=== PATIENT | female | born 1940 | race Caucasian/White ===

== ENCOUNTER 2016-09-23 12:09 | Inpatient (IN) | payer MEDICARE, BC ==
[~2016-09-23] VITALS: Ht 160 cm; Wt 57.6 kg
[~2016-09-23 12:09] MED LIST: ASPIRIN; ATIVAN; CELEBREX; CYANOCOBALAMIN; EXFORGE; GLUCOVANCE; LASIX; LIPITOR
[2016-09-23 13:00] VITALS: Ht 160 cm; Wt 57.6 kg
[2016-09-23] MEDS ORDERED: SOD CHLORIDE 0.9% 500 ML IV ONE (14:30)
[2016-09-23] MEDS ORDERED: morphine 2 MG INJ IV ONE (14:30)
[2016-09-23 14:35] LABS: ADD SCAN DIFF NO
[2016-09-23 14:37] LABS: BASOPHIL # 0.1 10^3/ul (0.0-0.1); BASOPHILS % 0.3 % (0.0-2.0); HEMATOCRIT 39.3 % (37.0-47.0); HEMOGLOBIN 12.7 g/dl (12.0-16.0); LYMPHOCYTES # 2.5 10^3/ul (0.8-2.9); LYMPHOCYTES % 10.4 % (15.0-51.0); MEAN CORPUSCULAR HEMOGLOBIN 30.8 pg (29.0-33.0); MEAN CORPUSCULAR HGB CONC 32.3 g/dl (32.0-37.0); MEAN CORPUSCULAR VOLUME 95.2 fl (82.0-101.0); MEAN PLATELET VOLUME 10.7 fl (7.4-10.4); MONOCYTE # 1.4 10^3/ul (0.3-0.9); NEUTROPHIL # 19.7 10^3/ul (1.6-7.5); NEUTROPHILS % 82.6 % (39.0-77.0); PLATELET COUNT 363 10^3/UL (140-415); RED BLOOD COUNT 4.13 10^6/ul (4.20-5.40); RED CELL DISTRIBUTION WIDTH 16.9 % (11.5-14.5); WHITE BLOOD COUNT 23.9 10^3/ul (4.8-10.8)
[2016-09-23 14:51] LABS: POTASSIUM 4.3 mmol/L (3.5-5.1)
[2016-09-23 14:53] LABS: CREATININE 1.85 mg/dl (0.44-1.00)
[2016-09-23 14:54] LABS: CALCIUM 9.2 mg/dl (8.4-10.2)
[2016-09-23] MEDS ORDERED: SODIUM CHLORIDE 0.9% 1L BAG IV* STA (15:08)
[2016-09-23] MEDS ORDERED: ACET-141 PO (15:28)
[2016-09-23] MEDS ORDERED: DONE5TAB46 PO (15:29)
[2016-09-23] MEDS ORDERED: LORA-441 PO (15:29)
[2016-09-23] MEDS ORDERED: CYAN100085 PO (15:30)
[2016-09-23] MEDS ORDERED: DOCU-159 PO (15:31)
[2016-09-23] MEDS ORDERED: FER325 PO (15:31)
[2016-09-23] MEDS ORDERED: DEXT38GE15 PO (15:33)
[2016-09-23] MEDS ORDERED: LOSA50TA6 PO (15:35)
[2016-09-23] MEDS ORDERED: MAGN400T28 PO (15:35)
[2016-09-23 15:36] LABS: INR 1.03; PROTIME 13.5 Sec (12.2-14.2); PT RATIO 1.1
[2016-09-23] MEDS ORDERED: MULT-105 PO (15:36)
[2016-09-23 15:37] LABS: PARTIAL THROMBOPLASTIN TIME 27.5 Sec (25.0-35.0)
[2016-09-23] MEDS ORDERED: MEMA5TAB PO (15:37)
[2016-09-23] MEDS ORDERED: AMLO5TAB4 PO (15:38)
[2016-09-23] MEDS ORDERED: NOVO3I SC (15:43)
[2016-09-23] MEDS ORDERED: CITR473S PO (15:47)
[2016-09-23] MEDS ORDERED: OLAN2.5T4 PO (15:49)
--- NOTE | 2016-09-23 16:04 | RADRPT ---
PROCEDURE: Chest Radiograph. CLINICAL INDICATION: Sepsis TECHNIQUE: Single frontal chest radiograph. COMPARISON: Chest radiograph 06/05/2007 FINDINGS: Heart size is within normal limits. Atherosclerotic calcifications are present. There is scarring in the left mid lung zone, stable compared to prior study . No confluent or lobar infiltrate is see n. No pleural effusion is identified. The bones are intact. IMPRESSION: 1. Stable radiographic appearance of chest compared to 06/05/2007 without evidence of acute cardiop ulmonary disease. 2. Atherosclerotic vascular disease. RPTAT: KK .Ry Coyne MD, MD Date Time Electronically viewed and signed by .Ry Coyne MD, on 09/23/2016 16:03 .B/
--- NOTE | 2016-09-23 16:08 | RADRPT ---
PROCEDURE: CT scan of the neck without contrast. CLINICAL INDICATION: Neck swelling TECHNIQUE: CT scan of the neck was performed. The patient was examined without the use of intrave nous iodinated contrast. No reported complications occurred. One or more of the following dose re duction techniques were used: Automated exposure control, Adjustment of the mA and/or kV according t o patient size, and/or use of iterative reconstruction technique. DOSE: CTDI = 10 mGy and the DLP = 269 mGy-cm. COMPARISON: None available FINDINGS: Evaluation of the soft tissues and vasculature is limited without contrast. Enlarged left submandibular gland with prominent adjacent inflammatory stranding and left submandibu lar space lymph nodes. There is thickening of the left platysma. No gross drainable fluid collecti on is seen on this limited noncontrast study. No bony erosive changes are seen to the mandible. Will ma extends to the deep soft tissues of the neck with left hypopharyngeal wall thickening. No signif icant airway narrowing is identified. 4 mm calcification at the superior medial aspect of the subman dibular gland could represent a small left submandibular gland stone. No obstructing stone is seen w ithin the expected course of the left submandibular duct. The bilateral parotid and right submandibular glands are unremarkable The thyroid gland is unremarka ble. Right maxillary sinus mucosal thickening. No layering sinus fluid is seen. The mastoids are clear. Degenerative changes of the spine. The visualized lung apices are clear. IMPRESSION: Left submandibular gland sialoadenitis with adjacent inflammatory stranding and mild narrowing of th e hypopharynx.. No gross drainable fluid collection on this limited, noncontrast exam. 4 mm calcification at the superior aspect of the gland may represent a small left submandibular ston e. No obstructing stone along the course of the left submandibular duct. RPTAT: AA .Panda Freeman MD, Date Time Electronically viewed and signed by .Panda Freeman MD, on 09/23/2016 16:07 .T/
[2016-09-23] MEDS ORDERED: CEFTRIAXONE 1 GM/50 ML (PMX) 50 ML IVPB ONE (17:00)
[2016-09-23] MEDS ORDERED: AMPICILLIN/SULB 3 GM/NS (PMX) 100 ML IVPB ONE (17:30)
[2016-09-23] MEDS ORDERED: ACETAMINOPHEN 325 MG TAB PO PRN (17:30)
[2016-09-23] MEDS ORDERED: ONDANSETRON 4 MG INJ IV PRN (17:30)
[2016-09-23 18:35] LABS: ADD UMIC YES; URINE BILIRUBIN (Dip) 2+ (NEGATIVE); URINE BLOOD (Dip) 3+ (NEGATIVE); URINE COLOR YELLOW (YELLOW); URINE GLUCOSE (Dip) NEGATIVE (NEGATIVE); URINE KETONES (Dip) 15 (NEGATIVE); URINE LEUKOCYTE ESTERASE (Dip) 2+ (NEGATIVE); URINE NITRITE (Dip) NEGATIVE (NEGATIVE); URINE TOTAL PROTEIN (Dip) 2+ (NEGATIVE); URINE UROBILINOGEN (Dip) 0.2 E.U./dL (0.1-1.0)
[2016-09-23 18:44] LABS: ICTOTEST NEGATIVE (NEGATIVE)
[2016-09-23 18:49] LABS: BACTERIA,URINE MANY; TRANSITIONAL EPI CELLS,URINE MODERATE
--- NOTE | 2016-09-23 19:35 | ERA ---
ER Documentation Chief Complaint Date/Time DATE: 09/23/16 TIME: 19:26 Chief Complaint SENT FROM SNF FOR EVAL OF LEFT MANDIBULAR ABCESS. HPI This 76-year-old female was sent from her care home facility because of submandibular swelling is causing her pain. She is accompanied by her in this case. This was noted approximately 2 or 3 days ago. Patient is also felt more tired than usual. Patient herself is a poor historian a complete history cannot be taken. Most of the information is obtained from her of the patient does answer some questions. Supposedly she has no chest pain or shortness of breath and has felt no fevers. ROS Unobtainable secondary to clinical condition Medications Home Meds Reported Medications Olanzapine* (Zyprexa*) 2.5 Mg Tablet, 2.5 MG PO QHS, #30 TAB 09/23/16 Citric Acid/Sodium Citrate (Sod Citrate-Citric Acid Soln) 473 Ml Solution, 5 ML PO BID 09/23/16 Insulin Aspart* (Novolog Insulin Pen*) 100 Unit/Ml Soln, 0 SC .SLIDING SCALE AC , EA IF BS IS LESS THAN 60, CALL MD IF 60-149=0, 150-199=1 UNITS, 200-249=2 UNITS, 250-299=3 UNITS, 300-349=4 UNITS, IF BS IS GREATER THAN 349, GIVE 5 UNITS. 09/23/16 Amlodipine Besylate* (Norvasc*) 5 Mg Tablet, 5 MG PO DAILY, TAB HOLD FOR SBP<110 DX HTN 09/23/16 Memantine* (Namenda*) 5 Mg Tablet, 5 MG PO BID, #60 TAB 09/23/16 Multivitamin with Minerals (Multivitamins with Minerals) 1 Each Tablet, 1 EACH PO DAILY, TAB 09/23/16 Magnesium Oxide* (Magnesium Oxide*) 400 Mg Tablet, 400 MG PO Q12H, TAB 09/23/16 Losartan Potassium* (Losartan Potassium*) 50 Mg Tablet, 100 MG PO DAILY, TAB HOLD FOR SBP<110DX HTN 09/23/16 Dextrose (Glucose Gel) 38 Gm Gel..gram., 38 GM PO DAILY Y for PRN FOR BS OF<70 WHILE AWAKE 09/23/16 Ferrous Sulfate* (Ferrous Sulfate*) 325 Mg Tabec, 325 MG PO DAILY, TAB 09/23/16 Docusate Sodium* (Docusate Sodium*) 100 Mg Capsule, 100 MG PO BID, #60 CAP 09/23/16 Cyanocobalamin (Vitamin B-12) (B-12) 1,000 Mcg Tablet, 1000 MCG PO QAM, TAB 09/23/16 Lorazepam* (Ativan*) 0.5 Mg Tablet, 0.5 MG PO QAM Y for ANXIETY, #30 TAB 09/23/16 Donepezil* (Aricept*) 5 Mg Tablet, 5 MG PO QPM, TAB 09/23/16 Acetaminophen* (Acetaminophen*) 500 MG Extra Strength Tablet, 500 MG PO Q8H Y for MILD PAIN LEVEL 1-3, TAB 09/23/16 Discontinued Reported Medications [Ativan] No Conflict Check 09/04/11 [Lipitor] No Conflict Check 09/04/11 [Lasix] No Conflict Check 09/04/11 [Glucovance] No Conflict Check 09/04/11 [Exforge] No Conflict Check 09/04/11 [Cyanocobalamin] No Conflict Check 09/04/11 [Celebrex] No Conflict Check 09/04/11 [Aspirin] No Conflict Check 09/04/11 Allergies Allergies: Coded Allergies: No Known Allergies (Verified Allergy, Mild, 09/23/16) PMhx/Soc History of Surgery: Yes (GALLBLADDER, HERNIA, APPENDECTOMY, ) Anesthesia Reaction: No Hx Neurological Disorder: No Hx Respiratory Disorders: No Hx Cardiac Disorders: Yes (HTN) Hx Psychiatric Problems: No Hx Miscellaneous Medical Probl: Yes (dm, dysphagia) Hx Alcohol Use: No Hx Substance Use: No Hx Tobacco Use: No Smoking Status: Unknown if ever smoked Physical Exam Vitals Vital Signs Date Time Temp Pulse Resp B/P Pulse Ox O2 Delivery O2 Flow Rate FiO2 09/23/16 13:00 98.3 76 19 146/81 100 Physical Exam Const: [] Head: Atraumatic Eyes: Normal Conjunctiva ENT: Normal External Ears, Nose and Mouth. Neck: Full range of motion..~ No meningismus. Resp: Clear to auscultation bilaterally Cardio: Regular rate and rhythm, no murmurs Abd: Soft, non tender, non distended. Normal bowel sounds Skin: No petechiae or rashes Back: No midline or flank tenderness Ext: No cyanosis, or edema Neur: Awake and alert Psych: Normal Mood and Affect Result Diagram: 09/23/16 1425 09/23/16 1407 Results 24 hrs Laboratory Tests Test 09/23/16 14:07 09/23/16 14:25 09/23/16 16:10 09/23/16 18:10 Sodium Level 147mmol/L Potassium Level 4.3mmol/L Chloride Level 108mmol/L Carbon Dioxide Level 20mmol/L Anion Gap 23 Blood Urea Nitrogen 33mg/dl Creatinine 1.85mg/dl Glucose Level 288mg/dl Calcium Level 9.2mg/dl White Blood Count 23.910^3/ul Red Blood Count 4.1310^6/ul Hemoglobin 12.7g/dl Hematocrit 39.3% Mean Corpuscular Volume 95.2fl Mean Corpuscular Hemoglobin 30.8pg Mean Corpuscular Hemoglobin Concent 32.3g/dl Red Cell Distribution Width 16.9% Platelet Count 05196^3/UL Mean Platelet Volume 10.7fl Neutrophils % 82.6% Lymphocytes % 10.4% Monocytes % 6.0% Eosinophils % 0.0% Basophils % 0.3% Nucleated Red Blood Cells % 0.0/100WBC Neutrophils # 19.710^3/ul Lymphocytes # 2.510^3/ul Monocytes # 1.410^3/ul Eosinophils # 0.010^3/ul Basophils # 0.110^3/ul Nucleated Red Blood Cells # 0.010^3/ul Prothrombin Time 13.5Sec Prothrombin Time Ratio 1.1 INR International Normalized Ratio 1.03 Activated Partial Thromboplast Time 27.5Sec Lactic Acid Level 3.2mmol/L Urine Color YELLOW Urine Clarity CLOUDY Urine pH 5.0 Urine Specific [place] >=1.030 Urine Ketones 15 Urine Nitrite NEGATIVE Urine Bilirubin 2+ Urine Ictotest NEGATIVE Urine Urobilinogen 0.2 E.U./dL Urine Leukocyte Esterase 2+ Urine Microscopic RBC 5-10/HPF Urine Microscopic WBC >200/HPF Urine Transitional Epithelial Cells MODERATE Urine Bacteria MANY Urine Yeast MANY Urine Hemoglobin 3+ Urine Glucose NEGATIVE% Urine Total Protein 2+ Test 09/23/16 18:20 Lactic Acid Level 1.5mmol/L Current Medications Medications (Trade) Dose Ordered Sig/Cassidy Route PRN Reason Start Time Stop Time Status Last Admin Dose Admin Sodium Chloride (NS) 500 ml @ 500 mls/hr Q1H ONCE IV 09/23/16 14:30 09/23/16 15:29 DC 09/23/16 15:22 Morphine Sulfate (morphine) 2 mg ONCE ONCE IV 09/23/16 14:30 09/23/16 14:31 DC Sodium Chloride 2020 ml 2,020 ml BOLUS OVER 2 HOURS STAT IV* 09/23/16 15:08 09/23/16 15:10 DC 09/23/16 15:08 Ceftriaxone Sodium 50 ml @ 100 mls/hr ONCE ONCE IVPB 09/23/16 17:00 09/23/16 17:29 DC 09/23/16 17:00 Ampicillin Sodium/ Sulbactam Sodium (Unasyn 3gm/NS (Pmx)) 100 ml @ 100 mls/hr ONCE ONCE IVPB 09/23/16 17:30 09/23/16 18:29 DC 09/23/16 19:09 Ondansetron HCl (Zofran Inj) 4 mg BRIDGE ORDER PRN IV NAUSEA AND/OR VOMITING 09/23/16 17:30 09/24/16 17:29 Acetaminophen (Tylenol Tab) 650 mg ER BRIDGE PRN PO MILD PAIN/FEVER 09/23/16 17:30 09/24/16 17:29 Procedures/MDM Patient with UTI with acute kidney injury, dehydration. Patient also has sialolithiasis which may or may not be related to the elevated white count. She was given 30 cc/kg of IV fluids. Also early started on Rocephin. She is given a small dose of morphine for her pain. This did resolve the pain and she touched the underside of her chin. Because of likely infection from this area with the fat stranding in the CAT scan she was started on Unasyn as well. Patient did not have any unstable vital signs. She did have hyperglycemia which was treated with normal saline. I spoke with Dr. Wolf who is Luke aware of the patient had already called an ENT doctor, Dr. Mathur, to consult with the patient. Patient is being admitted to the medical surgical floor. EKG interpretation: Normal sinus rhythm rate of 99, indeterminate axis, no ST or T-wave changes concerning for acute ischemia, QT of 485. campus monitor interpretation: Normal sinus rhythm without arrhythmia Chest x-ray interpretation: No acute process, no widened mediastinum, no pneumothorax, no infiltrates, no fractures. CT soft tissue neck interpretation: Sialolithiasis with 4 mm stone in soft tissue swelling with adjacent fat stranding. No drainable fluid collection Departure Diagnosis: Primary Impression: Sialolithiasis Additional Impressions: UTI (urinary tract infection) Acute kidney injury Hyperglycemia Lactic acidosis Dehydration OMER JIMENEZ DO Sep 23, 2016 19:34
[2016-09-23] MEDS ORDERED: SOD CHLORIDE 0.9% 1,000 ML IV ONE (20:00)
--- NOTE | 2016-09-23 20:21 | HP ---
Date/Time of Note Date/Time of Note DATE: 09/23/16 TIME: 20:05 Assessment/Plan VTE Prophylaxis VTE Prophylaxis Intervention: anti-embolic stocking Lines/Catheters Central line still needed: Yes Urinary Cath still in place: Yes Reason Cath still needed: urinary retention Assessment/Plan Assessment/Plan 1.Sepsis 2.Left submandibular sialitis and possible abscess;Stone in a duct. called. 3.ARF 4.Anemia of chronic disease with low iron. 5.AD& MD with anxiety. 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 15.Kyphosis 16Urinary incontinence with episodes of retention. 17.Hx of kidney cysts. Cont'd Hospitalization Reason: sepsis. HPI/ROS Admit Date/Time Admit Date/Time Recived a call from the son of the patient Saorj. His mother had developed left sided neck mass just below the mandible.Cheked the patient in am in [facility] [place],painful, newlyformed mass was palpated with discomfort of the patient. Stat hospitalization. ROS Unable to obtain any information from the patient due to of mental status. Subjective hx not possible: pt non-verbal, pt critical Constitutional: chills, disoriented, fatigue, febrile, nausea, poor po, weight change, No diaphoresis, No improved, No no complaints, No other PMH/Family/Social Past Medical History Medical History: angina, colitis, congestive heart failure, coronary artery disease, diabetes, diverticulitis, gallstones, GERD, high cholesterol, hypertension, renal disease, urinary tract infection Family History Significant Family History: heart disease, diabetes, hypertension, renal disease Social History Alcohol Use: none Smoking Status: Never smoker Drug Use: none Exam/Review of Systems Vital Signs Vitals Vital Signs Date Time Temp Pulse Resp B/P Pulse Ox O2 Delivery O2 Flow Rate FiO2 09/23/16 13:00 98.3 76 19 146/81 100 Exam Constitutional: frail, non-verbal, other (lethargic, weak, arousable in pain and disstress.), No alert, No distress, No oriented, No well developed Psych: confusion, depression, No anxiety, No nl mood/affect, No no complaints, No other, No suicidal Head: No atraumatic, No hematomas, No lacerations, No normocephalic, No other Eyes: EOMI, PERRL, No fundi, disc, No icteric, No nl conjunctiva, No nl lids, No nl sclera, No other ENMT: nl external ears & nose, nl lips & teeth, nl nasal mucosa & septum, other (Left submandibular mass bigger than chicken egg witout fluctuations or redness. No right sided similar lesion.) Neck: bruits, nuchal rigidity, No jvd, No masses, No non-tender, No other, No supple, No thyromegaly Respiratory: normal air movement, No clear to auscultation, No congested cough, No crackles/rales, No diminished breath sounds, No intercostal retraction, No labored breathing, No other, No respirations, No tactile fremitus, No wheezing Cardiovascular: bruits, murmurs/extra sounds, systolic murmur, No S3, No S4, No diastolic murmur, No edema, No gallop, No irregular rhythm, No jugular venous distention (JVD), No nl pulses, No other, No regular rate and rhythm, No rub Gastrointestinal: bowel sounds, nl liver, spleen, soft, No ascites, No distended, No firm, No hepatomegaly, No mass, No non-tender, No other, No rebound or guarding, No splenomegaly, No surgical scars, No tender Genitourinary - Female: No CMT, No CVA tenderness, No nl adnexae, No nl external genitalia, No other, No uterus Musculoskeletal: joint tenderness, other (unable to get up or move without help.), No muscle tone, No muscle weakness, No nl extremities to inspection, No nl gait and stance, No range of motion, No spine non-tender, No swelling Extremities: No calf tenderness, No clubbing, No cyanosis, No edema, No normal pulses, No other, No palpable cord, No pitting pedal edema, No tenderness Neurological: CERTIFIED ORTHOTIST/PEDORTHIST II-XII intact, confused, lethargic, No DTR's symmetric, No focal weakness, No nl mental status, No nl speech, No nl strength, No numbness, No other, No reflexes, No unresponsive Skin: No diaphoresis, No ecchymosis, No laceration, No nl turgor, No other, No puncture, No rash or lesions Lymph: No enlarged, No nl lymph nodes, No nontender, No other Labs Result Diagram: 09/23/16 1425 09/23/16 1407 Medications Medications Current Medications Sodium Chloride (NS) 1,000 ml @ 1,000 mls/hr Q1H ONCE IV ; Start 09/23/16 at 20 :00; Stop 09/23/16 at 20:59 JR DEAN MD Sep 23, 2016 20:16
[2016-09-23] MEDS ORDERED: LIDOCAINE 1% (MDV) 20 ML INJ SC ONE ×2 (20:30→21:00)
[2016-09-23] MEDS ORDERED: SOD CHLORIDE 0.9% 2,020 ML IV ONE (21:00)
[2016-09-23 21:23] LABS: IRON 20 ug/dl (35-150)
[2016-09-23 21:32] LABS: TOTAL IRON BINDING CAPACITY 168 ug/dl (241-421)
[2016-09-23 21:53] LABS: THYROID STIMULATING HORMONE 1.2 MIU/L (0.465-4.680)
[2016-09-23] MEDS: CLINDAMYCIN 300 MG/D5W (PMX) 50 ML IVPB SCH (21:56)
[2016-09-23] MEDS: AMPICILLIN/SULB 3 GM/NS (PMX) 100 ML IVPB SCH (21:57)
[2016-09-23] MEDS: ACETAMINOPHEN 325 MG SUPP PR SCH (22:00)
[2016-09-23 22:30] VITALS: TEMP 98.9
[2016-09-24 00:45] VITALS: BP 152/69; PULSE 84; RESP 20
[2016-09-24] MEDS: DEXTROSE 5%-0.9% NACL 1,000 ML IV SCH ×2 (01:15→15:07)
[2016-09-24] MEDS: INSULIN GLARGINE [LANtus] 3 ML PEN SC SCH ×2 (01:28→22:14)
[2016-09-24] MEDS ORDERED: GLUCAGON 1 MG INJ IM PRN (01:30)
[2016-09-24] MEDS ORDERED: DEXTROSE 50% 50 ML SYRINGE IV PRN ×2 (01:30)
[2016-09-24] MEDS ORDERED: GLUCOSE GEL 15 GRAM TUBE PO PRN ×2 (01:30)
[2016-09-24] MEDS ORDERED: GLUCOSE GEL 15 GRAM TUBE BUCCAL PRN (01:30)
[2016-09-24] MEDS ORDERED: ACCU-CHEK XX SCH (02:00)
[2016-09-24] MEDS: ACCU-CHEK XX SCH (02:00)
[2016-09-24] MEDS: ACETAMINOPHEN 325 MG SUPP PR SCH ×3 (05:57→23:17)
[2016-09-24 06:03] LABS: ADD SCAN DIFF NO; BASOPHIL # 0.1 10^3/ul (0.0-0.1); BASOPHILS % 0.4 % (0.0-2.0); EOSINOPHILS # 0.1 10^3/ul (0.0-0.5); EOSINOPHILS % 0.7 % (0.0-7.0); HEMATOCRIT 34.2 % (37.0-47.0); HEMOGLOBIN 10.8 g/dl (12.0-16.0); LYMPHOCYTES # 2.2 10^3/ul (0.8-2.9); MEAN CORPUSCULAR HEMOGLOBIN 30.3 pg (29.0-33.0); MEAN CORPUSCULAR HGB CONC 31.6 g/dl (32.0-37.0); MEAN CORPUSCULAR VOLUME 95.8 fl (82.0-101.0); MEAN PLATELET VOLUME 11.6 fl (7.4-10.4); MONOCYTE # 1.2 10^3/ul (0.3-0.9); MONOCYTES % 6.2 % (0.0-11.0); NEUTROPHIL # 16.2 10^3/ul (1.6-7.5); PLATELET COUNT 293 10^3/UL (140-415); RED BLOOD COUNT 3.57 10^6/ul (4.20-5.40); RED CELL DISTRIBUTION WIDTH 17.2 % (11.5-14.5)
[2016-09-24] MEDS: CLINDAMYCIN 300 MG/D5W (PMX) 50 ML IVPB SCH ×3 (06:17→23:17)
[2016-09-24 06:25] LABS: CREATININE 1.34 mg/dl (0.44-1.00)
[2016-09-24 08:16] VITALS: BP 134/64; RESP 17
--- NOTE | 2016-09-24 08:16 | PN ---
Date/Time of Note Date/Time of Note DATE: 09/24/16 TIME: 08:11 Assessment/Plan VTE Prophylaxis VTE Prophylaxis Intervention: anti-embolic stocking VTE Contraindication Reason: peripheral vascular disease Lines/Catheters IV Catheter Type (from Nrsg): Peripheral IV Urinary Cath still in place: Yes Reason Cath still needed: urinary retention Assessment/Plan Assessment/Plan 1.Sepsis- improving. 2.Left submandibular sialitis and possible abscess;Stone in a duct. called. 3.ARF 4.Anemia of chronic disease with low iron. 5.AD& MD with anxiety. 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 15.Kyphosis 16Urinary incontinence with episodes of retention. 17.Hx of kidney cysts. Subjective 24 Hr Interval Summary Free Text/Dictation It is painful.While palpating left submandibular mass. Subjective hx not possible: pt critical status Constitutional: disoriented, poor po, requiring O2, No chills, No diaphoresis, No febrile, No improved, No no complaints, No other, No requiring IVF Eyes: visual change, No discharge, No no complaints, No other, No pain, No redness ENT: congestion Respiratory: cough, shortness of breath, No no complaints, No other, No pain, No pleuritic pain, No sputum, No wheezing Cardiovascular: chest pain, lightheadedness, orthopenea, palpitations, No edema, No no complaints, No other, No paroxysmal nocturnal dyspnea Exam/Review of Systems Vital Signs Vitals Vital Signs Date Time Temp Pulse Resp B/P Pulse Ox O2 Delivery O2 Flow Rate FiO2 09/24/16 00:45 98.8 84 20 152/69 97 Room Air Intake and Output 09/23/16 09/23/16 09/24/16 15:00 23:00 07:00 Intake Total 1100 ml 50 ml Output Total 400 ml Balance 1100 ml -350 ml Exam Constitutional: distress, frail, other (Unable to communicate due to of lethargy. Able to answer some questions.), No alert, No non-verbal, No obese, No oriented, No well developed Psych: anxiety, confusion, depression, No nl mood/affect, No no complaints, No other, No suicidal Head: atraumatic, normocephalic, No hematomas, No lacerations, No other Eyes: EOMI, PERRL, No fundi, disc, No icteric, No nl conjunctiva, No nl lids, No nl sclera, No other ENMT: mucosa pink and moist (pale.), nl external ears & nose, nl lips & teeth, nl nasal mucosa & septum, other (mass unter the left side of mandible appears alightly smoller.Still painful.), tympanic membranes, No intubated Neck: bruits, jvd, nuchal rigidity, No masses, No non-tender, No other, No supple, No thyromegaly Respiratory: congested cough, diminished breath sounds, labored breathing, No clear to auscultation, No crackles/rales, No intercostal retraction, No normal air movement, No other, No respirations, No tactile fremitus, No wheezing Cardiovascular: bruits, edema, systolic murmur Gastrointestinal: bowel sounds, soft, No ascites, No distended, No firm, No hepatomegaly, No mass, No nl liver, spleen, No non-tender, No other, No rebound or guarding, No splenomegaly, No surgical scars, No tender Genitourinary - Female: No CMT, No CVA tenderness, No nl adnexae, No nl external genitalia, No other, No uterus Musculoskeletal: joint tenderness, muscle tone, muscle weakness Skin: diaphoresis Results Result Diagram: 09/24/1644109/24/162 Results 24 hrs Laboratory Tests Test 09/23/16 14:07 09/23/16 14:25 09/23/16 16:10 09/23/16 16:45 Sodium Level 147 H Potassium Level 4.3 Chloride Level 108 Carbon Dioxide Level 20 L Anion Gap 23 H Blood Urea Nitrogen 33 H Creatinine 1.85 H Glucose Level 288 H Calcium Level 9.2 White Blood Count 23.9 H Red Blood Count 4.13 L Hemoglobin 12.7 Hematocrit 39.3 Mean Corpuscular Volume 95.2 Mean Corpuscular Hemoglobin 30.8 Mean Corpuscular Hemoglobin Concent 32.3 Red Cell Distribution Width 16.9 H Platelet Count 363 Mean Platelet Volume 10.7 H Neutrophils % 82.6 H Lymphocytes % 10.4 L Monocytes % 6.0 Eosinophils % 0.0 Basophils % 0.3 Nucleated Red Blood Cells % 0.0 Neutrophils # 19.7 H Lymphocytes # 2.5 Monocytes # 1.4 H Eosinophils # 0.0 Basophils # 0.1 Nucleated Red Blood Cells # 0.0 Prothrombin Time 13.5 Prothrombin Time Ratio 1.1 INR International Normalized Ratio 1.03 Activated Partial Thromboplast Time 27.5 Lactic Acid Level 3.2 H Magnesium Level 2.0 Iron Level 20 L Total Iron Binding Capacity 168 L Percent Iron Saturation 12 L Thyroid Stimulating Hormone (TSH) 1.200 Test 09/23/16 18:10 09/23/16 18:20 09/23/16 19:40 09/23/16 20:49 Urine Color YELLOW Urine Clarity CLOUDY Urine pH 5.0 Urine Specific [place] >=1.030 H Urine Ketones 15 Urine Nitrite NEGATIVE Urine Bilirubin 2+ H Urine Ictotest NEGATIVE Urine Urobilinogen 0.2 E.U./dL Urine Leukocyte Esterase 2+ H Urine Microscopic RBC 5-10 Urine Microscopic WBC >200 Urine Transitional Epithelial Cells MODERATE Urine Bacteria MANY Urine Yeast MANY Urine Hemoglobin 3+ H Urine Glucose NEGATIVE Urine Total Protein 2+ H Lactic Acid Level 1.5 1.2 1.0 Test 09/23/16 23:37 09/24/16 02:30 09/24/16 04:42 Bedside Glucose 245 H 259 H White Blood Count 20.0 H Red Blood Count 3.57 L Hemoglobin 10.8 L Hematocrit 34.2 L Mean Corpuscular Volume 95.8 Mean Corpuscular Hemoglobin 30.3 Mean Corpuscular Hemoglobin Concent 31.6 L Red Cell Distribution Width 17.2 H Platelet Count 293 Mean Platelet Volume 11.6 H Neutrophils % 81.0 H Lymphocytes % 11.0 L Monocytes % 6.2 Eosinophils % 0.7 Basophils % 0.4 Nucleated Red Blood Cells % 0.0 Neutrophils # 16.2 H Lymphocytes # 2.2 Monocytes # 1.2 H Eosinophils # 0.1 Basophils # 0.1 Nucleated Red Blood Cells # 0.0 Sodium Level 147 H Potassium Level 4.0 Chloride Level 116 H Carbon Dioxide Level 20 L Anion Gap 15 # Blood Urea Nitrogen 28 H Creatinine 1.34 H Glucose Level 262 H Lactic Acid Level 1.2 Calcium Level 8.0 L Medications Medications Current Medications Ampicillin Sodium/ Sulbactam Sodium 100 ml @ 100 mls/hr Q12 IVPB ; Start at 22:00 Clindamycin HCl/ Dextrose (Cleocin 300 Mg/ D5W (Pmx)) 50 ml @ 100 mls/hr Q8 IVPB Last administered on 09/24/16 06:17; Admin Dose 100 MLS/HR; Start at 22:00 Acetaminophen (Tylenol Supp) 325 mg Q8 DE Last administered on 09/24/16 05:57 ; Admin Dose 325 MG; Start 09/23/16 at 22:00 Insulin Glargine 4 unit 4 unit HS SC Last administered on 09/24/16 01:28; Admin Dose 4 UNIT; Start 09/24/16 at 01:00 Dextrose/Sodium Chloride (D5-NS) 1,000 ml @ 70 mls/hr [id number] IV Last administered on 09/24/16 01:15; Admin Dose 70 MLS/HR; Start 09/24/16 at 01:00 Diagnostic Test (Pha) (Accu-Chek) 1 ea 02 XX ; Start 09/24/16 at 02:00 Miscellaneous Information 1 ea NOTE XX ; Start 09/24/16 at 01:30 Glucose (Glutose) 15 gm Q15M PRN PO DECREASED GLUCOSE; Start 09/24/16 at 01:30 Glucose (Glutose) 22.5 gm Q15M PRN PO DECREASED GLUCOSE; Start 09/24/16 at 01: 30 Dextrose (D50w Syringe) 25 ml Q15M PRN IV DECREASED GLUCOSE; Start 09/24/16 at 01:30 Dextrose (D50w Syringe) 50 ml Q15M PRN IV DECREASED GLUCOSE; Start 09/24/16 at 01:30 Glucagon (Glucagen) 1 mg Q15M PRN IM DECREASED GLUCOSE; Start 09/24/16 at 01:30 Glucose (Glutose) 15 gm Q15M PRN BUCCAL DECREASED GLUCOSE; Start 09/24/16 at 01 :30 JR DEAN MD Sep 24, 2016 08:16
[2016-09-24] MEDS: INSULIN ASPART [NOVOLOG] 3 ML PEN SC SCH ×4 (08:52→20:25)
[2016-09-24] MEDS: ENOXAPARIN 60 MG/0.6 ML SYG SC SCH (09:41)
[2016-09-24 09:48] LABS: ALBUMIN 2.4 g/dl (3.3-4.9)
[2016-09-24 09:49] LABS: POTASSIUM 3.8 mmol/L (3.5-5.1)
[2016-09-24 09:51] LABS: ALBUMIN/GLOBULIN RATIO 0.77; BILIRUBIN,INDIRECT 0.1 mg/dl (0-1.1); BILIRUBIN,TOTAL 0.1 mg/dl (0.2-1.3); CREATININE 1.36 mg/dl (0.44-1.00); TOTAL PROTEIN 5.5 g/dl (6.1-8.1)
[2016-09-24 09:52] LABS: CALCIUM 7.9 mg/dl (8.4-10.2)
[2016-09-24] MEDS: PANTOPRAZOLE 40 MG INJ IV SCH (10:09)
[2016-09-24] MEDS: AMPICILLIN/SULB 3 GM/NS (PMX) 100 ML IVPB SCH ×2 (10:36→22:12)
[2016-09-24] MEDS: SOD FERRIC GLUC COMPLX 125 MG in SOD CHLORIDE 0.9% 100 ML IVPB SCH (11:42)
[2016-09-24 20:05] VITALS: BP 176/84; RESP 19
[2016-09-24] MEDS ORDERED: METOPROLOL 25 MG TAB PO SCH (21:00)
[2016-09-24] MEDS: METOPROLOL 25 MG TAB PO SCH (21:00)
[2016-09-24] MEDS ORDERED: CLONIDINE 0.2 MG/24 HR PATCH TRANSDERM SCH (21:00)
[2016-09-24] MEDS ORDERED: LORAZEPAM 2 MG INJ IV PRN (21:00)
[2016-09-24] MEDS: AMLODIPINE 5 MG TAB PO SCH (21:00)
[2016-09-24] MEDS: CLONIDINE 0.2 MG/24 HR PATCH TRANSDERM SCH (22:09)
[2016-09-25] VITALS (10 sets, daily range): BP systolic 145–163; BP diastolic 68–82; PULSE 69–95; RESP 18–24
[2016-09-25] MEDS: hydrALAzine 20 MG INJ IV PRN ×2 (00:30→18:18)
[2016-09-25] MEDS: ACCU-CHEK XX SCH (01:57)
[2016-09-25] MEDS ORDERED: LORAZEPAM 2 MG INJ IV PRN (03:30)
[2016-09-25] MEDS: DEXTROSE 5%-0.9% NACL 1,000 ML IV SCH (03:33)
[2016-09-25] MEDS: PANTOPRAZOLE 40 MG INJ IV SCH (05:21)
[2016-09-25] MEDS: ACETAMINOPHEN 325 MG SUPP PR SCH ×3 (06:00→21:53)
[2016-09-25 06:01] LABS: ADD SCAN DIFF NO
[2016-09-25 06:08] LABS: ABNORMAL IP MESSAGE 1; BASOPHIL # 0.1 10^3/ul (0.0-0.1); BASOPHILS % 0.4 % (0.0-2.0); EOSINOPHILS # 0.3 10^3/ul (0.0-0.5); EOSINOPHILS % 1.9 % (0.0-7.0); HEMATOCRIT 33.2 % (37.0-47.0); HEMOGLOBIN 10.9 g/dl (12.0-16.0); LYMPHOCYTES % 17.3 % (15.0-51.0); MEAN CORPUSCULAR HEMOGLOBIN 31.1 pg (29.0-33.0); MEAN CORPUSCULAR HGB CONC 32.8 g/dl (32.0-37.0); MEAN CORPUSCULAR VOLUME 94.6 fl (82.0-101.0); MEAN PLATELET VOLUME 12.5 fl (7.4-10.4); MONOCYTES % 5.7 % (0.0-11.0); NEUTROPHIL # 12.6 10^3/ul (1.6-7.5); NEUTROPHILS % 74.1 % (39.0-77.0); RED BLOOD COUNT 3.51 10^6/ul (4.20-5.40); RED CELL DISTRIBUTION WIDTH 16.7 % (11.5-14.5); WHITE BLOOD COUNT 17.1 10^3/ul (4.8-10.8)
[2016-09-25] MEDS: CLINDAMYCIN 300 MG/D5W (PMX) 50 ML IVPB SCH ×3 (06:49→21:49)
[2016-09-25] MEDS: INSULIN ASPART [NOVOLOG] 3 ML PEN SC SCH ×4 (08:00→21:00)
--- NOTE | 2016-09-25 08:47 | CONS ---
DATE OF ADMISSION: 09/23/2016 DATE OF CONSULTATION: 09/25/2016 REFERRING PHYSICIAN: Dr. Poon TYPE OF CONSULTATION: Head and neck surgery. HISTORY OF PRESENT ILLNESS: The patient is a 76-year-old female with dementia brought into the hosp ital with a several-day history of left-sided submandibular gland edema. The patient does have a hi story of diabetes. The patient was placed on Unasyn and clindamycin and consultations obtained. CT scan demonstrated inflammatory changes to the left submandibular gland without obvious abscess form ation and a 4 mm ductal stone. PAST MEDICAL HISTORY: Unobtainable. PAST SURGICAL HISTORY: Unobtainable. MEDICATIONS: Unasyn and clindamycin. ALLERGIES: UNKNOWN. REVIEW OF SYSTEMS: Unobtainable secondary to patient's dementia status. PHYSICAL EXAMINATION: VITAL SIGNS: Temperature 98, pulse 100, respirations 20, blood pressure 130/70. GENERAL: Elderly female in no acute distress with dementia. HEENT: Head: Atraumatic, normocephalic. ENT: Tympanic membranes are clear. Anterior ____ clear. Oral cavity/oropharynx demonstrates significant left lower mouth inflammation. NECK: Demonstrating left neck edema with no obvious area of fluctuance. There is bilateral cervica l lymphadenopathy. NEUROLOGIC: Cranial nerves II through XII grossly intact. SKIN: No facial rashes, edema, or lesions. LYMPHATIC: As noted above. ENDOCRINE: No thyroid enlargement. EXTREMITIES: No clubbing, cyanosis, or edema. ASSESSMENT AND PLAN: Left submandibular gland phlegmon with sialolithiasis and sialadenitis. RECOMMENDATIONS: 1. Continue clindamycin and Unasyn. 2. Suggest infectious disease consultation. 3. Hydration. 4. Better oral hygiene with antibiotic mouthwash or swab as by nursing. 5. Although the patient is diabetic, a short burst of prednisone or Decadron may be of some benefit . The case will be discussed with Dr. Poon or his staff. Please update me after 48 to 72 hours of such management. Dictated By: RICKI ATKINSON/NTS Conf#: [id number] DID#: [id number]
[2016-09-25 09:40] LABS: PLATELET COUNT 334 10^3/UL (140-415)
[2016-09-25] MEDS: METOPROLOL 25 MG TAB PO SCH ×2 (10:09→21:00)
[2016-09-25] MEDS: AMPICILLIN/SULB 3 GM/NS (PMX) 100 ML IVPB SCH (10:10)
[2016-09-25] MEDS: CYANOCOBALAMIN 1000 MCG INJ IM SCH (10:10)
[2016-09-25] MEDS: AMLODIPINE 5 MG TAB PO SCH ×2 (10:10→21:00)
[2016-09-25] MEDS: ENOXAPARIN 60 MG/0.6 ML SYG SC SCH (11:04)
[2016-09-25] MEDS ORDERED: VANCOMYCIN 1 GM (PMX) 250 ML IVPB SCH (11:30)
[2016-09-25] MEDS ORDERED: VANCOMYCIN IV PER PHARMACY XX SCH (11:30)
[2016-09-25] MEDS: SOD FERRIC GLUC COMPLX 125 MG in SOD CHLORIDE 0.9% 100 ML IVPB SCH (11:40)
[2016-09-25] MEDS ORDERED: VANCOMYCIN 1.25 GM in SOD CHLORIDE 0.9% 250 ML IVPB ONE (13:00)
--- NOTE | 2016-09-25 14:22 | CONS ---
Date/Time of Note Date/Time of Note DATE: 09/25/16 TIME: 14:13 Assessment/Plan Assessment/Plan Chief Complaint/Hosp Course H/o CAD/angina: unknown details. Unknown EF. Pt is nonverbal and cannot provide history H/o PAD: unknown details ?Aortic stenosis: no significant murmur by exam. Will check echo HTN: BP has been elevated but will not be too aggressive with stap aureus bacteremia and potential for decompensation Acute renal failure vs CKD: Cr improving Staph aureus bacteremia: ?from sialoadenitis. No abscess seen on CT but noncontrast Sialoadenitis with obstructive stone Dementia DM Problems: Additional Assessment/Plan -add ASA with PAD/CAD -consider low dose lipitor though with her overall condition, unclear benefit -continue metoprolol, amlodipine, clonidine patch -consider medication adjustment if BP still elevated tomorrow -f/u final cultures -echo Consultation Date/Type/Reason Date of Consultation: Sep 25, 2016 Type of Consultation: Cardiology Reason for Consultation HTN, PAD Referring Provider: JR DEAN MD Hx of Present Illness 76 yo F with severe dementia, CAD/angina (unknown details), PAD, DM, HTN, CKD, who presented from her SNF with facial swelling/pain and was found to left sialoadenitis with obstructing stone and infection. She was also noted to have 1 /2 blood cultures positive for staph aureus so far. The pt is nonverbal and unable to provide history. unable to obtain due to pt condition Constitutional: disoriented, poor po, requiring O2, No chills, No diaphoresis, No febrile, No improved, No no complaints, No other, No requiring IVF Eyes: visual change, No discharge, No no complaints, No other, No pain, No redness ENT: congestion Respiratory: cough, shortness of breath, No no complaints, No other, No pain, No pleuritic pain, No sputum, No wheezing Cardiovascular: chest pain, lightheadedness, orthopenea, palpitations, No edema, No no complaints, No other, No paroxysmal nocturnal dyspnea Psychological: anxiety, confusion, depression, No nl mood/affect, No no complaints, No other, No suicidal Past Medical History Medical History: angina, colitis, congestive heart failure, coronary artery disease, diabetes, diverticulitis, gallstones, GERD, high cholesterol, hypertension, renal disease, urinary tract infection Social History Alcohol Use: none Smoking Status: Never smoker Drug Use: none Exam/Review of Systems Vital Signs Vitals Vital Signs Date Time Temp Pulse Resp B/P Pulse Ox O2 Delivery O2 Flow Rate FiO2 09/25/16 08:40 97.7 90 24 163/78 99 09/25/16 06:00 Room Air Intake and Output 09/24/16 09/24/16 09/25/16 15:00 23:00 07:00 Intake Total 210 ml 150 ml 780 ml Output Total 100 ml 700 ml Balance 210 ml 50 ml 80 ml Exam Constitutional: No alert, No oriented Head: atraumatic, normocephalic Neck: No jvd Respiratory: clear to auscultation, No crackles/rales Cardiovascular: regular rate and rhythm, No edema, No systolic murmur Gastrointestinal: soft, No distended Neurological: No nl mental status, No nl speech Skin: rash or lesions Results EKG: Sinus, no ST changes Result Diagram: 09/25/16 0845 09/24/16 0442 Results 24 hrs Laboratory Tests Test 09/24/16 17:22 09/24/16 20:24 09/24/16 22:13 09/25/16 08:22 Bedside Glucose 139 134 124 122 Test 09/25/16 08:45 09/25/16 11:47 White Blood Count 17.1 H Red Blood Count 3.51 L Hemoglobin 10.9 L Hematocrit 33.2 L Mean Corpuscular Volume 94.6 Mean Corpuscular Hemoglobin 31.1 Mean Corpuscular Hemoglobin Concent 32.8 Red Cell Distribution Width 16.7 H Platelet Count 334 Mean Platelet Volume 12.5 H Neutrophils % 74.1 Lymphocytes % 17.3 Monocytes % 5.7 Eosinophils % 1.9 Basophils % 0.4 Nucleated Red Blood Cells % 0.0 Neutrophils # 12.6 H Lymphocytes # 3.0 H Monocytes # 1.0 H Eosinophils # 0.3 Basophils # 0.1 Nucleated Red Blood Cells # 0.0 Bedside Glucose 180 Medications Medications Current Medications Clindamycin HCl/ Dextrose (Cleocin 300 Mg/ D5W (Pmx)) 50 ml @ 100 mls/hr Q8 IVPB Last administered on 09/25/16t 06:49; Admin Dose 100 MLS/HR; Start at 22:00 Acetaminophen (Tylenol Supp) 325 mg Q8 [place] Last administered on 09/24/16 23:17 ; Admin Dose 325 MG; Start 09/23/16 at 22:00 Insulin Glargine 4 unit 4 unit HS SC Last administered on 09/24/16 22:14; Admin Dose 4 UNIT; Start 09/24/16 at 01:00 Dextrose/Sodium Chloride (D5-NS) 1,000 ml @ 70 mls/hr [id number] IV Last administered on 09/25/16 03:33; Admin Dose 70 MLS/HR; Start 09/24/16 at 01:00 Diagnostic Test (Pha) (Accu-Chek) 1 ea 02 XX ; Start 09/24/16 at 02:00 Miscellaneous Information 1 ea NOTE XX ; Start 09/24/16 at 01:30 Glucose (Glutose) 15 gm Q15M PRN PO DECREASED GLUCOSE; Start 09/24/16 at 01:30 Glucose (Glutose) 22.5 gm Q15M PRN PO DECREASED GLUCOSE; Start 09/24/16 at 01: 30 Dextrose (D50w Syringe) 25 ml Q15M PRN IV DECREASED GLUCOSE; Start 09/24/16 at 01:30 Dextrose (D50w Syringe) 50 ml Q15M PRN IV DECREASED GLUCOSE; Start 09/24/16 at 01:30 Glucagon (Glucagen) 1 mg Q15M PRN IM DECREASED GLUCOSE; Start 09/24/16 at 01:30 Glucose 15 gm 15 gm Q15M PRN BUCCAL DECREASED GLUCOSE; Start 09/24/16 at 01:30 Ferric Sodium Gluconate Complex/ Sodium Chloride (Ferrlecit/NS) 110 ml @ 110 mls/hr Q24H IVPB Last administered on 09/25/16 11:40; Admin Dose 110 MLS/HR; Start 09/24/16 at 10:00; Stop 09/28/16 at 10:59 Pantoprazole (Protonix Iv) 40 mg DAILY@06 IV Last administered on 09/25/16 05: 21; Admin Dose 40 MG; Start 09/24/16 at 09:00 Enoxaparin Sodium (Lovenox) 60 mg Q24H SC Last administered on 09/25/16 11:04 ; Admin Dose 60 MG; Start 09/24/16 at 09:00 Lorazepam (Ativan) 0.5 mg Q8H PRN IV ANXIETY Last administered on 09/24/16 21: 37; Admin Dose 0.5 MG; Start 09/24/16 at 21:00 Amlodipine Besylate (Norvasc) 5 mg BID PO Last administered on 09/25/16 10:10 ; Admin Dose 5 MG; Start 09/24/16 at 21:00 Hydralazine HCl (Apresoline) 5 mg Q6H PRN IV ELEVATED BLOOD PRESSURE Last administered on 09/25/16 00:30; Admin Dose 5 MG; Start 09/24/16 at 21:00 Cyanocobalamin (Vitamin B12 Inj) 1,000 mcg DAILY IM Last administered on 10:10; Admin Dose 1,000 MCG; Start 09/25/16 at 09:00; Stop 09/29/16 at 09: 01 Clonidine HCl (Catapres-Tts 2 Patch) 1 patch Q7D TRANSDERM Last administered on 09/24/16 22:09; Admin Dose 1 PATCH; Start 09/24/16 at 21:00 Metoprolol Tartrate (Lopressor) 25 mg BID PO Last administered on 09/25/16 10: 09; Admin Dose 25 MG; Start 09/24/16 at 21:00 Lorazepam 1 mg 1 mg Q8H PRN IV ANXIETY Last administered on 09/25/16 04:00; Admin Dose 1 MG; Start 09/25/16 at 03:30 Vancomycin HCl 1.25 gm/Sodium Chloride 250 ml @ 83.333 mls/ hr ONCE ONCE IVPB ; Start 09/25/16 at 13:00; Stop 09/25/16 at 15:59 Vancomycin HCl (Vancocin) 100 ml @ 100 mls/hr Q24H IVPB ; Start 09/26/16 at 13: 00 MINDA HATHAWAY Sep 25, 2016 14:22
[2016-09-25] MEDS: FLUCONAZOLE 200 MG TAB PO SCH (16:37)
[2016-09-25] MEDS: SOD CHLORIDE 0.9% 1,000 ML IV SCH (16:41)
[2016-09-25] MEDS: INSULIN GLARGINE [LANtus] 3 ML PEN SC SCH (21:53)
--- NOTE | 2016-09-25 22:53 | PN ---
Date/Time of Note Date/Time of Note DATE: 09/25/16 TIME: 22:50 Assessment/Plan VTE Prophylaxis VTE Prophylaxis Intervention: ambulation, anti-embolic stocking, LMWH VTE Contraindication Reason: peripheral vascular disease Lines/Catheters IV Catheter Type (from Nrsg): Peripheral IV Central line still needed: No Urinary Cath still in place: Yes Reason Cath still needed: urinary retention Assessment/Plan Assessment/Plan 1.Sepsis- MRSA positive blood culture; improving. 2.Left submandibular sialitis withpainful gland.Stone in a duct. Ent f/u. 3.ARF- improved. 4.Anemia of chronic disease with low iron-continue supplementation. 5.AD& MD with anxiety. 6.DM type 2-better controlled. 7.Weight loss 8.urinary incontinence 9.Cholelithiasis 10.PAD with near critical aortic stenosis 11.Dehydration 12.DEANA of multiple joints and osteoporosis 13.S/P recurrent falls 14.Progressive deterioration of condition. 15.Kyphosis 16Urinary incontinence with episodes of retention. 17.Hx of kidney cysts. 18.On and off with good orientation and communication. Cont'd Hospitalization Reason: sialitis. Subjective 24 Hr Interval Summary Free Text/Dictation Sleeping. Subjective hx not possible: other (unable to communicate.) Exam/Review of Systems Vital Signs Vitals Vital Signs Date Time Temp Pulse Resp B/P Pulse Ox O2 Delivery O2 Flow Rate FiO2 09/25/16 16:00 98.3 91 20 159/75 99 Room Air Intake and Output 09/24/16 09/24/16 09/25/16 15:00 23:00 07:00 Intake Total 210 ml 150 ml 780 ml Output Total 100 ml 700 ml Balance 210 ml 50 ml 80 ml Exam Constitutional: other (sleepping.), No alert, No distress, No frail, No non-verbal, No obese, No oriented, No well developed Eyes: PERRL, nl conjunctiva, nl lids, No EOMI, No fundi, disc, No icteric, No nl sclera, No other ENMT: other (left submandibular mass appears harder without causing signuficant dyscomfort.She tolerated the palpation by opening eyes.On my question is it painful she said no.) Neck: bruits, jvd, No masses, No non-tender, No nuchal rigidity, No other, No supple, No thyromegaly Respiratory: No clear to auscultation, No congested cough, No crackles/rales, No diminished breath sounds, No intercostal retraction, No labored breathing, No normal air movement, No other, No respirations, No tactile fremitus, No wheezing Cardiovascular: bruits, systolic murmur, No S3, No S4, No diastolic murmur, No edema, No gallop, No irregular rhythm, No jugular venous distention (JVD), No murmurs/extra sounds, No nl pulses, No other, No regular rate and rhythm, No rub Gastrointestinal: bowel sounds, nl liver, spleen, soft, No ascites, No distended, No firm, No hepatomegaly, No mass, No non-tender, No other, No rebound or guarding, No splenomegaly, No surgical scars, No tender Results Result Diagram: 09/25/16 0845 09/24/16 0442 Results 24 hrs Laboratory Tests Test 09/25/16 08:22 09/25/16 08:45 09/25/16 11:47 09/25/16 16:46 Bedside Glucose 122 180 192 White Blood Count 17.1 H Red Blood Count 3.51 L Hemoglobin 10.9 L Hematocrit 33.2 L Mean Corpuscular Volume 94.6 Mean Corpuscular Hemoglobin 31.1 Mean Corpuscular Hemoglobin Concent 32.8 Red Cell Distribution Width 16.7 H Platelet Count 334 Mean Platelet Volume 12.5 H Neutrophils % 74.1 Lymphocytes % 17.3 Monocytes % 5.7 Eosinophils % 1.9 Basophils % 0.4 Nucleated Red Blood Cells % 0.0 Neutrophils # 12.6 H Lymphocytes # 3.0 H Monocytes # 1.0 H Eosinophils # 0.3 Basophils # 0.1 Nucleated Red Blood Cells # 0.0 Test 09/25/16 21:48 Bedside Glucose 162 Medications Medications Current Medications Clindamycin HCl/ Dextrose (Cleocin 300 Mg/ D5W (Pmx)) 50 ml @ 100 mls/hr Q8 IVPB Last administered on 09/25/16 21:49; Admin Dose 100 MLS/HR; Start at 22:00 Acetaminophen (Tylenol Supp) 325 mg Q8 CO Last administered on 09/25/16 21:53 ; Admin Dose 325 MG; Start 09/23/16 at 22:00 Insulin Glargine (Lantus) 4 unit HS SC Last administered on 09/25/16 21:53; Admin Dose 4 UNIT; Start 09/24/16 at 01:00 Diagnostic Test (Pha) (Accu-Chek) 1 ea 02 XX ; Start 09/24/16 at 02:00 Miscellaneous Information 1 ea NOTE XX ; Start 09/24/16 at 01:30 Glucose (Glutose) 15 gm Q15M PRN PO DECREASED GLUCOSE; Start 09/24/16 at 01:30 Glucose (Glutose) 22.5 gm Q15M PRN PO DECREASED GLUCOSE; Start 09/24/16 at 01: 30 Dextrose (D50w Syringe) 25 ml Q15M PRN IV DECREASED GLUCOSE; Start 09/24/16 at 01:30 Dextrose (D50w Syringe) 50 ml Q15M PRN IV DECREASED GLUCOSE; Start 09/24/16 at 01:30 Glucagon (Glucagen) 1 mg Q15M PRN IM DECREASED GLUCOSE; Start 09/24/16 at 01:30 Glucose 15 gm 15 gm Q15M PRN BUCCAL DECREASED GLUCOSE; Start 09/24/16 at 01:30 Ferric Sodium Gluconate Complex/ Sodium Chloride (Ferrlecit/NS) 110 ml @ 110 mls/hr Q24H IVPB Last administered on 09/25/16 11:40; Admin Dose 110 MLS/HR; Start 09/24/16 at 10:00; Stop 09/28/16 at 10:59 Pantoprazole (Protonix Iv) 40 mg DAILY@06 IV Last administered on 09/25/16 05: 21; Admin Dose 40 MG; Start 09/24/16 at 09:00 Enoxaparin Sodium (Lovenox) 60 mg Q24H SC Last administered on 09/25/16 11:04 ; Admin Dose 60 MG; Start 09/24/16 at 09:00 Lorazepam (Ativan) 0.5 mg Q8H PRN IV ANXIETY Last administered on 09/24/16 21: 37; Admin Dose 0.5 MG; Start 09/24/16 at 21:00 Amlodipine Besylate (Norvasc) 5 mg BID PO Last administered on 09/25/16 10:10 ; Admin Dose 5 MG; Start 09/24/16 at 21:00 Hydralazine HCl (Apresoline) 5 mg Q6H PRN IV ELEVATED BLOOD PRESSURE Last administered on 09/25/16 18:18; Admin Dose 5 MG; Start 09/24/16 at 21:00 Cyanocobalamin (Vitamin B12 Inj) 1,000 mcg DAILY IM Last administered on 10:10; Admin Dose 1,000 MCG; Start 09/25/16 at 09:00; Stop 09/29/16 at 09: 01 Clonidine HCl (Catapres-Tts 2 Patch) 1 patch Q7D TRANSDERM Last administered on 09/24/16 22:09; Admin Dose 1 PATCH; Start 09/24/16 at 21:00 Metoprolol Tartrate (Lopressor) 25 mg BID PO Last administered on 09/25/16 10: 09; Admin Dose 25 MG; Start 09/24/16 at 21:00 Lorazepam 1 mg 1 mg Q8H PRN IV ANXIETY Last administered on 09/25/16 04:00; Admin Dose 1 MG; Start 09/25/16 at 03:30 Vancomycin HCl (Vancocin) 100 ml @ 100 mls/hr Q24H IVPB ; Start 09/26/16 at 13: 00 Aspirin 81 mg 81 mg DAILY PO ; Start 09/26/16 at 09:00 Sodium Chloride (NS) 1,000 ml @ 80 mls/hr [id number] IV Last administered on 09/25 16:41; Admin Dose 80 MLS/HR; Start 09/25/16 at 16:00 Fluconazole (Diflucan) 200 mg DAILY PO Last administered on 09/25/16 16:37; Admin Dose 200 MG; Start 09/25/16 at 16:00; Stop 09/26/16 at 09:01 JR DEAN MD Sep 25, 2016 22:53
[2016-09-25] MEDS ORDERED: HYDROCORTISONE 100 MG INJ IV ONE (23:00)
[2016-09-25] MEDS ORDERED: SOD CHLORIDE 0.9% 500 ML IV ONE (23:00)
[2016-09-26] MEDS: ACCU-CHEK XX SCH (02:00)
[2016-09-26] MEDS: CLINDAMYCIN 300 MG/D5W (PMX) 50 ML IVPB SCH ×2 (05:26→15:03)
[2016-09-26] MEDS: SOD CHLORIDE 0.9% 1,000 ML IV SCH (05:27)
[2016-09-26] MEDS: PANTOPRAZOLE 40 MG INJ IV SCH (05:35)
[2016-09-26] MEDS: ACETAMINOPHEN 325 MG SUPP PR SCH ×3 (05:35→21:36)
[2016-09-26 05:39] VITALS: BP 127/60; PULSE 64; RESP 20
[2016-09-26 05:57] LABS: ADD SCAN DIFF NO
[2016-09-26 06:18] LABS: BASOPHILS % 0.3 % (0.0-2.0); EOSINOPHILS % 0.3 % (0.0-7.0); HEMATOCRIT 32.4 % (37.0-47.0); HEMOGLOBIN 10.4 g/dl (12.0-16.0); LYMPHOCYTES # 1.2 10^3/ul (0.8-2.9); MEAN CORPUSCULAR HEMOGLOBIN 31.2 pg (29.0-33.0); MEAN CORPUSCULAR HGB CONC 32.1 g/dl (32.0-37.0); MEAN CORPUSCULAR VOLUME 97.3 fl (82.0-101.0); MEAN PLATELET VOLUME 11.4 fl (7.4-10.4); MONOCYTE # 0.2 10^3/ul (0.3-0.9); NEUTROPHIL # 4.8 10^3/ul (1.6-7.5); NEUTROPHILS % 76.4 % (39.0-77.0); PLATELET COUNT 248 10^3/UL (140-415); RED BLOOD COUNT 3.33 10^6/ul (4.20-5.40); RED CELL DISTRIBUTION WIDTH 16.7 % (11.5-14.5); WHITE BLOOD COUNT 6.3 10^3/ul (4.8-10.8)
[2016-09-26 06:37] LABS: POTASSIUM 3.5 mmol/L (3.5-5.1)
[2016-09-26 06:39] LABS: CREATININE 1.06 mg/dl (0.44-1.00)
[2016-09-26 06:40] LABS: CALCIUM 7.6 mg/dl (8.4-10.2)
[2016-09-26 07:52] VITALS: BP 122/69; RESP 20
[2016-09-26] MEDS: INSULIN ASPART [NOVOLOG] 3 ML PEN SC SCH ×4 (08:00→20:31)
[2016-09-26] MEDS ORDERED: HYDROCORTISONE 100 MG INJ IV ONE (08:00)
[2016-09-26] MEDS ORDERED: HYDROCORTISONE 100 MG INJ IV SCH (08:00)
[2016-09-26] MEDS: AMLODIPINE 5 MG TAB PO SCH ×2 (09:00→20:32)
[2016-09-26] MEDS: FLUCONAZOLE 200 MG TAB PO SCH (09:00)
[2016-09-26] MEDS: ASPIRIN 81 MG TAB PO SCH (09:00)
[2016-09-26] MEDS: METOPROLOL 25 MG TAB PO SCH ×2 (09:00→20:31)
--- NOTE | 2016-09-26 09:01 | PN ---
Date/Time of Note Date/Time of Note DATE: 09/26/16 TIME: 09:00 Assessment/Plan VTE Prophylaxis VTE Prophylaxis Intervention: ambulation, anti-embolic stocking, LMWH VTE Contraindication Reason: peripheral vascular disease Lines/Catheters IV Catheter Type (from Nrsg): Peripheral IV Central line still needed: No Urinary Cath still in place: Yes Reason Cath still needed: urinary retention Assessment/Plan Assessment/Plan 1.Sepsis- improving. 2.Left submandibular sialitis and possible abscess;Stone in a duct. called. 3.ARF 4.Anemia of chronic disease with low iron. 5.AD& MD with anxiety. 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 15.Kyphosis 16Urinary incontinence with episodes of retention. 17.Hx of kidney cysts. 18.Lethargy. Cont'd Hospitalization Reason: MRSA,uti,lida and cialitis. Subjective 24 Hr Interval Summary Free Text/Dictation I feel better.Left submandibular pain decreased in intensity. Exam/Review of Systems Vital Signs Vitals Vital Signs Date Time Temp Pulse Resp B/P Pulse Ox O2 Delivery O2 Flow Rate FiO2 09/26/16 07:52 97.5 52 20 122/69 99 09/26/16 05:39 Room Air Intake and Output 09/25/16 09/25/16 09/26/16 15:00 23:00 07:00 Intake Total 160 ml 390 ml 1180 ml Output Total 900 ml 50 ml Balance 160 ml -510 ml 1130 ml Results Result Diagram: 09/26/16 0515 09/26/16 0515 Results 24 hrs Laboratory Tests Test 09/25/16 11:47 09/25/16 16:46 09/25/16 21:48 09/26/16 05:15 Bedside Glucose 180 192 162 White Blood Count 6.3 # Red Blood Count 3.33 L Hemoglobin 10.4 L Hematocrit 32.4 L Mean Corpuscular Volume 97.3 Mean Corpuscular Hemoglobin 31.2 Mean Corpuscular Hemoglobin Concent 32.1 Red Cell Distribution Width 16.7 H Platelet Count 248 # Mean Platelet Volume 11.4 H Neutrophils % 76.4 Lymphocytes % 19.0 Monocytes % 3.0 Eosinophils % 0.3 Basophils % 0.3 Nucleated Red Blood Cells % 0.0 Neutrophils # 4.8 Lymphocytes # 1.2 Monocytes # 0.2 L Eosinophils # 0.0 Basophils # 0.0 Nucleated Red Blood Cells # 0.0 Sodium Level 145 H Potassium Level 3.5 Chloride Level 119 H Carbon Dioxide Level 19 L Anion Gap 11 Blood Urea Nitrogen 13 Creatinine 1.06 H Glucose Level 141 Calcium Level 7.6 L Test 09/26/16 07:58 Bedside Glucose 160 Medications Medications Current Medications Clindamycin HCl/ Dextrose (Cleocin 300 Mg/ D5W (Pmx)) 50 ml @ 100 mls/hr Q8 IVPB Last administered on 09/26/16 05:26; Admin Dose 100 MLS/HR; Start at 22:00 Acetaminophen (Tylenol Supp) 325 mg Q8 AR Last administered on 09/26/16 05:35 ; Admin Dose 325 MG; Start 09/23/16 at 22:00 Insulin Glargine (Lantus) 4 unit HS SC Last administered on 09/25/16 21:53; Admin Dose 4 UNIT; Start 09/24/16 at 01:00 Diagnostic Test (Pha) (Accu-Chek) 1 ea 02 XX ; Start 09/24/16 at 02:00 Miscellaneous Information 1 ea NOTE XX ; Start 09/24/16 at 01:30 Glucose (Glutose) 15 gm Q15M PRN PO DECREASED GLUCOSE; Start 09/24/16 at 01:30 Glucose (Glutose) 22.5 gm Q15M PRN PO DECREASED GLUCOSE; Start 09/24/16 at 01: 30 Dextrose (D50w Syringe) 25 ml Q15M PRN IV DECREASED GLUCOSE; Start 09/24/16 at 01:30 Dextrose (D50w Syringe) 50 ml Q15M PRN IV DECREASED GLUCOSE; Start 09/24/16 at 01:30 Glucagon (Glucagen) 1 mg Q15M PRN IM DECREASED GLUCOSE; Start 09/24/16 at 01:30 Glucose 15 gm 15 gm Q15M PRN BUCCAL DECREASED GLUCOSE; Start 09/24/16 at 01:30 Ferric Sodium Gluconate Complex/ Sodium Chloride (Ferrlecit/NS) 110 ml @ 110 mls/hr Q24H IVPB Last administered on 09/25/16 11:40; Admin Dose 110 MLS/HR; Start 09/24/16 at 10:00; Stop 09/28/16 at 10:59 Pantoprazole (Protonix Iv) 40 mg DAILY@06 IV Last administered on 09/26/16 05: 35; Admin Dose 40 MG; Start 09/24/16 at 09:00 Enoxaparin Sodium (Lovenox) 60 mg Q24H SC Last administered on 09/25/16 11:04 ; Admin Dose 60 MG; Start 09/24/16 at 09:00 Amlodipine Besylate (Norvasc) 5 mg BID PO Last administered on 09/25/16 10:10 ; Admin Dose 5 MG; Start 09/24/16 at 21:00 Hydralazine HCl (Apresoline) 5 mg Q6H PRN IV ELEVATED BLOOD PRESSURE Last administered on 09/25/16 18:18; Admin Dose 5 MG; Start 09/24/16 at 21:00 Cyanocobalamin (Vitamin B12 Inj) 1,000 mcg DAILY IM Last administered on 10:10; Admin Dose 1,000 MCG; Start 09/25/16 at 09:00; Stop 09/29/16 at 09: 01 Clonidine HCl (Catapres-Tts 2 Patch) 1 patch Q7D TRANSDERM Last administered on 09/24/16 22:09; Admin Dose 1 PATCH; Start 09/24/16 at 21:00 Metoprolol Tartrate 25 mg 25 mg BID PO Last administered on 09/25/16 10:09; Admin Dose 25 MG; Start 09/24/16 at 21:00 Vancomycin HCl (Vancocin) 100 ml @ 100 mls/hr Q24H IVPB ; Start 09/26/16 at 13: 00 Aspirin 81 mg 81 mg DAILY PO ; Start 09/26/16 at 09:00 Sodium Chloride (NS) 1,000 ml @ 100 mls/hr Q10H IV Last administered on 05:27; Admin Dose 100 MLS/HR; Start 09/25/16 at 16:00 Fluconazole (Diflucan) 200 mg DAILY PO Last administered on 09/25/16 16:37; Admin Dose 200 MG; Start 09/25/16 at 16:00; Stop 09/26/16 at 09:01 Hydrocortisone (Solu-Cortef) 50 mg ONCE IV ; Start 09/26/16 at 08:00; Stop 09/26 at 09:00 Hydrocortisone (Solu-Cortef) 30 mg ONCE IV ; Start 09/27/16 at 06:00; Stop 09/27 at 07:00 Lorazepam (Ativan) 0.5 mg Q6 PRN IV ANXIETY; Start 09/26/16 at 00:00 JR DEAN MD Sep 26, 2016 09:01
[2016-09-26] MEDS: ENOXAPARIN 60 MG/0.6 ML SYG SC SCH (09:46)
[2016-09-26] MEDS: CYANOCOBALAMIN 1000 MCG INJ IM SCH (09:50)
[2016-09-26] MEDS: SOD FERRIC GLUC COMPLX 125 MG in SOD CHLORIDE 0.9% 100 ML IVPB SCH (09:50)
[2016-09-26 12:21] LABS: ADD UMIC YES; URINE BILIRUBIN (Dip) NEGATIVE (NEGATIVE); URINE BLOOD (Dip) NEGATIVE (NEGATIVE); URINE COLOR LT. YELLOW (YELLOW); URINE GLUCOSE (Dip) NEGATIVE (NEGATIVE); URINE KETONES (Dip) NEGATIVE (NEGATIVE); URINE LEUKOCYTE ESTERASE (Dip) 1+ (NEGATIVE); URINE NITRITE (Dip) NEGATIVE (NEGATIVE); URINE TOTAL PROTEIN (Dip) NEGATIVE (NEGATIVE); URINE UROBILINOGEN (Dip) 0.2 E.U./dL (0.1-1.0)
[2016-09-26] MEDS: VANCOMYCIN 750 MG in SOD CHLORIDE 0.9% 150 ML IVPB SCH (12:25)
[2016-09-26] MEDS ORDERED: D5W-0.45 NACL + KCL 30 MEQ 1,000 ML IV SCH (12:30)
[2016-09-26 12:34] LABS: BACTERIA,URINE FEW; SQUAMOUS EPITHELIAL CELL,UR FEW; URINE RBCS NONE SEEN /HPF (0)
--- NOTE | 2016-09-26 12:59 | HP ---
DATE OF ADMISSION: 09/23/2016 HISTORY OF PRESENT ILLNESS: Ramone Vargas is a 76-year-old female admitted with left submandibu lar swelling consistent with left sialadenitis. ENT was consulted to evaluate. PAST MEDICAL HISTORY: Hypertension, diabetes, Alzheimer dementia. PAST SURGICAL HISTORY: Noncontributory. ALLERGIES: NO KNOWN DRUG ALLERGIES. MEDICATIONS 1. Vancomycin. 2. Clindamycin. 3. Ativan. 4. Insulin. 5. Namenda. 6. Aricept. SOCIAL HISTORY: Negative for tobacco, alcohol, drug abuse. FAMILY HISTORY: Negative for heart, lung, kidney or liver disease. REVIEW OF SYSTEMS: A 12-point review of systems is otherwise negative. PHYSICAL EXAMINATION HEENT: On examination today, her oral cavity and oropharynx show teeth in good repair. Tongue and floor of mouth are normal. I cannot palpate the floor of her mouth because she is not opening up he r mouth enough for me to get a finger in. I am worried about her biting my finger off. NECK: Shows some mild left submandibular gland enlargement with mild tenderness, but there is no ku rrounding erythema, nor is there evidence of any surrounding abscess collection. PLAN: I would discontinue the antibiotics and I suspect that she can continue the clindamycin alone and be discharged at this point. If there are any questions or concerns, please feel free to call us at anytime. Dictated By: KALPANA SANDOVAL/ERWIN Conf#: [id number] DID#: [id number]
[2016-09-26] MEDS ORDERED: VANCOMYCIN 500MG/NS (PMX) 100 ML IVPB SCH (13:00)
--- NOTE | 2016-09-26 13:43 | CONS ---
DATE OF ADMISSION: 09/23/2016 DATE OF CONSULTATION: Dear Dr. Dean: Thank you for asking me to see Ms. Alvarez in GI consultation. HISTORY OF PRESENT ILLNESS: As you know, the patient is a 76-year-old Yoruba female who is admitt ed to the hospital because of swelling of the neck, and the patient is evaluated by the ENT speciali st who think it is sialadenitis. From the GI standpoint, the consultation is requested because of the fact she is unable to take any feeding by mouth. She has history of renal failure, diabetes, gallstones, aortic stenosis, history of kidney cysts. S he is confused and demented. She is unable to give me any additional history. MEDICATIONS: Currently includes: 1. Solu-Cortef. 2. Vancomycin. 3. Aspirin. 4. Fluconazole 5. Vitamin B12. 6. Ativan. 7. Lorazepam. 8. Clonidine. 9. Metoprolol. 10. Sodium gluconate complex. 11. Hydralazine. 12. Lovenox. Please refer to the computer for more information. She is also on clindamycin. PHYSICAL EXAMINATION: GENERAL: The patient is a 76-year-old Yor[place] female who at this time is alert, she is confused. VITAL SIGNS: Temperature 97.5, blood pressure is 122/69. CARDIOVASCULAR: Normal heart sounds. RESPIRATORY: Normal breath sounds. ABDOMEN: Showed unremarkable findings. LABORATORY WORKUP: INR is 1.03, hemoglobin is 10.4, hematocrit 32.4, WBC count 6300. Potassium 3.5 . CLINICAL IMPRESSION: 1. The patient presenting with history of malnutrition and inability to eat, and albumin is low, we ight loss and malnourishment. 2. History of sialadenitis of the salivary gland. PLAN: Recommend percutaneous endoscopic gastrostomy tube placement as requested. Once again, Dr. Dean, thank you for this consultation. Dictated By: ROSHNI SÁNCHEZ/ERWIN Conf#: [id number] DID#: [id number] CC: JR DEAN MD;*EndCC*
[2016-09-26] MEDS: D5W-0.45 NACL + KCL 30 MEQ 1,000 ML IV SCH (15:03)
[2016-09-26 15:24] LABS: CREATININE 1.12 mg/dl (0.44-1.00)
[2016-09-26 15:26] LABS: CALCIUM 7.6 mg/dl (8.4-10.2)
[2016-09-26] MEDS: INSULIN GLARGINE [LANtus] 3 ML PEN SC SCH (20:33)
[2016-09-26] MEDS: hydrALAzine 20 MG INJ IV PRN (20:34)
[2016-09-26 21:31] VITALS: BP 167/89; RESP 20
[2016-09-26] MEDS: LORAZEPAM 2 MG INJ IV PRN (21:51)
[2016-09-27] MEDS: ACCU-CHEK XX SCH (01:48)
[2016-09-27] MEDS: ACETAMINOPHEN 325 MG SUPP PR SCH ×3 (05:25→21:32)
[2016-09-27] MEDS: PANTOPRAZOLE 40 MG INJ IV SCH (05:26)
[2016-09-27 05:57] LABS: ADD SCAN DIFF NO; BASOPHILS % 0.2 % (0.0-2.0); EOSINOPHILS # 0.1 10^3/ul (0.0-0.5); EOSINOPHILS % 0.8 % (0.0-7.0); HEMATOCRIT 37.8 % (37.0-47.0); HEMOGLOBIN 12.4 g/dl (12.0-16.0); LYMPHOCYTES # 3.4 10^3/ul (0.8-2.9); LYMPHOCYTES % 33.6 % (15.0-51.0); MEAN CORPUSCULAR HEMOGLOBIN 30.4 pg (29.0-33.0); MEAN CORPUSCULAR HGB CONC 32.8 g/dl (32.0-37.0); MEAN CORPUSCULAR VOLUME 92.6 fl (82.0-101.0); MEAN PLATELET VOLUME 11.2 fl (7.4-10.4); MONOCYTE # 0.8 10^3/ul (0.3-0.9); MONOCYTES % 7.9 % (0.0-11.0); NEUTROPHIL # 5.8 10^3/ul (1.6-7.5); NEUTROPHILS % 56.4 % (39.0-77.0); PLATELET COUNT 377 10^3/UL (140-415); RED BLOOD COUNT 4.08 10^6/ul (4.20-5.40); RED CELL DISTRIBUTION WIDTH 16.7 % (11.5-14.5); WHITE BLOOD COUNT 10.2 10^3/ul (4.8-10.8)
[2016-09-27] MEDS ORDERED: HYDROCORTISONE 100 MG INJ IV SCH (06:00)
[2016-09-27] MEDS ORDERED: HYDROCORTISONE 100 MG INJ IV ONE (06:00)
[2016-09-27 06:56] LABS: POTASSIUM 3.1 mmol/L (3.5-5.1)
[2016-09-27 06:58] LABS: CREATININE 1.21 mg/dl (0.44-1.00)
[2016-09-27 07:00] LABS: CALCIUM 8.4 mg/dl (8.4-10.2)
[2016-09-27] MEDS: INSULIN ASPART [NOVOLOG] 3 ML PEN SC SCH ×4 (08:00→20:21)
[2016-09-27 08:29] VITALS: BP 166/87; RESP 21
[2016-09-27] MEDS: CYANOCOBALAMIN 1000 MCG INJ IM SCH (08:32)
[2016-09-27] MEDS: AMLODIPINE 5 MG TAB PO SCH ×2 (09:00→20:21)
[2016-09-27] MEDS: SOD FERRIC GLUC COMPLX 125 MG in SOD CHLORIDE 0.9% 100 ML IVPB SCH (09:00)
[2016-09-27] MEDS: ASPIRIN 81 MG TAB PO SCH (09:00)
[2016-09-27] MEDS: METOPROLOL 25 MG TAB PO SCH ×2 (09:00→20:21)
[2016-09-27] MEDS: ENOXAPARIN 60 MG/0.6 ML SYG SC SCH (09:00)
[2016-09-27] MEDS: LORAZEPAM 2 MG INJ IV PRN (09:53)
[2016-09-27] MEDS: D5W-0.45 NACL + KCL 30 MEQ 1,000 ML IV SCH (11:10)
[2016-09-27] MEDS: VANCOMYCIN 750 MG in SOD CHLORIDE 0.9% 150 ML IVPB SCH (13:34)
--- NOTE | 2016-09-27 14:14 | PN ---
Date/Time of Note Date/Time of Note DATE: 09/27/16 TIME: 14:07 Assessment/Plan VTE Prophylaxis VTE Prophylaxis Intervention: anti-embolic stocking, LMWH VTE Contraindication Reason: peripheral vascular disease Lines/Catheters IV Catheter Type (from Nrsg): Peripheral IV Central line still needed: No Urinary Cath still in place: Yes Reason Cath still needed: urinary retention Assessment/Plan Assessment/Plan 1.Sepsis- improving. 2.Left submandibular sialitis and possible abscess;Stone in a duct. ENT f/u. 3.ARF-improved 4.Anemia of chronic disease with low iron. 5.AD& MD with anxiety. 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 14.Progressive deterioration of condition. 15.Kyphosis 16Urinary incontinence with episodes of retention. 17.Hx of kidney cysts. 18.Pain syndrome. Cont'd Hospitalization Reason: sepsis,left submandibular mass-infected salivary gland. Subjective 24 Hr Interval Summary Free Text/Dictation Don't touch my chin, it is painful. Subjective hx not possible: other (the patient is no communicating.) Exam/Review of Systems Vital Signs Vitals Vital Signs Date Time Temp Pulse Resp B/P Pulse Ox O2 Delivery O2 Flow Rate FiO2 09/27/16 08:29 97.8 92 21 166/87 98 09/26/16 05:39 Room Air Intake and Output 09/26/16 09/26/16 09/27/16 14:59 22:59 06:59 Intake Total 860 ml 1100 ml 600 ml Output Total 500 ml 200 ml Balance 860 ml 600 ml 400 ml Exam Constitutional: other (lethargic.) Psych: anxiety, confusion, depression Head: atraumatic, normocephalic, No hematomas, No lacerations, No other Eyes: PERRL, nl conjunctiva, nl lids, No EOMI, No fundi, disc, No icteric, No nl sclera, No other ENMT: nl lips & teeth (dentures.), other (moire painful than yesterday left submandibular area without redness os the signs of fluctuation. Do d/c from hte left ductal side under the tounge.) Neck: bruits, nuchal rigidity, supple, No jvd, No masses, No non-tender, No other, No thyromegaly Respiratory: clear to auscultation, diminished breath sounds, normal air movement, No congested cough, No crackles/rales, No intercostal retraction, No labored breathing, No other, No respirations, No tactile fremitus, No wheezing Cardiovascular: bruits, systolic murmur, No S3, No S4, No diastolic murmur, No edema, No gallop, No irregular rhythm, No jugular venous distention (JVD), No murmurs/extra sounds, No nl pulses, No other, No regular rate and rhythm, No rub Gastrointestinal: bowel sounds, soft Genitourinary - Female: other (not done.), No CMT, No CVA tenderness, No nl adnexae, No nl external genitalia, No uterus Musculoskeletal: joint tenderness, muscle tone, muscle weakness, No nl extremities to inspection, No nl gait and stance, No other, No range of motion, No spine non-tender, No swelling Neurological: INVENTORY PLANNER II-XII intact, confused, lethargic, No DTR's symmetric, No focal weakness, No nl mental status, No nl speech, No nl strength, No numbness, No other, No reflexes, No unresponsive Skin: No diaphoresis, No ecchymosis, No laceration, No nl turgor, No other, No puncture, No rash or lesions Lymph: No enlarged, No nl lymph nodes, No nontender, No other Results Result Diagram: 09/27/16 0500 09/27/16 0459 Results 24 hrs Laboratory Tests Test 09/26/16 15:02 09/26/16 17:04 09/26/16 20:28 09/27/16 04:59 Sodium Level 142 146 H Potassium Level 3.0 L 3.1 L Chloride Level 115 H 115 H Carbon Dioxide Level 18 L 19 L Anion Gap 12 15 Blood Urea Nitrogen 13 13 Creatinine 1.12 H 1.21 H Glucose Level 192 142 # Calcium Level 7.6 L 8.4 Bedside Glucose 202 159 Test 09/27/16 05:00 09/27/16 07:22 09/27/16 11:36 White Blood Count 10.2 # Red Blood Count 4.08 #L Hemoglobin 12.4 Hematocrit 37.8 Mean Corpuscular Volume 92.6 Mean Corpuscular Hemoglobin 30.4 Mean Corpuscular Hemoglobin Concent 32.8 Red Cell Distribution Width 16.7 H Platelet Count 377 # Mean Platelet Volume 11.2 H Neutrophils % 56.4 Lymphocytes % 33.6 Monocytes % 7.9 Eosinophils % 0.8 Basophils % 0.2 Nucleated Red Blood Cells % 0.0 Neutrophils # 5.8 Lymphocytes # 3.4 H Monocytes # 0.8 Eosinophils # 0.1 Basophils # 0.0 Nucleated Red Blood Cells # 0.0 Bedside Glucose 171 260 H Medications Medications Current Medications Acetaminophen (Tylenol Supp) 325 mg Q8 SD Last administered on 09/27/16 13:34 ; Admin Dose 325 MG; Start 09/23/16 at 22:00 Insulin Glargine (Lantus) 4 unit HS SC Last administered on 09/26/16 20:33; Admin Dose 4 UNIT; Start 09/24/16 at 01:00 Diagnostic Test (Pha) (Accu-Chek) 1 ea 02 XX ; Start 09/24/16 at 02:00 Miscellaneous Information 1 ea NOTE XX ; Start 09/24/16 at 01:30 Glucose (Glutose) 15 gm Q15M PRN PO DECREASED GLUCOSE; Start 09/24/16 at 01:30 Glucose (Glutose) 22.5 gm Q15M PRN PO DECREASED GLUCOSE; Start 09/24/16 at 01: 30 Dextrose (D50w Syringe) 25 ml Q15M PRN IV DECREASED GLUCOSE; Start 09/24/16 at 01:30 Dextrose (D50w Syringe) 50 ml Q15M PRN IV DECREASED GLUCOSE; Start 09/24/16 at 01:30 Glucagon (Glucagen) 1 mg Q15M PRN IM DECREASED GLUCOSE; Start 09/24/16 at 01:30 Glucose 15 gm 15 gm Q15M PRN BUCCAL DECREASED GLUCOSE; Start 09/24/16 at 01:30 Ferric Sodium Gluconate Complex/ Sodium Chloride (Ferrlecit/NS) 110 ml @ 110 mls/hr Q24H IVPB Last administered on 09/27/16 09:00; Admin Dose 110 MLS/HR; Start 09/24/16 at 10:00; Stop 09/28/16 at 10:59 Pantoprazole (Protonix Iv) 40 mg DAILY@06 IV Last administered on 09/27/16 05: 26; Admin Dose 40 MG; Start 09/24/16 at 09:00 Enoxaparin Sodium (Lovenox) 60 mg Q24H SC Last administered on 09/26/16 09:46 ; Admin Dose 60 MG; Start 09/24/16 at 09:00 Amlodipine Besylate (Norvasc) 5 mg BID PO Last administered on 09/25/16 10:10 ; Admin Dose 5 MG; Start 09/24/16 at 21:00 Hydralazine HCl (Apresoline) 5 mg Q6H PRN IV ELEVATED BLOOD PRESSURE Last administered on 09/26/16 20:34; Admin Dose 5 MG; Start 09/24/16 at 21:00 Cyanocobalamin (Vitamin B12 Inj) 1,000 mcg DAILY IM Last administered on 08:32; Admin Dose 1,000 MCG; Start 09/25/16 at 09:00; Stop 09/29/16 at 09: 01 Clonidine HCl (Catapres-Tts 2 Patch) 1 patch Q7D TRANSDERM Last administered on 09/24/16 22:09; Admin Dose 1 PATCH; Start 09/24/16 at 21:00 Metoprolol Tartrate (Lopressor) 25 mg BID PO Last administered on 09/25/16 10: 09; Admin Dose 25 MG; Start 09/24/16 at 21:00 Aspirin (Aspirin) 81 mg DAILY PO ; Start 09/26/16 at 09:00 Lorazepam 0.5 mg 0.5 mg Q6 PRN IV ANXIETY Last administered on 09/27/16 09:53 ; Admin Dose 0.5 MG; Start 09/26/16 at 00:00 Vancomycin HCl 750 mg/Sodium Chloride 150 ml @ 75 mls/hr Q24H IVPB Last administered on 09/27/16 13:34; Admin Dose 75 MLS/HR; Start 09/26/16 at 13:00 Potassium Chloride/Dextrose/ Sod Cl (D5-1/2ns + KCl 30 Meq) 1,000 ml @ 60 mls/ hr [id number] IV Last administered on 09/27/16 11:10; Admin Dose 60 MLS/HR; Start 09/26/16 at 14:30; Stop 3/28/17 at 23:49 Miscellaneous Information (*Rx Drug Level Order Reminder*) 1 ONCE ONCE XX ; Start 09/28/16 at 12:00; Stop 09/28/16 at 12:01 JR DEAN MD Sep 27, 2016 14:14
--- NOTE | 2016-09-27 14:14 | PN ---
DATE: SUBJECTIVE: The patient has difficulty swallowing. PHYSICAL EXAMINATION: The patient is cachectic. LABORATORIES: Prothrombin time is 13. She has got hypoalbuminemia, malnutrition. CLINICAL IMPRESSION: 1. Dysphagia. 2. Malnutrition. 3. Weight loss. PLAN: Recommend to proceed with a percutaneous endoscopic gastrostomy tube placement in a.m. Dictated By: ROSHNI JOYNER MD NC/ERWIN Conf#: [id number] DID#: [id number] CC: JR DEAN MD;*EndCC*
--- NOTE | 2016-09-27 15:03 | PN ---
DATE: 09/27/2016 INFECTIOUS DISEASE PROGRESS NOTE SUBJECTIVE: No acute events overnight. The patient is awake, noncommunicative, confused. She is i n no distress. No fevers. WBC 10.2, no shift, no bands. BUN 13, creatinine 1.21. MICROBIOLOGY: Blood culture on 09/23/2016 growing MRSA. Urine culture grew Angelina albicans. Nare s swab came back positive for MRSA. ANTIMICROBIALS: The patient is on vancomycin day #3, status post clindamycin. PHYSICAL EXAMINATION: GENERAL: This is a chronically ill-appearing, elderly woman who is in no distress. HEENT: Head atraumatic, normocephalic. Sclerae anicteric. Buccal mucosa dry. NECK: Supple, trachea midline. CHEST: Rise symmetrical. Breath sounds diminished to bases. HEART: S1, S2. ABDOMEN: Soft, bowel tones present. EXTREMITIES: Without cyanosis. ASSESSMENT: 1. Methicillin-sensitive Staphylococcus aureus bacteremia, likely secondary to #2. 2. Left submandibular gland phlegmon with sialolithiasis and sialadenitis, ENT on case. 3. Dysphagia with malnutrition. 4. History of coronary artery disease. 5. Dementia. 6. Diabetes. PLAN: We are going to keep the patient on IV vancomycin. Add rifampin to the regimen. Repeat bloo d cultures. Add Bactroban to nares. Consider 2D echo to rule out vegetations. Follow recommendati ons of consultants ____. Dictated By: LOGAN CASTANEDA SPECIALTY PERSON for GUERO SIGALA/ERWIN Conf#: [id number] DID#: [id number]
[2016-09-27] MEDS: RIFAMPIN 600 MG in SOD CHLORIDE 0.9% 100 ML IVPB SCH (15:22)
--- NOTE | 2016-09-27 15:50 | CONS ---
DATE OF ADMISSION: 09/23/2016 DATE OF CONSULTATION: 09/26/2016 TYPE OF CONSULTATION: Infectious Disease. REASON FOR CONSULTATION: Antibiotic management. HISTORY OF PRESENT ILLNESS: Ramone Alvarez is a 76-year-old Filipino Palestinian female who is b eing seen by Dr. Poon. She is admitted with left submandibular swelling consistent with left si aloadenitis. ENT was consulted. The patient also has Alzheimer disease and hypertension. She com es in with what appears to be sepsis. She developed left-sided neck mass below the mandible and ENT was called. The patient's past problems include history of angina, colitis, congestive heart failu re, coronary artery disease, diabetes, diverticulitis, gallstones, GERD, high cholesterol, hypertens ion, renal disease and urinary tract infection. Acutely, the patient presents also with urinary retention requiring a catheter. The patient was see n by Dr. Octavio Velásquez. He noted that he could not palpate the floor of the mandible because she is not opening her mouth wide enough. Patient was placed on vancomycin and she was on clindamycin. He r blood culture grew out methicillin-resistant Staphylococcus aureus, 1 out of 2. Her urine has Can dida albicans in it. Her soft tissue neck CT showed left submandibular gland sialoadenitis with adj acent inflammatory stranding and mild narrowing of the hypopharynx. No gross drainable fluid collec tion on this limited noncontrast exam. There is 4 mm calcification in the superior aspect of the gl and which may represent small left temporomandibular stone, no obstructing stone along the course of the left submandibular duct. Chest x-ray stable radiographic appearance of the chest. PHYSICAL EXAMINATION: GENERAL: The patient is an elderly appearing female who is awake, but noncommunicative, confused, i n no acute distress. VITAL SIGNS: Stable. She is afebrile. SKIN: Without generalized rash. HEENT: Within normal limits. NECK: Supple. Mouth difficult to evaluate. NECK: Supple. LYMPH NODES: None palpable. CHEST: Decreased breath sounds at the bases. HEART: Without murmur or gallop. ABDOMEN: Soft, nontender without organosplenomegaly or masses. EXTREMITIES: Without cyanosis, clubbing, or edema. RECTAL AND GENITAL: Deferred. NEUROLOGIC: The patient has dementia. She moves all extremities. IMPRESSION AND PLAN: The patient has methicillin-resistant Staphylococcus aureus bacteremia second farida to her sialoadenitis. We are going to continue her on vancomycin and add rifampin to her regime n. Repeat blood cultures, add Bactroban to her nares and consider 2D echo to rule out any vegetati ons. I will dictate my findings to Dr. Poon and Dr. Dey and Dr. Velásquez. Dr. Dey note d left submandibular gland phlegmon with sialoadenitis and sialolithiasis. We will continue in foll owing her from an infectious disease perspective. Dictated By: GUERO CHAVIRA MD, JD/NTS Conf#: [id number] DID#: [id number]
--- NOTE | 2016-09-27 17:34 | RADRPT ---
Echocardiogram Report Patient Name: JESSICA KULKARNI Gender: Female Date: 1940 Study Date: 26-Sep-2016 Digester Cook: Felicitas Mcclelland ALANNAH Location: 2245 Ref. Physician: MINDA HATHAWAY Quality: Technically Difficult Study Procedures: Transthoracic echocardiogram with complete 2D, M-Mode, and doppler examination. Indications: Coronary Artery Disease. 2D/M Mode Doppler Measurement Value Normal Ranges Measurement Value Normal Ranges LVIDd 2D 5.1 3.5 - 5.6 cm AV Peak Boris 1.2 m/sec LVIDs 2D 3.0 2.1 - 4.1 cm AV Peak PG 6.1 mmHg LVPWd 2D 0.8 0.6 - 1.1 cm LVOT Peak Boris 0.8 m/sec IVSd 2D 0.8 0.6 - 1.1 cm LVOT Peak PG 2.7 mmHg AoR Diam 2D 2.8 2.0 - 3.7 cm MV E Peak Boris 0.6 m/sec EDV 2D 122.7 cm3 MV A Peak Boris 0.8 m/sec ESV 2D 26.6 cm3 MV E/A 0.8 LA Dimen 2D 3.6 2.3 - 4.0 cm MV Decel Time 278 msec MV Decel Tensas 2 MV E/A 0.8 Findings Left Ventricle: Normal left ventricular systolic function. Normal left ventricular cavity size. Normal left ventricular wall thickness. Ejection fraction is visually estimated at 6570 %. Tissue Doppler/Mitral Doppler indices are consistent with impaired relaxation (Stage I diastolic dysfunction). Right Ventricle: Normal right ventricular size. Normal right ventricular systolic function. Left Atrium: The left atrium is normal in size. Right Atrium: The right atrium is normal in size. Mitral Valve: Mitral valve leaflets appear mildly thickened. Mild mitral valve regurgitation. Aortic Valve: No significant aortic stenosis or insufficiency. Aortic cusps appear mildly calcified. Tricuspid Valve: Normal appearance and function of the tricuspid valve with trace physiologic regurgitation. Pulmonic Valve: Normal pulmonic valve appearance. Pericardium: Normal pericardium with no significant pericardial effusion. Aorta: Normal aortic root. IVC: Normal size and normal respiratory collapse consistent with normal right atrial pressure. Conclusions 1.The left ventricle is normal in size and systolic function. 2.Estimated left ventricular ejection fraction of 65-70%. 3.Mild left ventricular diastolic dysfunction. Electronically Signed By: Oli Frankel 27-Sep-2016 17:34:11 -0700 Patient Name: JESSICA KULKARNI Study Date: 26-Sep-2016 [id number]
--- NOTE | 2016-09-27 19:42 | CONS ---
Date/Time of Note Date/Time of Note DATE: 09/27/16 TIME: 19:37 Assessment/Plan Assessment/Plan Chief Complaint/Hosp Course Assessment: Sepsis and MRSA bacteremia - antibiotics per infectious disease Sialoadenitis with obstructive stone - per ENT Coronary artery disease - details unknown, clinically stable Peripheral vascular disease Hypertension Acute kidney injury vs chronic kidney disease Diabetes mellitus Dementia Recommendations: -echocardiogram showed LVEF 65-70%, mild diastolic dysfunction, no significant valvular disease -continue aspirin 81mg daily -defer statin therapy, no clear benefit in this patient population -continue metoprolol, amlodipine, clonidine patch, PRN hydralazine Problems: Consultation Date/Type/Reason Admit Date/Time Sep 23, 2016 at 17:03 Initial Consult Date 09/25/16 Type of Consultation: Cardiology 24 HR Interval Summary Free Text/Dictation No acute events. Detailed Summary Additional Comments Unable to obtain review of systems due to patient's altered mental status. Exam/Review of Systems Vital Signs Vitals Vital Signs Date Time Temp Pulse Resp B/P Pulse Ox O2 Delivery O2 Flow Rate FiO2 09/27/16 08:29 97.8 92 21 166/87 98 09/26/16 05:39 Room Air Intake and Output 09/26/16 09/26/16 09/27/16 15:00 23:00 07:00 Intake Total 860 ml 1100 ml 600 ml Output Total 500 ml 200 ml Balance 860 ml 600 ml 400 ml Exam Constitutional: alert, No distress Psych: confusion Head: atraumatic, normocephalic Eyes: nl conjunctiva, nl lids ENMT: nl external ears & nose, nl nasal mucosa & septum Neck: non-tender, supple, No jvd Respiratory: clear to auscultation Cardiovascular: regular rate and rhythm, systolic murmur Gastrointestinal: non-tender, soft Extremities: No clubbing, No cyanosis, No edema Neurological: No nl mental status, No nl speech Results Result Diagram: 09/27/16 0500 09/27/16 0459 Results 24 hrs Laboratory Tests Test 09/26/16 20:28 09/27/16 04:59 09/27/16 05:00 09/27/16 07:22 Bedside Glucose 159 171 Sodium Level 146 H Potassium Level 3.1 L Chloride Level 115 H Carbon Dioxide Level 19 L Anion Gap 15 Blood Urea Nitrogen 13 Creatinine 1.21 H Glucose Level 142 # Calcium Level 8.4 White Blood Count 10.2 # Red Blood Count 4.08 #L Hemoglobin 12.4 Hematocrit 37.8 Mean Corpuscular Volume 92.6 Mean Corpuscular Hemoglobin 30.4 Mean Corpuscular Hemoglobin Concent 32.8 Red Cell Distribution Width 16.7 H Platelet Count 377 # Mean Platelet Volume 11.2 H Neutrophils % 56.4 Lymphocytes % 33.6 Monocytes % 7.9 Eosinophils % 0.8 Basophils % 0.2 Nucleated Red Blood Cells % 0.0 Neutrophils # 5.8 Lymphocytes # 3.4 H Monocytes # 0.8 Eosinophils # 0.1 Basophils # 0.0 Nucleated Red Blood Cells # 0.0 Test 09/27/16 11:36 Bedside Glucose 260 H Medications Medications Current Medications Acetaminophen (Tylenol Supp) 325 mg Q8 AZ Last administered on 09/27/16 13:34 ; Admin Dose 325 MG; Start 09/23/16 at 22:00 Insulin Glargine (Lantus) 4 unit HS SC Last administered on 09/26/16 20:33; Admin Dose 4 UNIT; Start 09/24/16 at 01:00 Diagnostic Test (Pha) (Accu-Chek) 1 ea 02 XX ; Start 09/24/16 at 02:00 Miscellaneous Information 1 ea NOTE XX ; Start 09/24/16 at 01:30 Glucose (Glutose) 15 gm Q15M PRN PO DECREASED GLUCOSE; Start 09/24/16 at 01:30 Glucose (Glutose) 22.5 gm Q15M PRN PO DECREASED GLUCOSE; Start 09/24/16 at 01: 30 Dextrose (D50w Syringe) 25 ml Q15M PRN IV DECREASED GLUCOSE; Start 09/24/16 at 01:30 Dextrose (D50w Syringe) 50 ml Q15M PRN IV DECREASED GLUCOSE; Start 09/24/16 at 01:30 Glucagon (Glucagen) 1 mg Q15M PRN IM DECREASED GLUCOSE; Start 09/24/16 at 01:30 Glucose 15 gm 15 gm Q15M PRN BUCCAL DECREASED GLUCOSE; Start 09/24/16 at 01:30 Ferric Sodium Gluconate Complex/ Sodium Chloride (Ferrlecit/NS) 110 ml @ 110 mls/hr Q24H IVPB Last administered on 09/27/16 09:00; Admin Dose 110 MLS/HR; Start 09/24/16 at 10:00; Stop 09/28/16 at 10:59 Pantoprazole (Protonix Iv) 40 mg DAILY@06 IV Last administered on 09/27/16 05: 26; Admin Dose 40 MG; Start 09/24/16 at 09:00 Enoxaparin Sodium (Lovenox) 60 mg Q24H SC Last administered on 09/26/16 09:46 ; Admin Dose 60 MG; Start 09/24/16 at 09:00 Amlodipine Besylate (Norvasc) 5 mg BID PO Last administered on 09/25/16 10:10 ; Admin Dose 5 MG; Start 09/24/16 at 21:00 Hydralazine HCl (Apresoline) 5 mg Q6H PRN IV ELEVATED BLOOD PRESSURE Last administered on 09/26/16 20:34; Admin Dose 5 MG; Start 09/24/16 at 21:00 Cyanocobalamin (Vitamin B12 Inj) 1,000 mcg DAILY IM Last administered on 08:32; Admin Dose 1,000 MCG; Start 09/25/16 at 09:00; Stop 09/29/16 at 09: 01 Clonidine HCl (Catapres-Tts 2 Patch) 1 patch Q7D TRANSDERM Last administered on 09/24/16 22:09; Admin Dose 1 PATCH; Start 09/24/16 at 21:00 Metoprolol Tartrate (Lopressor) 25 mg BID PO Last administered on 09/25/16 10: 09; Admin Dose 25 MG; Start 09/24/16 at 21:00 Aspirin (Aspirin) 81 mg DAILY PO ; Start 09/26/16 at 09:00 Lorazepam 0.5 mg 0.5 mg Q6 PRN IV ANXIETY Last administered on 09/27/16 09:53 ; Admin Dose 0.5 MG; Start 09/26/16 at 00:00 Vancomycin HCl 750 mg/Sodium Chloride 150 ml @ 75 mls/hr Q24H IVPB Last administered on 09/27/16 13:34; Admin Dose 75 MLS/HR; Start 09/26/16 at 13:00 Potassium Chloride/Dextrose/ Sod Cl (D5-1/2ns + KCl 30 Meq) 1,000 ml @ 60 mls/ hr [id number] IV Last administered on 09/27/16 11:10; Admin Dose 60 MLS/HR; Start 09/26/16 at 14:30; Stop 09/27/16 at 23:49 Miscellaneous Information 1 ONCE ONCE XX ; Start 09/28/16 at 12:00; Stop at 12:01 Rifampin/Sodium Chloride (Rifampin/NS) 100 ml @ 200 mls/hr Q24H IVPB Last administered on 09/27/16t 15:22; Admin Dose 200 MLS/HR; Start 09/27/16 at 15:30 Mupirocin (Bactroban) 1 applic BID TOP ; Start 09/27/16 at 21:00 PRISCILLA WEINSTEIN MD Sep 27, 2016 19:42
[2016-09-27] MEDS: INSULIN GLARGINE [LANtus] 3 ML PEN SC SCH (20:18)
[2016-09-27] MEDS: MUPIROCIN 2% 22 GM OINT TOP SCH (20:18)
[2016-09-27 21:00] VITALS: BP 177/80; RESP 19
[2016-09-27 22:24] VITALS: BP 160/72; PULSE 90
[2016-09-28] VITALS (8 sets, daily range): BP systolic 146–171; BP diastolic 26–84; PULSE 72–77; RESP 18–22
[2016-09-28] MEDS: ACCU-CHEK XX SCH (02:00)
[2016-09-28] MEDS: PANTOPRAZOLE 40 MG INJ IV SCH (06:02)
[2016-09-28] MEDS: ACETAMINOPHEN 325 MG SUPP PR SCH ×3 (06:02→22:45)
[2016-09-28] MEDS: D5W-0.45 NACL + KCL 30 MEQ 1,000 ML IV SCH ×2 (06:09→22:40)
[2016-09-28] MEDS: INSULIN ASPART [NOVOLOG] 3 ML PEN SC SCH ×4 (08:00→21:00)
[2016-09-28] MEDS: AMLODIPINE 5 MG TAB PO SCH ×2 (09:00→21:00)
[2016-09-28] MEDS: ASPIRIN 81 MG TAB PO SCH (09:00)
[2016-09-28] MEDS: METOPROLOL 25 MG TAB PO SCH ×2 (09:00→21:00)
[2016-09-28] MEDS: CYANOCOBALAMIN 1000 MCG INJ IM SCH (09:22)
[2016-09-28] MEDS: MUPIROCIN 2% 22 GM OINT TOP SCH ×2 (09:22→22:45)
[2016-09-28] MEDS ORDERED: POTASSIUM CHLORIDE 30 MEQ in SOD CHLORIDE 0.9% 150 ML IVPB ONE (10:00)
[2016-09-28] MEDS ORDERED: CEFAZOLIN 1 GM/50 ML (PMX) 50 ML IVPB ONE (11:26)
[2016-09-28] MEDS ORDERED: PROPOFOL 20 ML ONE (12:13)
[2016-09-28] MEDS ORDERED: LIDOCAINE 2% (SDV) 5 ML INJ ONE (12:13)
[2016-09-28] MEDS ORDERED: LABETALOL HCL 20MG INJ ONE (12:37)
--- NOTE | 2016-09-28 12:58 | GILP ---
DATE OF PROCEDURE: NAME OF PROCEDURE: Percutaneous endoscopic gastrostomy tube placement. PREOPERATIVE DIAGNOSIS: Patient presenting with history of difficulty in swallowing. She has been losing weight and because of this, percutaneous endoscopic gastrostomy tube needs to be placed. POSTOPERATIVE DIAGNOSES: Patient presenting with history of difficulty in swallowing. She has been losing weight and because of this, percutaneous endoscopic gastrostomy tube needs to be placed. DESCRIPTION OF PROCEDURE: After informed written consent was obtained, the patient was asked to lie in the supine position. Intravenous anesthesia was given by anesthesiologist, Dr. Mckeon. When the patient became somnolent, the Olympus video upper endoscope was introduced into the oropharynx, then into the esophagus. Esophagus appeared normal. Stomach appeared normal. Duodenum appeared normal . Endoscope at this time was left in dehiscent gastric cavity area. The anterior abdominal wall wa s prepared with Betadine and alcohol, 2 mL of 2% Xylocaine was infiltrated at the endoscopic illumin ating site. Through this incision, a trocar was inserted into the stomach and through the trocar, a guidewire was inserted into the stomach after removing the stylet. The guidewire was grabbed with a polypectomy snare and then this was brought out through the mouth along with the endoscope. Throu gh this end of the guidewire, a #20 Microvasive G-tube was tied in a loop fashion and then it was br ought out through the abdominal wall incision. Tapered end of the gastrostomy tube was cut, the ada pter was placed and the procedure was terminated. PLAN: Recommend starting G-tube feeding in a.m. Dictated By: ROSHNI JOYNER MD NC/ERWIN Conf#: [id number] DID#: [id number] CC: ROSHNI JOYNER MD; JR DEAN MD;*EndCC*
[2016-09-28] MEDS ORDERED: DIPHENHYDRAMINE 50 MG INJ IV PRN (13:00)
[2016-09-28] MEDS ORDERED: ONDANSETRON 4 MG INJ IV PRN (13:00)
[2016-09-28] MEDS ORDERED: MEPERIDINE 25 MG INJ IV PRN (13:00)
[2016-09-28] MEDS: VANCOMYCIN 750 MG in SOD CHLORIDE 0.9% 150 ML IVPB SCH (13:00)
[2016-09-28] MEDS ORDERED: LABETALOL HCL 20MG INJ IV PRN (13:00)
[2016-09-28] MEDS: SOD FERRIC GLUC COMPLX 125 MG in SOD CHLORIDE 0.9% 100 ML IVPB SCH (13:45)
[2016-09-28] MEDS: ENOXAPARIN 60 MG/0.6 ML SYG SC SCH (13:48)
--- NOTE | 2016-09-28 13:52 | CONS ---
Date/Time of Note Date/Time of Note DATE: 09/28/16 TIME: 13:50 Assessment/Plan Assessment/Plan Chief Complaint/Hosp Course SUBJECTIVE: No acute events overnight. No fevers MICROBIOLOGY: Blood culture on 09/23/2016 growing MRSA. Urine culture grew Angelina albicans. Nares swab came back positive for MRSA. ANTIMICROBIALS: The patient is on vancomycin day #4, Rifampin #2 status post clindamycin. PHYSICAL EXAMINATION: GENERAL: This is a chronically ill-appearing, elderly woman who is in no distress. HEENT: Head atraumatic, normocephalic. Sclerae anicteric. Buccal mucosa dry. NECK: Supple, trachea midline. CHEST: Rise symmetrical. Breath sounds diminished to bases. HEART: S1, S2. ABDOMEN: Soft, bowel tones present. EXTREMITIES: Without cyanosis. ASSESSMENT: 1. Methicillin-sensitive Staphylococcus aureus bacteremia, likely secondary to #2. 2. Left submandibular gland phlegmon with sialolithiasis and sialadenitis, ENT on case. 3. Dysphagia with malnutrition. 4. History of coronary artery disease. 5. Dementia. 6. Diabetes. PLAN: Stable, continue abx, f/u repeat bld cx and 2D ECHO, pending PEG DW staff Problems: Consultation Date/Type/Reason Admit Date/Time Sep 23, 2016 at 17:03 Initial Consult Date 09/25/16 Type of Consultation: ID Exam/Review of Systems Vital Signs Vitals Vital Signs Date Time Temp Pulse Resp B/P Pulse Ox O2 Delivery O2 Flow Rate FiO2 09/28/16 12:59 72 18 147/67 100 Nasal Cannula 09/28/16 12:44 98.7 4.0 Intake and Output 09/27/16 09/27/16 09/28/16 15:00 23:00 07:00 Intake Total 450 ml 400 ml 780 ml Output Total 400 ml 100 ml Balance 450 ml 0 ml 680 ml Results Result Diagram: 09/27/16 0500 09/27/16 0459 Results 24 hrs Laboratory Tests Test 09/27/16 20:16 09/28/16 07:50 09/28/16 11:13 Bedside Glucose 169 146 153 Medications Medications Current Medications Acetaminophen (Tylenol Supp) 325 mg Q8 [place] Last administered on 09/28/16t 06:02 ; Admin Dose 325 MG; Start 09/23/16 at 22:00 Insulin Glargine (Lantus) 4 unit HS SC Last administered on 09/27/16 20:18; Admin Dose 4 UNIT; Start 09/24/16 at 01:00 Diagnostic Test (Pha) (Accu-Chek) 1 ea 02 XX ; Start 09/24/16 at 02:00 Miscellaneous Information 1 ea NOTE XX ; Start 09/24/16 at 01:30 Glucose (Glutose) 15 gm Q15M PRN PO DECREASED GLUCOSE; Start 09/24/16 at 01:30 Glucose (Glutose) 22.5 gm Q15M PRN PO DECREASED GLUCOSE; Start 09/24/16 at 01: 30 Dextrose (D50w Syringe) 25 ml Q15M PRN IV DECREASED GLUCOSE; Start 09/24/16 at 01:30 Dextrose (D50w Syringe) 50 ml Q15M PRN IV DECREASED GLUCOSE; Start 09/24/16 at 01:30 Glucagon (Glucagen) 1 mg Q15M PRN IM DECREASED GLUCOSE; Start 09/24/16 at 01:30 Glucose (Glutose) 15 gm Q15M PRN BUCCAL DECREASED GLUCOSE; Start 09/24/16 at 01 :30 Pantoprazole (Protonix Iv) 40 mg DAILY@06 IV Last administered on 09/28/16 06: 02; Admin Dose 40 MG; Start 09/24/16 at 09:00 Enoxaparin Sodium (Lovenox) 60 mg Q24H SC Last administered on 09/28/16 13:48 ; Admin Dose 60 MG; Start 09/24/16 at 09:00 Amlodipine Besylate (Norvasc) 5 mg BID PO Last administered on 09/25/16 10:10 ; Admin Dose 5 MG; Start 09/24/16 at 21:00 Hydralazine HCl (Apresoline) 5 mg Q6H PRN IV ELEVATED BLOOD PRESSURE Last administered on 09/26/16 20:34; Admin Dose 5 MG; Start 09/24/16 at 21:00 Cyanocobalamin (Vitamin B12 Inj) 1,000 mcg DAILY IM Last administered on 09:22; Admin Dose 1,000 MCG; Start 09/25/16 at 09:00; Stop 09/29/16 at 09: 01 Clonidine HCl (Catapres-Tts 2 Patch) 1 patch Q7D TRANSDERM Last administered on 09/24/16 22:09; Admin Dose 1 PATCH; Start 09/24/16 at 21:00 Metoprolol Tartrate (Lopressor) 25 mg BID PO Last administered on 09/25/16 10: 09; Admin Dose 25 MG; Start 09/24/16 at 21:00 Aspirin (Aspirin) 81 mg DAILY PO ; Start 09/26/16 at 09:00 Lorazepam 0.5 mg 0.5 mg Q6 PRN IV ANXIETY Last administered on 09/27/16 09:53 ; Admin Dose 0.5 MG; Start 09/26/16 at 00:00 Vancomycin HCl 750 mg/Sodium Chloride 150 ml @ 75 mls/hr Q24H IVPB Last administered on 09/27/16 13:34; Admin Dose 75 MLS/HR; Start 09/26/16 at 13:00 Rifampin/Sodium Chloride (Rifampin/NS) 100 ml @ 200 mls/hr Q24H IVPB Last administered on 09/27/16 15:22; Admin Dose 200 MLS/HR; Start 09/27/16 at 15:30 Mupirocin 1 applic 1 applic BID TOP Last administered on 09/28/16 09:22; Admin Dose 1 APPLIC; Start 09/27/16 at 21:00 Potassium Chloride/Dextrose/ Sod Cl (D5-1/2ns + KCl 30 Meq) 1,000 ml @ 60 mls/ hr [id number] IV Last administered on 09/28/16 06:09; Admin Dose 60 MLS/HR; Start 09/28/16 at 04:00 LOGAN CASTANEDA NP Sep 28, 2016 13:52
[2016-09-28] MEDS: RIFAMPIN 600 MG in SOD CHLORIDE 0.9% 100 ML IVPB SCH (15:30)
[2016-09-28] MEDS: LIDOCAINE 1% (MDV) 20 ML INJ SC SCH (15:30)
--- NOTE | 2016-09-28 18:12 | CONS ---
Date/Time of Note Date/Time of Note DATE: 09/28/16 TIME: 18:10 Assessment/Plan Assessment/Plan Chief Complaint/Hosp Course Assessment: Sepsis and MRSA bacteremia - antibiotics per infectious disease Sialoadenitis with obstructive stone - per ENT Coronary artery disease - details unknown, clinically stable Peripheral vascular disease Hypertension Acute kidney injury vs chronic kidney disease Diabetes mellitus Dementia Recommendations: -echocardiogram showed LVEF 65-70%, mild diastolic dysfunction, no significant valvular disease -continue aspirin 81mg daily -defer statin therapy, no clear benefit in this patient population -continue metoprolol, amlodipine, clonidine patch, PRN hydralazine -pending PEG placement Problems: Consultation Date/Type/Reason Admit Date/Time Sep 23, 2016 at 17:03 Initial Consult Date 09/25/16 Type of Consultation: Cardiology 24 HR Interval Summary Free Text/Dictation No acute events. Detailed Summary Additional Comments Unable to obtain review of systems due to patient's mental status. Exam/Review of Systems Vital Signs Vitals Vital Signs Date Time Temp Pulse Resp B/P Pulse Ox O2 Delivery O2 Flow Rate FiO2 09/28/16 13:45 98.0 77 20 148/84 98 Room Air 09/28/16 12:44 4.0 Intake and Output 09/27/16 09/27/16 09/28/16 15:00 23:00 07:00 Intake Total 450 ml 400 ml 780 ml Output Total 400 ml 100 ml Balance 450 ml 0 ml 680 ml Exam Constitutional: alert, No distress Psych: confusion Head: atraumatic, normocephalic Eyes: nl conjunctiva, nl lids ENMT: nl external ears & nose, nl nasal mucosa & septum Neck: non-tender, supple, No jvd Respiratory: clear to auscultation Cardiovascular: regular rate and rhythm, systolic murmur Gastrointestinal: non-tender, soft Extremities: No clubbing, No cyanosis, No edema Neurological: No nl mental status, No nl speech Results Result Diagram: 09/27/16 0500 09/27/16 0459 Results 24 hrs Laboratory Tests Test 09/27/16 20:16 09/28/16 07:50 09/28/16 11:13 09/28/16 17:00 Bedside Glucose 169 146 153 182 Medications Medications Current Medications Acetaminophen (Tylenol Supp) 325 mg Q8 [place] Last administered on 09/28/16t 06:02 ; Admin Dose 325 MG; Start 09/23/16 at 22:00 Insulin Glargine (Lantus) 4 unit HS SC Last administered on 09/27/16 20:18; Admin Dose 4 UNIT; Start 09/24/16 at 01:00 Diagnostic Test (Pha) (Accu-Chek) 1 ea 02 XX ; Start 09/24/16 at 02:00 Miscellaneous Information 1 ea NOTE XX ; Start 09/24/16 at 01:30 Glucose (Glutose) 15 gm Q15M PRN PO DECREASED GLUCOSE; Start 09/24/16 at 01:30 Glucose (Glutose) 22.5 gm Q15M PRN PO DECREASED GLUCOSE; Start 09/24/16 at 01: 30 Dextrose (D50w Syringe) 25 ml Q15M PRN IV DECREASED GLUCOSE; Start 09/24/16 at 01:30 Dextrose (D50w Syringe) 50 ml Q15M PRN IV DECREASED GLUCOSE; Start 09/24/16 at 01:30 Glucagon (Glucagen) 1 mg Q15M PRN IM DECREASED GLUCOSE; Start 09/24/16 at 01:30 Glucose (Glutose) 15 gm Q15M PRN BUCCAL DECREASED GLUCOSE; Start 09/24/16 at 01 :30 Pantoprazole (Protonix Iv) 40 mg DAILY@06 IV Last administered on 09/28/16 06: 02; Admin Dose 40 MG; Start 09/24/16 at 09:00 Enoxaparin Sodium (Lovenox) 60 mg Q24H SC Last administered on 09/28/16 13:48 ; Admin Dose 60 MG; Start 09/24/16 at 09:00 Amlodipine Besylate (Norvasc) 5 mg BID PO Last administered on 09/25/16 10:10 ; Admin Dose 5 MG; Start 09/24/16 at 21:00 Hydralazine HCl (Apresoline) 5 mg Q6H PRN IV ELEVATED BLOOD PRESSURE Last administered on 09/26/16 20:34; Admin Dose 5 MG; Start 09/24/16 at 21:00 Cyanocobalamin (Vitamin B12 Inj) 1,000 mcg DAILY IM Last administered on 09:22; Admin Dose 1,000 MCG; Start 09/25/16 at 09:00; Stop 09/29/16 at 09: 01 Clonidine HCl (Catapres-Tts 2 Patch) 1 patch Q7D TRANSDERM Last administered on 09/24/16 22:09; Admin Dose 1 PATCH; Start 09/24/16 at 21:00 Metoprolol Tartrate (Lopressor) 25 mg BID PO Last administered on 09/25/16 10: 09; Admin Dose 25 MG; Start 09/24/16 at 21:00 Aspirin (Aspirin) 81 mg DAILY PO ; Start 09/26/16 at 09:00 Lorazepam 0.5 mg 0.5 mg Q6 PRN IV ANXIETY Last administered on 09/27/16 09:53 ; Admin Dose 0.5 MG; Start 09/26/16 at 00:00 Vancomycin HCl 750 mg/Sodium Chloride 150 ml @ 75 mls/hr Q24H IVPB Last administered on 09/27/16 13:34; Admin Dose 75 MLS/HR; Start 09/26/16 at 13:00 Rifampin/Sodium Chloride (Rifampin/NS) 100 ml @ 200 mls/hr Q24H IVPB Last administered on 09/27/16 15:22; Admin Dose 200 MLS/HR; Start 09/27/16 at 15:30 Mupirocin 1 applic 1 applic BID TOP Last administered on 09/28/16 09:22; Admin Dose 1 APPLIC; Start 09/27/16 at 21:00 Potassium Chloride/Dextrose/ Sod Cl (D5-1/2ns + KCl 30 Meq) 1,000 ml @ 60 mls/ hr [id number] IV Last administered on 09/28/16 06:09; Admin Dose 60 MLS/HR; Start 09/28/16 at 04:00 Lidocaine (Xylocaine 1% (Mdv) 20 ml) 20 ml ONCE SC ; Start 09/28/16 at 15:30; Stop 09/30/16 at 15:29 PRISCILLA WEINSTEIN MD Sep 28, 2016 18:11
[2016-09-28] MEDS: LORAZEPAM 2 MG INJ IV PRN (20:26)
[2016-09-28] MEDS: hydrALAzine 20 MG INJ IV PRN (20:26)
[2016-09-28] MEDS: INSULIN GLARGINE [LANtus] 3 ML PEN SC SCH (21:00)
[2016-09-29] MEDS: ACCU-CHEK XX SCH ×2 (00:56→22:15)
[2016-09-29] MEDS: PANTOPRAZOLE 40 MG INJ IV SCH (04:56)
[2016-09-29] MEDS: ACETAMINOPHEN 325 MG SUPP PR SCH ×3 (05:15→21:03)
[2016-09-29 07:35] VITALS: BP 117/58; RESP 18
[2016-09-29] MEDS: INSULIN ASPART [NOVOLOG] 3 ML PEN SC SCH ×4 (08:54→21:00)
[2016-09-29] MEDS: MUPIROCIN 2% 22 GM OINT TOP SCH ×2 (09:01→21:04)
[2016-09-29] MEDS: METOPROLOL 25 MG TAB PO SCH ×2 (09:02→21:00)
[2016-09-29] MEDS: AMLODIPINE 5 MG TAB PO SCH ×2 (09:02→21:00)
[2016-09-29] MEDS: ENOXAPARIN 60 MG/0.6 ML SYG SC SCH (09:06)
[2016-09-29] MEDS: CYANOCOBALAMIN 1000 MCG INJ IM SCH (09:18)
[2016-09-29] MEDS: ASPIRIN 81 MG TAB PO SCH (09:18)
[2016-09-29 10:21] LABS: CREATININE 1.17 mg/dl (0.44-1.00)
--- NOTE | 2016-09-29 12:33 | PN ---
Date/Time of Note Date/Time of Note DATE: 09/29/16 TIME: 12:33 Assessment/Plan VTE Prophylaxis VTE Prophylaxis Intervention: anti-embolic stocking VTE Contraindication Reason: peripheral vascular disease Lines/Catheters IV Catheter Type (from Nrsg): Saline Lock Central line still needed: No Urinary Cath still in place: No Reason Cath still needed: urinary retention Assessment/Plan Assessment/Plan 1.Sepsis- improving. 2.Left submandibular sialitis and possible abscess;Stone in a duct. ENT f/u. 3.ARF-improved 4.Anemia of chronic disease with low iron. 5.AD& MD with anxiety. 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 14.Progressive deterioration of condition. 15.Kyphosis 16Urinary incontinence with episodes of retention. 17.Hx of kidney cysts. 18.Pain syndrome. 19.S/P G tube placement and feeding. 20.S/P MRSA positive blood and naris cultures with lida in the urine 21.First degree decubitus of the sacral region. Subjective 24 Hr Interval Summary Free Text/Dictation Lethargic.Unable to communicate except 30 sec opening eyes and answering yes/no type of question. Exam/Review of Systems Vital Signs Vitals Vital Signs Date Time Temp Pulse Resp B/P Pulse Ox O2 Delivery O2 Flow Rate FiO2 09/29/16 07:35 98.7 71 18 117/58 94 09/28/16 13:45 Room Air 09/28/16 12:44 4.0 Intake and Output 09/28/16 09/28/16 09/29/16 15:00 23:00 07:00 Intake Total 405 ml Balance 405 ml Exam Constitutional: non-verbal, No alert, No distress, No frail, No obese, No oriented, No other, No well developed Psych: anxiety, confusion ENMT: other (painful left submandibular mass with hard consistency but causing less dyscomfort then before.), No intubated, No mucosa pink and moist, No nl external ears & nose, No nl lips & teeth, No nl nasal mucosa & septum, No tympanic membranes Neck: bruits, No jvd, No masses, No non-tender, No nuchal rigidity, No other, No supple, No thyromegaly Respiratory: diminished breath sounds, No clear to auscultation, No congested cough, No crackles/rales, No intercostal retraction, No labored breathing, No normal air movement, No other, No respirations, No tactile fremitus, No wheezing Cardiovascular: bruits, systolic murmur, No S3, No S4, No diastolic murmur, No edema, No gallop, No irregular rhythm, No jugular venous distention (JVD), No murmurs/extra sounds, No nl pulses, No other, No regular rate and rhythm, No rub Musculoskeletal: joint tenderness, muscle tone, muscle weakness, range of motion, No nl extremities to inspection, No nl gait and stance, No other, No spine non-tender, No swelling Extremities: No calf tenderness, No clubbing, No cyanosis, No edema, No normal pulses, No other, No palpable cord, No pitting pedal edema, No tenderness Neurological: lethargic, No [employer] II-XII intact, No DTR's symmetric, No confused, No focal weakness, No nl mental status, No nl speech, No nl strength, No numbness, No other, No reflexes, No unresponsive Results Result Diagram: 09/27/16 0500 09/29/16 0940 Results 24 hrs Laboratory Tests Test 09/28/16 17:00 09/28/16 20:12 09/29/16 07:54 09/29/16 09:40 Bedside Glucose 182 84 167 Blood Urea Nitrogen 8 Creatinine 1.17 H Test 09/29/16 12:18 Bedside Glucose 186 Medications Medications Current Medications Acetaminophen (Tylenol Supp) 325 mg Q8 [place] Last administered on 09/29/16 05:15 ; Admin Dose 325 MG; Start 09/23/16 at 22:00 Insulin Glargine (Lantus) 4 unit HS SC Last administered on 09/27/16 20:18; Admin Dose 4 UNIT; Start 09/24/16 at 01:00 Diagnostic Test (Pha) (Accu-Chek) 1 ea 02 XX ; Start 09/24/16 at 02:00 Miscellaneous Information 1 ea NOTE XX ; Start 09/24/16 at 01:30 Glucose (Glutose) 15 gm Q15M PRN PO DECREASED GLUCOSE; Start 09/24/16 at 01:30 Glucose (Glutose) 22.5 gm Q15M PRN PO DECREASED GLUCOSE; Start 09/24/16 at 01: 30 Dextrose (D50w Syringe) 25 ml Q15M PRN IV DECREASED GLUCOSE; Start 09/24/16 at 01:30 Dextrose (D50w Syringe) 50 ml Q15M PRN IV DECREASED GLUCOSE; Start 09/24/16 at 01:30 Glucagon (Glucagen) 1 mg Q15M PRN IM DECREASED GLUCOSE; Start 09/24/16 at 01:30 Glucose (Glutose) 15 gm Q15M PRN BUCCAL DECREASED GLUCOSE; Start 09/24/16 at 01 :30 Pantoprazole (Protonix Iv) 40 mg DAILY@06 IV Last administered on 09/28/16 06: 02; Admin Dose 40 MG; Start 09/24/16 at 09:00 Enoxaparin Sodium (Lovenox) 60 mg Q24H SC Last administered on 09/29/16 09:06 ; Admin Dose 60 MG; Start 09/24/16 at 09:00 Amlodipine Besylate (Norvasc) 5 mg BID PO Last administered on 09/29/16 09:02 ; Admin Dose 5 MG; Start 09/24/16 at 21:00 Hydralazine HCl (Apresoline) 5 mg Q6H PRN IV ELEVATED BLOOD PRESSURE Last administered on 09/28/16 20:26; Admin Dose 5 MG; Start 09/24/16 at 21:00 Clonidine HCl (Catapres-Tts 2 Patch) 1 patch Q7D TRANSDERM Last administered on 09/24/16 22:09; Admin Dose 1 PATCH; Start 09/24/16 at 21:00 Metoprolol Tartrate (Lopressor) 25 mg BID PO Last administered on 09/29/16 09: 02; Admin Dose 25 MG; Start 09/24/16 at 21:00 Aspirin (Aspirin) 81 mg DAILY PO Last administered on 09/29/16 09:18; Admin Dose 81 MG; Start 09/26/16 at 09:00 Lorazepam 0.5 mg 0.5 mg Q6 PRN IV ANXIETY Last administered on 09/28/16 20:26 ; Admin Dose 0.5 MG; Start 09/26/16 at 00:00 Vancomycin HCl 750 mg/Sodium Chloride 150 ml @ 75 mls/hr Q24H IVPB Last administered on 09/27/16 13:34; Admin Dose 75 MLS/HR; Start 09/26/16 at 13:00 Rifampin/Sodium Chloride (Rifampin/NS) 100 ml @ 200 mls/hr Q24H IVPB Last administered on 09/27/16 15:22; Admin Dose 200 MLS/HR; Start 09/27/16 at 15:30 Mupirocin 1 applic 1 applic BID TOP Last administered on 09/29/16 09:01; Admin Dose 1 APPLIC; Start 09/27/16 at 21:00 Potassium Chloride/Dextrose/ Sod Cl (D5-1/2ns + KCl 30 Meq) 1,000 ml @ 60 mls/ hr [id number] IV Last administered on 09/28/16 06:09; Admin Dose 60 MLS/HR; Start 09/28/16 at 04:00 Lidocaine (Xylocaine 1% (Mdv) 20 ml) 20 ml ONCE SC ; Start 09/28/16 at 15:30; Stop 09/30/16 at 15:29 JR DEAN MD Sep 29, 2016 12:33
[2016-09-29] MEDS: VANCOMYCIN 750 MG in SOD CHLORIDE 0.9% 150 ML IVPB SCH (13:00)
[2016-09-29] MEDS: D5W-0.45 NACL + KCL 30 MEQ 1,000 ML IV SCH (13:20)
[2016-09-29] MEDS: LIDOCAINE 1% (MDV) 20 ML INJ SC SCH (15:30)
[2016-09-29] MEDS: RIFAMPIN 600 MG in SOD CHLORIDE 0.9% 100 ML IVPB SCH (15:30)
--- NOTE | 2016-09-29 16:12 | CONS ---
Date/Time of Note Date/Time of Note DATE: 09/29/16 TIME: 16:10 Assessment/Plan Assessment/Plan Chief Complaint/Hosp Course SUBJECTIVE: No acute events overnight. No fevers MICROBIOLOGY: Blood culture on 09/23/2016 growing MRSA. Urine culture grew Angelina albicans. Nares swab came back positive for MRSA. ANTIMICROBIALS: The patient is on vancomycin day #5, Rifampin #3 PHYSICAL EXAMINATION: GENERAL: This is a chronically ill-appearing, elderly woman who is in no distress. HEENT: Head atraumatic, normocephalic. Sclerae anicteric. Buccal mucosa dry. NECK: Supple, trachea midline. CHEST: Rise symmetrical. Breath sounds diminished to bases. HEART: S1, S2. ABDOMEN: Soft, bowel tones present. EXTREMITIES: Without cyanosis. ASSESSMENT: 1. Methicillin-sensitive Staphylococcus aureus bacteremia, likely secondary to #2. 2. Left submandibular gland phlegmon with sialolithiasis and sialadenitis, ENT on case. 3. Dysphagia with malnutrition. 4. History of coronary artery disease. 5. Dementia. 6. Diabetes. PLAN: Stable, repeat bld cx and 2D ECHO negative, continue abx for 2 weeks, needs PICC vs PO Zyvox DW staff DW Dr Poon Problems: Consultation Date/Type/Reason Admit Date/Time Sep 23, 2016 at 17:03 Initial Consult Date 09/25/16 Type of Consultation: id Exam/Review of Systems Vital Signs Vitals Vital Signs Date Time Temp Pulse Resp B/P Pulse Ox O2 Delivery O2 Flow Rate FiO2 09/29/16 07:35 98.7 71 18 117/58 94 09/28/16 13:45 Room Air 09/28/16 12:44 4.0 Intake and Output 09/28/16 09/28/16 09/29/16 15:00 23:00 07:00 Intake Total 405 ml Balance 405 ml Results Result Diagram: 09/27/16 0500 09/29/16 0940 Results 24 hrs Laboratory Tests Test 09/28/16 17:00 09/28/16 20:12 09/29/16 07:54 09/29/16 09:40 Bedside Glucose 182 84 167 Blood Urea Nitrogen 8 Creatinine 1.17 H Test 09/29/16 12:18 Bedside Glucose 186 Medications Medications Current Medications Acetaminophen (Tylenol Supp) 325 mg Q8 [place] Last administered on 09/29/16t 14:16 ; Admin Dose 325 MG; Start 09/23/16 at 22:00 Insulin Glargine (Lantus) 4 unit HS SC Last administered on 09/27/16 20:18; Admin Dose 4 UNIT; Start 09/24/16 at 01:00 Diagnostic Test (Pha) (Accu-Chek) 1 ea 02 XX ; Start 09/24/16 at 02:00 Miscellaneous Information 1 ea NOTE XX ; Start 09/24/16 at 01:30 Glucose (Glutose) 15 gm Q15M PRN PO DECREASED GLUCOSE; Start 09/24/16 at 01:30 Glucose (Glutose) 22.5 gm Q15M PRN PO DECREASED GLUCOSE; Start 09/24/16 at 01: 30 Dextrose (D50w Syringe) 25 ml Q15M PRN IV DECREASED GLUCOSE; Start 09/24/16 at 01:30 Dextrose (D50w Syringe) 50 ml Q15M PRN IV DECREASED GLUCOSE; Start 09/24/16 at 01:30 Glucagon (Glucagen) 1 mg Q15M PRN IM DECREASED GLUCOSE; Start 09/24/16 at 01:30 Glucose (Glutose) 15 gm Q15M PRN BUCCAL DECREASED GLUCOSE; Start 09/24/16 at 01 :30 Pantoprazole (Protonix Iv) 40 mg DAILY@06 IV Last administered on 09/28/16 06: 02; Admin Dose 40 MG; Start 09/24/16 at 09:00 Enoxaparin Sodium (Lovenox) 60 mg Q24H SC Last administered on 09/29/16 09:06 ; Admin Dose 60 MG; Start 09/24/16 at 09:00 Amlodipine Besylate (Norvasc) 5 mg BID PO Last administered on 09/29/16 09:02 ; Admin Dose 5 MG; Start 09/24/16 at 21:00 Hydralazine HCl (Apresoline) 5 mg Q6H PRN IV ELEVATED BLOOD PRESSURE Last administered on 09/28/16 20:26; Admin Dose 5 MG; Start 09/24/16 at 21:00 Clonidine HCl (Catapres-Tts 2 Patch) 1 patch Q7D TRANSDERM Last administered on 09/24/16 22:09; Admin Dose 1 PATCH; Start 09/24/16 at 21:00 Metoprolol Tartrate (Lopressor) 25 mg BID PO Last administered on 09/29/16 09: 02; Admin Dose 25 MG; Start 09/24/16 at 21:00 Aspirin (Aspirin) 81 mg DAILY PO Last administered on 09/29/16 09:18; Admin Dose 81 MG; Start 09/26/16 at 09:00 Lorazepam 0.5 mg 0.5 mg Q6 PRN IV ANXIETY Last administered on 09/28/16 20:26 ; Admin Dose 0.5 MG; Start 09/26/16 at 00:00 Vancomycin HCl 750 mg/Sodium Chloride 150 ml @ 75 mls/hr Q24H IVPB Last administered on 09/27/16 13:34; Admin Dose 75 MLS/HR; Start 09/26/16 at 13:00 Rifampin/Sodium Chloride (Rifampin/NS) 100 ml @ 200 mls/hr Q24H IVPB Last administered on 09/27/16 15:22; Admin Dose 200 MLS/HR; Start 09/27/16 at 15:30 Mupirocin 1 applic 1 applic BID TOP Last administered on 09/29/16 09:01; Admin Dose 1 APPLIC; Start 09/27/16 at 21:00 Potassium Chloride/Dextrose/ Sod Cl (D5-1/2ns + KCl 30 Meq) 1,000 ml @ 60 mls/ hr [id number] IV Last administered on 09/28/16 06:09; Admin Dose 60 MLS/HR; Start 09/28/16 at 04:00 Lidocaine (Xylocaine 1% (Mdv) 20 ml) 20 ml ONCE SC ; Start 09/28/16 at 15:30; Stop 09/30/16 at 15:29 Linezolid (Zyvox) 600 mg BID PO ; Start 09/29/16 at 21:00; Stop 10/07/16 at 09:00 LOGAN CASTANEDA NP Sep 29, 2016 16:12
--- NOTE | 2016-09-29 16:14 | CONS ---
Date/Time of Note Date/Time of Note DATE: 09/29/16 TIME: 16:13 Assessment/Plan Assessment/Plan Chief Complaint/Hosp Course Assessment: Sepsis and MRSA bacteremia - antibiotics per infectious disease Sialoadenitis with obstructive stone - per ENT Coronary artery disease - details unknown, clinically stable Peripheral vascular disease Hypertension Acute kidney injury vs chronic kidney disease Diabetes mellitus Dementia Recommendations: -echocardiogram showed LVEF 65-70%, mild diastolic dysfunction, no significant valvular disease -continue aspirin 81mg daily -defer statin therapy, no clear benefit in this patient population -continue metoprolol, amlodipine, clonidine patch, PRN hydralazine Problems: Consultation Date/Type/Reason Admit Date/Time Sep 23, 2016 at 17:03 Initial Consult Date 09/25/16 Type of Consultation: Cardiology 24 HR Interval Summary Free Text/Dictation PEG placed, started on tube feeds. Detailed Summary Additional Comments Unable to obtain review of systems due to patient's mental status. Exam/Review of Systems Vital Signs Vitals Vital Signs Date Time Temp Pulse Resp B/P Pulse Ox O2 Delivery O2 Flow Rate FiO2 09/29/16 07:35 98.7 71 18 117/58 94 09/28/16 13:45 Room Air 09/28/16 12:44 4.0 Intake and Output 09/28/16 09/28/16 09/29/16 14:59 22:59 06:59 Intake Total 405 ml Balance 405 ml Exam Constitutional: alert, No distress Psych: confusion Head: atraumatic, normocephalic Eyes: nl conjunctiva, nl lids ENMT: nl external ears & nose, nl nasal mucosa & septum Neck: non-tender, supple, No jvd Respiratory: clear to auscultation Cardiovascular: regular rate and rhythm, systolic murmur Gastrointestinal: non-tender, soft Extremities: No clubbing, No cyanosis, No edema Neurological: No nl mental status, No nl speech Results Result Diagram: 09/27/16 0500 09/29/16 0940 Results 24 hrs Laboratory Tests Test 09/28/16 17:00 09/28/16 20:12 09/29/16 07:54 09/29/16 09:40 Bedside Glucose 182 84 167 Blood Urea Nitrogen 8 Creatinine 1.17 H Test 09/29/16 12:18 Bedside Glucose 186 Medications Medications Current Medications Acetaminophen (Tylenol Supp) 325 mg Q8 [place] Last administered on 09/29/16 14:16 ; Admin Dose 325 MG; Start 09/23/16 at 22:00 Insulin Glargine (Lantus) 4 unit HS SC Last administered on 09/27/16 20:18; Admin Dose 4 UNIT; Start 09/24/16 at 01:00 Diagnostic Test (Pha) (Accu-Chek) 1 ea 02 XX ; Start 09/24/16 at 02:00 Miscellaneous Information 1 ea NOTE XX ; Start 09/24/16 at 01:30 Glucose (Glutose) 15 gm Q15M PRN PO DECREASED GLUCOSE; Start 09/24/16 at 01:30 Glucose (Glutose) 22.5 gm Q15M PRN PO DECREASED GLUCOSE; Start 09/24/16 at 01: 30 Dextrose (D50w Syringe) 25 ml Q15M PRN IV DECREASED GLUCOSE; Start 09/24/16 at 01:30 Dextrose (D50w Syringe) 50 ml Q15M PRN IV DECREASED GLUCOSE; Start 09/24/16 at 01:30 Glucagon (Glucagen) 1 mg Q15M PRN IM DECREASED GLUCOSE; Start 09/24/16 at 01:30 Glucose (Glutose) 15 gm Q15M PRN BUCCAL DECREASED GLUCOSE; Start 09/24/16 at 01 :30 Pantoprazole (Protonix Iv) 40 mg DAILY@06 IV Last administered on 09/28/16 06: 02; Admin Dose 40 MG; Start 09/24/16 at 09:00 Enoxaparin Sodium (Lovenox) 60 mg Q24H SC Last administered on 09/29/16 09:06 ; Admin Dose 60 MG; Start 09/24/16 at 09:00 Amlodipine Besylate (Norvasc) 5 mg BID PO Last administered on 09/29/16 09:02 ; Admin Dose 5 MG; Start 09/24/16 at 21:00 Hydralazine HCl (Apresoline) 5 mg Q6H PRN IV ELEVATED BLOOD PRESSURE Last administered on 09/28/16 20:26; Admin Dose 5 MG; Start 09/24/16 at 21:00 Clonidine HCl (Catapres-Tts 2 Patch) 1 patch Q7D TRANSDERM Last administered on 09/24/16 22:09; Admin Dose 1 PATCH; Start 09/24/16 at 21:00 Metoprolol Tartrate (Lopressor) 25 mg BID PO Last administered on 09/29/16 09: 02; Admin Dose 25 MG; Start 09/24/16 at 21:00 Aspirin (Aspirin) 81 mg DAILY PO Last administered on 09/29/16 09:18; Admin Dose 81 MG; Start 09/26/16 at 09:00 Lorazepam 0.5 mg 0.5 mg Q6 PRN IV ANXIETY Last administered on 09/28/16 20:26 ; Admin Dose 0.5 MG; Start 09/26/16 at 00:00 Vancomycin HCl 750 mg/Sodium Chloride 150 ml @ 75 mls/hr Q24H IVPB Last administered on 09/27/16 13:34; Admin Dose 75 MLS/HR; Start 09/26/16 at 13:00 Rifampin/Sodium Chloride (Rifampin/NS) 100 ml @ 200 mls/hr Q24H IVPB Last administered on 09/27/16 15:22; Admin Dose 200 MLS/HR; Start 09/27/16 at 15:30 Mupirocin 1 applic 1 applic BID TOP Last administered on 09/29/16 09:01; Admin Dose 1 APPLIC; Start 09/27/16 at 21:00 Potassium Chloride/Dextrose/ Sod Cl (D5-1/2ns + KCl 30 Meq) 1,000 ml @ 60 mls/ hr [id number] IV Last administered on 09/28/16 06:09; Admin Dose 60 MLS/HR; Start 09/28/16 at 04:00 Lidocaine (Xylocaine 1% (Mdv) 20 ml) 20 ml ONCE SC ; Start 09/28/16 at 15:30; Stop 09/30/16 at 15:29 Linezolid (Zyvox) 600 mg BID PO ; Start 09/29/16 at 21:00; Stop 10/07/16 at 09:00 PRISCILLA WEINSTEIN MD Sep 29, 2016 16:14
[2016-09-29 20:28] VITALS: BP 119/56; RESP 19
[2016-09-29] MEDS: ZYVOX 600 MG TAB PO SCH (21:00)
[2016-09-29] MEDS: INSULIN GLARGINE [LANtus] 3 ML PEN SC SCH (21:03)
[2016-09-30] MEDS: D5W-0.45 NACL + KCL 30 MEQ 1,000 ML IV SCH ×2 (00:26→22:40)
[2016-09-30] MEDS: LORAZEPAM 2 MG INJ IV PRN ×3 (05:21→20:08)
[2016-09-30] MEDS: ACETAMINOPHEN 325 MG SUPP PR SCH ×3 (05:21→20:08)
[2016-09-30] MEDS: PANTOPRAZOLE 40 MG INJ IV SCH (05:21)
[2016-09-30 07:56] VITALS: BP 181/92; RESP 18
[2016-09-30] MEDS ORDERED: BISACODYL 10 MG SUPP PR PRN (09:00)
[2016-09-30] MEDS: MUPIROCIN 2% 22 GM OINT TOP SCH ×2 (09:00→20:15)
[2016-09-30] MEDS: AMLODIPINE 5 MG TAB PO SCH ×2 (09:38→20:08)
[2016-09-30] MEDS: METOPROLOL 25 MG TAB PO SCH ×2 (09:38→20:12)
[2016-09-30] MEDS: ASPIRIN 81 MG TAB PO SCH (09:38)
[2016-09-30] MEDS: ENOXAPARIN 60 MG/0.6 ML SYG SC SCH (09:39)
[2016-09-30] MEDS: INSULIN ASPART [NOVOLOG] 3 ML PEN SC SCH ×4 (09:40→20:13)
--- NOTE | 2016-09-30 11:20 | CONS ---
DATE OF ADMISSION: 09/23/2016 DATE OF CONSULTATION: CHIEF COMPLAINT: The patient at this time has no complaints. OBJECTIVE FINDINGS: GENERAL: The patient is alert, not combative, she is comfortable. VITAL SIGNS: Pulse is 76, blood pressure is 110/82. ABDOMEN: Soft. G-tube is in place, and the abdomen is not distended. LABORATORY WORKUP: Hemoglobin 12.4, WBC count 10,200. CLINICAL IMPRESSION: Status post PEG placement and she is tolerating the G-tube well. PLAN: Continue current regimen of G-tube feeding. Dictated By: ROSHNI SÁNCHEZ/ERWIN Conf#: [id number] DID#: [id number]
[2016-09-30] MEDS: ZYVOX 600 MG TAB PO SCH ×2 (11:39→20:08)
[2016-09-30 11:53] LABS: ADD SCAN DIFF NO
[2016-09-30 12:11] LABS: BASOPHILS % 0.2 % (0.0-2.0); EOSINOPHILS # 0.1 10^3/ul (0.0-0.5); HEMATOCRIT 32.1 % (37.0-47.0); HEMOGLOBIN 11.3 g/dl (12.0-16.0); LYMPHOCYTES # 2.6 10^3/ul (0.8-2.9); LYMPHOCYTES % 23.9 % (15.0-51.0); MEAN CORPUSCULAR HEMOGLOBIN 31.8 pg (29.0-33.0); MEAN CORPUSCULAR HGB CONC 35.2 g/dl (32.0-37.0); MEAN CORPUSCULAR VOLUME 90.4 fl (82.0-101.0); MONOCYTE # 0.9 10^3/ul (0.3-0.9); MONOCYTES % 8.7 % (0.0-11.0); NEUTROPHILS % 64.6 % (39.0-77.0); PLATELET COUNT 311 10^3/UL (140-415); RED BLOOD COUNT 3.55 10^6/ul (4.20-5.40); RED CELL DISTRIBUTION WIDTH 16.4 % (11.5-14.5); WHITE BLOOD COUNT 10.8 10^3/ul (4.8-10.8)
[2016-09-30 12:22] LABS: POTASSIUM 3.2 mmol/L (3.5-5.1)
[2016-09-30 12:24] LABS: IRON 49 ug/dl (35-150)
[2016-09-30 12:25] LABS: CALCIUM 7.7 mg/dl (8.4-10.2); CREATININE 1.08 mg/dl (0.44-1.00)
[2016-09-30 12:26] LABS: MAGNESIUM 1.2 mg/dl (1.7-2.5)
[2016-09-30 12:33] LABS: TOTAL IRON BINDING CAPACITY 131 ug/dl (241-421)
--- NOTE | 2016-09-30 16:13 | CONS ---
Date/Time of Note Date/Time of Note DATE: 09/30/16 TIME: 16:12 Assessment/Plan Assessment/Plan Chief Complaint/Hosp Course Assessment: Sepsis and MRSA bacteremia - antibiotics per infectious disease Sialoadenitis with obstructive stone - per ENT Coronary artery disease - details unknown, clinically stable Peripheral vascular disease Hypertension Acute kidney injury vs chronic kidney disease Diabetes mellitus Dementia Recommendations: -echocardiogram showed LVEF 65-70%, mild diastolic dysfunction, no significant valvular disease -continue aspirin 81mg daily -defer statin therapy, no clear benefit in this patient population -continue metoprolol, amlodipine, clonidine patch, PRN hydralazine Problems: Consultation Date/Type/Reason Admit Date/Time Sep 23, 2016 at 17:03 Initial Consult Date 09/25/16 Type of Consultation: Cardiology 24 HR Interval Summary Free Text/Dictation No acute events. Detailed Summary Additional Comments Unable to obtain review of systems due to patient's mental status. Exam/Review of Systems Vital Signs Vitals Vital Signs Date Time Temp Pulse Resp B/P Pulse Ox O2 Delivery O2 Flow Rate FiO2 09/30/16 07:56 97.5 88 18 181/92 97 09/28/16 13:45 Room Air 09/28/16 12:44 4.0 Intake and Output 09/29/16 09/29/16 09/30/16 15:00 23:00 07:00 Intake Total 680 ml 650 ml Balance 680 ml 650 ml Exam Constitutional: alert, No distress Psych: confusion Head: atraumatic, normocephalic Eyes: nl conjunctiva, nl lids ENMT: nl external ears & nose, nl nasal mucosa & septum Neck: non-tender, supple, No jvd Respiratory: clear to auscultation Cardiovascular: regular rate and rhythm, systolic murmur Gastrointestinal: non-tender, soft Extremities: No clubbing, No cyanosis, No edema Neurological: No nl mental status, No nl speech Results Result Diagram: 09/30/16 1130 09/30/16 1130 Results 24 hrs Laboratory Tests Test 09/29/16 17:24 09/29/16 20:59 09/30/16 07:27 09/30/16 11:30 Bedside Glucose 178 149 362 H White Blood Count 10.8 Red Blood Count 3.55 L Hemoglobin 11.3 L Hematocrit 32.1 L Mean Corpuscular Volume 90.4 Mean Corpuscular Hemoglobin 31.8 Mean Corpuscular Hemoglobin Concent 35.2 Red Cell Distribution Width 16.4 H Platelet Count 311 Mean Platelet Volume 11.0 H Neutrophils % 64.6 Lymphocytes % 23.9 Monocytes % 8.7 Eosinophils % 1.0 Basophils % 0.2 Nucleated Red Blood Cells % 0.0 Neutrophils # 7.0 Lymphocytes # 2.6 Monocytes # 0.9 Eosinophils # 0.1 Basophils # 0.0 Nucleated Red Blood Cells # 0.0 Sodium Level 138 Potassium Level 3.2 L Chloride Level 106 Carbon Dioxide Level 22 Anion Gap 13 Blood Urea Nitrogen 11 Creatinine 1.08 H Glucose Level 409 *H Calcium Level 7.7 L Magnesium Level 1.2 L Iron Level 49 Total Iron Binding Capacity 131 L Percent Iron Saturation 37 Test 09/30/16 12:14 Bedside Glucose 358 H Medications Medications Current Medications Acetaminophen (Tylenol Supp) 325 mg Q8 [place] Last administered on 09/30/16 05:21 ; Admin Dose 325 MG; Start 09/23/16 at 22:00 Insulin Glargine (Lantus) 4 unit HS SC Last administered on 09/29/16 21:03; Admin Dose 4 UNIT; Start 09/24/16 at 01:00 Diagnostic Test (Pha) (Accu-Chek) 1 ea 02 XX ; Start 09/24/16 at 02:00 Miscellaneous Information 1 ea NOTE XX ; Start 09/24/16 at 01:30 Glucose (Glutose) 15 gm Q15M PRN PO DECREASED GLUCOSE; Start 09/24/16 at 01:30 Glucose (Glutose) 22.5 gm Q15M PRN PO DECREASED GLUCOSE; Start 09/24/16 at 01: 30 Dextrose (D50w Syringe) 25 ml Q15M PRN IV DECREASED GLUCOSE; Start 09/24/16 at 01:30 Dextrose (D50w Syringe) 50 ml Q15M PRN IV DECREASED GLUCOSE; Start 09/24/16 at 01:30 Glucagon (Glucagen) 1 mg Q15M PRN IM DECREASED GLUCOSE; Start 09/24/16 at 01:30 Glucose (Glutose) 15 gm Q15M PRN BUCCAL DECREASED GLUCOSE; Start 09/24/16 at 01 :30 Enoxaparin Sodium (Lovenox) 60 mg Q24H SC Last administered on 09/30/16 09:39 ; Admin Dose 60 MG; Start 09/24/16 at 09:00 Amlodipine Besylate (Norvasc) 5 mg BID PO Last administered on 09/30/16 09:38 ; Admin Dose 5 MG; Start 09/24/16 at 21:00 Hydralazine HCl (Apresoline) 5 mg Q6H PRN IV ELEVATED BLOOD PRESSURE Last administered on 09/28/16 20:26; Admin Dose 5 MG; Start 09/24/16 at 21:00 Clonidine HCl (Catapres-Tts 2 Patch) 1 patch Q7D TRANSDERM Last administered on 09/24/16 22:09; Admin Dose 1 PATCH; Start 09/24/16 at 21:00 Metoprolol Tartrate (Lopressor) 25 mg BID PO Last administered on 09/30/16 09: 38; Admin Dose 25 MG; Start 09/24/16 at 21:00 Aspirin (Aspirin) 81 mg DAILY PO Last administered on 09/30/16 09:38; Admin Dose 81 MG; Start 09/26/16 at 09:00 Lorazepam 0.5 mg 0.5 mg Q6 PRN IV ANXIETY Last administered on 09/30/16 11:44 ; Admin Dose 0.5 MG; Start 09/26/16 at 00:00 Rifampin/Sodium Chloride (Rifampin/NS) 100 ml @ 200 mls/hr Q24H IVPB Last administered on 09/27/16 15:22; Admin Dose 200 MLS/HR; Start 09/27/16 at 15:30 Mupirocin 1 applic 1 applic BID TOP Last administered on 09/29/16 21:04; Admin Dose 1 APPLIC; Start 09/27/16 at 21:00 Potassium Chloride/Dextrose/ Sod Cl (D5-1/2ns + KCl 30 Meq) 1,000 ml @ 60 mls/ hr [id number] IV Last administered on 09/30/16 00:26; Admin Dose 60 MLS/HR; Start 09/28/16 at 04:00 Linezolid (Zyvox) 600 mg BID PO Last administered on 09/30/16 11:39; Admin Dose 600 MG; Start 09/29/16 at 21:00; Stop 10/07/16 at 09:00 Bisacodyl (Dulcolax Supp) 10 mg DAILY PRN [place] CONSTIPATION; Start 09/30/16 at 09 :00 Lansoprazole (Prevacid) 30 mg DAILY@06 GTB ; Start 10/01/16 at 06:00 PRISCILLA WEINSTEIN MD Sep 30, 2016 16:12
--- NOTE | 2016-09-30 16:15 | CONS ---
Date/Time of Note Date/Time of Note DATE: 09/30/16 TIME: 16:14 Assessment/Plan Assessment/Plan Chief Complaint/Hosp Course SUBJECTIVE: No acute events overnight. No fevers MICROBIOLOGY: Blood culture on 09/23/2016 growing MRSA. Urine culture grew Angelina albicans. Nares swab came back positive for MRSA. ANTIMICROBIALS: The patient is on Zyvox and Rifampin s/p Vanco/Clindamycin PHYSICAL EXAMINATION: GENERAL: This is a chronically ill-appearing, elderly woman who is in no distress. HEENT: Head atraumatic, normocephalic. Sclerae anicteric. Buccal mucosa dry. NECK: Supple, trachea midline. CHEST: Rise symmetrical. Breath sounds diminished to bases. HEART: S1, S2. ABDOMEN: Soft, bowel tones present. EXTREMITIES: Without cyanosis. ASSESSMENT: 1. Methicillin-sensitive Staphylococcus aureus bacteremia, likely secondary to #2. 2. Left submandibular gland phlegmon with sialolithiasis and sialadenitis, ENT on case. 3. Dysphagia with malnutrition. 4. History of coronary artery disease. 5. Dementia. 6. Diabetes. PLAN: Stable, repeat bld cx and 2D ECHO negative, continue abx for 2 weeks DW staff Problems: Consultation Date/Type/Reason Admit Date/Time Sep 23, 2016 at 17:03 Initial Consult Date 09/25/16 Type of Consultation: id Exam/Review of Systems Vital Signs Vitals Vital Signs Date Time Temp Pulse Resp B/P Pulse Ox O2 Delivery O2 Flow Rate FiO2 09/30/16 07:56 97.5 88 18 181/92 97 09/28/16 13:45 Room Air 09/28/16 12:44 4.0 Intake and Output 09/29/16 09/29/16 09/30/16 15:00 23:00 07:00 Intake Total 680 ml 650 ml Balance 680 ml 650 ml Results Result Diagram: 09/30/16 1130 09/30/16 1130 Results 24 hrs Laboratory Tests Test 09/29/16 17:24 09/29/16 20:59 09/30/16 07:27 09/30/16 11:30 Bedside Glucose 178 149 362 H White Blood Count 10.8 Red Blood Count 3.55 L Hemoglobin 11.3 L Hematocrit 32.1 L Mean Corpuscular Volume 90.4 Mean Corpuscular Hemoglobin 31.8 Mean Corpuscular Hemoglobin Concent 35.2 Red Cell Distribution Width 16.4 H Platelet Count 311 Mean Platelet Volume 11.0 H Neutrophils % 64.6 Lymphocytes % 23.9 Monocytes % 8.7 Eosinophils % 1.0 Basophils % 0.2 Nucleated Red Blood Cells % 0.0 Neutrophils # 7.0 Lymphocytes # 2.6 Monocytes # 0.9 Eosinophils # 0.1 Basophils # 0.0 Nucleated Red Blood Cells # 0.0 Sodium Level 138 Potassium Level 3.2 L Chloride Level 106 Carbon Dioxide Level 22 Anion Gap 13 Blood Urea Nitrogen 11 Creatinine 1.08 H Glucose Level 409 *H Calcium Level 7.7 L Magnesium Level 1.2 L Iron Level 49 Total Iron Binding Capacity 131 L Percent Iron Saturation 37 Test 09/30/16 12:14 Bedside Glucose 358 H Medications Medications Current Medications Acetaminophen (Tylenol Supp) 325 mg Q8 [place] Last administered on 09/30/16 05:21 ; Admin Dose 325 MG; Start 09/23/16 at 22:00 Insulin Glargine (Lantus) 4 unit HS SC Last administered on 09/29/16 21:03; Admin Dose 4 UNIT; Start 09/24/16 at 01:00 Diagnostic Test (Pha) (Accu-Chek) 1 ea 02 XX ; Start 09/24/16 at 02:00 Miscellaneous Information 1 ea NOTE XX ; Start 09/24/16 at 01:30 Glucose (Glutose) 15 gm Q15M PRN PO DECREASED GLUCOSE; Start 09/24/16 at 01:30 Glucose (Glutose) 22.5 gm Q15M PRN PO DECREASED GLUCOSE; Start 09/24/16 at 01: 30 Dextrose (D50w Syringe) 25 ml Q15M PRN IV DECREASED GLUCOSE; Start 09/24/16 at 01:30 Dextrose (D50w Syringe) 50 ml Q15M PRN IV DECREASED GLUCOSE; Start 09/24/16 at 01:30 Glucagon (Glucagen) 1 mg Q15M PRN IM DECREASED GLUCOSE; Start 09/24/16 at 01:30 Glucose (Glutose) 15 gm Q15M PRN BUCCAL DECREASED GLUCOSE; Start 09/24/16 at 01 :30 Enoxaparin Sodium (Lovenox) 60 mg Q24H SC Last administered on 09/30/16 09:39 ; Admin Dose 60 MG; Start 09/24/16 at 09:00 Amlodipine Besylate (Norvasc) 5 mg BID PO Last administered on 09/30/16 09:38 ; Admin Dose 5 MG; Start 09/24/16 at 21:00 Hydralazine HCl (Apresoline) 5 mg Q6H PRN IV ELEVATED BLOOD PRESSURE Last administered on 09/28/16 20:26; Admin Dose 5 MG; Start 09/24/16 at 21:00 Clonidine HCl (Catapres-Tts 2 Patch) 1 patch Q7D TRANSDERM Last administered on 09/24/16 22:09; Admin Dose 1 PATCH; Start 09/24/16 at 21:00 Metoprolol Tartrate (Lopressor) 25 mg BID PO Last administered on 09/30/16 09: 38; Admin Dose 25 MG; Start 09/24/16 at 21:00 Aspirin (Aspirin) 81 mg DAILY PO Last administered on 09/30/16 09:38; Admin Dose 81 MG; Start 09/26/16 at 09:00 Lorazepam 0.5 mg 0.5 mg Q6 PRN IV ANXIETY Last administered on 09/30/16 11:44 ; Admin Dose 0.5 MG; Start 09/26/16 at 00:00 Rifampin/Sodium Chloride (Rifampin/NS) 100 ml @ 200 mls/hr Q24H IVPB Last administered on 09/27/16 15:22; Admin Dose 200 MLS/HR; Start 09/27/16 at 15:30 Mupirocin 1 applic 1 applic BID TOP Last administered on 09/29/16 21:04; Admin Dose 1 APPLIC; Start 09/27/16 at 21:00 Potassium Chloride/Dextrose/ Sod Cl (D5-1/2ns + KCl 30 Meq) 1,000 ml @ 60 mls/ hr [id number] IV Last administered on 09/30/16 00:26; Admin Dose 60 MLS/HR; Start 09/28/16 at 04:00 Linezolid (Zyvox) 600 mg BID PO Last administered on 09/30/16 11:39; Admin Dose 600 MG; Start 09/29/16 at 21:00; Stop 10/07/16 at 09:00 Bisacodyl (Dulcolax Supp) 10 mg DAILY PRN [place] CONSTIPATION; Start 09/30/16 at 09 :00 Lansoprazole (Prevacid) 30 mg DAILY@06 GTB ; Start 10/01/16 at 06:00 LOGAN CASTANEDA NP Sep 30, 2016 16:15
[2016-09-30] MEDS: RIFAMPIN 600 MG in SOD CHLORIDE 0.9% 100 ML IVPB SCH (17:10)
[2016-09-30] MEDS: INSULIN GLARGINE [LANtus] 3 ML PEN SC SCH (20:10)
[2016-09-30 21:44] VITALS: BP 165/72; RESP 20
[2016-09-30] MEDS ORDERED: POTASSIUM CHLORIDE (1.33 MEQ/ML PO SYG) GTB SCH (22:00)
--- NOTE | 2016-09-30 22:00 | PN ---
Date/Time of Note Date/Time of Note DATE: 09/30/16 TIME: 21:53 Assessment/Plan VTE Prophylaxis VTE Prophylaxis Intervention: anti-embolic stocking VTE Contraindication Reason: peripheral vascular disease Lines/Catheters IV Catheter Type (from Nrsg): Peripheral IV Central line still needed: No Urinary Cath still in place: No Assessment/Plan Assessment/Plan 1.Sepsis- improving. 2.Left submandibular sialitis and possible abscess;Stone in a duct. called. 3.ARF-improved 4.Anemia of chronic disease with low iron. 5.AD& MD with anxiety. 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 15.Kyphosis 16Urinary incontinence with episodes of retention. 17.Hx of kidney cysts. 18.S/P G-tube placement and feeding. Tolerates well. Cont'd Hospitalization Reason: antibiotics and g-tube management. Subjective 24 Hr Interval Summary Free Text/Dictation Lethargic. Constitutional: diaphoresis, disoriented, requiring IVF, requiring O2, No chills, No febrile, No improved, No no complaints, No other, No poor po Exam/Review of Systems Vital Signs Vitals Vital Signs Date Time Temp Pulse Resp B/P Pulse Ox O2 Delivery O2 Flow Rate FiO2 09/30/16 21:44 98.7 96 20 165/72 98 09/28/16 13:45 Room Air 09/28/16 12:44 4.0 Intake and Output 09/29/16 09/29/16 09/30/16 15:00 23:00 07:00 Intake Total 680 ml 650 ml Balance 680 ml 650 ml Exam Constitutional: frail, non-verbal, No alert, No distress, No obese, No oriented, No other, No well developed Psych: confusion, No anxiety, No depression, No nl mood/affect, No no complaints, No other, No suicidal Head: No atraumatic, No hematomas, No lacerations, No normocephalic, No other Eyes: PERRL, nl lids, No EOMI, No fundi, disc, No icteric, No nl conjunctiva, No nl sclera, No other ENMT: No intubated, No mucosa pink and moist, No nl external ears & nose, No nl lips & teeth, No nl nasal mucosa & septum, No other, No tympanic membranes Neck: bruits, No jvd, No masses, No non-tender, No nuchal rigidity, No other, No supple, No thyromegaly Respiratory: congested cough, diminished breath sounds, No clear to auscultation, No crackles/rales, No intercostal retraction, No labored breathing, No normal air movement, No other, No respirations, No tactile fremitus, No wheezing Cardiovascular: bruits, murmurs/extra sounds, systolic murmur Gastrointestinal: bowel sounds, non-tender, soft (G tube side clean.), No ascites, No distended, No firm, No hepatomegaly, No mass, No nl liver, spleen, No other, No rebound or guarding, No splenomegaly, No surgical scars, No tender Musculoskeletal: joint tenderness, muscle tone, muscle weakness, No nl extremities to inspection, No nl gait and stance, No other, No range of motion, No spine non-tender, No swelling Extremities: No calf tenderness, No clubbing, No cyanosis, No edema, No normal pulses, No other, No palpable cord, No pitting pedal edema, No tenderness Neurological: confused, other (opening eyes after touch and cosing with smile and holding hand.) Results Result Diagram: 09/30/16 1130 09/30/16 1130 Results 24 hrs Laboratory Tests Test 09/30/16 07:27 09/30/16 11:30 09/30/16 12:14 09/30/16 17:29 Bedside Glucose 362 H 358 H 73 White Blood Count 10.8 Red Blood Count 3.55 L Hemoglobin 11.3 L Hematocrit 32.1 L Mean Corpuscular Volume 90.4 Mean Corpuscular Hemoglobin 31.8 Mean Corpuscular Hemoglobin Concent 35.2 Red Cell Distribution Width 16.4 H Platelet Count 311 Mean Platelet Volume 11.0 H Neutrophils % 64.6 Lymphocytes % 23.9 Monocytes % 8.7 Eosinophils % 1.0 Basophils % 0.2 Nucleated Red Blood Cells % 0.0 Neutrophils # 7.0 Lymphocytes # 2.6 Monocytes # 0.9 Eosinophils # 0.1 Basophils # 0.0 Nucleated Red Blood Cells # 0.0 Sodium Level 138 Potassium Level 3.2 L Chloride Level 106 Carbon Dioxide Level 22 Anion Gap 13 Blood Urea Nitrogen 11 Creatinine 1.08 H Glucose Level 409 *H Calcium Level 7.7 L Magnesium Level 1.2 L Iron Level 49 Total Iron Binding Capacity 131 L Percent Iron Saturation 37 Test 09/30/16 20:05 Bedside Glucose 120 Medications Medications Current Medications Acetaminophen (Tylenol Supp) 325 mg Q8 [place] Last administered on 09/30/16 20:08 ; Admin Dose 325 MG; Start 09/23/16 at 22:00 Insulin Glargine (Lantus) 4 unit HS SC Last administered on 09/30/16 20:10; Admin Dose 4 UNIT; Start 09/24/16 at 01:00 Diagnostic Test (Pha) (Accu-Chek) 1 ea 02 XX ; Start 09/24/16 at 02:00 Miscellaneous Information 1 ea NOTE XX ; Start 09/24/16 at 01:30 Glucose (Glutose) 15 gm Q15M PRN PO DECREASED GLUCOSE; Start 09/24/16 at 01:30 Glucose (Glutose) 22.5 gm Q15M PRN PO DECREASED GLUCOSE; Start 09/24/16 at 01: 30 Dextrose (D50w Syringe) 25 ml Q15M PRN IV DECREASED GLUCOSE; Start 09/24/16 at 01:30 Dextrose (D50w Syringe) 50 ml Q15M PRN IV DECREASED GLUCOSE; Start 09/24/16 at 01:30 Glucagon (Glucagen) 1 mg Q15M PRN IM DECREASED GLUCOSE; Start 09/24/16 at 01:30 Glucose (Glutose) 15 gm Q15M PRN BUCCAL DECREASED GLUCOSE; Start 09/24/16 at 01 :30 Enoxaparin Sodium (Lovenox) 60 mg Q24H SC Last administered on 09/30/16 09:39 ; Admin Dose 60 MG; Start 09/24/16 at 09:00 Amlodipine Besylate (Norvasc) 5 mg BID PO Last administered on 09/30/16 20:08 ; Admin Dose 5 MG; Start 09/24/16 at 21:00 Hydralazine HCl (Apresoline) 5 mg Q6H PRN IV ELEVATED BLOOD PRESSURE Last administered on 09/28/16 20:26; Admin Dose 5 MG; Start 09/24/16 at 21:00 Clonidine HCl (Catapres-Tts 2 Patch) 1 patch Q7D TRANSDERM Last administered on 09/24/16 22:09; Admin Dose 1 PATCH; Start 09/24/16 at 21:00 Metoprolol Tartrate (Lopressor) 25 mg BID PO Last administered on 09/30/16 20: 12; Admin Dose 25 MG; Start 09/24/16 at 21:00 Aspirin (Aspirin) 81 mg DAILY PO Last administered on 09/30/16 09:38; Admin Dose 81 MG; Start 09/26/16 at 09:00 Lorazepam 0.5 mg 0.5 mg Q6 PRN IV ANXIETY Last administered on 09/30/16 20:08 ; Admin Dose 0.5 MG; Start 09/26/16 at 00:00 Rifampin/Sodium Chloride (Rifampin/NS) 100 ml @ 200 mls/hr Q24H IVPB Last administered on 09/30/16 17:10; Admin Dose 200 MLS/HR; Start 09/27/16 at 15:30 Mupirocin 1 applic 1 applic BID TOP Last administered on 09/30/16 20:15; Admin Dose 1 APPLIC; Start 09/27/16 at 21:00 Potassium Chloride/Dextrose/ Sod Cl (D5-1/2ns + KCl 30 Meq) 1,000 ml @ 60 mls/ hr [id number] IV Last administered on 09/30/16 00:26; Admin Dose 60 MLS/HR; Start 09/28/16 at 04:00 Linezolid (Zyvox) 600 mg BID PO Last administered on 09/30/16 20:08; Admin Dose 600 MG; Start 09/29/16 at 21:00; Stop 10/07/16 at 09:00 Bisacodyl (Dulcolax Supp) 10 mg DAILY PRN [place] CONSTIPATION; Start 09/30/16 at 09 :00 Lansoprazole (Prevacid) 30 mg DAILY@06 GTB ; Start 10/01/16 at 06:00 JR DEAN MD Sep 30, 2016 22:00
[2016-09-30] MEDS ORDERED: POTASSIUM CHLORIDE 20 MEQ POWDER FOR ORAL SOLN PO SCH (22:30)
[2016-09-30] MEDS: POTASSIUM CHLORIDE 20 MEQ POWDER FOR ORAL SOLN GTB SCH (22:49)
[2016-09-30] MEDS: SOD FERRIC GLUC COMPLX 125 MG in SOD CHLORIDE 0.9% 100 ML IVPB SCH (23:49)
[2016-10-01] MEDS: ACCU-CHEK XX SCH (02:00)
[2016-10-01] MEDS: D5W-0.45 NACL + KCL 30 MEQ 1,000 ML IV SCH (04:00)
[2016-10-01] MEDS: ACETAMINOPHEN 325 MG SUPP PR SCH ×3 (04:00→21:26)
[2016-10-01] MEDS: LANSOPRAZOLE 30 MG CAP GTB SCH (05:25)
[2016-10-01 08:05] VITALS: BP 130/60; RESP 18
[2016-10-01] MEDS: INSULIN ASPART [NOVOLOG] 3 ML PEN SC SCH ×4 (08:51→20:51)
[2016-10-01] MEDS: ASPIRIN 81 MG TAB PO SCH (08:52)
[2016-10-01] MEDS: POTASSIUM CHLORIDE 20 MEQ POWDER FOR ORAL SOLN GTB SCH ×2 (08:52→20:41)
[2016-10-01] MEDS: AMLODIPINE 5 MG TAB PO SCH ×2 (08:52→20:42)
[2016-10-01] MEDS: METOPROLOL 25 MG TAB PO SCH ×2 (08:52→20:42)
[2016-10-01] MEDS: ZYVOX 600 MG TAB PO SCH ×2 (08:52→20:42)
[2016-10-01] MEDS: MUPIROCIN 2% 22 GM OINT TOP SCH ×2 (08:53→20:46)
[2016-10-01] MEDS: ENOXAPARIN 60 MG/0.6 ML SYG SC SCH (08:53)
[2016-10-01] MEDS ORDERED: MAGNESIUM SULFATE 2 GM/50 ML 50 ML IVPB SCH (09:00)
[2016-10-01] MEDS ORDERED: MAGNESIUM CHLORIDE (SR) 64 MG TAB PO SCH (09:00)
--- NOTE | 2016-10-01 09:25 | PN ---
Date/Time of Note Date/Time of Note DATE: 10/01/16 TIME: 09:22 Assessment/Plan VTE Prophylaxis VTE Prophylaxis Intervention: ambulation, anti-embolic stocking VTE Contraindication Reason: peripheral vascular disease Lines/Catheters IV Catheter Type (from Nrsg): Peripheral IV Central line still needed: No Urinary Cath still in place: No Reason Cath still needed: urinary retention Assessment/Plan Assessment/Plan 1.Sepsis- improving. 2.Left submandibular sialitis and possible abscess;Stone in a duct. ENT f/u. 3.ARF-improved 4.Anemia of chronic disease with low iron. 5.AD& MD with anxiety. 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 14.Progressive deterioration of condition. 15.Kyphosis 16Urinary incontinence with episodes of retention. 17.Hx of kidney cysts. 18.Pain syndrome. 19.S/P G tube placement and feeding. 20.S/P MRSA positive blood and naris cultures with lida in the urine 21.First degree decubitus of the sacral region. Cont'd Hospitalization Reason: sepsis; s/p G tube placement. Subjective 24 Hr Interval Summary Free Text/Dictation Lethargic with uncontrolled BS. Decided not to start an IV line as per families request. Exam/Review of Systems Vital Signs Vitals Vital Signs Date Time Temp Pulse Resp B/P Pulse Ox O2 Delivery O2 Flow Rate FiO2 10/01/16 08:05 98.0 81 18 130/60 99 09/28/16 13:45 Room Air 09/28/16 12:44 4.0 Intake and Output 09/30/16 09/30/16 10/01/16 15:00 23:00 07:00 Intake Total 1440 ml 1650 ml Balance 1440 ml 1650 ml Exam Constitutional: frail, No alert, No distress, No non-verbal, No obese, No oriented, No other, No well developed Psych: confusion, other, No anxiety, No depression, No nl mood/affect, No no complaints, No suicidal Eyes: No EOMI, No PERRL, No fundi, disc, No icteric, No nl conjunctiva, No nl lids, No nl sclera, No other ENMT: other (painful(dyscomfort while palpating).), No intubated, No mucosa pink and moist, No nl external ears & nose, No nl lips & teeth, No nl nasal mucosa & septum, No tympanic membranes Neck: jvd, No bruits, No masses, No non-tender, No nuchal rigidity, No other, No supple , No thyromegaly Respiratory: diminished breath sounds, No clear to auscultation, No congested cough, No crackles/rales, No intercostal retraction, No labored breathing, No normal air movement, No other, No respirations, No tactile fremitus, No wheezing Cardiovascular: bruits, systolic murmur, No S3, No S4, No diastolic murmur, No edema, No gallop, No irregular rhythm, No jugular venous distention (JVD), No murmurs/extra sounds, No nl pulses, No other, No regular rate and rhythm, No rub Gastrointestinal: bowel sounds, No ascites, No distended, No firm, No hepatomegaly, No mass, No nl liver, spleen, No non-tender, No other, No rebound or guarding, No soft, No splenomegaly, No surgical scars, No tender Genitourinary - Female: No CMT, No CVA tenderness, No nl adnexae, No nl external genitalia, No other, No uterus Musculoskeletal: joint tenderness, muscle tone, No muscle weakness, No nl extremities to inspection, No nl gait and stance, No other, No range of motion, No spine non-tender, No swelling Extremities: clubbing, No calf tenderness, No cyanosis, No edema, No normal pulses, No other, No palpable cord, No pitting pedal edema, No tenderness Neurological: confused, lethargic, No MUSIC COORDINATOR II-XII intact, No DTR's symmetric, No focal weakness, No nl mental status, No nl speech, No nl strength, No numbness, No other, No reflexes, No unresponsive Skin: No diaphoresis, No ecchymosis, No laceration, No nl turgor, No other, No puncture, No rash or lesions Lymph: No enlarged, No nl lymph nodes, No nontender, No other Results Result Diagram: 09/30/16 1130 09/30/16 1130 Results 24 hrs Laboratory Tests Test 09/30/16 11:30 09/30/16 12:14 09/30/16 17:29 09/30/16 20:05 White Blood Count 10.8 Red Blood Count 3.55 L Hemoglobin 11.3 L Hematocrit 32.1 L Mean Corpuscular Volume 90.4 Mean Corpuscular Hemoglobin 31.8 Mean Corpuscular Hemoglobin Concent 35.2 Red Cell Distribution Width 16.4 H Platelet Count 311 Mean Platelet Volume 11.0 H Neutrophils % 64.6 Lymphocytes % 23.9 Monocytes % 8.7 Eosinophils % 1.0 Basophils % 0.2 Nucleated Red Blood Cells % 0.0 Neutrophils # 7.0 Lymphocytes # 2.6 Monocytes # 0.9 Eosinophils # 0.1 Basophils # 0.0 Nucleated Red Blood Cells # 0.0 Sodium Level 138 Potassium Level 3.2 L Chloride Level 106 Carbon Dioxide Level 22 Anion Gap 13 Blood Urea Nitrogen 11 Creatinine 1.08 H Glucose Level 409 *H Calcium Level 7.7 L Magnesium Level 1.2 L Iron Level 49 Total Iron Binding Capacity 131 L Percent Iron Saturation 37 Bedside Glucose 358 H 73 120 Test 10/01/16 08:03 Bedside Glucose 386 H Medications Medications Current Medications Acetaminophen (Tylenol Supp) 325 mg Q8 [place] Last administered on 10/01/16 04:00; Admin Dose 325 MG; Start 09/23/16 at 22:00 Insulin Glargine (Lantus) 4 unit HS SC Last administered on 09/30/16 20:10; Admin Dose 4 UNIT; Start 09/24/16 at 01:00 Diagnostic Test (Pha) (Accu-Chek) 1 ea 02 XX ; Start 09/24/16 at 02:00 Miscellaneous Information 1 ea NOTE XX ; Start 09/24/16 at 01:30 Glucose (Glutose) 15 gm Q15M PRN PO DECREASED GLUCOSE; Start 09/24/16 at 01:30 Glucose (Glutose) 22.5 gm Q15M PRN PO DECREASED GLUCOSE; Start 09/24/16 at 01: 30 Dextrose (D50w Syringe) 25 ml Q15M PRN IV DECREASED GLUCOSE; Start 09/24/16 at 01:30 Dextrose (D50w Syringe) 50 ml Q15M PRN IV DECREASED GLUCOSE; Start 09/24/16 at 01:30 Glucagon (Glucagen) 1 mg Q15M PRN IM DECREASED GLUCOSE; Start 09/24/16 at 01:30 Glucose (Glutose) 15 gm Q15M PRN BUCCAL DECREASED GLUCOSE; Start 09/24/16 at 01 :30 Enoxaparin Sodium (Lovenox) 60 mg Q24H SC Last administered on 10/01/16 08:53; Admin Dose 60 MG; Start 09/24/16 at 09:00 Amlodipine Besylate (Norvasc) 5 mg BID PO Last administered on 10/01/16 08:52; Admin Dose 5 MG; Start 09/24/16 at 21:00 Hydralazine HCl (Apresoline) 5 mg Q6H PRN IV ELEVATED BLOOD PRESSURE Last administered on 09/28/16 20:26; Admin Dose 5 MG; Start 09/24/16 at 21:00 Clonidine HCl (Catapres-Tts 2 Patch) 1 patch Q7D TRANSDERM Last administered on 09/24/16 22:09; Admin Dose 1 PATCH; Start 09/24/16 at 21:00 Metoprolol Tartrate (Lopressor) 25 mg BID PO Last administered on 10/01/16 08: 52; Admin Dose 25 MG; Start 09/24/16 at 21:00 Aspirin (Aspirin) 81 mg DAILY PO Last administered on 10/01/16 08:52; Admin Dose 81 MG; Start 09/26/16 at 09:00 Lorazepam 0.5 mg 0.5 mg Q6 PRN IV ANXIETY Last administered on 09/30/16 20:08 ; Admin Dose 0.5 MG; Start 09/26/16 at 00:00 Rifampin/Sodium Chloride (Rifampin/NS) 100 ml @ 200 mls/hr Q24H IVPB Last administered on 09/30/16 17:10; Admin Dose 200 MLS/HR; Start 09/27/16 at 15:30 Mupirocin 1 applic 1 applic BID TOP Last administered on 10/01/16 08:53; Admin Dose 1 APPLIC; Start 09/27/16 at 21:00 Potassium Chloride/Dextrose/ Sod Cl (D5-1/2ns + KCl 30 Meq) 1,000 ml @ 60 mls/ hr [id number] IV Last administered on 10/01/16 04:00; Admin Dose 60 MLS/HR; Start 09/28/16 at 04:00 Linezolid (Zyvox) 600 mg BID PO Last administered on 10/01/16 08:52; Admin Dose 600 MG; Start 09/29/16 at 21:00; Stop 10/07/16 at 09:00 Bisacodyl (Dulcolax Supp) 10 mg DAILY PRN [place] CONSTIPATION; Start 09/30/16 at 09 :00 Lansoprazole 30 mg 30 mg DAILY@06 GTB Last administered on 10/01/16 05:25; Admin Dose 30 MG; Start 10/01/16 at 06:00 Magnesium Sulfate 50 ml @ 25 mls/hr DAILY IVPB ; Start 10/01/16 at 09:00; Stop at 10:59 Ferric Sodium Gluconate Complex/ Sodium Chloride (Ferrlecit/NS) 110 ml @ 100 mls/hr Q24H IVPB Last administered on 09/30/16 23:49; Admin Dose 100 MLS/HR; Start 09/30/16 at 22:30; Stop 10/02/16 at 23:35 Potassium Chloride (Potassium Chloride Pwd/Soln) 20 meq BID GTB Last administered on 10/01/16 08:52; Admin Dose 20 MEQ; Start 09/30/16 at 22:30; Stop 10/02/16 at 09:01 Magnesium Chloride (Mag 64) 128 mg BID PO ; Start 10/01/16 at 09:00 JR DEAN MD Oct 01, 2016 09:24
[2016-10-01] MEDS: MAGNESIUM OXIDE 400 MG TAB GTB SCH ×2 (12:10→20:41)
[2016-10-01] MEDS: RIFAMPIN 600 MG in SOD CHLORIDE 0.9% 100 ML IVPB SCH (15:15)
--- NOTE | 2016-10-01 18:41 | CONS ---
Date/Time of Note Date/Time of Note DATE: 10/01/16 TIME: 18:39 Assessment/Plan Assessment/Plan Chief Complaint/Hosp Course Assessment: Sepsis and MRSA bacteremia - antibiotics per infectious disease Sialoadenitis with obstructive stone - per ENT Coronary artery disease - details unknown, clinically stable Peripheral vascular disease Hypertension Acute kidney injury vs chronic kidney disease Diabetes mellitus Dementia Recommendations: -echocardiogram showed LVEF 65-70%, mild diastolic dysfunction, no significant valvular disease -continue aspirin 81mg daily -defer statin therapy, no clear benefit in this patient population -continue metoprolol, amlodipine, clonidine patch, PRN hydralazine Problems: Consultation Date/Type/Reason Admit Date/Time Sep 23, 2016 at 17:03 Initial Consult Date 09/25/16 Type of Consultation: Cardiology 24 HR Interval Summary Free Text/Dictation Awaiting authorization for outpatient Zyvox. Detailed Summary Additional Comments Unable to obtain review of systems due to patient's mental status. Exam/Review of Systems Vital Signs Vitals Vital Signs Date Time Temp Pulse Resp B/P Pulse Ox O2 Delivery O2 Flow Rate FiO2 10/01/16 08:05 98.0 81 18 130/60 99 09/28/16 13:45 Room Air 09/28/16 12:44 4.0 Intake and Output 09/30/16 09/30/16 10/01/16 15:00 23:00 07:00 Intake Total 1440 ml 1650 ml Balance 1440 ml 1650 ml Exam Constitutional: alert, No distress Psych: confusion Head: atraumatic, normocephalic Eyes: nl conjunctiva, nl lids ENMT: nl external ears & nose, nl nasal mucosa & septum Neck: non-tender, supple, No jvd Respiratory: clear to auscultation Cardiovascular: regular rate and rhythm, systolic murmur Gastrointestinal: non-tender, soft Extremities: No clubbing, No cyanosis, No edema Neurological: No nl mental status, No nl speech Results Result Diagram: 09/30/16 1130 09/30/16 1130 Results 24 hrs Laboratory Tests Test 09/30/16 20:05 10/01/16 08:03 10/01/16 12:08 10/01/16 16:53 Bedside Glucose 120 386 H 192 169 Medications Medications Current Medications Acetaminophen (Tylenol Supp) 325 mg Q8 [place] Last administered on 10/01/16t 13:16; Admin Dose 325 MG; Start 09/23/16 at 22:00 Insulin Glargine (Lantus) 4 unit HS SC Last administered on 09/30/16 20:10; Admin Dose 4 UNIT; Start 09/24/16 at 01:00 Diagnostic Test (Pha) (Accu-Chek) 1 ea 02 XX ; Start 09/24/16 at 02:00 Miscellaneous Information 1 ea NOTE XX ; Start 09/24/16 at 01:30 Glucose (Glutose) 15 gm Q15M PRN PO DECREASED GLUCOSE; Start 09/24/16 at 01:30 Glucose (Glutose) 22.5 gm Q15M PRN PO DECREASED GLUCOSE; Start 09/24/16 at 01: 30 Dextrose (D50w Syringe) 25 ml Q15M PRN IV DECREASED GLUCOSE; Start 09/24/16 at 01:30 Dextrose (D50w Syringe) 50 ml Q15M PRN IV DECREASED GLUCOSE; Start 09/24/16 at 01:30 Glucagon (Glucagen) 1 mg Q15M PRN IM DECREASED GLUCOSE; Start 09/24/16 at 01:30 Glucose (Glutose) 15 gm Q15M PRN BUCCAL DECREASED GLUCOSE; Start 09/24/16 at 01 :30 Enoxaparin Sodium (Lovenox) 60 mg Q24H SC Last administered on 10/01/16 08:53; Admin Dose 60 MG; Start 09/24/16 at 09:00 Amlodipine Besylate (Norvasc) 5 mg BID PO Last administered on 10/01/16 08:52; Admin Dose 5 MG; Start 09/24/16 at 21:00 Hydralazine HCl (Apresoline) 5 mg Q6H PRN IV ELEVATED BLOOD PRESSURE Last administered on 09/28/16 20:26; Admin Dose 5 MG; Start 09/24/16 at 21:00 Clonidine HCl (Catapres-Tts 2 Patch) 1 patch Q7D TRANSDERM Last administered on 09/24/16 22:09; Admin Dose 1 PATCH; Start 09/24/16 at 21:00 Metoprolol Tartrate (Lopressor) 25 mg BID PO Last administered on 10/01/16 08: 52; Admin Dose 25 MG; Start 09/24/16 at 21:00 Aspirin (Aspirin) 81 mg DAILY PO Last administered on 10/01/16 08:52; Admin Dose 81 MG; Start 09/26/16 at 09:00 Lorazepam 0.5 mg 0.5 mg Q6 PRN IV ANXIETY Last administered on 09/30/16 20:08 ; Admin Dose 0.5 MG; Start 09/26/16 at 00:00 Rifampin/Sodium Chloride (Rifampin/NS) 100 ml @ 200 mls/hr Q24H IVPB Last administered on 09/30/16 17:10; Admin Dose 200 MLS/HR; Start 09/27/16 at 15:30 Mupirocin 1 applic 1 applic BID TOP Last administered on 10/01/16 08:53; Admin Dose 1 APPLIC; Start 09/27/16 at 21:00 Potassium Chloride/Dextrose/ Sod Cl (D5-1/2ns + KCl 30 Meq) 1,000 ml @ 60 mls/ hr [id number] IV Last administered on 10/01/16 04:00; Admin Dose 60 MLS/HR; Start 09/28/16 at 04:00 Linezolid (Zyvox) 600 mg BID PO Last administered on 10/01/16 08:52; Admin Dose 600 MG; Start 09/29/16 at 21:00; Stop 10/07/16 at 09:00 Bisacodyl (Dulcolax Supp) 10 mg DAILY PRN [place] CONSTIPATION; Start 09/30/16 at 09 :00 Lansoprazole 30 mg 30 mg DAILY@06 GTB Last administered on 10/01/16 05:25; Admin Dose 30 MG; Start 10/01/16 at 06:00 Ferric Sodium Gluconate Complex/ Sodium Chloride (Ferrlecit/NS) 110 ml @ 100 mls/hr Q24H IVPB Last administered on 09/30/16 23:49; Admin Dose 100 MLS/HR; Start 09/30/16 at 22:30; Stop 10/02/16 at 23:35 Potassium Chloride (Potassium Chloride Pwd/Soln) 20 meq BID GTB Last administered on 10/01/16 08:52; Admin Dose 20 MEQ; Start 09/30/16 at 22:30; Stop 10/02/16 at 09:01 Magnesium Oxide (Mag-Ox 400) 400 mg BID GTB Last administered on 4/1/17at 12:10 ; Admin Dose 400 MG; Start 10/01/16 at 11:00; Stop 10/03/16 at 12:00 PRISCILLA WEINSTEIN MD Oct 01, 2016 18:40
--- NOTE | 2016-10-01 20:03 | CONS ---
Date/Time of Note Date/Time of Note DATE: 10/01/16 TIME: 20:02 Assessment/Plan Assessment/Plan Chief Complaint/Hosp Course SUBJECTIVE: Sleeping, nad. No fevers MICROBIOLOGY: Blood culture on 09/23/2016 growing MRSA. Urine culture grew Angelina albicans. Nares swab came back positive for MRSA. ANTIMICROBIALS: The patient is on Zyvox and Rifampin s/p Vanco/Clindamycin PHYSICAL EXAMINATION: GENERAL: This is a chronically ill-appearing, elderly woman who is in no distress. HEENT: Head atraumatic, normocephalic. Sclerae anicteric. Buccal mucosa dry. NECK: Supple, trachea midline. CHEST: Rise symmetrical. Breath sounds diminished to bases. HEART: S1, S2. ABDOMEN: Soft, bowel tones present. EXTREMITIES: Without cyanosis. ASSESSMENT: 1. Methicillin-sensitive Staphylococcus aureus bacteremia, likely secondary to #2. 2. Left submandibular gland phlegmon with sialolithiasis and sialadenitis, ENT on case. 3. Dysphagia with malnutrition. 4. History of coronary artery disease. 5. Dementia. 6. Diabetes. PLAN: Stable, repeat bld cx and 2D ECHO negative, continue abx till Oct 11 DW staff Problems: Consultation Date/Type/Reason Admit Date/Time Sep 23, 2016 at 17:03 Initial Consult Date 09/25/16 Type of Consultation: ID Exam/Review of Systems Vital Signs Vitals Vital Signs Date Time Temp Pulse Resp B/P Pulse Ox O2 Delivery O2 Flow Rate FiO2 10/01/16 08:05 98.0 81 18 130/60 99 09/28/16 13:45 Room Air 09/28/16 12:44 4.0 Intake and Output 09/30/16 09/30/16 10/01/16 15:00 23:00 07:00 Intake Total 1440 ml 1650 ml Balance 1440 ml 1650 ml Results Result Diagram: 09/30/16 1130 09/30/16 1130 Results 24 hrs Laboratory Tests Test 09/30/16 20:05 10/01/16 08:03 10/01/16 12:08 10/01/16 16:53 Bedside Glucose 120 386 H 192 169 Medications Medications Current Medications Acetaminophen (Tylenol Supp) 325 mg Q8 [place] Last administered on 10/01/16t 13:16; Admin Dose 325 MG; Start 09/23/16 at 22:00 Insulin Glargine (Lantus) 4 unit HS SC Last administered on 09/30/16 20:10; Admin Dose 4 UNIT; Start 09/24/16 at 01:00 Diagnostic Test (Pha) (Accu-Chek) 1 ea 02 XX ; Start 09/24/16 at 02:00 Miscellaneous Information 1 ea NOTE XX ; Start 09/24/16 at 01:30 Glucose (Glutose) 15 gm Q15M PRN PO DECREASED GLUCOSE; Start 09/24/16 at 01:30 Glucose (Glutose) 22.5 gm Q15M PRN PO DECREASED GLUCOSE; Start 09/24/16 at 01: 30 Dextrose (D50w Syringe) 25 ml Q15M PRN IV DECREASED GLUCOSE; Start 09/24/16 at 01:30 Dextrose (D50w Syringe) 50 ml Q15M PRN IV DECREASED GLUCOSE; Start 09/24/16 at 01:30 Glucagon (Glucagen) 1 mg Q15M PRN IM DECREASED GLUCOSE; Start 09/24/16 at 01:30 Glucose (Glutose) 15 gm Q15M PRN BUCCAL DECREASED GLUCOSE; Start 09/24/16 at 01 :30 Enoxaparin Sodium (Lovenox) 60 mg Q24H SC Last administered on 10/01/16 08:53; Admin Dose 60 MG; Start 09/24/16 at 09:00 Amlodipine Besylate (Norvasc) 5 mg BID PO Last administered on 10/01/16 08:52; Admin Dose 5 MG; Start 09/24/16 at 21:00 Hydralazine HCl (Apresoline) 5 mg Q6H PRN IV ELEVATED BLOOD PRESSURE Last administered on 09/28/16 20:26; Admin Dose 5 MG; Start 09/24/16 at 21:00 Clonidine HCl (Catapres-Tts 2 Patch) 1 patch Q7D TRANSDERM Last administered on 09/24/16 22:09; Admin Dose 1 PATCH; Start 09/24/16 at 21:00 Metoprolol Tartrate (Lopressor) 25 mg BID PO Last administered on 10/01/16 08: 52; Admin Dose 25 MG; Start 09/24/16 at 21:00 Aspirin (Aspirin) 81 mg DAILY PO Last administered on 10/01/16 08:52; Admin Dose 81 MG; Start 09/26/16 at 09:00 Lorazepam 0.5 mg 0.5 mg Q6 PRN IV ANXIETY Last administered on 09/30/16 20:08 ; Admin Dose 0.5 MG; Start 09/26/16 at 00:00 Rifampin/Sodium Chloride (Rifampin/NS) 100 ml @ 200 mls/hr Q24H IVPB Last administered on 09/30/16 17:10; Admin Dose 200 MLS/HR; Start 09/27/16 at 15:30 Mupirocin 1 applic 1 applic BID TOP Last administered on 10/01/16 08:53; Admin Dose 1 APPLIC; Start 09/27/16 at 21:00 Potassium Chloride/Dextrose/ Sod Cl (D5-1/2ns + KCl 30 Meq) 1,000 ml @ 60 mls/ hr [id number] IV Last administered on 10/01/16 04:00; Admin Dose 60 MLS/HR; Start 09/28/16 at 04:00 Linezolid (Zyvox) 600 mg BID PO Last administered on 10/01/16 08:52; Admin Dose 600 MG; Start 09/29/16 at 21:00; Stop 10/07/16 at 09:00 Bisacodyl (Dulcolax Supp) 10 mg DAILY PRN [place] CONSTIPATION; Start 09/30/16 at 09 :00 Lansoprazole 30 mg 30 mg DAILY@06 GTB Last administered on 10/01/16 05:25; Admin Dose 30 MG; Start 10/01/16 at 06:00 Ferric Sodium Gluconate Complex/ Sodium Chloride (Ferrlecit/NS) 110 ml @ 100 mls/hr Q24H IVPB Last administered on 09/30/16 23:49; Admin Dose 100 MLS/HR; Start 09/30/16 at 22:30; Stop 10/02/16 at 23:35 Potassium Chloride (Potassium Chloride Pwd/Soln) 20 meq BID GTB Last administered on 10/01/16 08:52; Admin Dose 20 MEQ; Start 09/30/16 at 22:30; Stop 10/02/16 at 09:01 Magnesium Oxide (Mag-Ox 400) 400 mg BID GTB Last administered on 10/01/16 12:10 ; Admin Dose 400 MG; Start 10/01/16 at 11:00; Stop 10/03/16 at 12:00 LOGAN CASTANEDA NP Oct 01, 2016 20:03
[2016-10-01 20:08] VITALS: BP 141/65; RESP 20
[2016-10-01] MEDS: CLONIDINE 0.2 MG/24 HR PATCH TRANSDERM SCH (20:44)
[2016-10-01] MEDS: INSULIN GLARGINE [LANtus] 3 ML PEN SC SCH (20:50)
[2016-10-01] MEDS: SOD FERRIC GLUC COMPLX 125 MG in SOD CHLORIDE 0.9% 100 ML IVPB SCH (21:26)
[2016-10-02] MEDS: ACCU-CHEK XX SCH ×2 (02:11→22:01)
[2016-10-02] MEDS: LANSOPRAZOLE 30 MG CAP GTB SCH (05:32)
[2016-10-02] MEDS: ACETAMINOPHEN 325 MG SUPP PR SCH ×3 (05:32→21:02)
[2016-10-02 06:09] LABS: POTASSIUM 5.1 mmol/L (3.5-5.1)
[2016-10-02 06:11] LABS: CREATININE 1.1 mg/dl (0.44-1.00)
[2016-10-02 06:12] LABS: CALCIUM 7.6 mg/dl (8.4-10.2); MAGNESIUM 1.3 mg/dl (1.7-2.5)
[2016-10-02 07:49] VITALS: BP 142/71; RESP 20
[2016-10-02] MEDS: D5W-0.45 NACL + KCL 30 MEQ 1,000 ML IV SCH (08:00)
[2016-10-02] MEDS: POTASSIUM CHLORIDE 20 MEQ POWDER FOR ORAL SOLN GTB SCH (09:01)
[2016-10-02] MEDS: ASPIRIN 81 MG TAB PO SCH (09:01)
[2016-10-02] MEDS: ZYVOX 600 MG TAB PO SCH ×2 (09:01→20:56)
[2016-10-02] MEDS: MAGNESIUM OXIDE 400 MG TAB GTB SCH ×2 (09:01→20:55)
[2016-10-02] MEDS: METOPROLOL 25 MG TAB PO SCH ×2 (09:02→20:55)
[2016-10-02] MEDS: AMLODIPINE 5 MG TAB PO SCH ×2 (09:02→20:56)
[2016-10-02] MEDS: MUPIROCIN 2% 22 GM OINT TOP SCH ×2 (09:02→20:57)
[2016-10-02] MEDS: INSULIN ASPART [NOVOLOG] 3 ML PEN SC SCH ×4 (09:05→20:54)
[2016-10-02] MEDS: ENOXAPARIN 60 MG/0.6 ML SYG SC SCH (09:08)
--- NOTE | 2016-10-02 13:03 | PN ---
Date/Time of Note Date/Time of Note DATE: 10/02/16 TIME: 13:03 Assessment/Plan VTE Prophylaxis VTE Prophylaxis Intervention: ambulation, anti-embolic stocking VTE Contraindication Reason: peripheral vascular disease Lines/Catheters IV Catheter Type (from Nrsg): Peripheral IV Central line still needed: No Urinary Cath still in place: No Reason Cath still needed: urinary retention Assessment/Plan Assessment/Plan 1.Sepsis- improving. 2.Left submandibular sialitis and possible abscess;Stone in a duct. ENT f/u. 3.ARF-improved 4.Anemia of chronic disease with low iron. 5.AD& MD with anxiety. 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 14.Progressive deterioration of condition. 15.Kyphosis 16Urinary incontinence with episodes of retention. 17.Hx of kidney cysts. 18.Pain syndrome. 19.S/P G tube placement and feeding. 20.S/P MRSA positive blood and naris cultures with lida in the urine 21.First degree decubitus of the sacral region. Cont'd Hospitalization Reason: sepsis. Subjective 24 Hr Interval Summary Free Text/Dictation Lethargic. Neurologic: confusion, headache, other (opens eyes by following command. recognised me. Went bact to sleep.), No dizziness, No focal-weakness, No no complaints, No seizure, No syncope Exam/Review of Systems Vital Signs Vitals Vital Signs Date Time Temp Pulse Resp B/P Pulse Ox O2 Delivery O2 Flow Rate FiO2 10/02/16 07:49 97.1 66 20 142/71 98 09/28/16 13:45 Room Air 09/28/16 12:44 4.0 Intake and Output 10/01/16 10/01/16 10/02/16 15:00 23:00 07:00 Intake Total 1170 ml 1170 ml Balance 1170 ml 1170 ml Exam Constitutional: frail, other (unable to communicate.) Psych: anxiety, other (lethargic.) Head: atraumatic, normocephalic, No hematomas, No lacerations, No other Eyes: EOMI, PERRL, nl lids, No fundi, disc, No icteric, No nl conjunctiva, No nl sclera, No other ENMT: other (Decreased the size of left submandibular mass but still with discomfort while touching.), No intubated, No mucosa pink and moist, No nl external ears & nose, No nl lips & teeth, No nl nasal mucosa & septum, No tympanic membranes Neck: bruits, No jvd, No masses, No non-tender, No nuchal rigidity, No other, No supple, No thyromegaly Respiratory: No clear to auscultation, No congested cough, No crackles/rales, No diminished breath sounds, No intercostal retraction, No labored breathing, No normal air movement, No other, No respirations, No tactile fremitus, No wheezing Cardiovascular: bruits, systolic murmur, No S3, No S4, No diastolic murmur, No edema, No gallop, No irregular rhythm, No jugular venous distention (JVD), No murmurs/extra sounds, No nl pulses, No other, No regular rate and rhythm, No rub Gastrointestinal: bowel sounds, nl liver, spleen, other (g-tube side normal. No bleeding.), soft, No ascites, No distended, No firm, No hepatomegaly, No mass, No non-tender, No rebound or guarding, No splenomegaly, No surgical scars, No tender Genitourinary - Female: other (redness of the upper sacral area without d/ c.), No CMT, No CVA tenderness, No nl adnexae, No nl external genitalia, No uterus Musculoskeletal: joint tenderness, muscle tone, muscle weakness, range of motion, No nl extremities to inspection, No nl gait and stance, No other, No spine non-tender, No swelling Extremities: No calf tenderness, No clubbing, No cyanosis, No edema, No normal pulses, No other, No palpable cord, No pitting pedal edema, No tenderness Neurological: confused, lethargic, No DENTAL COORDINATOR II-XII intact, No DTR's symmetric, No focal weakness, No nl mental status, No nl speech, No nl strength, No numbness, No other, No reflexes, No unresponsive Results Result Diagram: 09/30/16 1130 10/02/16 4715 Results 24 hrs Laboratory Tests Test 10/01/16 16:53 10/01/16 20:43 4/2/17 02:08 10/02/16 04:55 Bedside Glucose 169 293 H 240 H Sodium Level 133 L Potassium Level 5.1 Chloride Level 104 Carbon Dioxide Level 22 Anion Gap 12 Blood Urea Nitrogen 17 Creatinine 1.10 H Glucose Level 291 #H Calcium Level 7.6 L Magnesium Level 1.3 L Test 10/02/16 07:50 10/02/16 11:55 Bedside Glucose 305 H 141 Medications Medications Current Medications Acetaminophen (Tylenol Supp) 325 mg Q8 [place] Last administered on 10/02/16 05:32; Admin Dose 325 MG; Start 09/23/16 at 22:00 Insulin Glargine (Lantus) 4 unit HS SC Last administered on 10/01/16 20:50; Admin Dose 4 UNIT; Start 09/24/16 at 01:00 Diagnostic Test (Pha) (Accu-Chek) 1 ea 02 XX Last administered on 10/02/16 02: 11; Admin Dose 1 EA; Start 09/24/16 at 02:00 Miscellaneous Information 1 ea NOTE XX ; Start 09/24/16 at 01:30 Glucose (Glutose) 15 gm Q15M PRN PO DECREASED GLUCOSE; Start 09/24/16 at 01:30 Glucose (Glutose) 22.5 gm Q15M PRN PO DECREASED GLUCOSE; Start 09/24/16 at 01: 30 Dextrose (D50w Syringe) 25 ml Q15M PRN IV DECREASED GLUCOSE; Start 09/24/16 at 01:30 Dextrose (D50w Syringe) 50 ml Q15M PRN IV DECREASED GLUCOSE; Start 09/24/16 at 01:30 Glucagon (Glucagen) 1 mg Q15M PRN IM DECREASED GLUCOSE; Start 09/24/16 at 01:30 Glucose (Glutose) 15 gm Q15M PRN BUCCAL DECREASED GLUCOSE; Start 09/24/16 at 01 :30 Enoxaparin Sodium (Lovenox) 60 mg Q24H SC Last administered on 10/02/16 09:08; Admin Dose 60 MG; Start 09/24/16 at 09:00 Amlodipine Besylate (Norvasc) 5 mg BID PO Last administered on 10/02/16 09:02; Admin Dose 5 MG; Start 09/24/16 at 21:00 Hydralazine HCl (Apresoline) 5 mg Q6H PRN IV ELEVATED BLOOD PRESSURE Last administered on 09/28/16 20:26; Admin Dose 5 MG; Start 09/24/16 at 21:00 Clonidine HCl (Catapres-Tts 2 Patch) 1 patch Q7D TRANSDERM Last administered on 10/01/16 20:44; Admin Dose 1 PATCH; Start 09/24/16 at 21:00 Metoprolol Tartrate (Lopressor) 25 mg BID PO Last administered on 10/02/16 09: 02; Admin Dose 25 MG; Start 09/24/16 at 21:00 Aspirin (Aspirin) 81 mg DAILY PO Last administered on 10/02/16 09:01; Admin Dose 81 MG; Start 09/26/16 at 09:00 Lorazepam 0.5 mg 0.5 mg Q6 PRN IV ANXIETY Last administered on 09/30/16 20:08 ; Admin Dose 0.5 MG; Start 09/26/16 at 00:00 Rifampin/Sodium Chloride (Rifampin/NS) 100 ml @ 200 mls/hr Q24H IVPB Last administered on 09/30/16 17:10; Admin Dose 200 MLS/HR; Start 09/27/16 at 15:30 Mupirocin 1 applic 1 applic BID TOP Last administered on 10/02/16 09:02; Admin Dose 1 APPLIC; Start 09/27/16 at 21:00 Potassium Chloride/Dextrose/ Sod Cl (D5-1/2ns + KCl 30 Meq) 1,000 ml @ 60 mls/ hr [id number] IV Last administered on 10/01/16 04:00; Admin Dose 60 MLS/HR; Start 09/28/16 at 04:00 Linezolid (Zyvox) 600 mg BID PO Last administered on 10/02/16 09:01; Admin Dose 600 MG; Start 09/29/16 at 21:00; Stop 10/07/16 at 09:00 Bisacodyl (Dulcolax Supp) 10 mg DAILY PRN [place] CONSTIPATION; Start 09/30/16 at 09 :00 Lansoprazole 30 mg 30 mg DAILY@06 GTB Last administered on 10/02/16 05:32; Admin Dose 30 MG; Start 10/01/16 at 06:00 Ferric Sodium Gluconate Complex/ Sodium Chloride (Ferrlecit/NS) 110 ml @ 100 mls/hr Q24H IVPB Last administered on 09/30/16 23:49; Admin Dose 100 MLS/HR; Start 09/30/16 at 22:30; Stop 10/02/16 at 23:35 Magnesium Oxide (Mag-Ox 400) 400 mg BID GTB Last administered on 10/02/16 09:01 ; Admin Dose 400 MG; Start 10/01/16 at 11:00; Stop 10/03/16 at 12:00 JR DEAN MD Oct 02, 2016 13:03
[2016-10-02] MEDS: RIFAMPIN 600 MG in SOD CHLORIDE 0.9% 100 ML IVPB SCH (15:30)
--- NOTE | 2016-10-02 17:51 | CONS ---
Date/Time of Note Date/Time of Note DATE: 10/02/16 TIME: 17:50 Assessment/Plan Assessment/Plan Chief Complaint/Hosp Course SUBJECTIVE: No acute changes MICROBIOLOGY: Blood culture on 09/23/2016 growing MRSA. Urine culture grew Angelina albicans. Nares swab came back positive for MRSA. ANTIMICROBIALS: The patient is on Zyvox and Rifampin s/p Vanco/Clindamycin PHYSICAL EXAMINATION: GENERAL: This is a chronically ill-appearing, elderly woman who is in no distress. HEENT: Head atraumatic, normocephalic. Sclerae anicteric. Buccal mucosa dry. NECK: Supple, trachea midline. CHEST: Rise symmetrical. Breath sounds diminished to bases. HEART: S1, S2. ABDOMEN: Soft, bowel tones present. EXTREMITIES: Without cyanosis. ASSESSMENT: 1. Methicillin-sensitive Staphylococcus aureus bacteremia, likely secondary to #2. 2. Left submandibular gland phlegmon with sialolithiasis and sialadenitis, ENT on case. 3. Dysphagia with malnutrition. 4. History of coronary artery disease. 5. Dementia. 6. Diabetes. PLAN: Stable, repeat bld cx and 2D ECHO negative, continue abx till Oct 11 [facility] staff Problems: Consultation Date/Type/Reason Admit Date/Time Sep 23, 2016 at 17:03 Initial Consult Date 09/25/16 Type of Consultation: ID Exam/Review of Systems Vital Signs Vitals Vital Signs Date Time Temp Pulse Resp B/P Pulse Ox O2 Delivery O2 Flow Rate FiO2 10/02/16 07:49 97.1 66 20 142/71 98 09/28/16 13:45 Room Air 09/28/16 12:44 4.0 Intake and Output 10/01/16 10/01/16 10/02/16 15:00 23:00 07:00 Intake Total 1170 ml 1170 ml Balance 1170 ml 1170 ml Results Result Diagram: 09/30/16 1130 10/02/16 0455 Results 24 hrs Laboratory Tests Test 10/01/16 20:43 10/02/16 02:08 10/02/16 04:55 10/02/16 07:50 Bedside Glucose 293 H 240 H 305 H Sodium Level 133 L Potassium Level 5.1 Chloride Level 104 Carbon Dioxide Level 22 Anion Gap 12 Blood Urea Nitrogen 17 Creatinine 1.10 H Glucose Level 291 #H Calcium Level 7.6 L Magnesium Level 1.3 L Test 10/02/16 11:55 10/02/16 17:14 Bedside Glucose 141 308 H Medications Medications Current Medications Acetaminophen (Tylenol Supp) 325 mg Q8 [place] Last administered on 10/02/16 16:18; Admin Dose 325 MG; Start 09/23/16 at 22:00 Diagnostic Test (Pha) (Accu-Chek) 1 ea 02 XX Last administered on 10/02/16 02: 11; Admin Dose 1 EA; Start 09/24/16 at 02:00 Miscellaneous Information 1 ea NOTE XX ; Start 09/24/16 at 01:30 Glucose (Glutose) 15 gm Q15M PRN PO DECREASED GLUCOSE; Start 09/24/16 at 01:30 Glucose (Glutose) 22.5 gm Q15M PRN PO DECREASED GLUCOSE; Start 09/24/16 at 01: 30 Dextrose (D50w Syringe) 25 ml Q15M PRN IV DECREASED GLUCOSE; Start 09/24/16 at 01:30 Dextrose (D50w Syringe) 50 ml Q15M PRN IV DECREASED GLUCOSE; Start 09/24/16 at 01:30 Glucagon (Glucagen) 1 mg Q15M PRN IM DECREASED GLUCOSE; Start 09/24/16 at 01:30 Glucose (Glutose) 15 gm Q15M PRN BUCCAL DECREASED GLUCOSE; Start 09/24/16 at 01 :30 Enoxaparin Sodium (Lovenox) 60 mg Q24H SC Last administered on 10/02/16 09:08; Admin Dose 60 MG; Start 09/24/16 at 09:00 Amlodipine Besylate (Norvasc) 5 mg BID PO Last administered on 10/02/16 09:02; Admin Dose 5 MG; Start 09/24/16 at 21:00 Hydralazine HCl (Apresoline) 5 mg Q6H PRN IV ELEVATED BLOOD PRESSURE Last administered on 09/28/16 20:26; Admin Dose 5 MG; Start 09/24/16 at 21:00 Clonidine HCl (Catapres-Tts 2 Patch) 1 patch Q7D TRANSDERM Last administered on 10/01/16 20:44; Admin Dose 1 PATCH; Start 09/24/16 at 21:00 Metoprolol Tartrate (Lopressor) 25 mg BID PO Last administered on 10/02/16 09: 02; Admin Dose 25 MG; Start 09/24/16 at 21:00 Aspirin (Aspirin) 81 mg DAILY PO Last administered on 10/02/16 09:01; Admin Dose 81 MG; Start 09/26/16 at 09:00 Lorazepam 0.5 mg 0.5 mg Q6 PRN IV ANXIETY Last administered on 09/30/16 20:08 ; Admin Dose 0.5 MG; Start 09/26/16 at 00:00 Rifampin/Sodium Chloride (Rifampin/NS) 100 ml @ 200 mls/hr Q24H IVPB Last administered on 09/30/16 17:10; Admin Dose 200 MLS/HR; Start 09/27/16 at 15:30 Mupirocin (Bactroban) 1 applic BID TOP Last administered on 10/02/16 09:02; Admin Dose 1 APPLIC; Start 09/27/16 at 21:00 Linezolid (Zyvox) 600 mg BID PO Last administered on 10/02/16 09:01; Admin Dose 600 MG; Start 09/29/16 at 21:00; Stop 10/07/16 at 09:00 Bisacodyl (Dulcolax Supp) 10 mg DAILY PRN [place] CONSTIPATION; Start 09/30/16 at 09 :00 Lansoprazole 30 mg 30 mg DAILY@06 GTB Last administered on 10/02/16 05:32; Admin Dose 30 MG; Start 10/01/16 at 06:00 Ferric Sodium Gluconate Complex/ Sodium Chloride (Ferrlecit/NS) 110 ml @ 100 mls/hr Q24H IVPB Last administered on 09/30/16 23:49; Admin Dose 100 MLS/HR; Start 09/30/16 at 22:30; Stop 10/02/16 at 23:35 Magnesium Oxide (Mag-Ox 400) 400 mg BID GTB Last administered on 10/02/16 09:01 ; Admin Dose 400 MG; Start 10/01/16 at 11:00; Stop 10/03/16 at 12:00 Insulin Glargine (Lantus) 8 unit HS SC ; Start 10/02/16 at 21:00 LOGAN CASTANEDA NP Oct 02, 2016 17:50
--- NOTE | 2016-10-02 18:45 | CONS ---
Date/Time of Note Date/Time of Note DATE: 10/02/16 TIME: 18:44 Assessment/Plan Assessment/Plan Chief Complaint/Hosp Course Assessment: Sepsis and MRSA bacteremia - antibiotics per infectious disease Sialoadenitis with obstructive stone - per ENT Coronary artery disease - details unknown, clinically stable Peripheral vascular disease Hypertension Acute kidney injury vs chronic kidney disease Diabetes mellitus Dementia Recommendations: -echocardiogram showed LVEF 65-70%, mild diastolic dysfunction, no significant valvular disease -continue aspirin 81mg daily -defer statin therapy, no clear benefit in this patient population -continue metoprolol, amlodipine, clonidine patch, PRN hydralazine Problems: Consultation Date/Type/Reason Admit Date/Time Sep 23, 2016 at 17:03 Initial Consult Date 09/25/16 Type of Consultation: Cardiology 24 HR Interval Summary Free Text/Dictation No acute events. Detailed Summary Additional Comments Unable to obtain review of systems due to patient's altered mental status. Exam/Review of Systems Vital Signs Vitals Vital Signs Date Time Temp Pulse Resp B/P Pulse Ox O2 Delivery O2 Flow Rate FiO2 10/02/16 07:49 97.1 66 20 142/71 98 09/28/16 13:45 Room Air 09/28/16 12:44 4.0 Intake and Output 10/01/16 10/01/16 10/02/16 15:00 23:00 07:00 Intake Total 1170 ml 1170 ml Balance 1170 ml 1170 ml Exam Constitutional: alert, No distress Psych: confusion Head: atraumatic, normocephalic Eyes: nl conjunctiva, nl lids ENMT: nl external ears & nose, nl nasal mucosa & septum Neck: non-tender, supple, No jvd Respiratory: clear to auscultation Cardiovascular: regular rate and rhythm, systolic murmur Gastrointestinal: non-tender, soft Extremities: No clubbing, No cyanosis, No edema Neurological: No nl mental status, No nl speech Results Result Diagram: 09/30/16 1130 10/02/16 0455 Results 24 hrs Laboratory Tests Test 10/01/16 20:43 10/02/16 02:08 10/02/16 04:55 10/02/16 07:50 Bedside Glucose 293 H 240 H 305 H Sodium Level 133 L Potassium Level 5.1 Chloride Level 104 Carbon Dioxide Level 22 Anion Gap 12 Blood Urea Nitrogen 17 Creatinine 1.10 H Glucose Level 291 #H Calcium Level 7.6 L Magnesium Level 1.3 L Test 10/02/16 11:55 10/02/16 17:14 Bedside Glucose 141 308 H Medications Medications Current Medications Acetaminophen (Tylenol Supp) 325 mg Q8 [place] Last administered on 10/02/16 16:18; Admin Dose 325 MG; Start 09/23/16 at 22:00 Diagnostic Test (Pha) (Accu-Chek) 1 ea 02 XX Last administered on 10/02/16 02: 11; Admin Dose 1 EA; Start 09/24/16 at 02:00 Miscellaneous Information 1 ea NOTE XX ; Start 09/24/16 at 01:30 Glucose (Glutose) 15 gm Q15M PRN PO DECREASED GLUCOSE; Start 09/24/16 at 01:30 Glucose (Glutose) 22.5 gm Q15M PRN PO DECREASED GLUCOSE; Start 09/24/16 at 01: 30 Dextrose (D50w Syringe) 25 ml Q15M PRN IV DECREASED GLUCOSE; Start 09/24/16 at 01:30 Dextrose (D50w Syringe) 50 ml Q15M PRN IV DECREASED GLUCOSE; Start 09/24/16 at 01:30 Glucagon (Glucagen) 1 mg Q15M PRN IM DECREASED GLUCOSE; Start 09/24/16 at 01:30 Glucose (Glutose) 15 gm Q15M PRN BUCCAL DECREASED GLUCOSE; Start 09/24/16 at 01 :30 Enoxaparin Sodium (Lovenox) 60 mg Q24H SC Last administered on 10/02/16 09:08; Admin Dose 60 MG; Start 09/24/16 at 09:00 Amlodipine Besylate (Norvasc) 5 mg BID PO Last administered on 10/02/16 09:02; Admin Dose 5 MG; Start 09/24/16 at 21:00 Hydralazine HCl (Apresoline) 5 mg Q6H PRN IV ELEVATED BLOOD PRESSURE Last administered on 09/28/16 20:26; Admin Dose 5 MG; Start 09/24/16 at 21:00 Clonidine HCl (Catapres-Tts 2 Patch) 1 patch Q7D TRANSDERM Last administered on 10/01/16 20:44; Admin Dose 1 PATCH; Start 09/24/16 at 21:00 Metoprolol Tartrate (Lopressor) 25 mg BID PO Last administered on 10/02/16 09: 02; Admin Dose 25 MG; Start 09/24/16 at 21:00 Aspirin (Aspirin) 81 mg DAILY PO Last administered on 10/02/16 09:01; Admin Dose 81 MG; Start 09/26/16 at 09:00 Lorazepam 0.5 mg 0.5 mg Q6 PRN IV ANXIETY Last administered on 09/30/16 20:08 ; Admin Dose 0.5 MG; Start 09/26/16 at 00:00 Rifampin/Sodium Chloride (Rifampin/NS) 100 ml @ 200 mls/hr Q24H IVPB Last administered on 09/30/16 17:10; Admin Dose 200 MLS/HR; Start 09/27/16 at 15:30 Mupirocin (Bactroban) 1 applic BID TOP Last administered on 10/02/16 09:02; Admin Dose 1 APPLIC; Start 09/27/16 at 21:00 Linezolid (Zyvox) 600 mg BID PO Last administered on 10/02/16 09:01; Admin Dose 600 MG; Start 09/29/16 at 21:00; Stop 10/07/16 at 09:00 Bisacodyl (Dulcolax Supp) 10 mg DAILY PRN [place] CONSTIPATION; Start 09/30/16 at 09 :00 Lansoprazole 30 mg 30 mg DAILY@06 GTB Last administered on 10/02/16 05:32; Admin Dose 30 MG; Start 10/01/16 at 06:00 Ferric Sodium Gluconate Complex/ Sodium Chloride (Ferrlecit/NS) 110 ml @ 100 mls/hr Q24H IVPB Last administered on 09/30/16 23:49; Admin Dose 100 MLS/HR; Start 09/30/16 at 22:30; Stop 10/02/16 at 23:35 Magnesium Oxide (Mag-Ox 400) 400 mg BID GTB Last administered on 10/02/16 09:01 ; Admin Dose 400 MG; Start 10/01/16 at 11:00; Stop 10/03/16 at 12:00 Insulin Glargine (Lantus) 8 unit HS SC ; Start 10/02/16 at 21:00 PRISCILLA WEINSTEIN MD Oct 02, 2016 18:45
[2016-10-02 20:00] VITALS: BP 91/58; RESP 20
[2016-10-02] MEDS: FERROUS SULFATE 60 MG/ML 5ML CUP GTB SCH (20:55)
[2016-10-02 21:00] VITALS: BP 110/57; RESP 20
[2016-10-02] MEDS ORDERED: INSULIN GLARGINE [LANtus] 3 ML PEN SC SCH (21:00)
[2016-10-02 21:08] VITALS: BP 91/58; RESP 20
[2016-10-02 22:00] VITALS: BP 112/52; RESP 20
[2016-10-02 23:00] VITALS: BP 117/59; RESP 20
[2016-10-03] VITALS: BP 131/59; RESP 20
[2016-10-03 05:35] LABS: ADD SCAN DIFF NO
[2016-10-03] MEDS: ACETAMINOPHEN 325 MG SUPP PR SCH ×3 (05:39→21:00)
[2016-10-03] MEDS: LANSOPRAZOLE 30 MG CAP GTB SCH (05:39)
[2016-10-03 05:40] LABS: BASOPHILS % 0.3 % (0.0-2.0); EOSINOPHILS # 0.2 10^3/ul (0.0-0.5); EOSINOPHILS % 1.2 % (0.0-7.0); HEMATOCRIT 30.2 % (37.0-47.0); HEMOGLOBIN 10.2 g/dl (12.0-16.0); LYMPHOCYTES # 2.6 10^3/ul (0.8-2.9); LYMPHOCYTES % 17.4 % (15.0-51.0); MEAN CORPUSCULAR HEMOGLOBIN 31.7 pg (29.0-33.0); MEAN CORPUSCULAR HGB CONC 33.8 g/dl (32.0-37.0); MEAN CORPUSCULAR VOLUME 93.8 fl (82.0-101.0); MEAN PLATELET VOLUME 11.2 fl (7.4-10.4); MONOCYTE # 1.1 10^3/ul (0.3-0.9); MONOCYTES % 7.5 % (0.0-11.0); NEUTROPHIL # 10.8 10^3/ul (1.6-7.5); NEUTROPHILS % 72.8 % (39.0-77.0); PLATELET COUNT 307 10^3/UL (140-415); RED BLOOD COUNT 3.22 10^6/ul (4.20-5.40); RED CELL DISTRIBUTION WIDTH 17.2 % (11.5-14.5); WHITE BLOOD COUNT 14.8 10^3/ul (4.8-10.8)
[2016-10-03 05:58] LABS: ALBUMIN 2.1 g/dl (3.3-4.9); CHLORIDE 101 mmol/L (97-110); POTASSIUM 5.1 mmol/L (3.5-5.1); SODIUM 131 mmol/L (135-144)
[2016-10-03 06:00] LABS: CREATININE 1.25 mg/dl (0.44-1.00)
[2016-10-03 06:01] LABS: ALANINE AMINOTRANSFERASE 26 IU/L (13-69); ALBUMIN/GLOBULIN RATIO 0.72; ALKALINE PHOSPHATASE 108 IU/L (42-121); ANION GAP 11 (8-16); ASPARTATE AMINO TRANSFERASE 33 IU/L (15-46); BLOOD UREA NITROGEN 21 mg/dl (7-20); CARBON DIOXIDE 24 mmol/L (21-31); GLUCOSE 276 mg/dl (70-220)
[2016-10-03 06:02] LABS: CALCIUM 7.5 mg/dl (8.4-10.2)
--- NOTE | 2016-10-03 08:15 | RADRPT ---
PROCEDURE: XR Chest. CLINICAL INDICATION: Cough and fever. TECHNIQUE: Single frontal view. COMPARISON: 09/23/2016. FINDINGS: There is scarring in the left mid lung zone, unchanged. The lungs are otherwise clear. The heart size is normal. There is calcification in the aorta consistent with atherosclerosis. There is no pleural effusion. There is no pneumothorax. IMPRESSION: 1. Scarring in the left mid lung zone, unchanged. 2. Atherosclerosis. 3. No change from 09/23/2016. RPTAT: QQ .Will Lei MD, MD Date Time Electronically viewed and signed by .Will Lei MD, MD on 10/03/2016 08:15 .R/
[2016-10-03 08:16] VITALS: BP 126/64; RESP 19
[2016-10-03] MEDS: FERROUS SULFATE 60 MG/ML 5ML CUP GTB SCH ×2 (08:48→20:59)
[2016-10-03] MEDS: ZYVOX 600 MG TAB PO SCH ×2 (08:49→21:00)
[2016-10-03] MEDS: MAGNESIUM OXIDE 400 MG TAB GTB SCH (08:49)
[2016-10-03] MEDS: ASPIRIN 81 MG TAB PO SCH (08:49)
[2016-10-03] MEDS: METOPROLOL 25 MG TAB PO SCH ×2 (08:50→21:00)
[2016-10-03] MEDS: ENOXAPARIN 60 MG/0.6 ML SYG SC SCH (08:51)
[2016-10-03] MEDS: AMLODIPINE 5 MG TAB PO SCH ×2 (08:51→20:59)
[2016-10-03] MEDS: MUPIROCIN 2% 22 GM OINT TOP SCH ×2 (08:52→21:05)
[2016-10-03] MEDS: INSULIN ASPART [NOVOLOG] 3 ML PEN SC SCH ×4 (08:52→21:00)
[2016-10-03 08:53] VITALS: PULSE 80
--- NOTE | 2016-10-03 14:29 | CONS ---
Date/Time of Note Date/Time of Note DATE: 10/03/16 TIME: 14:26 Assessment/Plan Assessment/Plan Chief Complaint/Hosp Course SUBJECTIVE: low grade temps, + loose stools, nad MICROBIOLOGY: Blood culture on 09/23/2016 growing MRSA. Urine culture grew Angelina albicans. Nares swab came back positive for MRSA. ANTIMICROBIALS: The patient is on Zyvox and Rifampin s/p Vanco/Clindamycin PHYSICAL EXAMINATION: GENERAL: This is a chronically ill-appearing, elderly woman who is in no distress. HEENT: Head atraumatic, normocephalic. Sclerae anicteric. Buccal mucosa dry. NECK: Supple, trachea midline. CHEST: Rise symmetrical. Breath sounds diminished to bases. HEART: S1, S2. ABDOMEN: Soft, bowel tones present. EXTREMITIES: Without cyanosis. ASSESSMENT: 1. Methicillin-sensitive Staphylococcus aureus bacteremia, likely secondary to #2. 2. Left submandibular gland phlegmon with sialolithiasis and sialadenitis, ENT on case. 3. Dysphagia with malnutrition. 4. History of coronary artery disease. 5. Dementia. 6. Diabetes. PLAN: Clinically unchanged, with low grade temps and diarrhea, cxr negative, will send urine cx, start Invanz and Flagyl, continue Zyvo till Oct 11. Dc Rifampin [facility] staff Problems: Consultation Date/Type/Reason Admit Date/Time Sep 23, 2016 at 17:03 Initial Consult Date 09/25/16 Type of Consultation: id Exam/Review of Systems Vital Signs Vitals Vital Signs Date Time Temp Pulse Resp B/P Pulse Ox O2 Delivery O2 Flow Rate FiO2 10/03/16 08:53 80 10/03/16 08:16 97.5 19 126/64 98 Intake and Output 10/02/16 10/02/16 10/03/16 15:00 23:00 07:00 Intake Total 1050 ml 950 ml Balance 1050 ml 950 ml Results Result Diagram: 10/03/16 0436 10/03/16 0436 Results 24 hrs Laboratory Tests Test 10/02/16 17:14 10/02/16 20:51 10/03/16 04:36 10/03/16 07:56 Bedside Glucose 308 H 74 274 H White Blood Count 14.8 #H Red Blood Count 3.22 L Hemoglobin 10.2 L Hematocrit 30.2 L Mean Corpuscular Volume 93.8 Mean Corpuscular Hemoglobin 31.7 Mean Corpuscular Hemoglobin Concent 33.8 Red Cell Distribution Width 17.2 H Platelet Count 307 Mean Platelet Volume 11.2 H Neutrophils % 72.8 Lymphocytes % 17.4 Monocytes % 7.5 Eosinophils % 1.2 Basophils % 0.3 Nucleated Red Blood Cells % 0.0 Neutrophils # 10.8 H Lymphocytes # 2.6 Monocytes # 1.1 H Eosinophils # 0.2 Basophils # 0.0 Nucleated Red Blood Cells # 0.0 Sodium Level 131 L Potassium Level 5.1 Chloride Level 101 Carbon Dioxide Level 24 Anion Gap 11 Blood Urea Nitrogen 21 H Creatinine 1.25 H Glucose Level 276 H Calcium Level 7.5 L Magnesium Level 1.6 L Total Bilirubin 0.0 L Direct Bilirubin 0.00 Indirect Bilirubin 0.0 Aspartate Amino Transf (AST/SGOT) 33 Alanine Aminotransferase (ALT/SGPT) 26 Alkaline Phosphatase 108 Total Protein 5.0 L Albumin 2.1 L Globulin 2.90 Albumin/Globulin Ratio 0.72 Vitamin B12 Level > 1000 H Folate 6.0 Random Cortisol 15.3 Test 10/03/16 12:17 10/03/16 12:35 Bedside Glucose 166 122 Medications Medications Current Medications Acetaminophen (Tylenol Supp) 325 mg Q8 [place] Last administered on 10/03/16 05:39; Admin Dose 325 MG; Start 09/23/16 at 22:00 Diagnostic Test (Pha) (Accu-Chek) 1 ea 02 XX Last administered on 10/02/16 02: 11; Admin Dose 1 EA; Start 09/24/16 at 02:00 Miscellaneous Information 1 ea NOTE XX ; Start 09/24/16 at 01:30 Glucose (Glutose) 15 gm Q15M PRN PO DECREASED GLUCOSE; Start 09/24/16 at 01:30 Glucose (Glutose) 22.5 gm Q15M PRN PO DECREASED GLUCOSE; Start 09/24/16 at 01: 30 Dextrose (D50w Syringe) 25 ml Q15M PRN IV DECREASED GLUCOSE; Start 09/24/16 at 01:30 Dextrose (D50w Syringe) 50 ml Q15M PRN IV DECREASED GLUCOSE; Start 09/24/16 at 01:30 Glucagon (Glucagen) 1 mg Q15M PRN IM DECREASED GLUCOSE; Start 09/24/16 at 01:30 Glucose (Glutose) 15 gm Q15M PRN BUCCAL DECREASED GLUCOSE; Start 09/24/16 at 01 :30 Enoxaparin Sodium (Lovenox) 60 mg Q24H SC Last administered on 10/03/16 08:51; Admin Dose 60 MG; Start 09/24/16 at 09:00 Amlodipine Besylate (Norvasc) 5 mg BID PO Last administered on 10/03/16 08:51; Admin Dose 5 MG; Start 09/24/16 at 21:00 Hydralazine HCl (Apresoline) 5 mg Q6H PRN IV ELEVATED BLOOD PRESSURE Last administered on 09/28/16 20:26; Admin Dose 5 MG; Start 09/24/16 at 21:00 Clonidine HCl (Catapres-Tts 2 Patch) 1 patch Q7D TRANSDERM Last administered on 10/01/16 20:44; Admin Dose 1 PATCH; Start 09/24/16 at 21:00 Metoprolol Tartrate (Lopressor) 25 mg BID PO Last administered on 10/03/16 08: 50; Admin Dose 25 MG; Start 09/24/16 at 21:00 Aspirin (Aspirin) 81 mg DAILY PO Last administered on 10/03/16 08:49; Admin Dose 81 MG; Start 09/26/16 at 09:00 Lorazepam 0.5 mg 0.5 mg Q6 PRN IV ANXIETY Last administered on 09/30/16 20:08 ; Admin Dose 0.5 MG; Start 09/26/16 at 00:00 Rifampin/Sodium Chloride (Rifampin/NS) 100 ml @ 200 mls/hr Q24H IVPB Last administered on 09/30/16 17:10; Admin Dose 200 MLS/HR; Start 09/27/16 at 15:30 Mupirocin (Bactroban) 1 applic BID TOP Last administered on 10/03/16 08:52; Admin Dose 1 APPLIC; Start 09/27/16 at 21:00 Linezolid (Zyvox) 600 mg BID PO Last administered on 10/03/16 08:49; Admin Dose 600 MG; Start 09/29/16 at 21:00; Stop 10/07/16 at 09:00 Bisacodyl (Dulcolax Supp) 10 mg DAILY PRN [place] CONSTIPATION; Start 09/30/16 at 09 :00 Lansoprazole (Prevacid) 30 mg DAILY@06 GTB Last administered on 10/03/16 05:39 ; Admin Dose 30 MG; Start 10/01/16 at 06:00 Ferrous Sulfate (Feosol Liquid Cup) 300 mg BID GTB Last administered on 08:48; Admin Dose 300 MG; Start 10/02/16 at 21:00 Insulin Glargine (Lantus) 6 unit HS SC ; Start 10/03/16 at 21:00 LOGAN CASTANEDA NP Oct 03, 2016 14:28
[2016-10-03] MEDS ORDERED: ERTAPENEM SODIUM 1 GM in SOD CHLORIDE 0.9% 100 ML IVPB SCH (14:30)
[2016-10-03] MEDS: RIFAMPIN 600 MG in SOD CHLORIDE 0.9% 100 ML IVPB SCH (15:30)
[2016-10-03] MEDS: metroNIDAZOLE 500 MG TAB PO SCH ×2 (16:04→21:04)
--- NOTE | 2016-10-03 17:06 | CONS ---
Date/Time of Note Date/Time of Note DATE: 10/03/16 TIME: 17:05 Assessment/Plan Assessment/Plan Chief Complaint/Hosp Course Assessment: Sepsis and MRSA bacteremia - antibiotics per infectious disease Sialoadenitis with obstructive stone - per ENT Coronary artery disease - details unknown, clinically stable Peripheral vascular disease Hypertension Acute kidney injury vs chronic kidney disease Diabetes mellitus Dementia Recommendations: -echocardiogram showed LVEF 65-70%, mild diastolic dysfunction, no significant valvular disease -continue aspirin 81mg daily -defer statin therapy, no clear benefit in this patient population -continue metoprolol, amlodipine, clonidine patch, PRN hydralazine Problems: Consultation Date/Type/Reason Admit Date/Time Sep 23, 2016 at 17:03 Initial Consult Date 09/25/16 Type of Consultation: Cardiology 24 HR Interval Summary Free Text/Dictation Fever to 101.2 last night. Reports of loose stools. Antibiotics have been adjusted by infectious disease. Detailed Summary Additional Comments Unable to obtain review of systems due to patient's altered mental status. Exam/Review of Systems Vital Signs Vitals Vital Signs Date Time Temp Pulse Resp B/P Pulse Ox O2 Delivery O2 Flow Rate FiO2 10/03/16 08:53 80 10/03/16 08:16 97.5 19 126/64 98 Intake and Output 10/02/16 10/02/16 10/03/16 15:00 23:00 07:00 Intake Total 1050 ml 950 ml Balance 1050 ml 950 ml Exam Constitutional: alert, No distress Psych: confusion Head: atraumatic, normocephalic Eyes: nl conjunctiva, nl lids ENMT: nl external ears & nose, nl nasal mucosa & septum Neck: non-tender, supple, No jvd Respiratory: clear to auscultation Cardiovascular: regular rate and rhythm, systolic murmur Gastrointestinal: non-tender, soft Extremities: No clubbing, No cyanosis, No edema Neurological: No nl mental status, No nl speech Results Result Diagram: 10/03/16 0436 10/03/16 0436 Results 24 hrs Laboratory Tests Test 10/02/16 17:14 10/02/16 20:51 10/03/16 04:36 10/03/16 07:56 Bedside Glucose 308 H 74 274 H White Blood Count 14.8 #H Red Blood Count 3.22 L Hemoglobin 10.2 L Hematocrit 30.2 L Mean Corpuscular Volume 93.8 Mean Corpuscular Hemoglobin 31.7 Mean Corpuscular Hemoglobin Concent 33.8 Red Cell Distribution Width 17.2 H Platelet Count 307 Mean Platelet Volume 11.2 H Neutrophils % 72.8 Lymphocytes % 17.4 Monocytes % 7.5 Eosinophils % 1.2 Basophils % 0.3 Nucleated Red Blood Cells % 0.0 Neutrophils # 10.8 H Lymphocytes # 2.6 Monocytes # 1.1 H Eosinophils # 0.2 Basophils # 0.0 Nucleated Red Blood Cells # 0.0 Sodium Level 131 L Potassium Level 5.1 Chloride Level 101 Carbon Dioxide Level 24 Anion Gap 11 Blood Urea Nitrogen 21 H Creatinine 1.25 H Glucose Level 276 H Calcium Level 7.5 L Magnesium Level 1.6 L Total Bilirubin 0.0 L Direct Bilirubin 0.00 Indirect Bilirubin 0.0 Aspartate Amino Transf (AST/SGOT) 33 Alanine Aminotransferase (ALT/SGPT) 26 Alkaline Phosphatase 108 Total Protein 5.0 L Albumin 2.1 L Globulin 2.90 Albumin/Globulin Ratio 0.72 Vitamin B12 Level > 1000 H Folate 6.0 Random Cortisol 15.3 Test 10/03/16 12:17 10/03/16 12:35 Bedside Glucose 166 122 Medications Medications Current Medications Acetaminophen (Tylenol Supp) 325 mg Q8 ND Last administered on 10/03/16 16:04; Admin Dose 325 MG; Start 09/23/16 at 22:00 Diagnostic Test (Pha) (Accu-Chek) 1 ea 02 XX Last administered on 10/02/16 02: 11; Admin Dose 1 EA; Start 09/24/16 at 02:00 Miscellaneous Information 1 ea NOTE XX ; Start 09/24/16 at 01:30 Glucose (Glutose) 15 gm Q15M PRN PO DECREASED GLUCOSE; Start 09/24/16 at 01:30 Glucose (Glutose) 22.5 gm Q15M PRN PO DECREASED GLUCOSE; Start 09/24/16 at 01: 30 Dextrose (D50w Syringe) 25 ml Q15M PRN IV DECREASED GLUCOSE; Start 09/24/16 at 01:30 Dextrose (D50w Syringe) 50 ml Q15M PRN IV DECREASED GLUCOSE; Start 09/24/16 at 01:30 Glucagon (Glucagen) 1 mg Q15M PRN IM DECREASED GLUCOSE; Start 09/24/16 at 01:30 Glucose (Glutose) 15 gm Q15M PRN BUCCAL DECREASED GLUCOSE; Start 09/24/16 at 01 :30 Enoxaparin Sodium (Lovenox) 60 mg Q24H SC Last administered on 10/03/16 08:51; Admin Dose 60 MG; Start 09/24/16 at 09:00 Amlodipine Besylate (Norvasc) 5 mg BID PO Last administered on 10/03/16 08:51; Admin Dose 5 MG; Start 09/24/16 at 21:00 Hydralazine HCl (Apresoline) 5 mg Q6H PRN IV ELEVATED BLOOD PRESSURE Last administered on 09/28/16 20:26; Admin Dose 5 MG; Start 09/24/16 at 21:00 Clonidine HCl (Catapres-Tts 2 Patch) 1 patch Q7D TRANSDERM Last administered on 10/01/16 20:44; Admin Dose 1 PATCH; Start 09/24/16 at 21:00 Metoprolol Tartrate (Lopressor) 25 mg BID PO Last administered on 10/03/16 08: 50; Admin Dose 25 MG; Start 09/24/16 at 21:00 Aspirin (Aspirin) 81 mg DAILY PO Last administered on 10/03/16 08:49; Admin Dose 81 MG; Start 09/26/16 at 09:00 Lorazepam 0.5 mg 0.5 mg Q6 PRN IV ANXIETY Last administered on 09/30/16 20:08 ; Admin Dose 0.5 MG; Start 09/26/16 at 00:00 Rifampin/Sodium Chloride (Rifampin/NS) 100 ml @ 200 mls/hr Q24H IVPB Last administered on 09/30/16 17:10; Admin Dose 200 MLS/HR; Start 09/27/16 at 15:30 Mupirocin (Bactroban) 1 applic BID TOP Last administered on 10/03/16 08:52; Admin Dose 1 APPLIC; Start 09/27/16 at 21:00 Linezolid (Zyvox) 600 mg BID PO Last administered on 10/03/16 08:49; Admin Dose 600 MG; Start 09/29/16 at 21:00; Stop 10/07/16 at 09:00 Bisacodyl (Dulcolax Supp) 10 mg DAILY PRN [place] CONSTIPATION; Start 3/31/17 at 09 :00 Lansoprazole (Prevacid) 30 mg DAILY@06 GTB Last administered on 10/03/16 05:39 ; Admin Dose 30 MG; Start 10/01/16 at 06:00 Ferrous Sulfate (Feosol Liquid Cup) 300 mg BID GTB Last administered on 08:48; Admin Dose 300 MG; Start 10/02/16 at 21:00 Insulin Glargine 6 unit 6 unit HS SC ; Start 10/03/16 at 21:00 Ertapenem/Sodium Chloride (Invanz/NS) 100 ml @ 200 mls/hr Q24H IVPB ; Start 10/03/16 at 14:30 Metronidazole (Flagyl) 500 mg Q8 PO Last administered on 10/03/16 16:04; Admin Dose 500 MG; Start 10/03/16 at 14:30 PRISCILLA WEINSTEIN MD Oct 03, 2016 17:06
[2016-10-03] MEDS: INSULIN GLARGINE [LANtus] 3 ML PEN SC SCH (21:02)
--- NOTE | 2016-10-03 21:46 | PN ---
Date/Time of Note Date/Time of Note DATE: 10/03/16 TIME: 21:34 Assessment/Plan VTE Prophylaxis VTE Prophylaxis Intervention: ambulation, anti-embolic stocking VTE Contraindication Reason: peripheral vascular disease Lines/Catheters IV Catheter Type (from Nrsg): Peripheral IV Central line still needed: No Urinary Cath still in place: No Reason Cath still needed: urinary retention Assessment/Plan Assessment/Plan 1.Sepsis- improved; now new elevation of temperature. 2.Left submandibular sialitis and possible abscess-improved significantly.; Stone in a duct. ENT f/u. 3.ARF-improved 4.Anemia of chronic disease with low iron. 5.AD& MD with anxiety. 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 14.Progressive deterioration of condition. 15.Kyphosis 16Urinary incontinence with episodes of retention. 17.Hx of kidney cysts. 18.Pain syndrome. 19.S/P G tube placement and feeding. 20.S/P MRSA positive blood and naris cultures with lida in the urine 21.First degree decubitus of the sacral region. Cont'd Hospitalization Reason: sepsis.Hyponatremia-supplement diarrhea-decreased the feeding rate. Subjective 24 Hr Interval Summary Free Text/Dictation Lethargic,arousable in no distress, febrile. Subjective hx not possible: pt non-verbal Constitutional: diaphoresis, disoriented, poor po, requiring IVF, requiring O2 , No chills, No febrile, No improved, No no complaints, No other Eyes: No discharge, No no complaints, No other, No pain, No redness, No visual change ENT: other (left mandibular mass become smaller.), No bleeding, No congestion, No discharge, No dysphagia, No no complaints, No pain, No sore throat Respiratory: cough, pleuritic pain, shortness of breath, No no complaints, No other, No pain, No sputum, No wheezing Cardiovascular: chest pain, lightheadedness, orthopenea, palpitations, No edema, No no complaints, No other, No paroxysmal nocturnal dyspnea Gastrointestinal: diarrhea, flatus, other (nonformed fecal material after g -tube feeding.), pain, passing stool, No blood, No constipation, No decreased appetite, No nausea, No no complaints , No vomiting Genitourinary: No bleeding, No discharge, No dysuria, No flank pain, No hematuria, No no complaints, No other Musculoskeletal: back pain, bone/joint pain, neck pain, No no complaints, No other, No restricted range of motion, No swelling Skin: bruising, pruritis, rash, No erythema, No laceration, No no complaints, No other, No skin lesions Neurologic: confusion, dizziness, No focal-weakness, No headache, No no complaints, No other, No seizure, No syncope Endocrine: dry skin (excoriation of the sacral area.) Lymphatic: No adenopathy, No lymphadema, No no complaints, No other, No tender nodes Psychological: anxiety, confusion, No depression, No nl mood/affect, No no complaints, No other, No suicidal Exam/Review of Systems Vital Signs Vitals Vital Signs Date Time Temp Pulse Resp B/P Pulse Ox O2 Delivery O2 Flow Rate FiO2 10/03/16 08:53 80 10/03/16 08:16 97.5 19 126/64 98 Intake and Output 10/02/16 10/02/16 10/03/16 15:00 23:00 07:00 Intake Total 1050 ml 950 ml Balance 1050 ml 950 ml Exam Lethargic, arousable, more cooperative recognized me. Now with mild distress. Constitutional: distress, frail, No alert, No non-verbal, No obese, No oriented, No other, No well developed Psych: anxiety, no complaints Head: No atraumatic, No hematomas, No lacerations, No normocephalic, No other Eyes: EOMI, PERRL, nl lids, No fundi, disc, No icteric, No nl conjunctiva, No nl sclera, No other ENMT: nl external ears & nose, nl nasal mucosa & septum, other (painless left mandibular area with decreased the size of a masss and appears nonpainful.), No intubated, No mucosa pink and moist, No nl lips & teeth, No tympanic membranes Neck: bruits, No jvd, No masses, No non-tender, No nuchal rigidity, No other, No supple, No thyromegaly Respiratory: congested cough, intercostal retraction, No clear to auscultation, No crackles/rales, No diminished breath sounds, No labored breathing, No normal air movement, No other, No respirations, No tactile fremitus, No wheezing Cardiovascular: bruits, edema, systolic murmur Gastrointestinal: bowel sounds, distended, soft, No ascites, No firm, No hepatomegaly, No mass, No nl liver, spleen, No non- tender, No other, No rebound or guarding, No splenomegaly, No surgical scars, No tender Musculoskeletal: joint tenderness, muscle tone, muscle weakness, range of motion Skin: ecchymosis, nl turgor (decreased.), other (excoriation to upper sacral area with nonformed fecal masses making sacral skin breakdown.) Results Result Diagram: 10/03/16 0436 10/03/16 0436 Results 24 hrs Laboratory Tests Test 10/03/16 04:36 10/03/16 07:56 10/03/16 12:17 10/03/16 12:35 White Blood Count 14.8 #H Red Blood Count 3.22 L Hemoglobin 10.2 L Hematocrit 30.2 L Mean Corpuscular Volume 93.8 Mean Corpuscular Hemoglobin 31.7 Mean Corpuscular Hemoglobin Concent 33.8 Red Cell Distribution Width 17.2 H Platelet Count 307 Mean Platelet Volume 11.2 H Neutrophils % 72.8 Lymphocytes % 17.4 Monocytes % 7.5 Eosinophils % 1.2 Basophils % 0.3 Nucleated Red Blood Cells % 0.0 Neutrophils # 10.8 H Lymphocytes # 2.6 Monocytes # 1.1 H Eosinophils # 0.2 Basophils # 0.0 Nucleated Red Blood Cells # 0.0 Sodium Level 131 L Potassium Level 5.1 Chloride Level 101 Carbon Dioxide Level 24 Anion Gap 11 Blood Urea Nitrogen 21 H Creatinine 1.25 H Glucose Level 276 H Calcium Level 7.5 L Magnesium Level 1.6 L Total Bilirubin 0.0 L Direct Bilirubin 0.00 Indirect Bilirubin 0.0 Aspartate Amino Transf (AST/SGOT) 33 Alanine Aminotransferase (ALT/SGPT) 26 Alkaline Phosphatase 108 Total Protein 5.0 L Albumin 2.1 L Globulin 2.90 Albumin/Globulin Ratio 0.72 Vitamin B12 Level > 1000 H Folate 6.0 Random Cortisol 15.3 Bedside Glucose 274 H 166 122 Test 10/03/16 20:58 Bedside Glucose 122 Medications Medications Current Medications Acetaminophen (Tylenol Supp) 325 mg Q8 NE Last administered on 10/03/16 16:04; Admin Dose 325 MG; Start 09/23/16 at 22:00 Diagnostic Test (Pha) (Accu-Chek) 1 ea 02 XX Last administered on 10/02/16 02: 11; Admin Dose 1 EA; Start 09/24/16 at 02:00 Miscellaneous Information 1 ea NOTE XX ; Start 09/24/16 at 01:30 Glucose (Glutose) 15 gm Q15M PRN PO DECREASED GLUCOSE; Start 09/24/16 at 01:30 Glucose (Glutose) 22.5 gm Q15M PRN PO DECREASED GLUCOSE; Start 09/24/16 at 01: 30 Dextrose (D50w Syringe) 25 ml Q15M PRN IV DECREASED GLUCOSE; Start 09/24/16 at 01:30 Dextrose (D50w Syringe) 50 ml Q15M PRN IV DECREASED GLUCOSE; Start 09/24/16 at 01:30 Glucagon (Glucagen) 1 mg Q15M PRN IM DECREASED GLUCOSE; Start 09/24/16 at 01:30 Glucose (Glutose) 15 gm Q15M PRN BUCCAL DECREASED GLUCOSE; Start 09/24/16 at 01 :30 Enoxaparin Sodium (Lovenox) 60 mg Q24H SC Last administered on 10/03/16 08:51; Admin Dose 60 MG; Start 09/24/16 at 09:00 Amlodipine Besylate (Norvasc) 5 mg BID PO Last administered on 10/03/16 08:51; Admin Dose 5 MG; Start 09/24/16 at 21:00 Hydralazine HCl (Apresoline) 5 mg Q6H PRN IV ELEVATED BLOOD PRESSURE Last administered on 09/28/16 20:26; Admin Dose 5 MG; Start 09/24/16 at 21:00 Clonidine HCl (Catapres-Tts 2 Patch) 1 patch Q7D TRANSDERM Last administered on 10/01/16 20:44; Admin Dose 1 PATCH; Start 09/24/16 at 21:00 Metoprolol Tartrate (Lopressor) 25 mg BID PO Last administered on 10/03/16 08: 50; Admin Dose 25 MG; Start 09/24/16 at 21:00 Aspirin (Aspirin) 81 mg DAILY PO Last administered on 10/03/16 08:49; Admin Dose 81 MG; Start 09/26/16 at 09:00 Lorazepam 0.5 mg 0.5 mg Q6 PRN IV ANXIETY Last administered on 09/30/16 20:08 ; Admin Dose 0.5 MG; Start 09/26/16 at 00:00 Rifampin/Sodium Chloride (Rifampin/NS) 100 ml @ 200 mls/hr Q24H IVPB Last administered on 09/30/16 17:10; Admin Dose 200 MLS/HR; Start 09/27/16 at 15:30 Mupirocin (Bactroban) 1 applic BID TOP Last administered on 10/03/16 08:52; Admin Dose 1 APPLIC; Start 09/27/16 at 21:00 Linezolid (Zyvox) 600 mg BID PO Last administered on 10/03/16 08:49; Admin Dose 600 MG; Start 09/29/16 at 21:00; Stop 10/07/16 at 09:00 Bisacodyl (Dulcolax Supp) 10 mg DAILY PRN [place] CONSTIPATION; Start 09/30/16 at 09 :00 Lansoprazole (Prevacid) 30 mg DAILY@06 GTB Last administered on 10/03/16 05:39 ; Admin Dose 30 MG; Start 10/01/16 at 06:00 Ferrous Sulfate (Feosol Liquid Cup) 300 mg BID GTB Last administered on 08:48; Admin Dose 300 MG; Start 10/02/16 at 21:00 Insulin Glargine 6 unit 6 unit HS SC ; Start 10/03/16 at 21:00 Ertapenem/Sodium Chloride (Invanz/NS) 100 ml @ 200 mls/hr Q24H IVPB ; Start 10/03/16 at 14:30 Metronidazole (Flagyl) 500 mg Q8 PO Last administered on 10/03/16 16:04; Admin Dose 500 MG; Start 10/03/16 at 14:30 JR DEAN MD Oct 03, 2016 21:44
[2016-10-03] MEDS ORDERED: SODIUM CHLORIDE 1 GM TAB PO SCH (22:00)
[2016-10-03 22:28] VITALS: BP 124/60; RESP 20
--- NOTE | 2016-10-03 22:38 | CONS ---
Date/Time of Note Date/Time of Note DATE: 10/03/16 TIME: 22:37 Assessment/Plan Assessment/Plan Chief Complaint/Hosp Course ANEMIA N- CYTIC WITH INCREASED RDW PROCEED WITH W-UP MONITOR FOR BLEEDING AND HEMOLYSIS CHECK SMEAR MONITOR COUNT CLOSELY LEUKOCYTOSIS- IN PT WITH SEPSIS MOST LIKELY REACTIVE MONITOR CLOSELY ATB PER ID Sepsis, MRSA bacteremia, diarrhea - antibiotics per infectious disease Sialoadenitis with obstructive stone - per ENT Coronary artery disease - details unknown, clinically stable Peripheral vascular disease Hypertension Acute kidney injury vs chronic kidney disease Diabetes mellitus Dementia Problems: Consultation Date/Type/Reason Admit Date/Time Sep 23, 2016 at 17:03 Date of Consultation: Oct 03, 2016 Type of Consultation: HEMEONC Reason for Consultation ANEMIA Referring Provider: JR DEAN MD Hx of Present Illness 76 yo F with severe dementia, CAD/angina (unknown details), PAD, DM, HTN, CKD, who presented from her SNF with facial swelling/pain and was found to left sialoadenitis with obstructing stone and infection. She was also noted to have 1 /2 blood cultures positive for staph aureus so far. The pt is nonverbal and unable to provide history. unable to obtain due to pt condition I WAS ASKED TO PROVIDE HEMEONC CONSULT RE ANEMIA Constitutional: disoriented, poor po, requiring O2, No chills, No diaphoresis, No febrile, No improved, No no complaints, No other, No requiring IVF Eyes: visual change, No discharge, No no complaints, No other, No pain, No redness ENT: congestion Respiratory: cough, shortness of breath, No no complaints, No other, No pain, No pleuritic pain, No sputum, No wheezing Cardiovascular: chest pain, lightheadedness, orthopenea, palpitations, No edema, No no complaints, No other, No paroxysmal nocturnal dyspnea Psychological: anxiety, confusion, depression, No nl mood/affect, No no complaints, No other, No suicidal Past Medical History Medical History: angina, colitis, congestive heart failure, coronary artery disease, diabetes, diverticulitis, gallstones, GERD, high cholesterol, hypertension, renal disease, urinary tract infection Social History Alcohol Use: none Smoking Status: Never smoker Drug Use: none Constitutional: diaphoresis, disoriented, poor po, requiring IVF, requiring O2 , No chills, No febrile, No improved, No no complaints, No other Eyes: No discharge, No no complaints, No other, No pain, No redness, No visual change ENT: other (left mandibular mass become smaller.), No bleeding, No congestion, No discharge, No dysphagia, No no complaints, No pain, No sore throat Respiratory: cough, pleuritic pain, shortness of breath, No no complaints, No other, No pain, No sputum, No wheezing Cardiovascular: chest pain, lightheadedness, orthopenea, palpitations, No edema, No no complaints, No other, No paroxysmal nocturnal dyspnea Gastrointestinal: diarrhea, flatus, other (nonformed fecal material after g -tube feeding.), pain, passing stool, No blood, No constipation, No decreased appetite, No nausea, No no complaints , No vomiting Genitourinary: No bleeding, No discharge, No dysuria, No flank pain, No hematuria, No no complaints, No other Musculoskeletal: back pain, bone/joint pain, neck pain, No no complaints, No other, No restricted range of motion, No swelling Skin: bruising, pruritis, rash, No erythema, No laceration, No no complaints, No other, No skin lesions Neurologic: confusion, dizziness, No focal-weakness, No headache, No no complaints, No other, No seizure, No syncope Endocrine: dry skin (excoriation of the sacral area.) Lymphatic: No adenopathy, No lymphadema, No no complaints, No other, No tender nodes Psychological: anxiety, no complaints Past Medical History Medical History: angina, colitis, congestive heart failure, coronary artery disease, diabetes, diverticulitis, gallstones, GERD, high cholesterol, hypertension, renal disease, urinary tract infection Social History Alcohol Use: none Smoking Status: Never smoker Drug Use: none Exam/Review of Systems Vital Signs Vitals Vital Signs Date Time Temp Pulse Resp B/P Pulse Ox O2 Delivery O2 Flow Rate FiO2 10/03/16 22:28 98.3 81 20 124/60 95 Intake and Output 10/02/16 10/02/16 10/03/16 15:00 23:00 07:00 Intake Total 1050 ml 950 ml Balance 1050 ml 950 ml Exam Constitutional: No alert, No oriented Head: atraumatic, normocephalic Neck: No jvd Respiratory: clear to auscultation, No crackles/rales Cardiovascular: regular rate and rhythm, No edema, No systolic murmur Gastrointestinal: soft, No distended Neurological: No nl mental status, No nl speech Skin: rash or lesions Results Result Diagram: 10/03/16 0436 10/03/16 0436 Results 24 hrs Laboratory Tests Test 10/03/16 04:36 10/03/16 07:56 10/03/16 12:17 10/03/16 12:35 White Blood Count 14.8 #H Red Blood Count 3.22 L Hemoglobin 10.2 L Hematocrit 30.2 L Mean Corpuscular Volume 93.8 Mean Corpuscular Hemoglobin 31.7 Mean Corpuscular Hemoglobin Concent 33.8 Red Cell Distribution Width 17.2 H Platelet Count 307 Mean Platelet Volume 11.2 H Neutrophils % 72.8 Lymphocytes % 17.4 Monocytes % 7.5 Eosinophils % 1.2 Basophils % 0.3 Nucleated Red Blood Cells % 0.0 Neutrophils # 10.8 H Lymphocytes # 2.6 Monocytes # 1.1 H Eosinophils # 0.2 Basophils # 0.0 Nucleated Red Blood Cells # 0.0 Sodium Level 131 L Potassium Level 5.1 Chloride Level 101 Carbon Dioxide Level 24 Anion Gap 11 Blood Urea Nitrogen 21 H Creatinine 1.25 H Glucose Level 276 H Calcium Level 7.5 L Magnesium Level 1.6 L Total Bilirubin 0.0 L Direct Bilirubin 0.00 Indirect Bilirubin 0.0 Aspartate Amino Transf (AST/SGOT) 33 Alanine Aminotransferase (ALT/SGPT) 26 Alkaline Phosphatase 108 Total Protein 5.0 L Albumin 2.1 L Globulin 2.90 Albumin/Globulin Ratio 0.72 Vitamin B12 Level > 1000 H Folate 6.0 Random Cortisol 15.3 Bedside Glucose 274 H 166 122 Test 10/03/16 20:58 Bedside Glucose 122 Medications Medications Current Medications Acetaminophen (Tylenol Supp) 325 mg Q8 MN Last administered on 10/03/16 21:00; Admin Dose 325 MG; Start 09/23/16 at 22:00 Diagnostic Test (Pha) (Accu-Chek) 1 ea XX Last administered on 10/02/16 02: 11; Admin Dose 1 EA; Start 09/24/16 at 02:00 Miscellaneous Information 1 ea NOTE XX ; Start 09/24/16 at 01:30 Glucose (Glutose) 15 gm Q15M PRN PO DECREASED GLUCOSE; Start 09/24/16 at 01:30 Glucose (Glutose) 22.5 gm Q15M PRN PO DECREASED GLUCOSE; Start 09/24/16 at 01: 30 Dextrose (D50w Syringe) 25 ml Q15M PRN IV DECREASED GLUCOSE; Start 09/24/16 at 01:30 Dextrose (D50w Syringe) 50 ml Q15M PRN IV DECREASED GLUCOSE; Start 09/24/16 at 01:30 Glucagon (Glucagen) 1 mg Q15M PRN IM DECREASED GLUCOSE; Start 09/24/16 at 01:30 Glucose (Glutose) 15 gm Q15M PRN BUCCAL DECREASED GLUCOSE; Start 09/24/16 at 01 :30 Enoxaparin Sodium (Lovenox) 60 mg Q24H SC Last administered on 10/03/16 08:51; Admin Dose 60 MG; Start 09/24/16 at 09:00 Amlodipine Besylate (Norvasc) 5 mg BID PO Last administered on 10/03/16 20:59; Admin Dose 5 MG; Start 09/24/16 at 21:00 Hydralazine HCl (Apresoline) 5 mg Q6H PRN IV ELEVATED BLOOD PRESSURE Last administered on 09/28/16 20:26; Admin Dose 5 MG; Start 09/24/16 at 21:00 Clonidine HCl (Catapres-Tts 2 Patch) 1 patch Q7D TRANSDERM Last administered on 10/01/16 20:44; Admin Dose 1 PATCH; Start 09/24/16 at 21:00 Metoprolol Tartrate (Lopressor) 25 mg BID PO Last administered on 10/03/16 21: 00; Admin Dose 25 MG; Start 09/24/16 at 21:00 Aspirin (Aspirin) 81 mg DAILY PO Last administered on 10/03/16 08:49; Admin Dose 81 MG; Start 09/26/16 at 09:00 Lorazepam (Ativan) 0.5 mg Q6 PRN IV ANXIETY Last administered on 09/30/16 20: 08; Admin Dose 0.5 MG; Start 09/26/16 at 00:00 Mupirocin (Bactroban) 1 applic BID TOP Last administered on 10/03/16 21:05; Admin Dose 1 APPLIC; Start 09/27/16 at 21:00 Linezolid (Zyvox) 600 mg BID PO Last administered on 10/03/16 21:00; Admin Dose 600 MG; Start 09/29/16 at 21:00; Stop 10/07/16 at 09:00 Bisacodyl (Dulcolax Supp) 10 mg DAILY PRN [place] CONSTIPATION; Start 09/30/16 at 09 :00 Lansoprazole (Prevacid) 30 mg DAILY@06 GTB Last administered on 10/03/16 05:39 ; Admin Dose 30 MG; Start 10/01/16 at 06:00 Ferrous Sulfate (Feosol Liquid Cup) 300 mg BID GTB Last administered on 20:59; Admin Dose 300 MG; Start 10/02/16 at 21:00 Insulin Glargine 6 unit 6 unit HS SC Last administered on 10/03/16 21:02; Admin Dose 6 UNIT; Start 10/03/16 at 21:00 Ertapenem/Sodium Chloride (Invanz/NS) 100 ml @ 200 mls/hr Q24H IVPB ; Start 10/03/16 at 14:30 Metronidazole (Flagyl) 500 mg Q8 PO Last administered on 10/03/16 21:04; Admin Dose 500 MG; Start 10/03/16 at 14:30 Rifampin (Rifampin) 300 mg Q12 NGT ; Start 10/03/16 at 22:00 Sodium Chloride (Nacl) 1 gm BID PO ; Start 10/03/16 at 22:30 ARIANNE AUSTIN MD Oct 03, 2016 22:37
[2016-10-03 23:20] LABS: RETICULOCYTE COUNT % 3.3 % (0.5-1.5)
[2016-10-03] MEDS: RIFAMPIN 300 MG CAP NGT SCH (23:50)
[2016-10-03] MEDS: SODIUM CHLORIDE 1 GM TAB PO SCH (23:51)
[2016-10-04 00:06] LABS: THYROID STIMULATING HORMONE 1.48 MIU/L (0.465-4.680)
[2016-10-04 00:21] LABS: CARCINOEMBRYONIC ANTIGEN 1.5 ng/ml (0.0-5.0)
[2016-10-04] MEDS: ACCU-CHEK XX SCH (01:03)
[2016-10-04] MEDS: ACETAMINOPHEN 325 MG SUPP PR SCH ×2 (05:34→14:00)
[2016-10-04] MEDS: metroNIDAZOLE 500 MG TAB PO SCH (05:34)
[2016-10-04] MEDS: LANSOPRAZOLE 30 MG CAP GTB SCH (05:34)
[2016-10-04 08:14] VITALS: BP 111/70; RESP 20
[2016-10-04] MEDS: INSULIN ASPART [NOVOLOG] 3 ML PEN SC SCH ×4 (08:51→21:00)
[2016-10-04] MEDS: ENOXAPARIN 60 MG/0.6 ML SYG SC SCH (08:52)
[2016-10-04] MEDS: FERROUS SULFATE 60 MG/ML 5ML CUP GTB SCH ×2 (08:53→21:41)
[2016-10-04] MEDS: SODIUM CHLORIDE 1 GM TAB PO SCH (08:54)
[2016-10-04] MEDS: RIFAMPIN 300 MG CAP NGT SCH ×2 (08:54→21:41)
[2016-10-04] MEDS: ZYVOX 600 MG TAB PO SCH ×2 (08:54→21:43)
[2016-10-04] MEDS: METOPROLOL 25 MG TAB PO SCH ×2 (08:54→21:43)
[2016-10-04] MEDS: AMLODIPINE 5 MG TAB PO SCH ×2 (08:54→21:43)
[2016-10-04] MEDS: ASPIRIN 81 MG TAB PO SCH (08:54)
[2016-10-04] MEDS: MUPIROCIN 2% 22 GM OINT TOP SCH ×2 (08:55→21:56)
[2016-10-04 09:52] LABS: ADD SCAN DIFF NO
[2016-10-04 09:57] LABS: BASOPHILS % 0.2 % (0.0-2.0); EOSINOPHILS # 0.2 10^3/ul (0.0-0.5); EOSINOPHILS % 1.5 % (0.0-7.0); HEMATOCRIT 30.2 % (37.0-47.0); HEMOGLOBIN 9.8 g/dl (12.0-16.0); LYMPHOCYTES # 2.2 10^3/ul (0.8-2.9); LYMPHOCYTES % 15.2 % (15.0-51.0); MEAN CORPUSCULAR HEMOGLOBIN 30.7 pg (29.0-33.0); MEAN CORPUSCULAR HGB CONC 32.5 g/dl (32.0-37.0); MEAN CORPUSCULAR VOLUME 94.7 fl (82.0-101.0); MONOCYTE # 0.8 10^3/ul (0.3-0.9); MONOCYTES % 5.3 % (0.0-11.0); NEUTROPHIL # 10.9 10^3/ul (1.6-7.5); NEUTROPHILS % 76.9 % (39.0-77.0); PLATELET COUNT 292 10^3/UL (140-415); RED BLOOD COUNT 3.19 10^6/ul (4.20-5.40); RED CELL DISTRIBUTION WIDTH 17.7 % (11.5-14.5); WHITE BLOOD COUNT 14.1 10^3/ul (4.8-10.8)
[2016-10-04 10:06] LABS: POTASSIUM 4.9 mmol/L (3.5-5.1)
[2016-10-04 10:09] LABS: CREATININE 1.21 mg/dl (0.44-1.00)
[2016-10-04 10:10] LABS: CALCIUM 7.4 mg/dl (8.4-10.2)
--- NOTE | 2016-10-04 10:34 | CONS ---
Date/Time of Note Date/Time of Note DATE: 10/04/16 TIME: 10:33 Assessment/Plan Assessment/Plan Chief Complaint/Hosp Course ANEMIA W-UP IN PROGRESS Sepsis, MRSA bacteremia, diarrhea - antibiotics per infectious disease Sialoadenitis with obstructive stone - per ENT Coronary artery disease - details unknown, clinically stable Peripheral vascular disease Hypertension Acute kidney injury vs chronic kidney disease Diabetes mellitus Dementia Problems: Consultation Date/Type/Reason Admit Date/Time Sep 23, 2016 at 17:03 Initial Consult Date 09/25/16 Type of Consultation: HEMEONC Reason for Consultation ANEMIA Referring Provider: JR DEAN MD 24 HR Interval Summary Free Text/Dictation ALL NOTED W-UP IN PROCESS Exam/Review of Systems Vital Signs Vitals Vital Signs Date Time Temp Pulse Resp B/P Pulse Ox O2 Delivery O2 Flow Rate FiO2 10/04/16 08:14 98.1 78 20 111/70 98 Intake and Output 10/03/16 10/03/16 10/04/16 15:00 23:00 07:00 Intake Total 940 ml Output Total 100 ml Balance 840 ml Exam GENERAL: This is a chronically ill-appearing, elderly woman who is in no distress. HEENT: Head atraumatic, normocephalic. Sclerae anicteric. Buccal mucosa dry. NECK: Supple, trachea midline. CHEST: Rise symmetrical. Breath sounds diminished to bases. HEART: S1, S2. ABDOMEN: Soft, bowel tones present. EXTREMITIES: Without cyanosis. Results Result Diagram: 10/04/16 0915 10/04/16 0915 Results 24 hrs Laboratory Tests Test 10/03/16 12:17 10/03/16 12:35 10/03/16 20:58 10/03/16 23:10 Bedside Glucose 166 122 122 Erythrocyte Sedimentation Rate 28 Absolute Reticulocyte Count 0.103 Percent Reticulocyte Count 3.3 H Uric Acid 6.0 Ferritin 1770.0 H Lactate Dehydrogenase 380 Carcinoembryonic Antigen 1.5 Folate 6.0 Thyroid Stimulating Hormone (TSH) 1.480 Test 10/04/16 07:59 10/04/16 09:15 Bedside Glucose 213 White Blood Count 14.1 H Red Blood Count 3.19 L Hemoglobin 9.8 L Hematocrit 30.2 L Mean Corpuscular Volume 94.7 Mean Corpuscular Hemoglobin 30.7 Mean Corpuscular Hemoglobin Concent 32.5 Red Cell Distribution Width 17.7 H Platelet Count 292 Mean Platelet Volume 11.0 H Neutrophils % 76.9 Lymphocytes % 15.2 Monocytes % 5.3 Eosinophils % 1.5 Basophils % 0.2 Nucleated Red Blood Cells % 0.0 Neutrophils # 10.9 H Lymphocytes # 2.2 Monocytes # 0.8 Eosinophils # 0.2 Basophils # 0.0 Nucleated Red Blood Cells # 0.0 Sodium Level 126 L Potassium Level 4.9 Chloride Level 100 Carbon Dioxide Level 23 Anion Gap 8 Blood Urea Nitrogen 30 H Creatinine 1.21 H Glucose Level 215 Calcium Level 7.4 L Medications Medications Current Medications Acetaminophen (Tylenol Supp) 325 mg Q8 [place] Last administered on 10/04/16 05:34; Admin Dose 325 MG; Start 09/23/16 at 22:00 Diagnostic Test (Pha) (Accu-Chek) 1 ea 02 XX Last administered on 10/02/16 02: 11; Admin Dose 1 EA; Start 09/24/16 at 02:00 Miscellaneous Information 1 ea NOTE XX ; Start 09/24/16 at 01:30 Glucose (Glutose) 15 gm Q15M PRN PO DECREASED GLUCOSE; Start 09/24/16 at 01:30 Glucose (Glutose) 22.5 gm Q15M PRN PO DECREASED GLUCOSE; Start 09/24/16 at 01: 30 Dextrose (D50w Syringe) 25 ml Q15M PRN IV DECREASED GLUCOSE; Start 09/24/16 at 01:30 Dextrose (D50w Syringe) 50 ml Q15M PRN IV DECREASED GLUCOSE; Start 09/24/16 at 01:30 Glucagon (Glucagen) 1 mg Q15M PRN IM DECREASED GLUCOSE; Start 09/24/16 at 01:30 Glucose (Glutose) 15 gm Q15M PRN BUCCAL DECREASED GLUCOSE; Start 09/24/16 at 01 :30 Enoxaparin Sodium (Lovenox) 60 mg Q24H SC Last administered on 10/04/16 08:52; Admin Dose 60 MG; Start 09/24/16 at 09:00 Amlodipine Besylate (Norvasc) 5 mg BID PO Last administered on 10/04/16 08:54; Admin Dose 5 MG; Start 09/24/16 at 21:00 Hydralazine HCl (Apresoline) 5 mg Q6H PRN IV ELEVATED BLOOD PRESSURE Last administered on 09/28/16 20:26; Admin Dose 5 MG; Start 09/24/16 at 21:00 Clonidine HCl (Catapres-Tts 2 Patch) 1 patch Q7D TRANSDERM Last administered on 10/01/16 20:44; Admin Dose 1 PATCH; Start 09/24/16 at 21:00 Metoprolol Tartrate (Lopressor) 25 mg BID PO Last administered on 10/04/16 08: 54; Admin Dose 25 MG; Start 09/24/16 at 21:00 Aspirin (Aspirin) 81 mg DAILY PO Last administered on 10/04/16 08:54; Admin Dose 81 MG; Start 09/26/16 at 09:00 Lorazepam (Ativan) 0.5 mg Q6 PRN IV ANXIETY Last administered on 09/30/16 20: 08; Admin Dose 0.5 MG; Start 09/26/16 at 00:00 Mupirocin (Bactroban) 1 applic BID TOP Last administered on 10/04/16 08:55; Admin Dose 1 APPLIC; Start 09/27/16 at 21:00 Linezolid (Zyvox) 600 mg BID PO Last administered on 10/04/16 08:54; Admin Dose 600 MG; Start 09/29/16 at 21:00; Stop 10/07/16 at 09:00 Bisacodyl (Dulcolax Supp) 10 mg DAILY PRN [place] CONSTIPATION; Start 09/30/16 at 09 :00 Lansoprazole (Prevacid) 30 mg DAILY@06 GTB Last administered on 10/04/16 05:34 ; Admin Dose 30 MG; Start 10/01/16 at 06:00 Ferrous Sulfate (Feosol Liquid Cup) 300 mg BID GTB Last administered on 08:53; Admin Dose 300 MG; Start 10/02/16 at 21:00 Insulin Glargine 6 unit 6 unit HS SC Last administered on 10/03/16 21:02; Admin Dose 6 UNIT; Start 10/03/16 at 21:00 Ertapenem/Sodium Chloride (Invanz/NS) 100 ml @ 200 mls/hr Q24H IVPB ; Start 10/03/16 at 14:30 Metronidazole (Flagyl) 500 mg Q8 PO Last administered on 10/04/16 05:34; Admin Dose 500 MG; Start 10/03/16 at 14:30 Rifampin (Rifampin) 300 mg Q12 NGT Last administered on 10/04/16 08:54; Admin Dose 300 MG; Start 10/03/16 at 22:00 Sodium Chloride (Nacl) 1 gm BID PO Last administered on 10/04/16 08:54; Admin Dose 1 GM; Start 10/03/16 at 22:30 ARIANNE AUSTIN MD Oct 04, 2016 10:34
--- NOTE | 2016-10-04 11:20 | PN ---
Date/Time of Note Date/Time of Note DATE: 10/04/16 TIME: 11:19 Assessment/Plan VTE Prophylaxis VTE Prophylaxis Intervention: ambulation, anti-embolic stocking VTE Contraindication Reason: peripheral vascular disease Lines/Catheters IV Catheter Type (from Nrsg): Peripheral IV Central line still needed: No Urinary Cath still in place: No Reason Cath still needed: urinary retention Assessment/Plan Assessment/Plan 1.Sepsis- improving. 2.Left submandibular sialitis and possible abscess;Stone in a duct. ENT f/u. 3.ARF-improved 4.Anemia of chronic disease with low iron. 5.AD& MD with anxiety. 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 14.Progressive deterioration of condition. 15.Kyphosis 16Urinary incontinence with episodes of retention. 17.Hx of kidney cysts. 18.Pain syndrome. 19.S/P G tube placement and feeding. 20.S/P MRSA positive blood and naris cultures with lida in the urine 21.First degree decubitus of the sacral region. 22.HYPONATREMIA Cont'd Hospitalization Reason: WORSENING OF CONDITION. Subjective 24 Hr Interval Summary Free Text/Dictation diarrhea. Constitutional: disoriented, poor po, requiring O2, No chills, No diaphoresis, No febrile, No improved, No no complaints, No other, No requiring IVF Eyes: No discharge, No no complaints, No other, No pain, No redness, No visual change ENT: No bleeding, No congestion, No discharge, No dysphagia, No no complaints, No other, No pain, No sore throat Respiratory: shortness of breath, No cough, No no complaints, No other, No pain, No pleuritic pain, No sputum, No wheezing Gastrointestinal: diarrhea, flatus, No blood, No constipation, No decreased appetite, No nausea, No no complaints , No other, No pain, No passing stool, No vomiting Exam/Review of Systems Vital Signs Vitals Vital Signs Date Time Temp Pulse Resp B/P Pulse Ox O2 Delivery O2 Flow Rate FiO2 10/04/16 08:14 98.1 78 20 111/70 98 Intake and Output 4/310/03/16 10/04/16 15:00 23:00 07:00 Intake Total 940 ml Output Total 100 ml Balance 840 ml Exam Constitutional: alert, distress, frail, other (very short attention span.) Psych: anxiety, depression, No confusion, No nl mood/affect, No no complaints, No other, No suicidal Head: No atraumatic, No hematomas, No lacerations, No normocephalic, No other Eyes: EOMI, nl lids, No PERRL, No fundi, disc, No icteric, No nl conjunctiva, No nl sclera, No other ENMT: No intubated, No mucosa pink and moist, No nl external ears & nose, No nl lips & teeth, No nl nasal mucosa & septum, No other, No tympanic membranes Neck: jvd, No bruits, No masses, No non-tender, No nuchal rigidity, No other, No supple , No thyromegaly Respiratory: congested cough, diminished breath sounds Cardiovascular: bruits, systolic murmur, No S3, No S4, No diastolic murmur, No edema, No gallop, No irregular rhythm, No jugular venous distention (JVD), No murmurs/extra sounds, No nl pulses, No other, No regular rate and rhythm, No rub Gastrointestinal: bowel sounds, nl liver, spleen, non-tender, No ascites, No distended, No firm, No hepatomegaly, No mass, No other, No rebound or guarding, No soft, No splenomegaly, No surgical scars, No tender Musculoskeletal: joint tenderness, muscle tone, muscle weakness Extremities: edema, No calf tenderness, No clubbing, No cyanosis, No normal pulses, No other, No palpable cord, No pitting pedal edema, No tenderness Neurological: [employer] II-XII intact, confused, lethargic, No DTR's symmetric, No focal weakness, No nl mental status, No nl speech, No nl strength, No numbness, No other, No reflexes, No unresponsive Skin: diaphoresis Results Result Diagram: 10/04/16 0915 10/04/16 0915 Results 24 hrs Laboratory Tests Test 10/03/16 12:17 10/03/16 12:35 10/03/16 20:58 10/03/16 23:10 Bedside Glucose 166 122 122 Erythrocyte Sedimentation Rate 28 Absolute Reticulocyte Count 0.103 Percent Reticulocyte Count 3.3 H Uric Acid 6.0 Ferritin 1770.0 H Lactate Dehydrogenase 380 Carcinoembryonic Antigen 1.5 Folate 6.0 Thyroid Stimulating Hormone (TSH) 1.480 Test 10/04/16 07:59 10/04/16 09:15 Bedside Glucose 213 White Blood Count 14.1 H Red Blood Count 3.19 L Hemoglobin 9.8 L Hematocrit 30.2 L Mean Corpuscular Volume 94.7 Mean Corpuscular Hemoglobin 30.7 Mean Corpuscular Hemoglobin Concent 32.5 Red Cell Distribution Width 17.7 H Platelet Count 292 Mean Platelet Volume 11.0 H Neutrophils % 76.9 Lymphocytes % 15.2 Monocytes % 5.3 Eosinophils % 1.5 Basophils % 0.2 Nucleated Red Blood Cells % 0.0 Neutrophils # 10.9 H Lymphocytes # 2.2 Monocytes # 0.8 Eosinophils # 0.2 Basophils # 0.0 Nucleated Red Blood Cells # 0.0 Sodium Level 126 L Potassium Level 4.9 Chloride Level 100 Carbon Dioxide Level 23 Anion Gap 8 Blood Urea Nitrogen 30 H Creatinine 1.21 H Glucose Level 215 Calcium Level 7.4 L Medications Medications Current Medications Acetaminophen (Tylenol Supp) [address] Last administered on 10/04/16 05:34; Admin Dose 325 MG; Start 09/23/16 at 22:00 Diagnostic Test (Pha) (Accu-Chek) 1 ea 02 XX Last administered on 10/02/16 02: 11; Admin Dose 1 EA; Start 09/24/16 at 02:00 Miscellaneous Information 1 ea NOTE XX ; Start 09/24/16 at 01:30 Glucose (Glutose) 15 gm Q15M PRN PO DECREASED GLUCOSE; Start 09/24/16 at 01:30 Glucose (Glutose) 22.5 gm Q15M PRN PO DECREASED GLUCOSE; Start 09/24/16 at 01: 30 Dextrose (D50w Syringe) 25 ml Q15M PRN IV DECREASED GLUCOSE; Start 09/24/16 at 01:30 Dextrose (D50w Syringe) 50 ml Q15M PRN IV DECREASED GLUCOSE; Start 09/24/16 at 01:30 Glucagon (Glucagen) 1 mg Q15M PRN IM DECREASED GLUCOSE; Start 09/24/16 at 01:30 Glucose (Glutose) 15 gm Q15M PRN BUCCAL DECREASED GLUCOSE; Start 09/24/16 at 01 :30 Enoxaparin Sodium (Lovenox) 60 mg Q24H SC Last administered on 10/04/16 08:52; Admin Dose 60 MG; Start 09/24/16 at 09:00 Amlodipine Besylate (Norvasc) 5 mg BID PO Last administered on 10/04/16 08:54; Admin Dose 5 MG; Start 09/24/16 at 21:00 Hydralazine HCl (Apresoline) 5 mg Q6H PRN IV ELEVATED BLOOD PRESSURE Last administered on 09/28/16 20:26; Admin Dose 5 MG; Start 09/24/16 at 21:00 Clonidine HCl (Catapres-Tts 2 Patch) 1 patch Q7D TRANSDERM Last administered on 10/01/16 20:44; Admin Dose 1 PATCH; Start 09/24/16 at 21:00 Metoprolol Tartrate (Lopressor) 25 mg BID PO Last administered on 10/04/16 08: 54; Admin Dose 25 MG; Start 09/24/16 at 21:00 Aspirin (Aspirin) 81 mg DAILY PO Last administered on 10/04/16 08:54; Admin Dose 81 MG; Start 09/26/16 at 09:00 Lorazepam (Ativan) 0.5 mg Q6 PRN IV ANXIETY Last administered on 09/30/16 20: 08; Admin Dose 0.5 MG; Start 09/26/16 at 00:00 Mupirocin (Bactroban) 1 applic BID TOP Last administered on 10/04/16 08:55; Admin Dose 1 APPLIC; Start 09/27/16 at 21:00 Linezolid (Zyvox) 600 mg BID PO Last administered on 10/04/16 08:54; Admin Dose 600 MG; Start 09/29/16 at 21:00; Stop 10/07/16 at 09:00 Bisacodyl (Dulcolax Supp) [address] CONSTIPATION; Start 09/30/16 at 09 :00 Lansoprazole (Prevacid) 30 mg DAILY@06 GTB Last administered on 10/04/16 05:34 ; Admin Dose 30 MG; Start 10/01/16 at 06:00 Ferrous Sulfate (Feosol Liquid Cup) 300 mg BID GTB Last administered on 08:53; Admin Dose 300 MG; Start 10/02/16 at 21:00 Insulin Glargine 6 unit 6 unit HS SC Last administered on 10/03/16 21:02; Admin Dose 6 UNIT; Start 10/03/16 at 21:00 Ertapenem/Sodium Chloride (Invanz/NS) 100 ml @ 200 mls/hr Q24H IVPB ; Start 10/03/16 at 14:30 Metronidazole (Flagyl) 500 mg Q8 PO Last administered on 10/04/16 05:34; Admin Dose 500 MG; Start 10/03/16 at 14:30 Rifampin (Rifampin) 300 mg Q12 NGT Last administered on 10/04/16 08:54; Admin Dose 300 MG; Start 10/03/16 at 22:00 Sodium Chloride (Nacl) 1 gm BID PO Last administered on 10/04/16 08:54; Admin Dose 1 GM; Start 10/03/16 at 22:30 JR DEAN MD Oct 04, 2016 11:20
--- NOTE | 2016-10-04 14:11 | PN ---
DATE: 10/04/2016 INFECTIOUS DISEASE PROGRESS NOTE SUBJECTIVE: No acute events overnight. Patient is afebrile. She is awake, looks comfortable. WBC today 14.1, platelets 292, neutrophils 76.9, BUN 30, creatinine 1.21. MICROBIOLOGY: Repeat urine culture growing Angelina albicans but only 10 to 20,000 colonies 1000. ANTIMICROBIALS: She is on 1. Invanz 2. Oral Rifampin. 3. Zyvox 4. Flagyl. 5. Topical Bactroban to nares. INDWELLINGS: PEG. PHYSICAL EXAMINATION: GENERAL: This is a well-developed, elderly, [place] woman who is alert, in no distress. HEENT: Head atraumatic, normocephalic. Sclerae anicteric. Buccal mucosa dry. NECK: Supple. CHEST: Rise symmetrical. Breath sounds diminished to bases. HEART: S1, S2. ABDOMEN: Soft, bowel tones present. EXTREMITIES: Without cyanosis. ASSESSMENT: 1. Systemic inflammatory response syndrome, status post high fever 2 days ago and persistent leukoc ytosis. 2. Diarrhea, on empiric Flagyl for possible Clostridium difficile. 3. Angelina albicans urinary tract infection. 4. Status post methicillin-resistant Staphylococcus aureus bacteremia. 5. Resolving left mandibular sialithiasis and sialoadenitis. 6. Dementia. 7. Diabetes. PLAN: We are going to keep her on Zyvox and rifampin, discontinue Invanz, discontinue Flagyl as sto ol for Clostridium difficile came back negative. Start her on Diflucan. Continue anti-aspiration m easures. Dictated By: LOGAN CASTANEDA MANAGER POLICY for [facility]/ERWIN Conf#: [id number] DID#: [id number]
--- NOTE | 2016-10-04 14:41 | CONS ---
Date/Time of Note Date/Time of Note DATE: 10/04/16 TIME: 14:40 Assessment/Plan Assessment/Plan Chief Complaint/Hosp Course Assessment: Sepsis, MRSA bacteremia, diarrhea - antibiotics per infectious disease Sialoadenitis with obstructive stone - per ENT Coronary artery disease - details unknown, clinically stable Peripheral vascular disease Hypertension Acute kidney injury vs chronic kidney disease Diabetes mellitus Dementia Recommendations: -echocardiogram showed LVEF 65-70%, mild diastolic dysfunction, no significant valvular disease -continue aspirin 81mg daily -defer statin therapy, no clear benefit in this patient population -continue metoprolol, amlodipine, clonidine patch, PRN hydralazine Problems: Consultation Date/Type/Reason Admit Date/Time Sep 23, 2016 at 17:03 Initial Consult Date 09/25/16 Type of Consultation: Cardiology 24 HR Interval Summary Free Text/Dictation No acute events. Detailed Summary Additional Comments Unable to obtain review of systems due to patient's mental status. Exam/Review of Systems Vital Signs Vitals Vital Signs Date Time Temp Pulse Resp B/P Pulse Ox O2 Delivery O2 Flow Rate FiO2 10/04/16 08:14 98.1 78 20 111/70 98 Intake and Output 10/03/16 10/03/16 10/04/16 15:00 23:00 07:00 Intake Total 940 ml Output Total 100 ml Balance 840 ml Exam Constitutional: alert, No distress Psych: confusion Head: atraumatic, normocephalic Eyes: nl conjunctiva, nl lids ENMT: nl external ears & nose, nl nasal mucosa & septum Neck: non-tender, supple, No jvd Respiratory: clear to auscultation Cardiovascular: regular rate and rhythm, systolic murmur Gastrointestinal: non-tender, soft Extremities: No clubbing, No cyanosis, No edema Neurological: No nl mental status, No nl speech Results Result Diagram: 10/04/1615 10/04/16 0915 Results 24 hrs Laboratory Tests Test 10/03/16 20:58 10/03/16 23:10 10/04/16 07:59 10/04/16 09:15 Bedside Glucose 122 213 Erythrocyte Sedimentation Rate 28 Absolute Reticulocyte Count 0.103 Percent Reticulocyte Count 3.3 H Uric Acid 6.0 Ferritin 1770.0 H Lactate Dehydrogenase 380 Carcinoembryonic Antigen 1.5 Folate 6.0 Thyroid Stimulating Hormone (TSH) 1.480 White Blood Count 14.1 H Red Blood Count 3.19 L Hemoglobin 9.8 L Hematocrit 30.2 L Mean Corpuscular Volume 94.7 Mean Corpuscular Hemoglobin 30.7 Mean Corpuscular Hemoglobin Concent 32.5 Red Cell Distribution Width 17.7 H Platelet Count 292 Mean Platelet Volume 11.0 H Neutrophils % 76.9 Lymphocytes % 15.2 Monocytes % 5.3 Eosinophils % 1.5 Basophils % 0.2 Nucleated Red Blood Cells % 0.0 Neutrophils # 10.9 H Lymphocytes # 2.2 Monocytes # 0.8 Eosinophils # 0.2 Basophils # 0.0 Nucleated Red Blood Cells # 0.0 Sodium Level 126 L Potassium Level 4.9 Chloride Level 100 Carbon Dioxide Level 23 Anion Gap 8 Blood Urea Nitrogen 30 H Creatinine 1.21 H Glucose Level 215 Calcium Level 7.4 L Test 10/04/16 12:25 Bedside Glucose 117 Medications Medications Current Medications Acetaminophen (Tylenol Supp) 325 mg Q8 [place] Last administered on 10/04/16 05:34; Admin Dose 325 MG; Start 09/23/16 at 22:00 Diagnostic Test (Pha) (Accu-Chek) 1 ea 02 XX Last administered on 10/02/16 02: 11; Admin Dose 1 EA; Start 09/24/16 at 02:00 Miscellaneous Information 1 ea NOTE XX ; Start 09/24/16 at 01:30 Glucose (Glutose) 15 gm Q15M PRN PO DECREASED GLUCOSE; Start 09/24/16 at 01:30 Glucose (Glutose) 22.5 gm Q15M PRN PO DECREASED GLUCOSE; Start 09/24/16 at 01: 30 Dextrose (D50w Syringe) 25 ml Q15M PRN IV DECREASED GLUCOSE; Start 09/24/16 at 01:30 Dextrose (D50w Syringe) 50 ml Q15M PRN IV DECREASED GLUCOSE; Start 09/24/16 at 01:30 Glucagon (Glucagen) 1 mg Q15M PRN IM DECREASED GLUCOSE; Start 09/24/16 at 01:30 Glucose (Glutose) 15 gm Q15M PRN BUCCAL DECREASED GLUCOSE; Start 09/24/16 at 01 :30 Enoxaparin Sodium (Lovenox) 60 mg Q24H SC Last administered on 10/04/16 08:52; Admin Dose 60 MG; Start 09/24/16 at 09:00 Amlodipine Besylate (Norvasc) 5 mg BID PO Last administered on 10/04/16 08:54; Admin Dose 5 MG; Start 09/24/16 at 21:00 Hydralazine HCl (Apresoline) 5 mg Q6H PRN IV ELEVATED BLOOD PRESSURE Last administered on 09/28/16 20:26; Admin Dose 5 MG; Start 09/24/16 at 21:00 Clonidine HCl (Catapres-Tts 2 Patch) 1 patch Q7D TRANSDERM Last administered on 10/01/16 20:44; Admin Dose 1 PATCH; Start 09/24/16 at 21:00 Metoprolol Tartrate (Lopressor) 25 mg BID PO Last administered on 10/04/16 08: 54; Admin Dose 25 MG; Start 09/24/16 at 21:00 Aspirin (Aspirin) 81 mg DAILY PO Last administered on 10/04/16 08:54; Admin Dose 81 MG; Start 09/26/16 at 09:00 Lorazepam (Ativan) 0.5 mg Q6 PRN IV ANXIETY Last administered on 09/30/16 20: 08; Admin Dose 0.5 MG; Start 09/26/16 at 00:00 Mupirocin (Bactroban) 1 applic BID TOP Last administered on 10/04/16 08:55; Admin Dose 1 APPLIC; Start 09/27/16 at 21:00 Linezolid (Zyvox) 600 mg BID PO Last administered on 10/04/16 08:54; Admin Dose 600 MG; Start 09/29/16 at 21:00; Stop 10/07/16 at 09:00 Bisacodyl (Dulcolax Supp) 10 mg DAILY PRN IN CONSTIPATION; Start 09/30/16 at 09 :00 Lansoprazole (Prevacid) 30 mg DAILY@06 GTB Last administered on 10/04/16 05:34 ; Admin Dose 30 MG; Start 10/01/16 at 06:00 Ferrous Sulfate (Feosol Liquid Cup) 300 mg BID GTB Last administered on 08:53; Admin Dose 300 MG; Start 10/02/16 at 21:00 Insulin Glargine (Lantus) 6 unit HS SC Last administered on 10/03/16 21:02; Admin Dose 6 UNIT; Start 10/03/16 at 21:00 Rifampin (Rifampin) 300 mg Q12 NGT Last administered on 10/04/16 08:54; Admin Dose 300 MG; Start 10/03/16 at 22:00 Sodium Chloride (Nacl) 1 gm BID PO Last administered on 10/04/16 08:54; Admin Dose 1 GM; Start 10/03/16 at 22:30 Fluconazole (Diflucan) 100 mg DAILY PO ; Start 10/04/16 at 14:00 PRISCILLA WEINSTEIN MD Oct 04, 2016 14:41
[2016-10-04] MEDS: FLUCONAZOLE 100 MG TAB PO SCH (14:57)
[2016-10-04] MEDS: SODIUM CHLORIDE 1 GM TAB GTB SCH ×2 (15:11→21:40)
[2016-10-04] MEDS: ACETAMINOPHEN 650MG/20.3ML CUP GTB SCH ×2 (15:11→21:41)
[2016-10-04 19:53] VITALS: BP 115/55; RESP 20
[2016-10-04] MEDS: INSULIN GLARGINE [LANtus] 3 ML PEN SC SCH (21:54)
[2016-10-05] MEDS: ACCU-CHEK XX SCH (02:00)
[2016-10-05] MEDS: LANSOPRAZOLE 30 MG CAP GTB SCH (05:31)
[2016-10-05] MEDS: ACETAMINOPHEN 650MG/20.3ML CUP GTB SCH ×3 (05:31→21:27)
[2016-10-05 07:55] VITALS: BP 141/65; RESP 18
[2016-10-05] MEDS: ENOXAPARIN 60 MG/0.6 ML SYG SC SCH (08:40)
[2016-10-05] MEDS: INSULIN ASPART [NOVOLOG] 3 ML PEN SC SCH ×4 (08:40→21:00)
[2016-10-05] MEDS: ASPIRIN 81 MG TAB PO SCH (08:40)
[2016-10-05] MEDS: FLUCONAZOLE 100 MG TAB PO SCH (08:41)
[2016-10-05] MEDS: RIFAMPIN 300 MG CAP NGT SCH (08:41)
[2016-10-05] MEDS: SODIUM CHLORIDE 1 GM TAB GTB SCH ×2 (08:41→21:27)
[2016-10-05] MEDS: ZYVOX 600 MG TAB PO SCH ×2 (08:41→21:28)
[2016-10-05] MEDS: METOPROLOL 25 MG TAB PO SCH ×2 (08:42→21:26)
[2016-10-05] MEDS: FERROUS SULFATE 60 MG/ML 5ML CUP GTB SCH ×2 (08:42→21:27)
[2016-10-05] MEDS: AMLODIPINE 5 MG TAB PO SCH ×2 (08:42→21:27)
[2016-10-05] MEDS: MUPIROCIN 2% 22 GM OINT TOP SCH ×2 (08:44→21:28)
[2016-10-05 09:59] LABS: PROTEIN, TOTAL 4.8 g/dL (6.1-8.1)
[2016-10-05 12:05] LABS: ADD SCAN DIFF NO
[2016-10-05 12:08] LABS: BASOPHILS % 0.3 % (0.0-2.0); EOSINOPHILS # 0.1 10^3/ul (0.0-0.5); EOSINOPHILS % 0.5 % (0.0-7.0); HEMATOCRIT 29.8 % (37.0-47.0); HEMOGLOBIN 9.7 g/dl (12.0-16.0); LYMPHOCYTES # 2.2 10^3/ul (0.8-2.9); LYMPHOCYTES % 13.8 % (15.0-51.0); MEAN CORPUSCULAR HGB CONC 32.6 g/dl (32.0-37.0); MEAN CORPUSCULAR VOLUME 95.2 fl (82.0-101.0); MEAN PLATELET VOLUME 10.2 fl (7.4-10.4); MONOCYTE # 0.9 10^3/ul (0.3-0.9); NEUTROPHIL # 12.3 10^3/ul (1.6-7.5); NEUTROPHILS % 78.6 % (39.0-77.0); PLATELET COUNT 347 10^3/UL (140-415); RED BLOOD COUNT 3.13 10^6/ul (4.20-5.40); WHITE BLOOD COUNT 15.7 10^3/ul (4.8-10.8)
[2016-10-05 12:25] LABS: POTASSIUM 4.5 mmol/L (3.5-5.1)
[2016-10-05 12:28] LABS: CREATININE 1.29 mg/dl (0.44-1.00)
[2016-10-05 12:29] LABS: CALCIUM 7.6 mg/dl (8.4-10.2)
--- NOTE | 2016-10-05 14:41 | CONS ---
Date/Time of Note Date/Time of Note DATE: 10/05/16 TIME: 14:40 Assessment/Plan Assessment/Plan Chief Complaint/Hosp Course ANEMIA W-UP IN PROCESS Sepsis, MRSA bacteremia, diarrhea - antibiotics per infectious disease Sialoadenitis with obstructive stone - per ENT Coronary artery disease - details unknown, clinically stable Peripheral vascular disease Hypertension Acute kidney injury vs chronic kidney disease Diabetes mellitus Dementia Problems: Consultation Date/Type/Reason Admit Date/Time Sep 23, 2016 at 17:03 Initial Consult Date 09/25/16 Type of Consultation: hemeonc 24 HR Interval Summary Free Text/Dictation ALL NOTED NO NEW EVENTS NO BLEEDING Exam/Review of Systems Vital Signs Vitals Vital Signs Date Time Temp Pulse Resp B/P Pulse Ox O2 Delivery O2 Flow Rate FiO2 10/05/16 07:55 98.1 79 18 141/65 96 Intake and Output 10/04/16 10/04/16 10/05/16 15:00 23:00 07:00 Intake Total 920 ml 820 ml Balance 920 ml 820 ml Exam GENERAL: This is a chronically ill-appearing, elderly woman who is in no distress. HEENT: Head atraumatic, normocephalic. Sclerae anicteric. Buccal mucosa dry. NECK: Supple, trachea midline. CHEST: Rise symmetrical. Breath sounds diminished to bases. HEART: S1, S2. ABDOMEN: Soft, bowel tones present. EXTREMITIES: Without cyanosis. Results Result Diagram: 10/05/16 1150 10/05/16 1150 Results 24 hrs Laboratory Tests Test 10/04/16 17:02 10/04/16 21:50 10/05/16 07:28 10/05/16 11:50 Bedside Glucose 181 125 284 H White Blood Count 15.7 H Red Blood Count 3.13 L Hemoglobin 9.7 L Hematocrit 29.8 L Mean Corpuscular Volume 95.2 Mean Corpuscular Hemoglobin 31.0 Mean Corpuscular Hemoglobin Concent 32.6 Red Cell Distribution Width 18.0 H Platelet Count 347 Mean Platelet Volume 10.2 Neutrophils % 78.6 H Lymphocytes % 13.8 L Monocytes % 6.0 Eosinophils % 0.5 Basophils % 0.3 Nucleated Red Blood Cells % 0.0 Neutrophils # 12.3 H Lymphocytes # 2.2 Monocytes # 0.9 Eosinophils # 0.1 Basophils # 0.0 Nucleated Red Blood Cells # 0.0 Sodium Level 128 L Potassium Level 4.5 Chloride Level 103 Carbon Dioxide Level 22 Anion Gap 8 Blood Urea Nitrogen 31 H Creatinine 1.29 H Glucose Level 158 Calcium Level 7.6 L Magnesium Level 2.1 Test 10/05/16 11:51 Bedside Glucose 149 Medications Medications Current Medications Diagnostic Test (Pha) (Accu-Chek) 1 ea 02 XX Last administered on 10/02/16 02: 11; Admin Dose 1 EA; Start 09/24/16 at 02:00 Miscellaneous Information 1 ea NOTE XX ; Start 09/24/16 at 01:30 Glucose (Glutose) 15 gm Q15M PRN PO DECREASED GLUCOSE; Start 09/24/16 at 01:30 Glucose (Glutose) 22.5 gm Q15M PRN PO DECREASED GLUCOSE; Start 09/24/16 at 01: 30 Dextrose (D50w Syringe) 25 ml Q15M PRN IV DECREASED GLUCOSE; Start 09/24/16 at 01:30 Dextrose (D50w Syringe) 50 ml Q15M PRN IV DECREASED GLUCOSE; Start 09/24/16 at 01:30 Glucagon (Glucagen) 1 mg Q15M PRN IM DECREASED GLUCOSE; Start 09/24/16 at 01:30 Glucose (Glutose) 15 gm Q15M PRN BUCCAL DECREASED GLUCOSE; Start 09/24/16 at 01 :30 Enoxaparin Sodium (Lovenox) 60 mg Q24H SC Last administered on 10/05/16 08:40; Admin Dose 60 MG; Start 09/24/16 at 09:00 Amlodipine Besylate (Norvasc) 5 mg BID PO Last administered on 10/05/16 08:42; Admin Dose 5 MG; Start 09/24/16 at 21:00 Hydralazine HCl (Apresoline) 5 mg Q6H PRN IV ELEVATED BLOOD PRESSURE Last administered on 09/28/16 20:26; Admin Dose 5 MG; Start 09/24/16 at 21:00 Clonidine HCl (Catapres-Tts 2 Patch) 1 patch Q7D TRANSDERM Last administered on 10/01/16 20:44; Admin Dose 1 PATCH; Start 09/24/16 at 21:00 Metoprolol Tartrate (Lopressor) 25 mg BID PO Last administered on 10/05/16 08: 42; Admin Dose 25 MG; Start 09/24/16 at 21:00 Aspirin (Aspirin) 81 mg DAILY PO Last administered on 10/05/16 08:40; Admin Dose 81 MG; Start 09/26/16 at 09:00 Lorazepam (Ativan) 0.5 mg Q6 PRN IV ANXIETY Last administered on 09/30/16 20: 08; Admin Dose 0.5 MG; Start 09/26/16 at 00:00 Mupirocin (Bactroban) 1 applic BID TOP Last administered on 10/05/16 08:44; Admin Dose 1 APPLIC; Start 09/27/16 at 21:00 Linezolid (Zyvox) 600 mg BID PO Last administered on 10/05/16 08:41; Admin Dose 600 MG; Start 09/29/16 at 21:00; Stop 10/07/16 at 09:00 Bisacodyl (Dulcolax Supp) 10 mg DAILY PRN [place] CONSTIPATION; Start 09/30/16 at 09 :00 Lansoprazole (Prevacid) 30 mg DAILY@06 GTB Last administered on 10/05/16 05:31 ; Admin Dose 30 MG; Start 10/01/16 at 06:00 Ferrous Sulfate (Feosol Liquid Cup) 300 mg BID GTB Last administered on 08:42; Admin Dose 300 MG; Start 10/02/16 at 21:00 Insulin Glargine (Lantus) 6 unit HS SC Last administered on 10/04/16 21:54; Admin Dose 6 UNIT; Start 10/03/16 at 21:00 Rifampin (Rifampin) 300 mg Q12 NGT Last administered on 10/05/16 08:41; Admin Dose 300 MG; Start 10/03/16 at 22:00 Fluconazole (Diflucan) 100 mg DAILY PO Last administered on 10/05/16 08:41; Admin Dose 100 MG; Start 10/04/16 at 14:00 Acetaminophen (Tylenol Liquid) 325 mg Q8 GTB Last administered on 10/05/16 13: 40; Admin Dose 325 MG; Start 10/04/16 at 15:00 Sodium Chloride (Nacl) 2 gm BID GTB Last administered on 10/05/16 08:41; Admin Dose 2 GM; Start 10/04/16 at 15:00 ARIANNE AUSTIN MD Oct 05, 2016 14:40
--- NOTE | 2016-10-05 16:00 | CONS ---
Date/Time of Note Date/Time of Note DATE: 10/05/16 TIME: 15:58 Assessment/Plan Assessment/Plan Chief Complaint/Hosp Course SUBJECTIVE: No acute events overnight. Patient is afebrile, looks comfortable. Sleeping MICROBIOLOGY: Repeat urine culture growing Angelina albicans but only 10 to 20, 000 colonies 1000. ANTIMICROBIALS: 1. Diflucan 2. Oral Rifampin. 3. Zyvox 4. Topical Bactroban to nares. INDWELLINGS: PEG. PHYSICAL EXAMINATION: GENERAL: This is a well-developed, elderly, Sinhala woman who is alert, in no distress. HEENT: Head atraumatic, normocephalic. Sclerae anicteric. Buccal mucosa dry. NECK: Supple. CHEST: Rise symmetrical. Breath sounds diminished to bases. HEART: S1, S2. ABDOMEN: Soft, bowel tones present. EXTREMITIES: Without cyanosis. ASSESSMENT: 1. Systemic inflammatory response syndrome, status post high fever 2 days ago and persistent leukocytosis. 2. Diarrhea, on empiric Flagyl for possible Clostridium difficile. 3. Angelina albicans urinary tract infection. 4. Status post methicillin-resistant Staphylococcus aureus bacteremia. 5. Resolving left mandibular sialithiasis and sialoadenitis. 6. Dementia. 7. Diabetes. PLAN: Stable, dc Rifampin, continue Zyvox till Oct 11, aspiration precautions DW staff Problems: Consultation Date/Type/Reason Admit Date/Time Sep 23, 2016 at 17:03 Initial Consult Date 09/25/16 Type of Consultation: ID Exam/Review of Systems Vital Signs Vitals Vital Signs Date Time Temp Pulse Resp B/P Pulse Ox O2 Delivery O2 Flow Rate FiO2 10/05/16 07:55 98.1 79 18 141/65 96 Intake and Output 10/04/16 10/04/16 10/05/16 15:00 23:00 07:00 Intake Total 920 ml 820 ml Balance 920 ml 820 ml Results Result Diagram: 10/05/16 1150 10/05/16 1150 Results 24 hrs Laboratory Tests Test 10/04/16 17:02 10/04/16 21:50 10/05/16 07:28 10/05/16 11:50 Bedside Glucose 181 125 284 H White Blood Count 15.7 H Red Blood Count 3.13 L Hemoglobin 9.7 L Hematocrit 29.8 L Mean Corpuscular Volume 95.2 Mean Corpuscular Hemoglobin 31.0 Mean Corpuscular Hemoglobin Concent 32.6 Red Cell Distribution Width 18.0 H Platelet Count 347 Mean Platelet Volume 10.2 Neutrophils % 78.6 H Lymphocytes % 13.8 L Monocytes % 6.0 Eosinophils % 0.5 Basophils % 0.3 Nucleated Red Blood Cells % 0.0 Neutrophils # 12.3 H Lymphocytes # 2.2 Monocytes # 0.9 Eosinophils # 0.1 Basophils # 0.0 Nucleated Red Blood Cells # 0.0 Sodium Level 128 L Potassium Level 4.5 Chloride Level 103 Carbon Dioxide Level 22 Anion Gap 8 Blood Urea Nitrogen 31 H Creatinine 1.29 H Glucose Level 158 Calcium Level 7.6 L Magnesium Level 2.1 Test 10/05/16 11:51 Bedside Glucose 149 Medications Medications Current Medications Diagnostic Test (Pha) (Accu-Chek) 1 ea 02 XX Last administered on 10/02/16 02: 11; Admin Dose 1 EA; Start 09/24/16 at 02:00 Miscellaneous Information 1 ea NOTE XX ; Start 09/24/16 at 01:30 Glucose (Glutose) 15 gm Q15M PRN PO DECREASED GLUCOSE; Start 09/24/16 at 01:30 Glucose (Glutose) 22.5 gm Q15M PRN PO DECREASED GLUCOSE; Start 09/24/16 at 01: 30 Dextrose (D50w Syringe) 25 ml Q15M PRN IV DECREASED GLUCOSE; Start 09/24/16 at 01:30 Dextrose (D50w Syringe) 50 ml Q15M PRN IV DECREASED GLUCOSE; Start 09/24/16 at 01:30 Glucagon (Glucagen) 1 mg Q15M PRN IM DECREASED GLUCOSE; Start 09/24/16 at 01:30 Glucose (Glutose) 15 gm Q15M PRN BUCCAL DECREASED GLUCOSE; Start 09/24/16 at 01 :30 Enoxaparin Sodium (Lovenox) 60 mg Q24H SC Last administered on 10/05/16 08:40; Admin Dose 60 MG; Start 09/24/16 at 09:00 Amlodipine Besylate (Norvasc) 5 mg BID PO Last administered on 10/05/16 08:42; Admin Dose 5 MG; Start 09/24/16 at 21:00 Hydralazine HCl (Apresoline) 5 mg Q6H PRN IV ELEVATED BLOOD PRESSURE Last administered on 09/28/16 20:26; Admin Dose 5 MG; Start 09/24/16 at 21:00 Clonidine HCl (Catapres-Tts 2 Patch) 1 patch Q7D TRANSDERM Last administered on 10/01/16 20:44; Admin Dose 1 PATCH; Start 09/24/16 at 21:00 Metoprolol Tartrate (Lopressor) 25 mg BID PO Last administered on 10/05/16 08: 42; Admin Dose 25 MG; Start 09/24/16 at 21:00 Aspirin (Aspirin) 81 mg DAILY PO Last administered on 10/05/16 08:40; Admin Dose 81 MG; Start 09/26/16 at 09:00 Lorazepam (Ativan) 0.5 mg Q6 PRN IV ANXIETY Last administered on 09/30/16 20: 08; Admin Dose 0.5 MG; Start 09/26/16 at 00:00 Mupirocin (Bactroban) 1 applic BID TOP Last administered on 10/05/16 08:44; Admin Dose 1 APPLIC; Start 09/27/16 at 21:00 Linezolid (Zyvox) 600 mg BID PO Last administered on 10/05/16 08:41; Admin Dose 600 MG; Start 09/29/16 at 21:00; Stop 10/07/16 at 09:00 Bisacodyl (Dulcolax Supp) 10 mg DAILY PRN [place] CONSTIPATION; Start 09/30/16 at 09 :00 Lansoprazole (Prevacid) 30 mg DAILY@06 GTB Last administered on 10/05/16 05:31 ; Admin Dose 30 MG; Start 10/01/16 at 06:00 Ferrous Sulfate (Feosol Liquid Cup) 300 mg BID GTB Last administered on 08:42; Admin Dose 300 MG; Start 10/02/16 at 21:00 Insulin Glargine (Lantus) 6 unit HS SC Last administered on 10/04/16 21:54; Admin Dose 6 UNIT; Start 10/03/16 at 21:00 Rifampin (Rifampin) 300 mg Q12 NGT Last administered on 10/05/16 08:41; Admin Dose 300 MG; Start 10/03/16 at 22:00 Fluconazole (Diflucan) 100 mg DAILY PO Last administered on 10/05/16 08:41; Admin Dose 100 MG; Start 10/04/16 at 14:00 Acetaminophen (Tylenol Liquid) 325 mg Q8 GTB Last administered on 10/05/16 13: 40; Admin Dose 325 MG; Start 10/04/16 at 15:00 Sodium Chloride (Nacl) 2 gm BID GTB Last administered on 10/05/16 08:41; Admin Dose 2 GM; Start 10/04/16 at 15:00 LOGAN CASTANEDA NP Oct 05, 2016 16:00
[2016-10-05 18:27] LABS: ABNORMAL PROTEIN BAND 1 0.2 g/dL (NONE DETECTED)
--- NOTE | 2016-10-05 20:00 | PN ---
Date/Time of Note Date/Time of Note DATE: 10/05/16 TIME: 19:55 Assessment/Plan VTE Prophylaxis VTE Prophylaxis Intervention: ambulation, anti-embolic stocking VTE Contraindication Reason: peripheral vascular disease Lines/Catheters IV Catheter Type (from Nrsg): Peripheral IV Urinary Cath still in place: No Assessment/Plan Assessment/Plan 1.Sepsis- improving. 2.Left submandibular sialitis and possible abscess;Stone in a duct. ENT f/u. 3.ARF-improved 4.Anemia of chronic disease with low iron. 5.AD& MD with anxiety. 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 14.Progressive deterioration of condition. 15.Kyphosis 16Urinary incontinence with episodes of retention. 17.Hx of kidney cysts. 18.Pain syndrome. 19.S/P G tube placement and feeding. 20.S/P MRSA positive blood and naris cultures with lida in the urine 21.First degree decubitus of the sacral region. Subjective 24 Hr Interval Summary Free Text/Dictation Lethargic; arousable in no distress. Now having BM with loos consistency. Gastrointestinal: diarrhea, flatus, passing stool, No blood, No constipation, No decreased appetite, No nausea, No no complaints , No other, No pain, No vomiting Neurologic: confusion, No dizziness, No focal-weakness, No headache, No no complaints, No other, No seizure, No syncope Exam/Review of Systems Vital Signs Vitals Vital Signs Date Time Temp Pulse Resp B/P Pulse Ox O2 Delivery O2 Flow Rate FiO2 10/05/16 07:55 98.1 79 18 141/65 96 Intake and Output 10/04/16 10/04/16 10/05/16 14:59 22:59 06:59 Intake Total 920 ml 820 ml Balance 920 ml 820 ml Exam Constitutional: No alert, No distress, No frail, No non-verbal, No obese, No oriented, No other, No well developed Psych: other (confused. Very short time span of keeping attention.), No anxiety, No confusion, No depression, No nl mood/affect, No no complaints , No suicidal Head: No atraumatic, No hematomas, No lacerations, No normocephalic, No other Eyes: EOMI, PERRL, nl lids, No fundi, disc, No icteric, No nl conjunctiva, No nl sclera, No other ENMT: No intubated, No mucosa pink and moist, No nl external ears & nose, No nl lips & teeth, No nl nasal mucosa & septum, No other, No tympanic membranes Neck: jvd, No bruits, No masses, No non-tender, No nuchal rigidity, No other, No supple , No thyromegaly Respiratory: congested cough, diminished breath sounds, No clear to auscultation, No crackles/rales, No intercostal retraction, No labored breathing, No normal air movement, No other, No respirations, No tactile fremitus, No wheezing Cardiovascular: bruits, systolic murmur, No S3, No S4, No diastolic murmur, No edema, No gallop, No irregular rhythm, No jugular venous distention (JVD), No murmurs/extra sounds, No nl pulses, No other, No regular rate and rhythm, No rub Gastrointestinal: other (Gtube side clean), No ascites, No bowel sounds, No distended, No firm, No hepatomegaly, No mass , No nl liver, spleen, No non-tender, No rebound or guarding, No soft, No splenomegaly, No surgical scars, No tender Genitourinary - Female: other (redness of the perianal area withsupreficial decubitus.) Musculoskeletal: joint tenderness Extremities: No calf tenderness, No clubbing, No cyanosis, No edema, No normal pulses, No other, No palpable cord, No pitting pedal edema, No tenderness Neurological: CUSTOMER DEVELOPMENT REPRESENTATIVE II-XII intact Results Result Diagram: 10/05/16 1150 10/05/16 1150 Results 24 hrs Laboratory Tests Test 10/04/16 21:50 10/05/16 07:28 10/05/16 11:50 10/05/16 11:51 Bedside Glucose 125 284 H 149 White Blood Count 15.7 H Red Blood Count 3.13 L Hemoglobin 9.7 L Hematocrit 29.8 L Mean Corpuscular Volume 95.2 Mean Corpuscular Hemoglobin 31.0 Mean Corpuscular Hemoglobin Concent 32.6 Red Cell Distribution Width 18.0 H Platelet Count 347 Mean Platelet Volume 10.2 Neutrophils % 78.6 H Lymphocytes % 13.8 L Monocytes % 6.0 Eosinophils % 0.5 Basophils % 0.3 Nucleated Red Blood Cells % 0.0 Neutrophils # 12.3 H Lymphocytes # 2.2 Monocytes # 0.9 Eosinophils # 0.1 Basophils # 0.0 Nucleated Red Blood Cells # 0.0 Sodium Level 128 L Potassium Level 4.5 Chloride Level 103 Carbon Dioxide Level 22 Anion Gap 8 Blood Urea Nitrogen 31 H Creatinine 1.29 H Glucose Level 158 Calcium Level 7.6 L Magnesium Level 2.1 Test 10/05/16 16:30 10/05/16 17:01 Stool Occult Blood NEGATIVE Bedside Glucose 226 H Medications Medications Current Medications Diagnostic Test (Pha) (Accu-Chek) 1 ea 02 XX Last administered on 10/02/16 02: 11; Admin Dose 1 EA; Start 09/24/16 at 02:00 Miscellaneous Information 1 ea NOTE XX ; Start 09/24/16 at 01:30 Glucose (Glutose) 15 gm Q15M PRN PO DECREASED GLUCOSE; Start 09/24/16 at 01:30 Glucose (Glutose) 22.5 gm Q15M PRN PO DECREASED GLUCOSE; Start 09/24/16 at 01: 30 Dextrose (D50w Syringe) 25 ml Q15M PRN IV DECREASED GLUCOSE; Start 09/24/16 at 01:30 Dextrose (D50w Syringe) 50 ml Q15M PRN IV DECREASED GLUCOSE; Start 09/24/16 at 01:30 Glucagon (Glucagen) 1 mg Q15M PRN IM DECREASED GLUCOSE; Start 09/24/16 at 01:30 Glucose (Glutose) 15 gm Q15M PRN BUCCAL DECREASED GLUCOSE; Start 09/24/16 at 01 :30 Enoxaparin Sodium (Lovenox) 60 mg Q24H SC Last administered on 10/05/16 08:40; Admin Dose 60 MG; Start 09/24/16 at 09:00 Amlodipine Besylate (Norvasc) 5 mg BID PO Last administered on 10/05/16 08:42; Admin Dose 5 MG; Start 09/24/16 at 21:00 Hydralazine HCl (Apresoline) 5 mg Q6H PRN IV ELEVATED BLOOD PRESSURE Last administered on 09/28/16 20:26; Admin Dose 5 MG; Start 09/24/16 at 21:00 Clonidine HCl (Catapres-Tts 2 Patch) 1 patch Q7D TRANSDERM Last administered on 10/01/16 20:44; Admin Dose 1 PATCH; Start 09/24/16 at 21:00 Metoprolol Tartrate (Lopressor) 25 mg BID PO Last administered on 10/05/16 08: 42; Admin Dose 25 MG; Start 09/24/16 at 21:00 Aspirin (Aspirin) 81 mg DAILY PO Last administered on 10/05/16 08:40; Admin Dose 81 MG; Start 09/26/16 at 09:00 Lorazepam (Ativan) 0.5 mg Q6 PRN IV ANXIETY Last administered on 09/30/16 20: 08; Admin Dose 0.5 MG; Start 09/26/16 at 00:00 Mupirocin (Bactroban) 1 applic BID TOP Last administered on 10/05/16 08:44; Admin Dose 1 APPLIC; Start 09/27/16 at 21:00 Linezolid (Zyvox) 600 mg BID PO Last administered on 10/05/16 08:41; Admin Dose 600 MG; Start 09/29/16 at 21:00; Stop 10/07/16 at 09:00 Bisacodyl (Dulcolax Supp) 10 mg DAILY PRN [place] CONSTIPATION; Start 09/30/16 at 09 :00 Lansoprazole (Prevacid) 30 mg DAILY@06 GTB Last administered on 10/05/16 05:31 ; Admin Dose 30 MG; Start 10/01/16 at 06:00 Ferrous Sulfate (Feosol Liquid Cup) 300 mg BID GTB Last administered on 08:42; Admin Dose 300 MG; Start 10/02/16 at 21:00 Insulin Glargine (Lantus) 6 unit HS SC Last administered on 10/04/16 21:54; Admin Dose 6 UNIT; Start 10/03/16 at 21:00 Fluconazole (Diflucan) 100 mg DAILY PO Last administered on 10/05/16 08:41; Admin Dose 100 MG; Start 10/04/16 at 14:00 Acetaminophen (Tylenol Liquid) 325 mg Q8 GTB Last administered on 10/05/16 13: 40; Admin Dose 325 MG; Start 10/04/16 at 15:00 Sodium Chloride (Nacl) 2 gm BID GTB Last administered on 10/05/16 08:41; Admin Dose 2 GM; Start 10/04/16 at 15:00 JR DEAN MD Oct 05, 2016 20:00
[2016-10-05 21:06] VITALS: BP 138/61; RESP 19
[2016-10-05] MEDS: INSULIN GLARGINE [LANtus] 3 ML PEN SC SCH (21:34)
[2016-10-06] MEDS: ACCU-CHEK XX SCH (02:00)
[2016-10-06] MEDS: LANSOPRAZOLE 30 MG CAP GTB SCH (05:32)
[2016-10-06] MEDS: ACETAMINOPHEN 650MG/20.3ML CUP GTB SCH ×3 (05:32→21:19)
[2016-10-06 05:55] LABS: POTASSIUM 4.7 mmol/L (3.5-5.1)
[2016-10-06 05:57] LABS: CREATININE 1.29 mg/dl (0.44-1.00)
[2016-10-06 05:58] LABS: CALCIUM 7.4 mg/dl (8.4-10.2)
--- NOTE | 2016-10-06 07:31 | PN ---
Date/Time of Note Date/Time of Note DATE: 10/06/16 TIME: 07:25 Assessment/Plan VTE Prophylaxis VTE Prophylaxis Intervention: ambulation, anti-embolic stocking VTE Contraindication Reason: peripheral vascular disease Lines/Catheters IV Catheter Type (from Nrsg): Peripheral IV Central line still needed: No Urinary Cath still in place: No Reason Cath still needed: urinary retention Assessment/Plan Assessment/Plan 1.Sepsis- improving. 2.Left submandibular sialitis and possible abscess;Stone in a duct. ENT f/u. 3.ARF-improved 4.Anemia of chronic disease with low iron. 5.AD& MD with anxiety. 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 14.Progressive deterioration of condition. 15.Kyphosis 16Urinary incontinence with episodes of retention. 17.Hx of kidney cysts. 18.Pain syndrome. 19.S/P G tube placement and feeding. 20.S/P MRSA positive blood and naris cultures with lida in the urine 21.First degree decubitus of the sacral region and left calcaneal areas 22.Hyponatremia-continue supplementation. Cont'd Hospitalization Reason: hyponatremia on the top of other conditions. Subjective 24 Hr Interval Summary Free Text/Dictation Diarrhea persists.New decubitus over left calcaneal area. Sodium improved- 129. Subjective hx not possible: other (Lethargic.No complains. Shoert attention span. maximum one minute.Then goes back to sleep.) Eyes: No discharge, No no complaints, No other, No pain, No redness, No visual change ENT: No bleeding, No congestion, No discharge, No dysphagia, No no complaints, No other, No pain, No sore throat Respiratory: No cough, No no complaints, No other, No pain, No pleuritic pain, No shortness of breath, No sputum, No wheezing Gastrointestinal: diarrhea, passing stool, No blood, No constipation, No decreased appetite, No flatus, No nausea, No no complaints, No other, No pain, No vomiting Exam/Review of Systems Vital Signs Vitals Vital Signs Date Time Temp Pulse Resp B/P Pulse Ox O2 Delivery O2 Flow Rate FiO2 10/05/16 21:06 98.7 90 19 138/61 100 Intake and Output 10/05/16 10/05/16 10/06/16 15:00 23:00 07:00 Intake Total 880 ml Balance 880 ml Exam Constitutional: frail, No alert, No distress, No non-verbal, No obese, No oriented, No other, No well developed Psych: No anxiety, No confusion, No depression, No nl mood/affect, No no complaints, No other, No suicidal Head: atraumatic, normocephalic, No hematomas, No lacerations, No other Eyes: EOMI, nl lids, No PERRL, No fundi, disc, No icteric, No nl conjunctiva, No nl sclera, No other ENMT: No intubated, No mucosa pink and moist, No nl external ears & nose, No nl lips & teeth, No nl nasal mucosa & septum, No other, No tympanic membranes Neck: bruits, jvd, nuchal rigidity, other (left sided submandibular mass eril ) Respiratory: diminished breath sounds, No clear to auscultation, No congested cough, No crackles/rales, No intercostal retraction, No labored breathing, No normal air movement, No other, No respirations, No tactile fremitus, No wheezing Cardiovascular: bruits, regular rate and rhythm, systolic murmur, No S3, No S4, No diastolic murmur, No edema, No gallop, No irregular rhythm, No jugular venous distention (JVD), No murmurs/extra sounds, No nl pulses, No other, No rub Gastrointestinal: bowel sounds, nl liver, spleen, other (G tube side normal. ), soft Musculoskeletal: muscle tone, muscle weakness, No joint tenderness, No nl extremities to inspection, No nl gait and stance, No other, No range of motion, No spine non-tender, No swelling Extremities: normal pulses, No calf tenderness, No clubbing, No cyanosis, No edema, No other, No palpable cord, No pitting pedal edema, No tenderness Neurological: KILN LOADER II-XII intact (maxi impairment.), confused, lethargic Skin: nl turgor (decreased.), No diaphoresis, No ecchymosis, No laceration, No other, No puncture, No rash or lesions Results Result Diagram: 10/05/16 1150 10/06/16 0457 Results 24 hrs Laboratory Tests Test 10/05/16 07:28 10/05/16 11:50 10/05/16 11:51 10/05/16 16:30 Bedside Glucose 284 H 149 White Blood Count 15.7 H Red Blood Count 3.13 L Hemoglobin 9.7 L Hematocrit 29.8 L Mean Corpuscular Volume 95.2 Mean Corpuscular Hemoglobin 31.0 Mean Corpuscular Hemoglobin Concent 32.6 Red Cell Distribution Width 18.0 H Platelet Count 347 Mean Platelet Volume 10.2 Neutrophils % 78.6 H Lymphocytes % 13.8 L Monocytes % 6.0 Eosinophils % 0.5 Basophils % 0.3 Nucleated Red Blood Cells % 0.0 Neutrophils # 12.3 H Lymphocytes # 2.2 Monocytes # 0.9 Eosinophils # 0.1 Basophils # 0.0 Nucleated Red Blood Cells # 0.0 Sodium Level 128 L Potassium Level 4.5 Chloride Level 103 Carbon Dioxide Level 22 Anion Gap 8 Blood Urea Nitrogen 31 H Creatinine 1.29 H Glucose Level 158 Calcium Level 7.6 L Magnesium Level 2.1 Stool Occult Blood NEGATIVE Test 10/05/16 17:01 10/05/16 21:31 10/06/16 04:57 Bedside Glucose 226 H 118 Sodium Level 129 L Potassium Level 4.7 Chloride Level 98 Carbon Dioxide Level 23 Anion Gap 13 Blood Urea Nitrogen 33 H Creatinine 1.29 H Glucose Level 247 H Calcium Level 7.4 L Medications Medications Current Medications Diagnostic Test (Pha) (Accu-Chek) 1 ea 02 XX Last administered on 10/02/16t 02: 11; Admin Dose 1 EA; Start 09/24/16 at 02:00 Miscellaneous Information 1 ea NOTE XX ; Start 09/24/16 at 01:30 Glucose (Glutose) 15 gm Q15M PRN PO DECREASED GLUCOSE; Start 09/24/16 at 01:30 Glucose (Glutose) 22.5 gm Q15M PRN PO DECREASED GLUCOSE; Start 09/24/16 at 01: 30 Dextrose (D50w Syringe) 25 ml Q15M PRN IV DECREASED GLUCOSE; Start 09/24/16 at 01:30 Dextrose (D50w Syringe) 50 ml Q15M PRN IV DECREASED GLUCOSE; Start 09/24/16 at 01:30 Glucagon (Glucagen) 1 mg Q15M PRN IM DECREASED GLUCOSE; Start 09/24/16 at 01:30 Glucose (Glutose) 15 gm Q15M PRN BUCCAL DECREASED GLUCOSE; Start 09/24/16 at 01 :30 Enoxaparin Sodium (Lovenox) 60 mg Q24H SC Last administered on 10/05/16 08:40; Admin Dose 60 MG; Start 09/24/16 at 09:00 Amlodipine Besylate (Norvasc) 5 mg BID PO Last administered on 10/05/16 21:27; Admin Dose 5 MG; Start 09/24/16 at 21:00 Hydralazine HCl (Apresoline) 5 mg Q6H PRN IV ELEVATED BLOOD PRESSURE Last administered on 09/28/16 20:26; Admin Dose 5 MG; Start 09/24/16 at 21:00 Clonidine HCl (Catapres-Tts 2 Patch) 1 patch Q7D TRANSDERM Last administered on 10/01/16 20:44; Admin Dose 1 PATCH; Start 09/24/16 at 21:00 Metoprolol Tartrate (Lopressor) 25 mg BID PO Last administered on 10/05/16 21: 26; Admin Dose 25 MG; Start 09/24/16 at 21:00 Aspirin (Aspirin) 81 mg DAILY PO Last administered on 10/05/16 08:40; Admin Dose 81 MG; Start 09/26/16 at 09:00 Lorazepam (Ativan) 0.5 mg Q6 PRN IV ANXIETY Last administered on 09/30/16 20: 08; Admin Dose 0.5 MG; Start 09/26/16 at 00:00 Mupirocin (Bactroban) 1 applic BID TOP Last administered on 10/05/16 21:28; Admin Dose 1 APPLIC; Start 09/27/16 at 21:00 Linezolid (Zyvox) 600 mg BID PO Last administered on 10/05/16 21:28; Admin Dose 600 MG; Start 09/29/16 at 21:00; Stop 10/07/16 at 09:00 Bisacodyl (Dulcolax Supp) 10 mg DAILY PRN CA CONSTIPATION; Start 09/30/16 at 09 :00 Lansoprazole (Prevacid) 30 mg DAILY@06 GTB Last administered on 10/06/16 05:32 ; Admin Dose 30 MG; Start 10/01/16 at 06:00 Ferrous Sulfate (Feosol Liquid Cup) 300 mg BID GTB Last administered on 21:27; Admin Dose 300 MG; Start 10/02/16 at 21:00 Insulin Glargine (Lantus) 6 unit HS SC Last administered on 10/05/16 21:34; Admin Dose 6 UNIT; Start 10/03/16 at 21:00 Fluconazole (Diflucan) 100 mg DAILY PO Last administered on 10/05/16 08:41; Admin Dose 100 MG; Start 10/04/16 at 14:00 Acetaminophen (Tylenol Liquid) 325 mg Q8 GTB Last administered on 10/06/16 05: 32; Admin Dose 325 MG; Start 10/04/16 at 15:00 Sodium Chloride (Nacl) 2 gm BID GTB Last administered on 10/05/16 21:27; Admin Dose 2 GM; Start 10/04/16 at 15:00 JR DEAN MD Oct 06, 2016 07:31
[2016-10-06 07:48] VITALS: BP 126/60; RESP 18
[2016-10-06] MEDS: INSULIN ASPART [NOVOLOG] 3 ML PEN SC SCH ×4 (10:05→21:00)
[2016-10-06] MEDS: ENOXAPARIN 60 MG/0.6 ML SYG SC SCH (10:07)
[2016-10-06] MEDS: FERROUS SULFATE 60 MG/ML 5ML CUP GTB SCH ×2 (10:07→21:12)
[2016-10-06] MEDS: ZYVOX 600 MG TAB PO SCH ×2 (10:07→21:16)
[2016-10-06] MEDS: SODIUM CHLORIDE 1 GM TAB GTB SCH ×2 (10:08→21:12)
[2016-10-06] MEDS: AMLODIPINE 5 MG TAB PO SCH ×2 (10:08→21:15)
[2016-10-06] MEDS: ASPIRIN 81 MG TAB PO SCH (10:08)
[2016-10-06] MEDS: FLUCONAZOLE 100 MG TAB PO SCH (10:08)
[2016-10-06] MEDS: METOPROLOL 25 MG TAB PO SCH ×2 (10:09→21:15)
[2016-10-06] MEDS: MUPIROCIN 2% 22 GM OINT TOP SCH ×2 (10:10→21:22)
[2016-10-06 15:22] LABS: ADD UMIC YES; URINE BILIRUBIN (Dip) NEGATIVE (NEGATIVE); URINE BLOOD (Dip) NEGATIVE (NEGATIVE); URINE COLOR LT. YELLOW (YELLOW); URINE GLUCOSE (Dip) NEGATIVE (NEGATIVE); URINE KETONES (Dip) NEGATIVE (NEGATIVE); URINE LEUKOCYTE ESTERASE (Dip) 3+ (NEGATIVE); URINE NITRITE (Dip) NEGATIVE (NEGATIVE); URINE TOTAL PROTEIN (Dip) NEGATIVE (NEGATIVE); URINE UROBILINOGEN (Dip) 0.2 E.U./dL (0.1-1.0)
[2016-10-06 15:31] LABS: SQUAMOUS EPITHELIAL CELL,UR MODERATE
[2016-10-06 15:32] LABS: BACTERIA,URINE MODERATE; TRANSITIONAL EPI CELLS,URINE MODERATE
--- NOTE | 2016-10-06 15:35 | CONS ---
Date/Time of Note Date/Time of Note DATE: 10/06/16 TIME: 15:31 Assessment/Plan Assessment/Plan Chief Complaint/Hosp Course SUBJECTIVE: No acute events overnight. Patient is afebrile, looks comfortable. Sleeping MICROBIOLOGY: Repeat urine culture growing Angelina albicans ANTIMICROBIALS: 1. Diflucan 2. Zyvox 3. Topical Bactroban to nares. INDWELLINGS: PEG. PHYSICAL EXAMINATION: GENERAL: This is a well-developed, elderly, [place] woman who is alert, in no distress. HEENT: Head atraumatic, normocephalic. Sclerae anicteric. Buccal mucosa dry. NECK: Supple. CHEST: Rise symmetrical. Breath sounds diminished to bases. HEART: S1, S2. ABDOMEN: Soft, bowel tones present. EXTREMITIES: Without cyanosis. ASSESSMENT: 1. Systemic inflammatory response syndrome with persistent leukocytosis. 2. Diarrhea. 3. Angelina albicans urinary tract infection. 4. Status post methicillin-resistant Staphylococcus aureus bacteremia. 5. Resolving left mandibular sialithiasis and sialoadenitis. 6. Dementia. 7. Diabetes. PLAN: Clinically unchanged, with persistent leukocytosis and + UA, continue abx, f/u repeat urine cx, restart Flagyl for persistent diarrhea, complete Zyvox till Oct 11, cxr [facility] staff Problems: Consultation Date/Type/Reason Admit Date/Time Sep 23, 2016 at 17:03 Initial Consult Date 09/25/16 Type of Consultation: ID Exam/Review of Systems Vital Signs Vitals Vital Signs Date Time Temp Pulse Resp B/P Pulse Ox O2 Delivery O2 Flow Rate FiO2 10/06/16 07:48 97.6 75 18 126/60 95 Intake and Output 10/05/16 10/05/16 10/06/16 15:00 23:00 07:00 Intake Total 880 ml 820 ml Balance 880 ml 820 ml Results Result Diagram: 10/05/16 1150 10/06/16 0457 Results 24 hrs Laboratory Tests Test 10/05/16 16:30 10/05/16 17:01 10/05/16 21:31 10/06/16 04:57 Stool Occult Blood NEGATIVE Bedside Glucose 226 H 118 Sodium Level 129 L Potassium Level 4.7 Chloride Level 98 Carbon Dioxide Level 23 Anion Gap 13 Blood Urea Nitrogen 33 H Creatinine 1.29 H Glucose Level 247 H Calcium Level 7.4 L Test 10/06/16 07:41 10/06/16 12:13 10/06/16 14:30 Bedside Glucose 264 H 218 Urine Color LT. YELLOW Urine Clarity TURBID Urine pH 5.0 Urine Specific [place] 1.010 Urine Ketones NEGATIVE Urine Nitrite NEGATIVE Urine Bilirubin NEGATIVE Urine Urobilinogen 0.2 E.U./dL Urine Leukocyte Esterase 3+ H Urine Microscopic RBC Pending Urine Microscopic WBC Pending Urine Hemoglobin NEGATIVE Urine Glucose NEGATIVE Urine Total Protein NEGATIVE Medications Medications Current Medications Diagnostic Test (Pha) (Accu-Chek) 1 ea 02 XX Last administered on 10/02/16 02: 11; Admin Dose 1 EA; Start 09/24/16 at 02:00 Miscellaneous Information 1 ea NOTE XX ; Start 09/24/16 at 01:30 Glucose (Glutose) 15 gm Q15M PRN PO DECREASED GLUCOSE; Start 09/24/16 at 01:30 Glucose (Glutose) 22.5 gm Q15M PRN PO DECREASED GLUCOSE; Start 09/24/16 at 01: 30 Dextrose (D50w Syringe) 25 ml Q15M PRN IV DECREASED GLUCOSE; Start 09/24/16 at 01:30 Dextrose (D50w Syringe) 50 ml Q15M PRN IV DECREASED GLUCOSE; Start 09/24/16 at 01:30 Glucagon (Glucagen) 1 mg Q15M PRN IM DECREASED GLUCOSE; Start 09/24/16 at 01:30 Glucose (Glutose) 15 gm Q15M PRN BUCCAL DECREASED GLUCOSE; Start 09/24/16 at 01 :30 Enoxaparin Sodium (Lovenox) 60 mg Q24H SC Last administered on 10/06/16 10:07; Admin Dose 60 MG; Start 09/24/16 at 09:00 Amlodipine Besylate (Norvasc) 5 mg BID PO Last administered on 10/06/16 10:08; Admin Dose 5 MG; Start 09/24/16 at 21:00 Hydralazine HCl (Apresoline) 5 mg Q6H PRN IV ELEVATED BLOOD PRESSURE Last administered on 09/28/16 20:26; Admin Dose 5 MG; Start 09/24/16 at 21:00 Clonidine HCl (Catapres-Tts 2 Patch) 1 patch Q7D TRANSDERM Last administered on 10/01/16 20:44; Admin Dose 1 PATCH; Start 09/24/16 at 21:00 Metoprolol Tartrate (Lopressor) 25 mg BID PO Last administered on 10/06/16 10: 09; Admin Dose 25 MG; Start 09/24/16 at 21:00 Aspirin (Aspirin) 81 mg DAILY PO Last administered on 10/06/16 10:08; Admin Dose 81 MG; Start 09/26/16 at 09:00 Lorazepam (Ativan) 0.5 mg Q6 PRN IV ANXIETY Last administered on 09/30/16 20: 08; Admin Dose 0.5 MG; Start 09/26/16 at 00:00 Mupirocin (Bactroban) 1 applic BID TOP Last administered on 10/06/16 10:10; Admin Dose 1 APPLIC; Start 09/27/16 at 21:00 Linezolid (Zyvox) 600 mg BID PO Last administered on 10/06/16 10:07; Admin Dose 600 MG; Start 09/29/16 at 21:00; Stop 10/07/16 at 09:00 Lansoprazole (Prevacid) 30 mg DAILY@06 GTB Last administered on 10/06/16 05:32 ; Admin Dose 30 MG; Start 10/01/16 at 06:00 Ferrous Sulfate (Feosol Liquid Cup) 300 mg BID GTB Last administered on 10:07; Admin Dose 300 MG; Start 10/02/16 at 21:00 Insulin Glargine (Lantus) 6 unit HS SC Last administered on 10/05/16 21:34; Admin Dose 6 UNIT; Start 10/03/16 at 21:00 Fluconazole (Diflucan) 100 mg DAILY PO Last administered on 10/06/16 10:08; Admin Dose 100 MG; Start 10/04/16 at 14:00 Acetaminophen (Tylenol Liquid) 325 mg Q8 GTB Last administered on 10/06/16 05: 32; Admin Dose 325 MG; Start 10/04/16 at 15:00 Sodium Chloride (Nacl) 2 gm BID GTB Last administered on 10/06/16 10:08; Admin Dose 2 GM; Start 10/04/16 at 15:00 LOGAN CASTANEDA NP Oct 06, 2016 15:35
--- NOTE | 2016-10-06 17:45 | RADRPT ---
PROCEDURE: XR Chest. CLINICAL INDICATION: Shortness of breath. TECHNIQUE: Single frontal view. COMPARISON: 10/02/2016. FINDINGS: There is scarring in the left mid lung zone, unchanged. The lungs are otherwise clear. The heart size is normal. There is calcification in the aorta consistent with atherosclerosis. There is no pleural effusion. There is no pneumothorax. IMPRESSION: 1. No change from 10/02/2016. RPTAT: QQ .Will Lei MD, MD Date Time Electronically viewed and signed by .Will Lei MD, MD on 10/06/2016 17:45 .R/
--- NOTE | 2016-10-06 19:52 | CONS ---
Date/Time of Note Date/Time of Note DATE: 10/06/16 TIME: 19:51 Assessment/Plan Assessment/Plan Chief Complaint/Hosp Course Assessment: Sepsis, MRSA bacteremia, diarrhea - antibiotics per infectious disease Sialoadenitis with obstructive stone - per ENT Coronary artery disease - details unknown, clinically stable Peripheral vascular disease Hypertension Acute kidney injury vs chronic kidney disease Diabetes mellitus Dementia Recommendations: -echocardiogram showed LVEF 65-70%, mild diastolic dysfunction, no significant valvular disease -continue aspirin 81mg daily -defer statin therapy, no clear benefit in this patient population -continue metoprolol, amlodipine, clonidine patch, PRN hydralazine Problems: Consultation Date/Type/Reason Admit Date/Time Sep 23, 2016 at 17:03 Initial Consult Date 09/25/16 Type of Consultation: Cardiology 24 HR Interval Summary Free Text/Dictation No acute events. Detailed Summary Additional Comments Unable to obtain review of systems due to patient's altered mental status. Exam/Review of Systems Vital Signs Vitals Vital Signs Date Time Temp Pulse Resp B/P Pulse Ox O2 Delivery O2 Flow Rate FiO2 10/06/16 07:48 97.6 75 18 126/60 95 Intake and Output 10/05/16 10/05/16 10/06/16 15:00 23:00 07:00 Intake Total 880 ml 820 ml Balance 880 ml 820 ml Exam Constitutional: alert, No distress Psych: confusion Head: atraumatic, normocephalic Eyes: nl conjunctiva, nl lids ENMT: nl external ears & nose, nl nasal mucosa & septum Neck: non-tender, supple, No jvd Respiratory: clear to auscultation Cardiovascular: regular rate and rhythm, systolic murmur Gastrointestinal: non-tender, soft Extremities: No clubbing, No cyanosis, No edema Neurological: No nl mental status, No nl speech Results Result Diagram: 10/05/16 1150 10/06/16 0457 Results 24 hrs Laboratory Tests Test 10/05/16 21:31 10/06/16 04:57 10/06/16 07:41 10/06/16 12:13 Bedside Glucose 118 264 H 218 Sodium Level 129 L Potassium Level 4.7 Chloride Level 98 Carbon Dioxide Level 23 Anion Gap 13 Blood Urea Nitrogen 33 H Creatinine 1.29 H Glucose Level 247 H Calcium Level 7.4 L Test 10/06/16 14:30 10/06/16 19:16 Urine Color LT. YELLOW Urine Clarity TURBID Urine pH 5.0 Urine Specific [place] 1.010 Urine Ketones NEGATIVE Urine Nitrite NEGATIVE Urine Bilirubin NEGATIVE Urine Urobilinogen 0.2 E.U./dL Urine Leukocyte Esterase 3+ H Urine Microscopic RBC 5-10 Urine Microscopic WBC 2-5 Urine Squamous Epithelial Cells MODERATE Urine Transitional Epithelial Cells MODERATE Urine Bacteria MODERATE Urine Yeast MANY Urine Hemoglobin NEGATIVE Urine Glucose NEGATIVE Urine Total Protein NEGATIVE Bedside Glucose 212 Medications Medications Current Medications Diagnostic Test (Pha) (Accu-Chek) 1 ea 02 XX Last administered on 10/02/16 02: 11; Admin Dose 1 EA; Start 09/24/16 at 02:00 Miscellaneous Information 1 ea NOTE XX ; Start 09/24/16 at 01:30 Glucose (Glutose) 15 gm Q15M PRN PO DECREASED GLUCOSE; Start 09/24/16 at 01:30 Glucose (Glutose) 22.5 gm Q15M PRN PO DECREASED GLUCOSE; Start 09/24/16 at 01: 30 Dextrose (D50w Syringe) 25 ml Q15M PRN IV DECREASED GLUCOSE; Start 09/24/16 at 01:30 Dextrose (D50w Syringe) 50 ml Q15M PRN IV DECREASED GLUCOSE; Start 09/24/16 at 01:30 Glucagon (Glucagen) 1 mg Q15M PRN IM DECREASED GLUCOSE; Start 09/24/16 at 01:30 Glucose (Glutose) 15 gm Q15M PRN BUCCAL DECREASED GLUCOSE; Start 09/24/16 at 01 :30 Enoxaparin Sodium (Lovenox) 60 mg Q24H SC Last administered on 10/06/16 10:07; Admin Dose 60 MG; Start 09/24/16 at 09:00 Amlodipine Besylate (Norvasc) 5 mg BID PO Last administered on 10/06/16 10:08; Admin Dose 5 MG; Start 09/24/16 at 21:00 Hydralazine HCl (Apresoline) 5 mg Q6H PRN IV ELEVATED BLOOD PRESSURE Last administered on 09/28/16 20:26; Admin Dose 5 MG; Start 09/24/16 at 21:00 Clonidine HCl (Catapres-Tts 2 Patch) 1 patch Q7D TRANSDERM Last administered on 10/01/16 20:44; Admin Dose 1 PATCH; Start 09/24/16 at 21:00 Metoprolol Tartrate (Lopressor) 25 mg BID PO Last administered on 10/06/16 10: 09; Admin Dose 25 MG; Start 09/24/16 at 21:00 Aspirin (Aspirin) 81 mg DAILY PO Last administered on 10/06/16 10:08; Admin Dose 81 MG; Start 09/26/16 at 09:00 Lorazepam (Ativan) 0.5 mg Q6 PRN IV ANXIETY Last administered on 09/30/16 20: 08; Admin Dose 0.5 MG; Start 09/26/16 at 00:00 Mupirocin (Bactroban) 1 applic BID TOP Last administered on 10/06/16 10:10; Admin Dose 1 APPLIC; Start 09/27/16 at 21:00 Linezolid (Zyvox) 600 mg BID PO Last administered on 10/06/16 10:07; Admin Dose 600 MG; Start 09/29/16 at 21:00; Stop 10/07/16 at 09:00 Lansoprazole (Prevacid) 30 mg DAILY@06 GTB Last administered on 10/06/16 05:32 ; Admin Dose 30 MG; Start 10/01/16 at 06:00 Ferrous Sulfate (Feosol Liquid Cup) 300 mg BID GTB Last administered on 10:07; Admin Dose 300 MG; Start 10/02/16 at 21:00 Insulin Glargine (Lantus) 6 unit HS SC Last administered on 10/05/16 21:34; Admin Dose 6 UNIT; Start 10/03/16 at 21:00 Fluconazole (Diflucan) 100 mg DAILY PO Last administered on 10/06/16 10:08; Admin Dose 100 MG; Start 10/04/16 at 14:00 Acetaminophen (Tylenol Liquid) 325 mg Q8 GTB Last administered on 10/06/16 15: 58; Admin Dose 325 MG; Start 10/04/16 at 15:00 Sodium Chloride (Nacl) 2 gm BID GTB Last administered on 10/06/16 10:08; Admin Dose 2 GM; Start 10/04/16 at 15:00 Metronidazole (Flagyl) 500 mg Q8 NGT ; Start 10/06/16 at 22:00 Nystatin (Nystatin Powder) 1 applic BID TOP ; Start 10/06/16 at 21:00 PRISCILLA WEINSTEIN MD Oct 06, 2016 19:52
[2016-10-06] MEDS: INSULIN GLARGINE [LANtus] 3 ML PEN SC SCH (21:14)
[2016-10-06] MEDS: NYSTATIN 30 GM POWDER BTL TOP SCH (21:18)
[2016-10-06] MEDS: metroNIDAZOLE 500 MG TAB NGT SCH (21:19)
--- NOTE | 2016-10-06 23:35 | CONS ---
Date/Time of Note Date/Time of Note DATE: 10/06/16 TIME: 23:34 Assessment/Plan Assessment/Plan Chief Complaint/Hosp Course ANEMIA MONOCLONAL GAMMOPATHY- M-SPIKE Evaluation reveals a restricted band (M-spike) migrating in the gamma globulin region. CHECK immunofixation analysis AND PROCEED WITH MM W-UP Sepsis, MRSA bacteremia, diarrhea - antibiotics per infectious disease Sialoadenitis with obstructive stone - per ENT Coronary artery disease - details unknown, clinically stable Peripheral vascular disease Hypertension Acute kidney injury vs chronic kidney disease Diabetes mellitus Dementia Problems: Consultation Date/Type/Reason Admit Date/Time Sep 23, 2016 at 17:03 Initial Consult Date 09/25/16 Type of Consultation: HEMEONC 24 HR Interval Summary Free Text/Dictation No acute events overnight. Patient is afebrile, looks comfortable. Sleeping Exam/Review of Systems Vital Signs Vitals Vital Signs Date Time Temp Pulse Resp B/P Pulse Ox O2 Delivery O2 Flow Rate FiO2 10/06/16 07:48 97.6 75 18 126/60 95 Intake and Output 10/05/16 10/05/16 10/06/16 15:00 23:00 07:00 Intake Total 880 ml 820 ml Balance 880 ml 820 ml Exam PHYSICAL EXAMINATION: GENERAL: This is a well-developed, elderly, [place] woman who is alert, in no distress. HEENT: Head atraumatic, normocephalic. Sclerae anicteric. Buccal mucosa dry. NECK: Supple. CHEST: Rise symmetrical. Breath sounds diminished to bases. HEART: S1, S2. ABDOMEN: Soft, bowel tones present. EXTREMITIES: Without cyanosis. Results Result Diagram: 10/05/16 1150 10/06/16 0457 Results 24 hrs Laboratory Tests Test 10/06/16 04:57 10/06/16 07:41 10/06/16 12:13 10/06/16 14:30 Sodium Level 129 L Potassium Level 4.7 Chloride Level 98 Carbon Dioxide Level 23 Anion Gap 13 Blood Urea Nitrogen 33 H Creatinine 1.29 H Glucose Level 247 H Calcium Level 7.4 L Bedside Glucose 264 H 218 Urine Color LT. YELLOW Urine Clarity TURBID Urine pH 5.0 Urine Specific [place] 1.010 Urine Ketones NEGATIVE Urine Nitrite NEGATIVE Urine Bilirubin NEGATIVE Urine Urobilinogen 0.2 E.U./dL Urine Leukocyte Esterase 3+ H Urine Microscopic RBC 5-10 Urine Microscopic WBC 2-5 Urine Squamous Epithelial Cells MODERATE Urine Transitional Epithelial Cells MODERATE Urine Bacteria MODERATE Urine Yeast MANY Urine Hemoglobin NEGATIVE Urine Glucose NEGATIVE Urine Total Protein NEGATIVE Test 10/06/16 19:16 10/06/16 20:20 Bedside Glucose 212 134 Medications Medications Current Medications Diagnostic Test (Pha) (Accu-Chek) 1 ea 02 XX Last administered on 10/02/16 02: 11; Admin Dose 1 EA; Start 09/24/16 at 02:00 Miscellaneous Information 1 ea NOTE XX ; Start 09/24/16 at 01:30 Glucose (Glutose) 15 gm Q15M PRN PO DECREASED GLUCOSE; Start 09/24/16 at 01:30 Glucose (Glutose) 22.5 gm Q15M PRN PO DECREASED GLUCOSE; Start 09/24/16 at 01: 30 Dextrose (D50w Syringe) 25 ml Q15M PRN IV DECREASED GLUCOSE; Start 09/24/16 at 01:30 Dextrose (D50w Syringe) 50 ml Q15M PRN IV DECREASED GLUCOSE; Start 09/24/16 at 01:30 Glucagon (Glucagen) 1 mg Q15M PRN IM DECREASED GLUCOSE; Start 09/24/16 at 01:30 Glucose (Glutose) 15 gm Q15M PRN BUCCAL DECREASED GLUCOSE; Start 09/24/16 at 01 :30 Enoxaparin Sodium (Lovenox) 60 mg Q24H SC Last administered on 10/06/16 10:07; Admin Dose 60 MG; Start 09/24/16 at 09:00 Amlodipine Besylate (Norvasc) 5 mg BID PO Last administered on 10/06/16 21:15; Admin Dose 5 MG; Start 09/24/16 at 21:00 Hydralazine HCl (Apresoline) 5 mg Q6H PRN IV ELEVATED BLOOD PRESSURE Last administered on 09/28/16 20:26; Admin Dose 5 MG; Start 09/24/16 at 21:00 Clonidine HCl (Catapres-Tts 2 Patch) 1 patch Q7D TRANSDERM Last administered on 10/01/16 20:44; Admin Dose 1 PATCH; Start 09/24/16 at 21:00 Metoprolol Tartrate (Lopressor) 25 mg BID PO Last administered on 10/06/16 21: 15; Admin Dose 25 MG; Start 09/24/16 at 21:00 Aspirin (Aspirin) 81 mg DAILY PO Last administered on 10/06/16 10:08; Admin Dose 81 MG; Start 09/26/16 at 09:00 Lorazepam (Ativan) 0.5 mg Q6 PRN IV ANXIETY Last administered on 09/30/16 20: 08; Admin Dose 0.5 MG; Start 09/26/16 at 00:00 Mupirocin (Bactroban) 1 applic BID TOP Last administered on 10/06/16 21:22; Admin Dose 1 APPLIC; Start 09/27/16 at 21:00 Linezolid (Zyvox) 600 mg BID PO Last administered on 10/06/16 21:16; Admin Dose 600 MG; Start 09/29/16 at 21:00; Stop 10/07/16 at 09:00 Lansoprazole (Prevacid) 30 mg DAILY@06 GTB Last administered on 10/06/16 05:32 ; Admin Dose 30 MG; Start 10/01/16 at 06:00 Ferrous Sulfate (Feosol Liquid Cup) 300 mg BID GTB Last administered on 21:12; Admin Dose 300 MG; Start 10/02/16 at 21:00 Insulin Glargine (Lantus) 6 unit HS SC Last administered on 10/06/16 21:14; Admin Dose 6 UNIT; Start 10/03/16 at 21:00 Fluconazole (Diflucan) 100 mg DAILY PO Last administered on 10/06/16 10:08; Admin Dose 100 MG; Start 10/04/16 at 14:00 Acetaminophen (Tylenol Liquid) 325 mg Q8 GTB Last administered on 10/06/16 21: 19; Admin Dose 325 MG; Start 10/04/16 at 15:00 Sodium Chloride (Nacl) 2 gm BID GTB Last administered on 10/06/16 21:12; Admin Dose 2 GM; Start 10/04/16 at 15:00 Metronidazole (Flagyl) 500 mg Q8 NGT Last administered on 10/06/16 21:19; Admin Dose 500 MG; Start 10/06/16 at 22:00 Nystatin (Nystatin Powder) 1 applic BID TOP Last administered on 10/06/16 21:18 ; Admin Dose 1 APPLIC; Start 10/06/16 at 21:00 ARIANNE AUSTIN MD Oct 06, 2016 23:35
[2016-10-07] MEDS: ACCU-CHEK XX SCH (02:00)
[2016-10-07] MEDS: metroNIDAZOLE 500 MG TAB NGT SCH ×3 (05:34→21:25)
[2016-10-07] MEDS: LANSOPRAZOLE 30 MG CAP GTB SCH (05:34)
[2016-10-07] MEDS: ACETAMINOPHEN 650MG/20.3ML CUP GTB SCH ×3 (05:34→21:24)
[2016-10-07 05:50] LABS: ADD SCAN DIFF NO
[2016-10-07 05:55] LABS: BASOPHIL # 0.1 10^3/ul (0.0-0.1); BASOPHILS % 0.8 % (0.0-2.0); EOSINOPHILS # 0.2 10^3/ul (0.0-0.5); EOSINOPHILS % 2.3 % (0.0-7.0); HEMATOCRIT 30.5 % (37.0-47.0); HEMOGLOBIN 9.9 g/dl (12.0-16.0); LYMPHOCYTES # 2.2 10^3/ul (0.8-2.9); MEAN CORPUSCULAR HEMOGLOBIN 31.2 pg (29.0-33.0); MEAN CORPUSCULAR HGB CONC 32.5 g/dl (32.0-37.0); MEAN CORPUSCULAR VOLUME 96.2 fl (82.0-101.0); MEAN PLATELET VOLUME 12.2 fl (7.4-10.4); MONOCYTE # 0.7 10^3/ul (0.3-0.9); MONOCYTES % 8.8 % (0.0-11.0); NEUTROPHIL # 4.2 10^3/ul (1.6-7.5); NEUTROPHILS % 57.4 % (39.0-77.0); PLATELET COUNT 219 10^3/UL (140-415); RED BLOOD COUNT 3.17 10^6/ul (4.20-5.40); RED CELL DISTRIBUTION WIDTH 18.6 % (11.5-14.5); WHITE BLOOD COUNT 7.4 10^3/ul (4.8-10.8)
[2016-10-07 07:47] VITALS: BP 146/69; RESP 18
[2016-10-07 09:09] LABS: ALBUMIN/GLOBULIN RATIO 0.71; CALCIUM 7.8 mg/dl (8.4-10.2); CREATININE 1.18 mg/dl (0.44-1.00); POTASSIUM 4.7 mmol/L (3.5-5.1); TOTAL PROTEIN 4.8 g/dl (6.1-8.1)
[2016-10-07] MEDS: ZYVOX 600 MG TAB PO SCH ×3 (09:24→21:25)
[2016-10-07] MEDS: ASPIRIN 81 MG TAB PO SCH (09:24)
[2016-10-07] MEDS: FERROUS SULFATE 60 MG/ML 5ML CUP GTB SCH ×2 (09:24→21:24)
[2016-10-07] MEDS: SODIUM CHLORIDE 1 GM TAB GTB SCH ×2 (09:24→21:24)
[2016-10-07] MEDS: METOPROLOL 25 MG TAB PO SCH ×2 (09:25→21:25)
[2016-10-07] MEDS: FLUCONAZOLE 100 MG TAB PO SCH (09:25)
[2016-10-07] MEDS: AMLODIPINE 5 MG TAB PO SCH ×2 (09:25→21:25)
[2016-10-07] MEDS: MUPIROCIN 2% 22 GM OINT TOP SCH ×2 (09:26→21:25)
[2016-10-07] MEDS: NYSTATIN 30 GM POWDER BTL TOP SCH ×2 (09:26→21:25)
[2016-10-07] MEDS: ENOXAPARIN 60 MG/0.6 ML SYG SC SCH (09:27)
[2016-10-07] MEDS: INSULIN ASPART [NOVOLOG] 3 ML PEN SC SCH ×4 (09:27→21:00)
--- NOTE | 2016-10-07 12:00 | CONS ---
Date/Time of Note Date/Time of Note DATE: 10/07/16 TIME: 11:58 Assessment/Plan Assessment/Plan Chief Complaint/Hosp Course SUBJECTIVE: No acute events overnight. Patient is afebrile, looks comfortable. MICROBIOLOGY: Repeat urine culture growing Angelina albicans ANTIMICROBIALS: 1. Diflucan 2. Zyvox 3. Topical Bactroban to nares. 4. Flagyl INDWELLINGS: PEG. PHYSICAL EXAMINATION: GENERAL: This is a well-developed, elderly, [place] woman who is alert, in no distress. HEENT: Head atraumatic, normocephalic. Sclerae anicteric. Buccal mucosa dry. NECK: Supple. CHEST: Rise symmetrical. Breath sounds diminished to bases. HEART: S1, S2. ABDOMEN: Soft, bowel tones present. EXTREMITIES: Without cyanosis. ASSESSMENT: 1. Systemic inflammatory response syndrome with persistent leukocytosis. 2. Diarrhea. 3. Angelina albicans urinary tract infection. 4. Status post methicillin-resistant Staphylococcus aureus bacteremia. 5. Resolving left mandibular sialithiasis and sialoadenitis. 6. Dementia. 7. Diabetes. PLAN: Clinically unchanged, cxr negative, continue abx, complete Zyvox till Oct 11, aspiration precautions [facility] staff Problems: Consultation Date/Type/Reason Admit Date/Time Sep 23, 2016 at 17:03 Initial Consult Date 09/25/16 Type of Consultation: id Exam/Review of Systems Vital Signs Vitals Vital Signs Date Time Temp Pulse Resp B/P Pulse Ox O2 Delivery O2 Flow Rate FiO2 10/07/16 07:47 97.6 71 18 146/69 100 Intake and Output 10/06/16 10/06/16 10/07/16 15:00 23:00 07:00 Intake Total 725 ml 750 ml Output Total 150 ml Balance 575 ml 750 ml Results Result Diagram: 10/07/16 0445 10/07/16 0825 Results 24 hrs Laboratory Tests Test 10/06/16 12:13 10/06/16 14:30 10/06/16 19:16 10/06/16 20:20 Bedside Glucose 218 212 134 Urine Color LT. YELLOW Urine Clarity TURBID Urine pH 5.0 Urine Specific [place] 1.010 Urine Ketones NEGATIVE Urine Nitrite NEGATIVE Urine Bilirubin NEGATIVE Urine Urobilinogen 0.2 E.U./dL Urine Leukocyte Esterase 3+ H Urine Microscopic RBC 5-10 Urine Microscopic WBC 2-5 Urine Squamous Epithelial Cells MODERATE Urine Transitional Epithelial Cells MODERATE Urine Bacteria MODERATE Urine Yeast MANY Urine Hemoglobin NEGATIVE Urine Glucose NEGATIVE Urine Total Protein NEGATIVE Test 10/07/16 04:45 10/07/16 07:43 10/07/16 08:25 10/07/16 11:32 White Blood Count 7.4 # Red Blood Count 3.17 L Hemoglobin 9.9 L Hematocrit 30.5 L Mean Corpuscular Volume 96.2 Mean Corpuscular Hemoglobin 31.2 Mean Corpuscular Hemoglobin Concent 32.5 Red Cell Distribution Width 18.6 H Platelet Count 219 # Mean Platelet Volume 12.2 H Neutrophils % 57.4 Lymphocytes % 30.0 Monocytes % 8.8 Eosinophils % 2.3 Basophils % 0.8 Nucleated Red Blood Cells % 0.0 Neutrophils # 4.2 Lymphocytes # 2.2 Monocytes # 0.7 Eosinophils # 0.2 Basophils # 0.1 Nucleated Red Blood Cells # 0.0 Bedside Glucose 187 150 Sodium Level 129 L Potassium Level 4.7 Chloride Level 103 Carbon Dioxide Level 21 Anion Gap 10 Blood Urea Nitrogen 33 H Creatinine 1.18 H Glucose Level 198 Calcium Level 7.8 L Total Bilirubin 0.0 L Direct Bilirubin 0.00 Indirect Bilirubin 0.0 Aspartate Amino Transf (AST/SGOT) 75 H Alanine Aminotransferase (ALT/SGPT) 38 Alkaline Phosphatase 136 H Total Protein 4.8 L Albumin 2.0 L Globulin 2.80 Albumin/Globulin Ratio 0.71 Medications Medications Current Medications Diagnostic Test (Pha) (Accu-Chek) 1 ea 02 XX Last administered on 10/02/16t 02: 11; Admin Dose 1 EA; Start 09/24/16 at 02:00 Miscellaneous Information 1 ea NOTE XX ; Start 09/24/16 at 01:30 Glucose (Glutose) 15 gm Q15M PRN PO DECREASED GLUCOSE; Start 09/24/16 at 01:30 Glucose (Glutose) 22.5 gm Q15M PRN PO DECREASED GLUCOSE; Start 09/24/16 at 01: 30 Dextrose (D50w Syringe) 25 ml Q15M PRN IV DECREASED GLUCOSE; Start 09/24/16 at 01:30 Dextrose (D50w Syringe) 50 ml Q15M PRN IV DECREASED GLUCOSE; Start 09/24/16 at 01:30 Glucagon (Glucagen) 1 mg Q15M PRN IM DECREASED GLUCOSE; Start 09/24/16 at 01:30 Glucose (Glutose) 15 gm Q15M PRN BUCCAL DECREASED GLUCOSE; Start 09/24/16 at 01 :30 Enoxaparin Sodium (Lovenox) 60 mg Q24H SC Last administered on 10/07/16 09:27; Admin Dose 60 MG; Start 09/24/16 at 09:00 Amlodipine Besylate (Norvasc) 5 mg BID PO Last administered on 10/07/16 09:25; Admin Dose 5 MG; Start 09/24/16 at 21:00 Hydralazine HCl (Apresoline) 5 mg Q6H PRN IV ELEVATED BLOOD PRESSURE Last administered on 09/28/16 20:26; Admin Dose 5 MG; Start 09/24/16 at 21:00 Clonidine HCl (Catapres-Tts 2 Patch) 1 patch Q7D TRANSDERM Last administered on 10/01/16 20:44; Admin Dose 1 PATCH; Start 09/24/16 at 21:00 Metoprolol Tartrate (Lopressor) 25 mg BID PO Last administered on 10/07/16 09: 25; Admin Dose 25 MG; Start 09/24/16 at 21:00 Aspirin (Aspirin) 81 mg DAILY PO Last administered on 10/07/16 09:24; Admin Dose 81 MG; Start 09/26/16 at 09:00 Lorazepam (Ativan) 0.5 mg Q6 PRN IV ANXIETY Last administered on 09/30/16 20: 08; Admin Dose 0.5 MG; Start 09/26/16 at 00:00 Mupirocin (Bactroban) 1 applic BID TOP Last administered on 10/07/16 09:26; Admin Dose 1 APPLIC; Start 09/27/16 at 21:00 Lansoprazole (Prevacid) 30 mg DAILY@06 GTB Last administered on 10/07/16 05:34 ; Admin Dose 30 MG; Start 10/01/16 at 06:00 Ferrous Sulfate (Feosol Liquid Cup) 300 mg BID GTB Last administered on 09:24; Admin Dose 300 MG; Start 10/02/16 at 21:00 Insulin Glargine (Lantus) 6 unit HS SC Last administered on 10/06/16 21:14; Admin Dose 6 UNIT; Start 10/03/16 at 21:00 Fluconazole (Diflucan) 100 mg DAILY PO Last administered on 10/07/16 09:25; Admin Dose 100 MG; Start 10/04/16 at 14:00 Acetaminophen (Tylenol Liquid) 325 mg Q8 GTB Last administered on 10/07/16 05: 34; Admin Dose 325 MG; Start 10/04/16 at 15:00 Sodium Chloride (Nacl) 2 gm BID GTB Last administered on 10/07/16 09:24; Admin Dose 2 GM; Start 10/04/16 at 15:00 Metronidazole (Flagyl) 500 mg Q8 NGT Last administered on 10/07/16 05:34; Admin Dose 500 MG; Start 10/06/16 at 22:00 Nystatin (Nystatin Powder) 1 applic BID TOP Last administered on 10/07/16 09:26 ; Admin Dose 1 APPLIC; Start 10/06/16 at 21:00 LOGAN CASTANEDA NP Oct 07, 2016 12:00
--- NOTE | 2016-10-07 15:36 | CONS ---
Date/Time of Note Date/Time of Note DATE: 10/07/16 TIME: 15:35 Assessment/Plan Assessment/Plan Chief Complaint/Hosp Course Assessment: Sepsis, MRSA bacteremia, diarrhea - antibiotics per infectious disease Sialoadenitis with obstructive stone - per ENT Coronary artery disease - details unknown, clinically stable Peripheral vascular disease Hypertension Acute kidney injury vs chronic kidney disease Diabetes mellitus Dementia Recommendations: -echocardiogram showed LVEF 65-70%, mild diastolic dysfunction, no significant valvular disease -continue aspirin 81mg daily -defer statin therapy, no clear benefit in this patient population -continue metoprolol, amlodipine, clonidine patch, PRN hydralazine -will follow up as needed Problems: Consultation Date/Type/Reason Admit Date/Time Sep 23, 2016 at 17:03 Initial Consult Date 09/25/16 Type of Consultation: Cardiology 24 HR Interval Summary Free Text/Dictation No significant clinical changes. Detailed Summary Additional Comments Unable to obtain review of systems due to patient's mental status. Exam/Review of Systems Vital Signs Vitals Vital Signs Date Time Temp Pulse Resp B/P Pulse Ox O2 Delivery O2 Flow Rate FiO2 10/07/16 07:47 97.6 71 18 146/69 100 Intake and Output 10/06/16 10/06/16 10/07/16 15:00 23:00 07:00 Intake Total 725 ml 750 ml Output Total 150 ml Balance 575 ml 750 ml Exam Constitutional: alert, No distress Psych: confusion Head: atraumatic, normocephalic Eyes: nl conjunctiva, nl lids ENMT: nl external ears & nose, nl nasal mucosa & septum Neck: non-tender, supple, No jvd Respiratory: clear to auscultation Cardiovascular: regular rate and rhythm, systolic murmur Gastrointestinal: non-tender, soft Extremities: No clubbing, No cyanosis, No edema Neurological: No nl mental status, No nl speech Results Result Diagram: 10/07/16 0445 10/07/16 0825 Results 24 hrs Laboratory Tests Test 10/06/16 19:16 10/06/16 20:20 10/07/16 04:45 10/07/16 07:43 Bedside Glucose 212 134 187 White Blood Count 7.4 # Red Blood Count 3.17 L Hemoglobin 9.9 L Hematocrit 30.5 L Mean Corpuscular Volume 96.2 Mean Corpuscular Hemoglobin 31.2 Mean Corpuscular Hemoglobin Concent 32.5 Red Cell Distribution Width 18.6 H Platelet Count 219 # Mean Platelet Volume 12.2 H Neutrophils % 57.4 Lymphocytes % 30.0 Monocytes % 8.8 Eosinophils % 2.3 Basophils % 0.8 Nucleated Red Blood Cells % 0.0 Neutrophils # 4.2 Lymphocytes # 2.2 Monocytes # 0.7 Eosinophils # 0.2 Basophils # 0.1 Nucleated Red Blood Cells # 0.0 Test 10/07/16 08:25 10/07/16 11:32 Sodium Level 129 L Potassium Level 4.7 Chloride Level 103 Carbon Dioxide Level 21 Anion Gap 10 Blood Urea Nitrogen 33 H Creatinine 1.18 H Glucose Level 198 Calcium Level 7.8 L Total Bilirubin 0.0 L Direct Bilirubin 0.00 Indirect Bilirubin 0.0 Aspartate Amino Transf (AST/SGOT) 75 H Alanine Aminotransferase (ALT/SGPT) 38 Alkaline Phosphatase 136 H Total Protein 4.8 L Albumin 2.0 L Globulin 2.80 Albumin/Globulin Ratio 0.71 Bedside Glucose 150 Medications Medications Current Medications Diagnostic Test (Pha) (Accu-Chek) 1 ea 02 XX Last administered on 10/02/16 02: 11; Admin Dose 1 EA; Start 09/24/16 at 02:00 Miscellaneous Information 1 ea NOTE XX ; Start 09/24/16 at 01:30 Glucose (Glutose) 15 gm Q15M PRN PO DECREASED GLUCOSE; Start 09/24/16 at 01:30 Glucose (Glutose) 22.5 gm Q15M PRN PO DECREASED GLUCOSE; Start 09/24/16 at 01: 30 Dextrose (D50w Syringe) 25 ml Q15M PRN IV DECREASED GLUCOSE; Start 09/24/16 at 01:30 Dextrose (D50w Syringe) 50 ml Q15M PRN IV DECREASED GLUCOSE; Start 09/24/16 at 01:30 Glucagon (Glucagen) 1 mg Q15M PRN IM DECREASED GLUCOSE; Start 09/24/16 at 01:30 Glucose (Glutose) 15 gm Q15M PRN BUCCAL DECREASED GLUCOSE; Start 09/24/16 at 01 :30 Enoxaparin Sodium (Lovenox) 60 mg Q24H SC Last administered on 10/07/16 09:27; Admin Dose 60 MG; Start 09/24/16 at 09:00 Amlodipine Besylate (Norvasc) 5 mg BID PO Last administered on 10/07/16 09:25; Admin Dose 5 MG; Start 09/24/16 at 21:00 Hydralazine HCl (Apresoline) 5 mg Q6H PRN IV ELEVATED BLOOD PRESSURE Last administered on 09/28/16 20:26; Admin Dose 5 MG; Start 09/24/16 at 21:00 Clonidine HCl (Catapres-Tts 2 Patch) 1 patch Q7D TRANSDERM Last administered on 10/01/16 20:44; Admin Dose 1 PATCH; Start 09/24/16 at 21:00 Metoprolol Tartrate (Lopressor) 25 mg BID PO Last administered on 10/07/16 09: 25; Admin Dose 25 MG; Start 09/24/16 at 21:00 Aspirin (Aspirin) 81 mg DAILY PO Last administered on 10/07/16 09:24; Admin Dose 81 MG; Start 09/26/16 at 09:00 Lorazepam (Ativan) 0.5 mg Q6 PRN IV ANXIETY Last administered on 09/30/16 20: 08; Admin Dose 0.5 MG; Start 09/26/16 at 00:00 Mupirocin (Bactroban) 1 applic BID TOP Last administered on 10/07/16 09:26; Admin Dose 1 APPLIC; Start 09/27/16 at 21:00 Lansoprazole (Prevacid) 30 mg DAILY@06 GTB Last administered on 10/07/16 05:34 ; Admin Dose 30 MG; Start 10/01/16 at 06:00 Ferrous Sulfate (Feosol Liquid Cup) 300 mg BID GTB Last administered on 09:24; Admin Dose 300 MG; Start 10/02/16 at 21:00 Insulin Glargine (Lantus) 6 unit HS SC Last administered on 10/06/16 21:14; Admin Dose 6 UNIT; Start 10/03/16 at 21:00 Fluconazole (Diflucan) 100 mg DAILY PO Last administered on 10/07/16 09:25; Admin Dose 100 MG; Start 10/04/16 at 14:00 Acetaminophen (Tylenol Liquid) 325 mg Q8 GTB Last administered on 10/07/16 13: 03; Admin Dose 325 MG; Start 10/04/16 at 15:00 Sodium Chloride (Nacl) 2 gm BID GTB Last administered on 10/07/16 09:24; Admin Dose 2 GM; Start 10/04/16 at 15:00 Metronidazole (Flagyl) 500 mg Q8 NGT Last administered on 10/07/16 13:03; Admin Dose 500 MG; Start 10/06/16 at 22:00 Nystatin (Nystatin Powder) 1 applic BID TOP Last administered on 10/07/16 09:26 ; Admin Dose 1 APPLIC; Start 10/06/16 at 21:00 Linezolid (Zyvox) 600 mg BID PO Last administered on 10/07/16 13:03; Admin Dose 600 MG; Start 10/07/16 at 12:30 PRISCILLA WEINSTEIN MD Oct 07, 2016 15:36
--- NOTE | 2016-10-07 18:32 | PN ---
Date/Time of Note Date/Time of Note DATE: 10/07/16 TIME: 18:31 Assessment/Plan VTE Prophylaxis VTE Prophylaxis Intervention: anti-embolic stocking VTE Contraindication Reason: peripheral vascular disease Lines/Catheters IV Catheter Type (from Nrsg): Peripheral IV Central line still needed: No Urinary Cath still in place: No Reason Cath still needed: urinary retention Assessment/Plan Assessment/Plan 1.Sepsis- improving. 2.Left submandibular sialitis and possible abscess;Stone in a duct. ENT f/u. 3.ARF-improved 4.Anemia of chronic disease with low iron. 5.AD& MD with anxiety. 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 14.Progressive deterioration of condition. 15.Kyphosis 16Urinary incontinence with episodes of retention. 17.Hx of kidney cysts. 18.Pain syndrome. 19.S/P G tube placement and feeding. 20.S/P MRSA positive blood and naris cultures with lida in the urine 21.First degree decubitus of the sacral region and left calcaneal areas 22.Hyponatremia-continue supplementation. Cont'd Hospitalization Reason: hyponatremia on the top of other conditions. Cont'd Hospitalization Reason: hyponatremia;more supplementation. Subjective 24 Hr Interval Summary Free Text/Dictation It is cold; I can't get worm. Cover me please.The patient become less attentive and went back to sleep. Exam/Review of Systems Vital Signs Vitals Vital Signs Date Time Temp Pulse Resp B/P Pulse Ox O2 Delivery O2 Flow Rate FiO2 10/07/16 07:47 97.6 71 18 146/69 100 Intake and Output 10/06/16 10/06/16 10/07/16 15:00 23:00 07:00 Intake Total 725 ml 750 ml Output Total 150 ml Balance 575 ml 750 ml Exam Constitutional: frail, other (Unable to communicate.) Psych: anxiety, depression, No confusion, No nl mood/affect, No no complaints, No other, No suicidal Head: atraumatic, normocephalic, No hematomas, No lacerations, No other Eyes: EOMI, PERRL, nl lids ENMT: nl external ears & nose, nl lips & teeth, nl nasal mucosa & septum, No intubated, No mucosa pink and moist, No other, No tympanic membranes Neck: bruits, jvd, nuchal rigidity, No masses, No non-tender, No other, No supple, No thyromegaly Respiratory: clear to auscultation, diminished breath sounds, tactile fremitus , No congested cough, No crackles/rales, No intercostal retraction, No labored breathing, No normal air movement, No other, No respirations, No wheezing Cardiovascular: bruits, systolic murmur, No S3, No S4, No diastolic murmur, No edema, No gallop, No irregular rhythm, No jugular venous distention (JVD), No murmurs/extra sounds, No nl pulses, No other, No regular rate and rhythm, No rub Gastrointestinal: bowel sounds, nl liver, spleen, other (G tube side normal.) , soft Genitourinary - Female: No CMT, No CVA tenderness, No nl adnexae, No nl external genitalia, No other, No uterus Musculoskeletal: joint tenderness, muscle tone, muscle weakness, nl gait and stance (unabkle to get up without help. 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, confused, lethargic Skin: No diaphoresis, No ecchymosis, No laceration, No nl turgor, No other, No puncture, No rash or lesions Lymph: No enlarged, No nl lymph nodes, No nontender, No other Results Result Diagram: 10/07/16 0445 10/07/16 0825 Results 24 hrs Laboratory Tests Test 10/06/16 19:16 10/06/16 20:20 10/07/16 04:45 10/07/16 07:43 Bedside Glucose 212 134 187 White Blood Count 7.4 # Red Blood Count 3.17 L Hemoglobin 9.9 L Hematocrit 30.5 L Mean Corpuscular Volume 96.2 Mean Corpuscular Hemoglobin 31.2 Mean Corpuscular Hemoglobin Concent 32.5 Red Cell Distribution Width 18.6 H Platelet Count 219 # Mean Platelet Volume 12.2 H Neutrophils % 57.4 Lymphocytes % 30.0 Monocytes % 8.8 Eosinophils % 2.3 Basophils % 0.8 Nucleated Red Blood Cells % 0.0 Neutrophils # 4.2 Lymphocytes # 2.2 Monocytes # 0.7 Eosinophils # 0.2 Basophils # 0.1 Nucleated Red Blood Cells # 0.0 Test 10/07/16 08:25 10/07/16 11:32 10/07/16 17:06 Sodium Level 129 L Potassium Level 4.7 Chloride Level 103 Carbon Dioxide Level 21 Anion Gap 10 Blood Urea Nitrogen 33 H Creatinine 1.18 H Glucose Level 198 Calcium Level 7.8 L Total Bilirubin 0.0 L Direct Bilirubin 0.00 Indirect Bilirubin 0.0 Aspartate Amino Transf (AST/SGOT) 75 H Alanine Aminotransferase (ALT/SGPT) 38 Alkaline Phosphatase 136 H Total Protein 4.8 L Albumin 2.0 L Globulin 2.80 Albumin/Globulin Ratio 0.71 Bedside Glucose 150 131 Medications Medications Current Medications Diagnostic Test (Pha) (Accu-Chek) 1 ea 02 XX Last administered on 10/02/16 02: 11; Admin Dose 1 EA; Start 09/24/16 at 02:00 Miscellaneous Information 1 ea NOTE XX ; Start 09/24/16 at 01:30 Glucose (Glutose) 15 gm Q15M PRN PO DECREASED GLUCOSE; Start 09/24/16 at 01:30 Glucose (Glutose) 22.5 gm Q15M PRN PO DECREASED GLUCOSE; Start 09/24/16 at 01: 30 Dextrose (D50w Syringe) 25 ml Q15M PRN IV DECREASED GLUCOSE; Start 09/24/16 at 01:30 Dextrose (D50w Syringe) 50 ml Q15M PRN IV DECREASED GLUCOSE; Start 09/24/16 at 01:30 Glucagon (Glucagen) 1 mg Q15M PRN IM DECREASED GLUCOSE; Start 09/24/16 at 01:30 Glucose (Glutose) 15 gm Q15M PRN BUCCAL DECREASED GLUCOSE; Start 09/24/16 at 01 :30 Enoxaparin Sodium (Lovenox) 60 mg Q24H SC Last administered on 10/07/16 09:27; Admin Dose 60 MG; Start 09/24/16 at 09:00 Amlodipine Besylate (Norvasc) 5 mg BID PO Last administered on 10/07/16 09:25; Admin Dose 5 MG; Start 09/24/16 at 21:00 Hydralazine HCl (Apresoline) 5 mg Q6H PRN IV ELEVATED BLOOD PRESSURE Last administered on 09/28/16 20:26; Admin Dose 5 MG; Start 09/24/16 at 21:00 Clonidine HCl (Catapres-Tts 2 Patch) 1 patch Q7D TRANSDERM Last administered on 10/01/16 20:44; Admin Dose 1 PATCH; Start 09/24/16 at 21:00 Metoprolol Tartrate (Lopressor) 25 mg BID PO Last administered on 10/07/16 09: 25; Admin Dose 25 MG; Start 09/24/16 at 21:00 Aspirin (Aspirin) 81 mg DAILY PO Last administered on 10/07/16 09:24; Admin Dose 81 MG; Start 09/26/16 at 09:00 Lorazepam (Ativan) 0.5 mg Q6 PRN IV ANXIETY Last administered on 09/30/16 20: 08; Admin Dose 0.5 MG; Start 09/26/16 at 00:00 Mupirocin (Bactroban) 1 applic BID TOP Last administered on 10/07/16 09:26; Admin Dose 1 APPLIC; Start 09/27/16 at 21:00 Lansoprazole (Prevacid) 30 mg DAILY@06 GTB Last administered on 10/07/16 05:34 ; Admin Dose 30 MG; Start 10/01/16 at 06:00 Ferrous Sulfate (Feosol Liquid Cup) 300 mg BID GTB Last administered on 09:24; Admin Dose 300 MG; Start 10/02/16 at 21:00 Insulin Glargine (Lantus) 6 unit HS SC Last administered on 10/06/16 21:14; Admin Dose 6 UNIT; Start 10/03/16 at 21:00 Fluconazole (Diflucan) 100 mg DAILY PO Last administered on 10/07/16 09:25; Admin Dose 100 MG; Start 10/04/16 at 14:00 Acetaminophen (Tylenol Liquid) 325 mg Q8 GTB Last administered on 10/07/16 13: 03; Admin Dose 325 MG; Start 10/04/16 at 15:00 Sodium Chloride (Nacl) 2 gm BID GTB Last administered on 10/07/16 09:24; Admin Dose 2 GM; Start 10/04/16 at 15:00 Metronidazole (Flagyl) 500 mg Q8 NGT Last administered on 10/07/16 13:03; Admin Dose 500 MG; Start 10/06/16 at 22:00 Nystatin (Nystatin Powder) 1 applic BID TOP Last administered on 10/07/16 09:26 ; Admin Dose 1 APPLIC; Start 10/06/16 at 21:00 Linezolid (Zyvox) 600 mg BID PO Last administered on 10/07/16 13:03; Admin Dose 600 MG; Start 10/07/16 at 12:30 JR DEAN MD Oct 07, 2016 18:32
[2016-10-07 20:06] VITALS: BP 132/70; RESP 18
[2016-10-07] MEDS: INSULIN GLARGINE [LANtus] 3 ML PEN SC SCH (21:38)
--- NOTE | 2016-10-07 23:29 | CONS ---
Date/Time of Note Date/Time of Note DATE: 10/07/16 TIME: 23:24 Assessment/Plan Assessment/Plan Chief Complaint/Hosp Course ANEMIA MONOCLONAL GAMMOPATHY- M-SPIKE Evaluation reveals a restricted band (M-spike) migrating in the gamma globulin region. CHECK immunofixation analysis AND PROCEED WITH MM W-UP Sepsis, MRSA bacteremia, diarrhea - antibiotics per infectious disease Sialoadenitis with obstructive stone - per ENT Coronary artery disease - details unknown, clinically stable Peripheral vascular disease Hypertension Acute kidney injury vs chronic kidney disease Diabetes mellitus Dementia Problems: Consultation Date/Type/Reason Admit Date/Time Sep 23, 2016 at 17:03 Initial Consult Date 09/25/16 Type of Consultation: HEMEONC Reason for Consultation ANEMIA Referring Provider: JR DEAN MD 24 HR Interval Summary Free Text/Dictation No acute events COUNT STABLE NO BLEEDING ANTIMICROBIALS: 1. Diflucan 2. Zyvox 3. Topical Bactroban to nares. 4. Flagyl INDWELLINGS: PEG. Exam/Review of Systems Vital Signs Vitals Vital Signs Date Time Temp Pulse Resp B/P Pulse Ox O2 Delivery O2 Flow Rate FiO2 10/07/16 20:06 98.5 70 18 132/70 99 Intake and Output 10/06/16 10/06/16 10/07/16 15:00 23:00 07:00 Intake Total 725 ml 750 ml Output Total 150 ml Balance 575 ml 750 ml Exam PHYSICAL EXAMINATION: GENERAL: This is a well-developed, elderly, [place] woman who is alert, in no distress. HEENT: Head atraumatic, normocephalic. Sclerae anicteric. Buccal mucosa dry. NECK: Supple. CHEST: Rise symmetrical. Breath sounds diminished to bases. HEART: S1, S2. ABDOMEN: Soft, bowel tones present. EXTREMITIES: Without cyanosis. Results Result Diagram: 10/07/16 0445 10/07/16 0825 Results 24 hrs Laboratory Tests Test 10/07/16 04:45 10/07/16 07:43 10/07/16 08:25 10/07/16 11:32 White Blood Count 7.4 # Red Blood Count 3.17 L Hemoglobin 9.9 L Hematocrit 30.5 L Mean Corpuscular Volume 96.2 Mean Corpuscular Hemoglobin 31.2 Mean Corpuscular Hemoglobin Concent 32.5 Red Cell Distribution Width 18.6 H Platelet Count 219 # Mean Platelet Volume 12.2 H Neutrophils % 57.4 Lymphocytes % 30.0 Monocytes % 8.8 Eosinophils % 2.3 Basophils % 0.8 Nucleated Red Blood Cells % 0.0 Neutrophils # 4.2 Lymphocytes # 2.2 Monocytes # 0.7 Eosinophils # 0.2 Basophils # 0.1 Nucleated Red Blood Cells # 0.0 Bedside Glucose 187 150 Sodium Level 129 L Potassium Level 4.7 Chloride Level 103 Carbon Dioxide Level 21 Anion Gap 10 Blood Urea Nitrogen 33 H Creatinine 1.18 H Glucose Level 198 Calcium Level 7.8 L Total Bilirubin 0.0 L Direct Bilirubin 0.00 Indirect Bilirubin 0.0 Aspartate Amino Transf (AST/SGOT) 75 H Alanine Aminotransferase (ALT/SGPT) 38 Alkaline Phosphatase 136 H Total Protein 4.8 L Albumin 2.0 L Globulin 2.80 Albumin/Globulin Ratio 0.71 Test 10/07/16 17:06 10/07/16 21:36 Bedside Glucose 131 137 Medications Medications Current Medications Diagnostic Test (Pha) (Accu-Chek) 1 ea 02 XX Last administered on 10/02/16 02: 11; Admin Dose 1 EA; Start 09/24/16 at 02:00 Miscellaneous Information 1 ea NOTE XX ; Start 09/24/16 at 01:30 Glucose (Glutose) 15 gm Q15M PRN PO DECREASED GLUCOSE; Start 09/24/16 at 01:30 Glucose (Glutose) 22.5 gm Q15M PRN PO DECREASED GLUCOSE; Start 09/24/16 at 01: 30 Dextrose (D50w Syringe) 25 ml Q15M PRN IV DECREASED GLUCOSE; Start 09/24/16 at 01:30 Dextrose (D50w Syringe) 50 ml Q15M PRN IV DECREASED GLUCOSE; Start 09/24/16 at 01:30 Glucagon (Glucagen) 1 mg Q15M PRN IM DECREASED GLUCOSE; Start 09/24/16 at 01:30 Glucose (Glutose) 15 gm Q15M PRN BUCCAL DECREASED GLUCOSE; Start 09/24/16 at 01 :30 Enoxaparin Sodium (Lovenox) 60 mg Q24H SC Last administered on 10/07/16 09:27; Admin Dose 60 MG; Start 09/24/16 at 09:00 Amlodipine Besylate (Norvasc) 5 mg BID PO Last administered on 10/07/16 21:25; Admin Dose 5 MG; Start 09/24/16 at 21:00 Hydralazine HCl (Apresoline) 5 mg Q6H PRN IV ELEVATED BLOOD PRESSURE Last administered on 09/28/16 20:26; Admin Dose 5 MG; Start 09/24/16 at 21:00 Clonidine HCl (Catapres-Tts 2 Patch) 1 patch Q7D TRANSDERM Last administered on 10/01/16 20:44; Admin Dose 1 PATCH; Start 09/24/16 at 21:00 Metoprolol Tartrate (Lopressor) 25 mg BID PO Last administered on 10/07/16 21: 25; Admin Dose 25 MG; Start 09/24/16 at 21:00 Aspirin (Aspirin) 81 mg DAILY PO Last administered on 10/07/16 09:24; Admin Dose 81 MG; Start 09/26/16 at 09:00 Lorazepam (Ativan) 0.5 mg Q6 PRN IV ANXIETY Last administered on 09/30/16 20: 08; Admin Dose 0.5 MG; Start 09/26/16 at 00:00 Mupirocin (Bactroban) 1 applic BID TOP Last administered on 10/07/16 21:25; Admin Dose 1 APPLIC; Start 09/27/16 at 21:00 Lansoprazole (Prevacid) 30 mg DAILY@06 GTB Last administered on 10/07/16 05:34 ; Admin Dose 30 MG; Start 10/01/16 at 06:00 Ferrous Sulfate (Feosol Liquid Cup) 300 mg BID GTB Last administered on 21:24; Admin Dose 300 MG; Start 10/02/16 at 21:00 Insulin Glargine (Lantus) 6 unit HS SC Last administered on 10/07/16 21:38; Admin Dose 6 UNIT; Start 10/03/16 at 21:00 Fluconazole (Diflucan) 100 mg DAILY PO Last administered on 10/07/16 09:25; Admin Dose 100 MG; Start 10/04/16 at 14:00 Acetaminophen (Tylenol Liquid) 325 mg Q8 GTB Last administered on 10/07/16 21: 24; Admin Dose 325 MG; Start 10/04/16 at 15:00 Metronidazole (Flagyl) 500 mg Q8 NGT Last administered on 10/07/16 21:25; Admin Dose 500 MG; Start 10/06/16 at 22:00 Nystatin (Nystatin Powder) 1 applic BID TOP Last administered on 10/07/16 21:25 ; Admin Dose 1 APPLIC; Start 10/06/16 at 21:00 Linezolid (Zyvox) 600 mg BID PO Last administered on 10/07/16 21:25; Admin Dose 600 MG; Start 10/07/16 at 12:30 Sodium Chloride (Nacl) 2 gm TID GTB Last administered on 10/07/16 21:24; Admin Dose 2 GM; Start 10/07/16 at 21:00 ARIANNE AUSTIN MD Oct 07, 2016 23:29
[2016-10-08] MEDS: ACCU-CHEK XX SCH (02:00)
[2016-10-08] MEDS: ACETAMINOPHEN 650MG/20.3ML CUP GTB SCH ×3 (05:20→21:09)
[2016-10-08] MEDS: metroNIDAZOLE 500 MG TAB NGT SCH ×3 (05:20→21:09)
[2016-10-08] MEDS: LANSOPRAZOLE 30 MG CAP GTB SCH (05:20)
[2016-10-08] MEDS: INSULIN ASPART [NOVOLOG] 3 ML PEN SC SCH ×4 (08:00→21:00)
[2016-10-08 08:09] VITALS: BP 150/67; RESP 22
--- NOTE | 2016-10-08 08:18 | PN ---
Date/Time of Note Date/Time of Note DATE: 10/08/16 TIME: 08:12 Assessment/Plan VTE Prophylaxis VTE Prophylaxis Intervention: ambulation, anti-embolic stocking VTE Contraindication Reason: peripheral vascular disease Lines/Catheters IV Catheter Type (from Nrsg): Peripheral IV Central line still needed: No Urinary Cath still in place: No Reason Cath still needed: urinary retention Assessment/Plan Assessment/Plan 1.Sepsis- improving. 2.Left submandibular sialitis and possible abscess;Stone in a duct. ENT f/u. 3.ARF-improved 4.Anemia of chronic disease with low iron. 5.AD& MD with anxiety. 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 14.More alert and able to communicate. 15.Kyphosis 16Urinary incontinence with episodes of retention. 17.Hx of kidney cysts. 18.Pain syndrome. 19.S/P G tube placement and feeding. 20.S/P MRSA positive blood and naris cultures with lida in the urine 21.First degree decubitus of the sacral region and left calcaneal areas 22.Hyponatremia-continue supplementation; am labs pending.. Cont'd Hospitalization Reason: hyponatremia on the top of other conditions. Cont'd Hospitalization Reason: decubity and hyponatremia. Subjective 24 Hr Interval Summary Free Text/Dictation I am ok. It is cold. Constitutional: disoriented, improved, poor po, requiring IVF, requiring O2, No chills, No diaphoresis, No febrile, No no complaints, No other Eyes: No discharge, No no complaints, No other, No pain, No redness, No visual change ENT: other (no pain in left submandibular area.), No bleeding, No congestion, No discharge, No dysphagia, No no complaints, No pain, No sore throat Respiratory: shortness of breath, No cough, No no complaints, No other, No pain, No pleuritic pain, No sputum, No wheezing Cardiovascular: chest pain, lightheadedness, No edema, No no complaints, No orthopenea, No other, No palpitations, No paroxysmal nocturnal dyspnea Gastrointestinal: diarrhea, flatus, passing stool (dark color.), No blood, No constipation, No decreased appetite, No nausea, No no complaints , No other, No pain, No vomiting Genitourinary: No bleeding, No discharge, No dysuria, No flank pain, No hematuria, No no complaints, No other Musculoskeletal: back pain, bone/joint pain, neck pain, No no complaints, No other, No restricted range of motion, No swelling Neurologic: confusion, headache, No dizziness, No focal-weakness, No no complaints, No other, No seizure, No syncope Exam/Review of Systems Vital Signs Vitals Vital Signs Date Time Temp Pulse Resp B/P Pulse Ox O2 Delivery O2 Flow Rate FiO2 10/08/16 08:09 97.6 68 22 150/67 100 Intake and Output 10/07/16 10/07/16 10/08/16 15:00 23:00 07:00 Intake Total 675 ml 750 ml Output Total 100 ml Balance 675 ml 650 ml Exam Constitutional: frail, non-verbal, No alert, No distress, No obese, No oriented, No other, No well developed Psych: anxiety, depression, No confusion, No nl mood/affect, No no complaints, No other, No suicidal Head: atraumatic, normocephalic, No hematomas, No lacerations, No other Eyes: EOMI, PERRL ENMT: No intubated, No mucosa pink and moist, No nl external ears & nose, No nl lips & teeth, No nl nasal mucosa & septum, No other, No tympanic membranes Neck: bruits, nuchal rigidity, No jvd, No masses, No non-tender, No other, No supple, No thyromegaly Respiratory: congested cough, diminished breath sounds, No clear to auscultation, No crackles/rales, No intercostal retraction, No labored breathing, No normal air movement, No other, No respirations, No tactile fremitus, No wheezing Cardiovascular: bruits Gastrointestinal: bowel sounds, other (G tube side intact.), soft, No ascites, No distended, No firm, No hepatomegaly, No mass, No nl liver, spleen, No non-tender, No rebound or guarding, No splenomegaly, No surgical scars, No tender Musculoskeletal: joint tenderness, muscle tone, muscle weakness, No nl extremities to inspection, No nl gait and stance, No other, No range of motion, No spine non-tender, No swelling Neurological: confused, lethargic, numbness, reflexes, 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, No DTR's symmetric, No focal weakness, No nl mental status, No nl speech, No nl strength, No other, No unresponsive Results Result Diagram: 10/07/16 0445 10/07/16 0825 Results 24 hrs Laboratory Tests Test 10/07/16 08:25 10/07/16 11:32 10/07/16 17:06 10/07/16 21:36 Sodium Level 129 L Potassium Level 4.7 Chloride Level 103 Carbon Dioxide Level 21 Anion Gap 10 Blood Urea Nitrogen 33 H Creatinine 1.18 H Glucose Level 198 Calcium Level 7.8 L Total Bilirubin 0.0 L Direct Bilirubin 0.00 Indirect Bilirubin 0.0 Aspartate Amino Transf (AST/SGOT) 75 H Alanine Aminotransferase (ALT/SGPT) 38 Alkaline Phosphatase 136 H Total Protein 4.8 L Albumin 2.0 L Globulin 2.80 Albumin/Globulin Ratio 0.71 Bedside Glucose 150 131 137 Medications Medications Current Medications Diagnostic Test (Pha) (Accu-Chek) 1 ea 02 XX Last administered on 10/02/16 02: 11; Admin Dose 1 EA; Start 09/24/16 at 02:00 Miscellaneous Information 1 ea NOTE XX ; Start 09/24/16 at 01:30 Glucose (Glutose) 15 gm Q15M PRN PO DECREASED GLUCOSE; Start 09/24/16 at 01:30 Glucose (Glutose) 22.5 gm Q15M PRN PO DECREASED GLUCOSE; Start 09/24/16 at 01: 30 Dextrose (D50w Syringe) 25 ml Q15M PRN IV DECREASED GLUCOSE; Start 09/24/16 at 01:30 Dextrose (D50w Syringe) 50 ml Q15M PRN IV DECREASED GLUCOSE; Start 09/24/16 at 01:30 Glucagon (Glucagen) 1 mg Q15M PRN IM DECREASED GLUCOSE; Start 09/24/16 at 01:30 Glucose (Glutose) 15 gm Q15M PRN BUCCAL DECREASED GLUCOSE; Start 09/24/16 at 01 :30 Enoxaparin Sodium (Lovenox) 60 mg Q24H SC Last administered on 10/07/16 09:27; Admin Dose 60 MG; Start 09/24/16 at 09:00 Amlodipine Besylate (Norvasc) 5 mg BID PO Last administered on 10/07/16 21:25; Admin Dose 5 MG; Start 09/24/16 at 21:00 Hydralazine HCl (Apresoline) 5 mg Q6H PRN IV ELEVATED BLOOD PRESSURE Last administered on 09/28/16 20:26; Admin Dose 5 MG; Start 09/24/16 at 21:00 Clonidine HCl (Catapres-Tts 2 Patch) 1 patch Q7D TRANSDERM Last administered on 10/01/16 20:44; Admin Dose 1 PATCH; Start 09/24/16 at 21:00 Metoprolol Tartrate (Lopressor) 25 mg BID PO Last administered on 10/07/16 21: 25; Admin Dose 25 MG; Start 09/24/16 at 21:00 Aspirin (Aspirin) 81 mg DAILY PO Last administered on 10/07/16 09:24; Admin Dose 81 MG; Start 09/26/16 at 09:00 Lorazepam (Ativan) 0.5 mg Q6 PRN IV ANXIETY Last administered on 09/30/16 20: 08; Admin Dose 0.5 MG; Start 09/26/16 at 00:00 Mupirocin (Bactroban) 1 applic BID TOP Last administered on 10/07/16 21:25; Admin Dose 1 APPLIC; Start 09/27/16 at 21:00 Lansoprazole (Prevacid) 30 mg DAILY@06 GTB Last administered on 10/08/16 05:20 ; Admin Dose 30 MG; Start 10/01/16 at 06:00 Ferrous Sulfate (Feosol Liquid Cup) 300 mg BID GTB Last administered on 21:24; Admin Dose 300 MG; Start 10/02/16 at 21:00 Insulin Glargine (Lantus) 6 unit HS SC Last administered on 10/07/16 21:38; Admin Dose 6 UNIT; Start 10/03/16 at 21:00 Fluconazole (Diflucan) 100 mg DAILY PO Last administered on 10/07/16 09:25; Admin Dose 100 MG; Start 10/04/16 at 14:00 Acetaminophen (Tylenol Liquid) 325 mg Q8 GTB Last administered on 10/08/16 05: 20; Admin Dose 325 MG; Start 10/04/16 at 15:00 Metronidazole (Flagyl) 500 mg Q8 NGT Last administered on 10/08/16 05:20; Admin Dose 500 MG; Start 10/06/16 at 22:00 Nystatin (Nystatin Powder) 1 applic BID TOP Last administered on 10/07/16 21:25 ; Admin Dose 1 APPLIC; Start 10/06/16 at 21:00 Linezolid (Zyvox) 600 mg BID PO Last administered on 10/07/16 21:25; Admin Dose 600 MG; Start 10/07/16 at 12:30 Sodium Chloride (Nacl) 2 gm TID GTB Last administered on 10/07/16 21:24; Admin Dose 2 GM; Start 10/07/16 at 21:00 JR DEAN MD Oct 08, 2016 08:18
[2016-10-08] MEDS: FLUCONAZOLE 100 MG TAB PO SCH (09:01)
[2016-10-08] MEDS: FERROUS SULFATE 60 MG/ML 5ML CUP GTB SCH ×2 (09:01→21:09)
[2016-10-08] MEDS: ZYVOX 600 MG TAB PO SCH ×2 (09:01→21:09)
[2016-10-08] MEDS: SODIUM CHLORIDE 1 GM TAB GTB SCH ×3 (09:01→21:09)
[2016-10-08] MEDS: AMLODIPINE 5 MG TAB PO SCH ×2 (09:02→21:09)
[2016-10-08] MEDS: METOPROLOL 25 MG TAB PO SCH ×2 (09:02→21:09)
[2016-10-08] MEDS: ASPIRIN 81 MG TAB PO SCH (09:02)
[2016-10-08] MEDS: ENOXAPARIN 60 MG/0.6 ML SYG SC SCH (09:03)
[2016-10-08] MEDS: MUPIROCIN 2% 22 GM OINT TOP SCH ×2 (09:04→21:11)
[2016-10-08] MEDS: NYSTATIN 30 GM POWDER BTL TOP SCH ×2 (09:04→21:10)
[2016-10-08 09:30] LABS: LACTATE DEHYDROGENASE 470 IU/L (313-618)
--- NOTE | 2016-10-08 09:56 | RADRPT ---
PROCEDURE: Complete abdominal ultrasound. CLINICAL INDICATION: Abdominal pain abnormal liver function tests TECHNIQUE: Dumont scale and color doppler ultrasound images of the abdomen. COMPARISON: None FINDINGS: Pancreas: Visualized portions appear of normal echogenicity, no focal lesions. Liver: Morphology: Normal in size and contour. Echogenicity: Normal. Focal lesions: None. Main portal vein: Patent with hepatopetal flow. Biliary System: Status post cholecystectomy. No intrahepatic biliary dilatation. Common bile duct diameter: 5.9 mm Kidneys: Right length: 8.5 cm. Mild - moderate right cortical thinning measuring 8 mm. Left length: 8.5 cm. Mild - moderate left cortical thinning measuring 8 mm. Normal echogenicity. No hydronephrosis. No renal calculi. No focal renal lesions. Spleen: Normal in size, no focal lesions. No free fluid identified. Normal caliber of the partially visualized aorta. IMPRESSION: Status post cholecystectomy. Normal caliber intrahepatic and extrahepatic biliary system. Normal appearance the liver without focal lesion. Atrophic changes of both kidneys without hydronephrosis. RPTAT: AADD .Niraj Lockett MD, MD Date Time Electronically viewed and signed by .Niraj Lockett MD, MD on 10/08/2016 09:56 .B/
[2016-10-08 10:33] LABS: IMMUNOGLOBULIN A 255 mg/dl (70-400); IMMUNOGLOBULIN G 1115 mg/dl (700-1600); IMMUNOGLOBULIN M 190 mg/dl (40-230)
--- NOTE | 2016-10-08 12:27 | RADRPT ---
PROCEDURE: Metastatic bone survey. CLINICAL INDICATION: Multiple myeloma workup. TECHNIQUE: A total of 21 images were obtained. The patient refused imaging of the lower extremiti es. Frontal and lateral skull. Frontal and lateral spine. Frontal chest, oblique ribs, frontal an d lateral humeri and forearms. Frontal pelvis. COMPARISON: Chest radiograph dated 10/06/2016. FINDINGS: There is no lytic or blastic lesion. There is no fracture or dislocation. Vascular calcifications are present consistent with atherosclerosis. A surgical clip is present in the right upper quadrant of the abdomen. A gastrostomy tube is present overlying the stomach. The lungs are clear. The jeffery wel gas pattern is normal. IMPRESSION: 1. Normal osseous structures with no lytic lesion. 2. The lower extremities were not evaluated as the patient refused. RPTAT: QQ .Will Lei MD, MD Date Time Electronically viewed and signed by .Will Lei MD, on 10/08/2016 12:26 .R/
[2016-10-08 13:06] LABS: ALBUMIN 2.3 g/dl (3.3-4.9); ALBUMIN/GLOBULIN RATIO 0.71; CALCIUM 7.9 mg/dl (8.4-10.2); CREATININE 1.2 mg/dl (0.44-1.00); POTASSIUM 4.2 mmol/L (3.5-5.1); TOTAL PROTEIN 5.5 g/dl (6.1-8.1)
--- NOTE | 2016-10-08 15:58 | CONS ---
Date/Time of Note Date/Time of Note DATE: 10/08/16 TIME: 15:57 Assessment/Plan Assessment/Plan Chief Complaint/Hosp Course ID PROGRESS NOTE CURRENT ABX=> 1. Diflucan 2. Zyvox 3. Flagyl 24H INTERVAL SUMMARY * Resting comfortably, overall better, no fevers PHYSICAL EXAMINATION: GENERAL: VSS, NAD, Afebrile HEENT: Dry mouth, decreased left facial edema NECK: Supple, trachea midline. CHEST: Rise symmetrical, without dyspnea on observation HEART: Pulse RRR ABDOMEN: Soft EXTREMITIES: Warm ID ASSESSMENT 76 yo M admit with: 1. Systemic inflammatory response syndrome with persistent leukocytosis. 2. Diarrhea. 3. Angelina albicans urinary tract infection=> Hx of urinary retention 4. Status post methicillin-resistant Staphylococcus aureus bacteremia. 5. Resolving left mandibular sialithiasis and sialoadenitis. 6. Dementia. 7. Diabetes. 8. ARF-improved 9. CHRONIC PAIN ISSUES: DJD 10. Kyphosis 11. Hx of falls (+)MRSA Nares ->Bactroban INVASIVES: PIV, PEG ABX ALLERGY: KNDA CURRENT ABX: Zyvox, Diflucan, Flagyl ID RECOMMENDATIONS 1. Continue current ABX & warm compress to face, oral care for dry mouth 2. Observe over the weekend on ABX -> Reassess by ID team next week Problems: Consultation Date/Type/Reason Admit Date/Time Sep 23, 2016 at 17:03 Initial Consult Date 09/25/16 Type of Consultation: ID Referring Provider: JR DEAN MD Exam/Review of Systems Vital Signs Vitals Vital Signs Date Time Temp Pulse Resp B/P Pulse Ox O2 Delivery O2 Flow Rate FiO2 10/08/16 08:09 97.6 68 22 150/67 100 Intake and Output 10/07/16 10/07/16 10/08/16 15:00 23:00 07:00 Intake Total 675 ml 750 ml Output Total 100 ml Balance 675 ml 650 ml Results Result Diagram: 10/07/16 0445 10/08/16 0540 Results 24 hrs Laboratory Tests Test 10/07/16 17:06 10/07/16 21:36 10/08/16 04:45 10/08/16 05:40 Bedside Glucose 131 137 Lactate Dehydrogenase 470 Immunoglobulin A 255 Immunoglobulin G 1115 Immunoglobulin M 190 Sodium Level 129 L Potassium Level 4.2 Chloride Level 104 Carbon Dioxide Level 20 L Anion Gap 9 Blood Urea Nitrogen 31 H Creatinine 1.20 H Glucose Level 151 Calcium Level 7.9 L Total Bilirubin 0.0 L Direct Bilirubin 0.00 Indirect Bilirubin 0.0 Aspartate Amino Transf (AST/SGOT) 107 H Alanine Aminotransferase (ALT/SGPT) 48 Alkaline Phosphatase 136 H Total Protein 5.5 L Albumin 2.3 L Globulin 3.20 Albumin/Globulin Ratio 0.71 Test 10/08/16 08:17 10/08/16 11:43 10/08/16 12:24 Bedside Glucose 136 142 129 Medications Medications Current Medications Diagnostic Test (Pha) (Accu-Chek) 1 ea 02 XX Last administered on 10/02/16 02: 11; Admin Dose 1 EA; Start 09/24/16 at 02:00 Miscellaneous Information 1 ea NOTE XX ; Start 09/24/16 at 01:30 Glucose (Glutose) 15 gm Q15M PRN PO DECREASED GLUCOSE; Start 09/24/16 at 01:30 Glucose (Glutose) 22.5 gm Q15M PRN PO DECREASED GLUCOSE; Start 09/24/16 at 01: 30 Dextrose (D50w Syringe) 25 ml Q15M PRN IV DECREASED GLUCOSE; Start 09/24/16 at 01:30 Dextrose (D50w Syringe) 50 ml Q15M PRN IV DECREASED GLUCOSE; Start 09/24/16 at 01:30 Glucagon (Glucagen) 1 mg Q15M PRN IM DECREASED GLUCOSE; Start 09/24/16 at 01:30 Glucose (Glutose) 15 gm Q15M PRN BUCCAL DECREASED GLUCOSE; Start 09/24/16 at 01 :30 Enoxaparin Sodium (Lovenox) 60 mg Q24H SC Last administered on 10/08/16 09:03; Admin Dose 60 MG; Start 09/24/16 at 09:00 Amlodipine Besylate (Norvasc) 5 mg BID PO Last administered on 10/08/16 09:02; Admin Dose 5 MG; Start 09/24/16 at 21:00 Hydralazine HCl (Apresoline) 5 mg Q6H PRN IV ELEVATED BLOOD PRESSURE Last administered on 09/28/16 20:26; Admin Dose 5 MG; Start 09/24/16 at 21:00 Clonidine HCl (Catapres-Tts 2 Patch) 1 patch Q7D TRANSDERM Last administered on 10/01/16 20:44; Admin Dose 1 PATCH; Start 09/24/16 at 21:00 Metoprolol Tartrate (Lopressor) 25 mg BID PO Last administered on 10/08/16 09: 02; Admin Dose 25 MG; Start 09/24/16 at 21:00 Aspirin (Aspirin) 81 mg DAILY PO Last administered on 10/08/16 09:02; Admin Dose 81 MG; Start 09/26/16 at 09:00 Lorazepam (Ativan) 0.5 mg Q6 PRN IV ANXIETY Last administered on 09/30/16 20: 08; Admin Dose 0.5 MG; Start 09/26/16 at 00:00 Mupirocin (Bactroban) 1 applic BID TOP Last administered on 10/08/16 09:04; Admin Dose 1 APPLIC; Start 09/27/16 at 21:00 Lansoprazole (Prevacid) 30 mg DAILY@06 GTB Last administered on 10/08/16 05:20 ; Admin Dose 30 MG; Start 10/01/16 at 06:00 Ferrous Sulfate (Feosol Liquid Cup) 300 mg BID GTB Last administered on 09:01; Admin Dose 300 MG; Start 10/02/16 at 21:00 Insulin Glargine (Lantus) 6 unit HS SC Last administered on 10/07/16 21:38; Admin Dose 6 UNIT; Start 10/03/16 at 21:00 Fluconazole (Diflucan) 100 mg DAILY PO Last administered on 10/08/16 09:01; Admin Dose 100 MG; Start 10/04/16 at 14:00 Acetaminophen (Tylenol Liquid) 325 mg Q8 GTB Last administered on 10/08/16 14: 36; Admin Dose 325 MG; Start 10/04/16 at 15:00 Metronidazole (Flagyl) 500 mg Q8 NGT Last administered on 10/08/16 14:36; Admin Dose 500 MG; Start 10/06/16 at 22:00 Nystatin (Nystatin Powder) 1 applic BID TOP Last administered on 10/08/16 09:04 ; Admin Dose 1 APPLIC; Start 10/06/16 at 21:00 Linezolid (Zyvox) 600 mg BID PO Last administered on 4/8/17at 09:01; Admin Dose 600 MG; Start 10/07/16 at 12:30 Sodium Chloride (Nacl) 2 gm TID GTB Last administered on 10/08/16t 14:36; Admin Dose 2 GM; Start 10/07/16 at 21:00 SUHAIL MUSA NP Oct 08, 2016 15:58
[2016-10-08 20:03] VITALS: BP 132/82; RESP 20
[2016-10-08] MEDS: CLONIDINE 0.2 MG/24 HR PATCH TRANSDERM SCH ×2 (21:10→21:30)
[2016-10-08] MEDS: INSULIN GLARGINE [LANtus] 3 ML PEN SC SCH (21:14)
--- NOTE | 2016-10-08 23:26 | CONS ---
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 CHECK immunofixation analysis AND MM W-UP- P Sepsis, MRSA bacteremia, diarrhea - antibiotics per infectious disease Sialoadenitis with obstructive stone - per ENT Coronary artery disease - details unknown, clinically stable Peripheral vascular disease Hypertension Acute kidney injury vs chronic kidney disease Diabetes mellitus Dementia Problems: Consultation Date/Type/Reason Admit Date/Time Sep 23, 2016 at 17:03 Initial Consult Date 09/25/16 [facility] Referring Provider: JR DEAN MD 24 HR Interval Summary Free Text/Dictation ALL NOTED W-UP IN PROGRESS Exam/Review of Systems Vital Signs Vitals Vital Signs Date Time Temp Pulse Resp B/P Pulse Ox O2 Delivery O2 Flow Rate FiO2 10/08/16 20:03 97.9 75 20 132/82 98 Intake and Output 10/07/16 10/07/16 10/08/16 15:00 23:00 07:00 Intake Total 675 ml 750 ml Output Total 100 ml Balance 675 ml 650 ml Exam Constitutional: alert, frail, oriented, other (Arousable,very sensitive with inability to even cover herself. Unable to ), well developed, No distress, No non-verbal, No obese Psych: anxiety, confusion, depression, No nl mood/affect, No no complaints, No other, No suicidal Head: atraumatic, normocephalic, No hematomas, No lacerations, No other Eyes: EOMI, PERRL, nl lids, No fundi, disc, No icteric, No nl conjunctiva, No nl sclera, No other ENMT: mucosa pink and moist, nl external ears & nose, nl nasal mucosa & septum , other (left subclavianmass not palpable.), No intubated, No nl lips & teeth, No tympanic membranes Neck: bruits, No jvd, No masses, No non-tender, No nuchal rigidity, No other, No supple, No thyromegaly Respiratory: clear to auscultation, congested cough, diminished breath sounds, No crackles/rales, No intercostal retraction, No labored breathing, No normal air movement, No other, No respirations, No tactile fremitus, No wheezing Cardiovascular: bruits, jugular venous distention (JVD), systolic murmur, No S3, No S4, No diastolic murmur, No edema, No gallop, No irregular rhythm, No murmurs/extra sounds, No nl pulses, No other, No regular rate and rhythm, No rub Gastrointestinal: bowel sounds (increased.), distended, non-tender, soft, No ascites, No firm, No hepatomegaly, No mass, No nl liver, spleen, No other , No rebound or guarding, No splenomegaly, No surgical scars, No tender Genitourinary - Female: No CMT, No CVA tenderness, No nl adnexae, No nl external genitalia, No other, No uterus Musculoskeletal: joint tenderness, muscle tone, muscle weakness, nl extremities to inspection, No nl gait and stance, No other, No range of motion, No spine non-tender, No swelling Extremities: No calf tenderness, No clubbing, No cyanosis, No edema, No normal pulses, No other, No palpable cord, No pitting pedal edema, No tenderness Neurological: confused, lethargic, other (severe memory impairement.Fargts talkes done 2 minutes ago. Able to communicate better.) Skin: ecchymosis, No diaphoresis, No laceration, No nl turgor, No other, No puncture, No rash or lesions Results Result Diagram: 10/07/16 0445 10/08/16 0540 Results 24 hrs Laboratory Tests Test 10/08/16 04:45 10/08/16 05:40 10/08/16 08:17 10/08/16 11:43 Lactate Dehydrogenase 470 Immunoglobulin A 255 Immunoglobulin G 1115 Immunoglobulin M 190 Sodium Level 129 L Potassium Level 4.2 Chloride Level 104 Carbon Dioxide Level 20 L Anion Gap 9 Blood Urea Nitrogen 31 H Creatinine 1.20 H Glucose Level 151 Calcium Level 7.9 L Total Bilirubin 0.0 L Direct Bilirubin 0.00 Indirect Bilirubin 0.0 Aspartate Amino Transf (AST/SGOT) 107 H Alanine Aminotransferase (ALT/SGPT) 48 Alkaline Phosphatase 136 H Total Protein 5.5 L Albumin 2.3 L Globulin 3.20 Albumin/Globulin Ratio 0.71 Bedside Glucose 136 142 Test 10/08/16 12:24 10/08/16 18:00 10/08/16 21:12 Bedside Glucose 129 152 175 Medications Medications Current Medications Diagnostic Test (Pha) (Accu-Chek) 1 ea 02 XX Last administered on 10/02/16 02: 11; Admin Dose 1 EA; Start 09/24/16 at 02:00 Miscellaneous Information 1 ea NOTE XX ; Start 09/24/16 at 01:30 Glucose (Glutose) 15 gm Q15M PRN PO DECREASED GLUCOSE; Start 09/24/16 at 01:30 Glucose (Glutose) 22.5 gm Q15M PRN PO DECREASED GLUCOSE; Start 09/24/16 at 01: 30 Dextrose (D50w Syringe) 25 ml Q15M PRN IV DECREASED GLUCOSE; Start 09/24/16 at 01:30 Dextrose (D50w Syringe) 50 ml Q15M PRN IV DECREASED GLUCOSE; Start 09/24/16 at 01:30 Glucagon (Glucagen) 1 mg Q15M PRN IM DECREASED GLUCOSE; Start 09/24/16 at 01:30 Glucose (Glutose) 15 gm Q15M PRN BUCCAL DECREASED GLUCOSE; Start 09/24/16 at 01 :30 Enoxaparin Sodium (Lovenox) 60 mg Q24H SC Last administered on 10/08/16 09:03; Admin Dose 60 MG; Start 09/24/16 at 09:00 Amlodipine Besylate (Norvasc) 5 mg BID PO Last administered on 10/08/16 21:09; Admin Dose 5 MG; Start 09/24/16 at 21:00 Hydralazine HCl (Apresoline) 5 mg Q6H PRN IV ELEVATED BLOOD PRESSURE Last administered on 09/28/16 20:26; Admin Dose 5 MG; Start 09/24/16 at 21:00 Clonidine HCl (Catapres-Tts 2 Patch) 1 patch Q7D TRANSDERM Last administered on 10/08/16 21:30; Admin Dose 1 PATCH; Start 09/24/16 at 21:00 Metoprolol Tartrate (Lopressor) 25 mg BID PO Last administered on 10/08/16 21: 09; Admin Dose 25 MG; Start 09/24/16 at 21:00 Aspirin (Aspirin) 81 mg DAILY PO Last administered on 10/08/16 09:02; Admin Dose 81 MG; Start 09/26/16 at 09:00 Lorazepam (Ativan) 0.5 mg Q6 PRN IV ANXIETY Last administered on 09/30/16 20: 08; Admin Dose 0.5 MG; Start 09/26/16 at 00:00 Mupirocin (Bactroban) 1 applic BID TOP Last administered on 10/08/16 21:11; Admin Dose 1 APPLIC; Start 09/27/16 at 21:00 Lansoprazole (Prevacid) 30 mg DAILY@06 GTB Last administered on 10/08/16 05:20 ; Admin Dose 30 MG; Start 10/01/16 at 06:00 Ferrous Sulfate (Feosol Liquid Cup) 300 mg BID GTB Last administered on 21:09; Admin Dose 300 MG; Start 10/02/16 at 21:00 Insulin Glargine (Lantus) 6 unit HS SC Last administered on 10/08/16 21:14; Admin Dose 6 UNIT; Start 10/03/16 at 21:00 Fluconazole (Diflucan) 100 mg DAILY PO Last administered on 10/08/16 09:01; Admin Dose 100 MG; Start 10/04/16 at 14:00 Acetaminophen (Tylenol Liquid) 325 mg Q8 GTB Last administered on 10/08/16 21: 09; Admin Dose 325 MG; Start 10/04/16 at 15:00 Metronidazole (Flagyl) 500 mg Q8 NGT Last administered on 10/08/16 21:09; Admin Dose 500 MG; Start 10/06/16 at 22:00 Nystatin (Nystatin Powder) 1 applic BID TOP Last administered on 10/08/16 21:10 ; Admin Dose 1 APPLIC; Start 10/06/16 at 21:00 Linezolid (Zyvox) 600 mg BID PO Last administered on 10/08/16 21:09; Admin Dose 600 MG; Start 10/07/16 at 12:30 Sodium Chloride (Nacl) 2 gm TID GTB Last administered on 10/08/16 21:09; Admin Dose 2 GM; Start 10/07/16 at 21:00 ARIANNE AUSTIN MD Oct 08, 2016 23:25
[2016-10-09] MEDS: ACCU-CHEK XX SCH (02:00)
[2016-10-09] MEDS: LANSOPRAZOLE 30 MG CAP GTB SCH (05:31)
[2016-10-09] MEDS: metroNIDAZOLE 500 MG TAB NGT SCH ×2 (05:31→13:56)
[2016-10-09] MEDS: ACETAMINOPHEN 650MG/20.3ML CUP GTB SCH ×2 (05:31→13:57)
[2016-10-09 07:25] VITALS: BP 166/84; RESP 16
[2016-10-09] MEDS: INSULIN ASPART [NOVOLOG] 3 ML PEN SC SCH ×3 (08:28→16:58)
[2016-10-09] MEDS: ENOXAPARIN 60 MG/0.6 ML SYG SC SCH (08:29)
[2016-10-09] MEDS: ASPIRIN 81 MG TAB PO SCH (08:30)
[2016-10-09] MEDS: SODIUM CHLORIDE 1 GM TAB GTB SCH ×3 (08:30→21:23)
[2016-10-09] MEDS: FLUCONAZOLE 100 MG TAB PO SCH (08:30)
[2016-10-09] MEDS: FERROUS SULFATE 60 MG/ML 5ML CUP GTB SCH ×2 (08:30→21:23)
[2016-10-09] MEDS: ZYVOX 600 MG TAB PO SCH ×2 (08:30→21:23)
[2016-10-09] MEDS: AMLODIPINE 5 MG TAB PO SCH ×2 (08:31→21:24)
[2016-10-09] MEDS: MUPIROCIN 2% 22 GM OINT TOP SCH ×2 (08:32→21:21)
[2016-10-09] MEDS: METOPROLOL 25 MG TAB PO SCH ×2 (08:32→21:23)
[2016-10-09] MEDS: NYSTATIN 30 GM POWDER BTL TOP SCH ×2 (08:32→21:22)
--- NOTE | 2016-10-09 13:56 | CONS ---
Date/Time of Note Date/Time of Note DATE: 10/09/16 TIME: 13:54 Assessment/Plan Assessment/Plan Chief Complaint/Hosp Course ID PROGRESS NOTE CURRENT ABX=> 1. Diflucan 2. Zyvox 3. Flagyl 24H INTERVAL SUMMARY * Awake, alert, limited Armenian -- responsive, confused and anxious at times per staff, overall stable, no fevers, NAD * Facial edema/erythema improved PHYSICAL EXAMINATION: GENERAL: VSS, NAD, Afebrile HEENT: Dry mouth, decreased left facial edema NECK: Supple, trachea midline. CHEST: Rise symmetrical, without dyspnea on observation HEART: Pulse RRR ABDOMEN: Soft EXTREMITIES: Warm ID ASSESSMENT 76 yo M admit with: 1. Systemic inflammatory response syndrome with persistent leukocytosis. 2. Diarrhea. 3. Angelina albicans urinary tract infection=> Hx of urinary retention 4. Status post methicillin-resistant Staphylococcus aureus bacteremia. 5. Resolving left mandibular sialithiasis and sialoadenitis. 6. Dementia. 7. Diabetes. 8. ARF-improved 9. CHRONIC PAIN ISSUES: DJD 10. Kyphosis 11. Hx of falls (+)MRSA Nares ->Bactroban INVASIVES: PIV, PEG ABX ALLERGY: KNDA CURRENT ABX: Zyvox, Diflucan, Flagyl ID RECOMMENDATIONS 1. Continue current ABX & warm compress to face, oral care for dry mouth 2. Observe over the weekend on ABX -> Reassess by ID team next week Problems: Consultation Date/Type/Reason Admit Date/Time Sep 23, 2016 at 17:03 Initial Consult Date 09/25/16 Type of Consultation: ID Referring Provider: JR DEAN MD Exam/Review of Systems Vital Signs Vitals Vital Signs Date Time Temp Pulse Resp B/P Pulse Ox O2 Delivery O2 Flow Rate FiO2 10/09/16 07:25 97.8 73 16 166/84 100 Intake and Output 10/08/16 10/08/16 10/09/16 15:00 23:00 07:00 Intake Total 700 ml Output Total 50 ml Balance 650 ml Results Result Diagram: 10/07/16 0445 10/08/16 0540 Results 24 hrs Laboratory Tests Test 10/08/16 18:00 10/08/16 21:12 10/09/16 08:06 10/09/16 12:28 Bedside Glucose 152 175 200 123 Medications Medications Current Medications Diagnostic Test (Pha) (Accu-Chek) 1 ea 02 XX Last administered on 10/02/16 02: 11; Admin Dose 1 EA; Start 09/24/16 at 02:00 Miscellaneous Information 1 ea NOTE XX ; Start 09/24/16 at 01:30 Glucose (Glutose) 15 gm Q15M PRN PO DECREASED GLUCOSE; Start 09/24/16 at 01:30 Glucose (Glutose) 22.5 gm Q15M PRN PO DECREASED GLUCOSE; Start 09/24/16 at 01: 30 Dextrose (D50w Syringe) 25 ml Q15M PRN IV DECREASED GLUCOSE; Start 09/24/16 at 01:30 Dextrose (D50w Syringe) 50 ml Q15M PRN IV DECREASED GLUCOSE; Start 09/24/16 at 01:30 Glucagon (Glucagen) 1 mg Q15M PRN IM DECREASED GLUCOSE; Start 09/24/16 at 01:30 Glucose (Glutose) 15 gm Q15M PRN BUCCAL DECREASED GLUCOSE; Start 09/24/16 at 01 :30 Enoxaparin Sodium (Lovenox) 60 mg Q24H SC Last administered on 10/09/16 08:29; Admin Dose 60 MG; Start 09/24/16 at 09:00 Amlodipine Besylate (Norvasc) 5 mg BID PO Last administered on 10/09/16 08:31; Admin Dose 5 MG; Start 09/24/16 at 21:00 Hydralazine HCl (Apresoline) 5 mg Q6H PRN IV ELEVATED BLOOD PRESSURE Last administered on 09/28/16 20:26; Admin Dose 5 MG; Start 09/24/16 at 21:00 Clonidine HCl (Catapres-Tts 2 Patch) 1 patch Q7D TRANSDERM Last administered on 10/08/16 21:30; Admin Dose 1 PATCH; Start 09/24/16 at 21:00 Metoprolol Tartrate (Lopressor) 25 mg BID PO Last administered on 10/09/16 08: 32; Admin Dose 25 MG; Start 09/24/16 at 21:00 Aspirin (Aspirin) 81 mg DAILY PO Last administered on 10/09/16 08:30; Admin Dose 81 MG; Start 09/26/16 at 09:00 Lorazepam (Ativan) 0.5 mg Q6 PRN IV ANXIETY Last administered on 09/30/16 20: 08; Admin Dose 0.5 MG; Start 09/26/16 at 00:00 Mupirocin (Bactroban) 1 applic BID TOP Last administered on 10/09/16 08:32; Admin Dose 1 APPLIC; Start 09/27/16 at 21:00 Lansoprazole (Prevacid) 30 mg DAILY@06 GTB Last administered on 10/09/16 05:31 ; Admin Dose 30 MG; Start 10/01/16 at 06:00 Ferrous Sulfate (Feosol Liquid Cup) 300 mg BID GTB Last administered on 08:30; Admin Dose 300 MG; Start 10/02/16 at 21:00 Insulin Glargine (Lantus) 6 unit HS SC Last administered on 10/08/16 21:14; Admin Dose 6 UNIT; Start 10/03/16 at 21:00 Fluconazole (Diflucan) 100 mg DAILY PO Last administered on 10/09/16 08:30; Admin Dose 100 MG; Start 10/04/16 at 14:00 Acetaminophen (Tylenol Liquid) 325 mg Q8 GTB Last administered on 10/09/16 05: 31; Admin Dose 325 MG; Start 10/04/16 at 15:00 Metronidazole (Flagyl) 500 mg Q8 NGT Last administered on 10/09/16 05:31; Admin Dose 500 MG; Start 10/06/16 at 22:00 Nystatin (Nystatin Powder) 1 applic BID TOP Last administered on 10/09/16 08:32 ; Admin Dose 1 APPLIC; Start 10/06/16 at 21:00 Linezolid (Zyvox) 600 mg BID PO Last administered on 10/09/16 08:30; Admin Dose 600 MG; Start 10/07/16 at 12:30 Sodium Chloride (Nacl) 2 gm TID GTB Last administered on 10/09/16 08:30; Admin Dose 2 GM; Start 10/07/16 at 21:00 SUHAIL MUSA NP Oct 09, 2016 13:55
[2016-10-09] MEDS ORDERED: LOPERAMIDE LIQUID CUP 1 MG/5 ML CUP GTB PRN (16:00)
--- NOTE | 2016-10-09 16:11 | PN ---
Date/Time of Note Date/Time of Note DATE: 10/09/16 TIME: 16:03 Assessment/Plan VTE Prophylaxis VTE Prophylaxis Intervention: anti-embolic stocking VTE Contraindication Reason: peripheral vascular disease Lines/Catheters IV Catheter Type (from Nrsg): Peripheral IV Central line still needed: No Urinary Cath still in place: No Assessment/Plan Assessment/Plan 1.Sepsis- improving. 2.Left submandibular sialitis and possible abscess;Stone in a duct. ENT f/u. 3.ARF-improved 4.Anemia of chronic disease with low iron. 5.AD& MD with anxiety. 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 14.More alert and able to communicate. 15.Kyphosis 16Urinary incontinence with episodes of retention. 17.Hx of kidney cysts. 18.Pain syndrome. 19.S/P G tube placement and feeding. 20.S/P MRSA positive blood and naris cultures with lida in the urine 21.First degree decubitus of the sacral region and left calcaneal areas 22.Hyponatremia-continue supplementation; stable 129; Cont'd Hospitalization Reason: hyponatremia on the top of other conditions. Cont'd Hospitalization Reason: decubity and hyponatremia. Cont'd Hospitalization Reason: hyponatremia; sepsis. Subjective 24 Hr Interval Summary Free Text/Dictation I am ok. No pain. no dizziness. Denies n/v. Subjective hx not possible: other (extremely weak and fatiqued.) Constitutional: poor po, requiring O2, No chills, No diaphoresis, No disoriented, No febrile, No improved, No no complaints, No other, No requiring IVF Eyes: No discharge, No no complaints, No other, No pain, No redness, No visual change ENT: other (no pain in left submandibular area.), No bleeding, No congestion, No discharge, No dysphagia, No no complaints, No pain, No sore throat Respiratory: No cough, No no complaints, No other, No pain, No pleuritic pain, No shortness of breath, No sputum, No wheezing Cardiovascular: lightheadedness, orthopenea, No chest pain, No edema, No no complaints, No other, No palpitations, No paroxysmal nocturnal dyspnea Gastrointestinal: diarrhea, flatus, passing stool, No blood, No constipation, No decreased appetite, No nausea, No no complaints , No other, No pain, No vomiting Genitourinary: No bleeding, No discharge, No dysuria, No flank pain, No hematuria, No no complaints, No other Musculoskeletal: back pain, bone/joint pain, neck pain, No no complaints, No other, No restricted range of motion, No swelling Neurologic: confusion Psychological: anxiety (on and off. Less confused now.), confusion, No depression, No nl mood/affect, No no complaints, No other, No suicidal Exam/Review of Systems Vital Signs Vitals Vital Signs Date Time Temp Pulse Resp B/P Pulse Ox O2 Delivery O2 Flow Rate FiO2 10/09/16 07:25 97.8 73 16 166/84 100 Intake and Output 10/08/16 10/08/16 10/09/16 15:00 23:00 07:00 Intake Total 700 ml Output Total 50 ml Balance 650 ml Exam Constitutional: alert, frail, oriented, other (Arousable,very sensitive with inability to even cover herself. Unable to ), well developed, No distress, No non-verbal, No obese Psych: anxiety, confusion, depression, No nl mood/affect, No no complaints, No other, No suicidal Head: atraumatic, normocephalic, No hematomas, No lacerations, No other Eyes: EOMI, PERRL, nl lids, No fundi, disc, No icteric, No nl conjunctiva, No nl sclera, No other ENMT: mucosa pink and moist, nl external ears & nose, nl nasal mucosa & septum , other (left subclavianmass not palpable.), No intubated, No nl lips & teeth, No tympanic membranes Neck: bruits, No jvd, No masses, No non-tender, No nuchal rigidity, No other, No supple, No thyromegaly Respiratory: clear to auscultation, congested cough, diminished breath sounds, No crackles/rales, No intercostal retraction, No labored breathing, No normal air movement, No other, No respirations, No tactile fremitus, No wheezing Cardiovascular: bruits, jugular venous distention (JVD), systolic murmur, No S3, No S4, No diastolic murmur, No edema, No gallop, No irregular rhythm, No murmurs/extra sounds, No nl pulses, No other, No regular rate and rhythm, No rub Gastrointestinal: bowel sounds (increased.), distended, non-tender, soft, No ascites, No firm, No hepatomegaly, No mass, No nl liver, spleen, No other , No rebound or guarding, No splenomegaly, No surgical scars, No tender Genitourinary - Female: No CMT, No CVA tenderness, No nl adnexae, No nl external genitalia, No other, No uterus Musculoskeletal: joint tenderness, muscle tone, muscle weakness, nl extremities to inspection, No nl gait and stance, No other, No range of motion, No spine non-tender, No swelling Extremities: No calf tenderness, No clubbing, No cyanosis, No edema, No normal pulses, No other, No palpable cord, No pitting pedal edema, No tenderness Neurological: confused, lethargic, other (severe memory impairement.Fargts talkes done 2 minutes ago. Able to communicate better.) Skin: ecchymosis, No diaphoresis, No laceration, No nl turgor, No other, No puncture, No rash or lesions Results Result Diagram: 10/07/16 0445 10/08/16 0540 Results 24 hrs Laboratory Tests Test 10/08/16 18:00 10/08/16 21:12 10/09/16 08:06 10/09/16 12:28 Bedside Glucose 152 175 200 123 Medications Medications Current Medications Diagnostic Test (Pha) (Accu-Chek) 1 ea 02 XX Last administered on 10/02/16t 02: 11; Admin Dose 1 EA; Start 09/24/16 at 02:00 Miscellaneous Information 1 ea NOTE XX ; Start 09/24/16 at 01:30 Glucose (Glutose) 15 gm Q15M PRN PO DECREASED GLUCOSE; Start 09/24/16 at 01:30 Glucose (Glutose) 22.5 gm Q15M PRN PO DECREASED GLUCOSE; Start 09/24/16 at 01: 30 Dextrose (D50w Syringe) 25 ml Q15M PRN IV DECREASED GLUCOSE; Start 09/24/16 at 01:30 Dextrose (D50w Syringe) 50 ml Q15M PRN IV DECREASED GLUCOSE; Start 09/24/16 at 01:30 Glucagon (Glucagen) 1 mg Q15M PRN IM DECREASED GLUCOSE; Start 09/24/16 at 01:30 Glucose (Glutose) 15 gm Q15M PRN BUCCAL DECREASED GLUCOSE; Start 09/24/16 at 01 :30 Enoxaparin Sodium (Lovenox) 60 mg Q24H SC Last administered on 10/09/16 08:29; Admin Dose 60 MG; Start 09/24/16 at 09:00 Amlodipine Besylate (Norvasc) 5 mg BID PO Last administered on 10/09/16 08:31; Admin Dose 5 MG; Start 09/24/16 at 21:00 Hydralazine HCl (Apresoline) 5 mg Q6H PRN IV ELEVATED BLOOD PRESSURE Last administered on 09/28/16 20:26; Admin Dose 5 MG; Start 09/24/16 at 21:00 Clonidine HCl (Catapres-Tts 2 Patch) 1 patch Q7D TRANSDERM Last administered on 10/08/16 21:30; Admin Dose 1 PATCH; Start 09/24/16 at 21:00 Metoprolol Tartrate (Lopressor) 25 mg BID PO Last administered on 10/09/16 08: 32; Admin Dose 25 MG; Start 09/24/16 at 21:00 Aspirin (Aspirin) 81 mg DAILY PO Last administered on 10/09/16 08:30; Admin Dose 81 MG; Start 09/26/16 at 09:00 Lorazepam (Ativan) 0.5 mg Q6 PRN IV ANXIETY Last administered on 09/30/16 20: 08; Admin Dose 0.5 MG; Start 09/26/16 at 00:00 Mupirocin (Bactroban) 1 applic BID TOP Last administered on 10/09/16 08:32; Admin Dose 1 APPLIC; Start 09/27/16 at 21:00 Ferrous Sulfate (Feosol Liquid Cup) 300 mg BID GTB Last administered on 08:30; Admin Dose 300 MG; Start 10/02/16 at 21:00 Insulin Glargine (Lantus) 6 unit HS SC Last administered on 10/08/16 21:14; Admin Dose 6 UNIT; Start 10/03/16 at 21:00 Fluconazole (Diflucan) 100 mg DAILY PO Last administered on 10/09/16 08:30; Admin Dose 100 MG; Start 10/04/16 at 14:00 Acetaminophen (Tylenol Liquid) 325 mg Q8 GTB Last administered on 10/09/16 13: 57; Admin Dose 325 MG; Start 10/04/16 at 15:00 Metronidazole (Flagyl) 500 mg Q8 NGT Last administered on 10/09/16 13:56; Admin Dose 500 MG; Start 10/06/16 at 22:00 Nystatin (Nystatin Powder) 1 applic BID TOP Last administered on 10/09/16 08:32 ; Admin Dose 1 APPLIC; Start 10/06/16 at 21:00 Linezolid (Zyvox) 600 mg BID PO Last administered on 10/09/16 08:30; Admin Dose 600 MG; Start 10/07/16 at 12:30 Sodium Chloride (Nacl) 2 gm TID GTB Last administered on 10/09/16 13:56; Admin Dose 2 GM; Start 10/07/16 at 21:00 Loperamide HCl (Imodium Liquid Cup) 2 mg TID PRN GTB DIARRHEA; Start 10/09/16 at 16:00; Status JR WIGGINS MD Oct 09, 2016 16:11
[2016-10-09] MEDS ORDERED: FUROSEMIDE 20 MG TAB GTB SCH (16:30)
--- NOTE | 2016-10-09 20:40 | CONS ---
Date/Time of Note Date/Time of Note DATE: 10/09/16 TIME: 20:36 Assessment/Plan Assessment/Plan Chief Complaint/Hosp Course ANEMIA MONOCLONAL GAMMOPATHY- M-SPIKE Evaluation reveals a restricted band (M-spike), migrating in the gamma globulin region. immunofixation analysis- P COMPLETE MM W-UP Sepsis, MRSA bacteremia, diarrhea - antibiotics per infectious disease Sialoadenitis with obstructive stone - per ENT Coronary artery disease - details unknown, clinically stable Peripheral vascular disease Hypertension Acute kidney injury vs chronic kidney disease Diabetes mellitus Dementia Problems: Consultation Date/Type/Reason Admit Date/Time Sep 23, 2016 at 17:03 Initial Consult Date 09/25/16 [facility] Referring Provider: JR DEAN MD 24 HR Interval Summary Free Text/Dictation count improved/ stable Facial edema/erythema improved Exam/Review of Systems Vital Signs Vitals Vital Signs Date Time Temp Pulse Resp B/P Pulse Ox O2 Delivery O2 Flow Rate FiO2 10/09/16 07:25 97.8 73 16 166/84 100 Intake and Output 10/08/16 10/08/16 10/09/16 15:00 23:00 07:00 Intake Total 700 ml Output Total 50 ml Balance 650 ml Exam PHYSICAL EXAMINATION: GENERAL: VSS, NAD, Afebrile HEENT: Dry mouth, decreased left facial edema NECK: Supple, trachea midline. CHEST: Rise symmetrical, without dyspnea on observation HEART: Pulse RRR ABDOMEN: Soft EXTREMITIES: Warm Results Result Diagram: 10/07/16 0445 10/08/16 0540 Results 24 hrs Laboratory Tests Test 10/08/16 21:12 10/09/16 08:06 10/09/16 12:28 10/09/16 16:48 Bedside Glucose 175 200 123 196 Medications Medications Current Medications Diagnostic Test (Pha) (Accu-Chek) 1 ea 02 XX Last administered on 10/02/16t 02: 11; Admin Dose 1 EA; Start 09/24/16 at 02:00 Miscellaneous Information 1 ea NOTE XX ; Start 09/24/16 at 01:30 Glucose (Glutose) 15 gm Q15M PRN PO DECREASED GLUCOSE; Start 09/24/16 at 01:30 Glucose (Glutose) 22.5 gm Q15M PRN PO DECREASED GLUCOSE; Start 09/24/16 at 01: 30 Dextrose (D50w Syringe) 25 ml Q15M PRN IV DECREASED GLUCOSE; Start 09/24/16 at 01:30 Dextrose (D50w Syringe) 50 ml Q15M PRN IV DECREASED GLUCOSE; Start 09/24/16 at 01:30 Glucagon (Glucagen) 1 mg Q15M PRN IM DECREASED GLUCOSE; Start 09/24/16 at 01:30 Glucose (Glutose) 15 gm Q15M PRN BUCCAL DECREASED GLUCOSE; Start 09/24/16 at 01 :30 Enoxaparin Sodium (Lovenox) 60 mg Q24H SC Last administered on 10/09/16 08:29; Admin Dose 60 MG; Start 09/24/16 at 09:00 Amlodipine Besylate (Norvasc) 5 mg BID PO Last administered on 10/09/16 08:31; Admin Dose 5 MG; Start 09/24/16 at 21:00 Hydralazine HCl (Apresoline) 5 mg Q6H PRN IV ELEVATED BLOOD PRESSURE Last administered on 09/28/16 20:26; Admin Dose 5 MG; Start 09/24/16 at 21:00 Clonidine HCl (Catapres-Tts 2 Patch) 1 patch Q7D TRANSDERM Last administered on 10/08/16 21:30; Admin Dose 1 PATCH; Start 09/24/16 at 21:00 Metoprolol Tartrate (Lopressor) 25 mg BID PO Last administered on 10/09/16 08: 32; Admin Dose 25 MG; Start 09/24/16 at 21:00 Aspirin (Aspirin) 81 mg DAILY PO Last administered on 10/09/16 08:30; Admin Dose 81 MG; Start 09/26/16 at 09:00 Lorazepam (Ativan) 0.5 mg Q6 PRN IV ANXIETY Last administered on 09/30/16 20: 08; Admin Dose 0.5 MG; Start 09/26/16 at 00:00 Mupirocin (Bactroban) 1 applic BID TOP Last administered on 10/09/16 08:32; Admin Dose 1 APPLIC; Start 09/27/16 at 21:00 Ferrous Sulfate (Feosol Liquid Cup) 300 mg BID GTB Last administered on 08:30; Admin Dose 300 MG; Start 10/02/16 at 21:00 Insulin Glargine (Lantus) 6 unit HS SC Last administered on 10/08/16 21:14; Admin Dose 6 UNIT; Start 10/03/16 at 21:00 Fluconazole (Diflucan) 100 mg DAILY PO Last administered on 10/09/16 08:30; Admin Dose 100 MG; Start 10/04/16 at 14:00 Acetaminophen (Tylenol Liquid) 325 mg Q8 GTB Last administered on 10/09/16 13: 57; Admin Dose 325 MG; Start 10/04/16 at 15:00 Metronidazole (Flagyl) 500 mg Q8 NGT Last administered on 10/09/16 13:56; Admin Dose 500 MG; Start 10/06/16 at 22:00 Nystatin (Nystatin Powder) 1 applic BID TOP Last administered on 10/09/16 08:32 ; Admin Dose 1 APPLIC; Start 10/06/16 at 21:00 Linezolid (Zyvox) 600 mg BID PO Last administered on 10/09/16 08:30; Admin Dose 600 MG; Start 10/07/16 at 12:30 Sodium Chloride (Nacl) 2 gm TID GTB Last administered on 10/09/16 13:56; Admin Dose 2 GM; Start 10/07/16 at 21:00 Loperamide HCl (Imodium Liquid Cup) 2 mg TID PRN GTB DIARRHEA; Start 10/09/16 at 16:00 Furosemide (Lasix) 20 mg DAILY GTB ; Start 10/10/16 at 09:00 Procedures Procedures [place] [address] Radiology Main Line: [phone] DIAGNOSTIC IMAGING REPORT Patient: JESSICA KULKARNI : 1940 Age: 76 Sex: F MR #: [id number] DOS: 10/08/16 0812 Ordering MD: JR DEAN MD Location: [facility] Room/Bed: [facility] PROCEDURE: Complete abdominal ultrasound. CLINICAL INDICATION: Abdominal pain abnormal liver function tests TECHNIQUE: Dumont scale and color doppler ultrasound images of the abdomen. COMPARISON: None FINDINGS: Pancreas: Visualized portions appear of normal echogenicity, no focal lesions. Liver: Morphology: Normal in size and contour. Echogenicity: Normal. Focal lesions: None. Main portal vein: Patent with hepatopetal flow. Biliary System: Status post cholecystectomy. No intrahepatic biliary dilatation. Common bile duct diameter: 5.9 mm Kidneys: Right length: 8.5 cm. Mild - moderate right cortical thinning measuring 8 mm. Left length: 8.5 cm. Mild - moderate left cortical thinning measuring 8 mm. Normal echogenicity. No hydronephrosis. No renal calculi. No focal renal lesions. Spleen: Normal in size, no focal lesions. No free fluid identified. Normal caliber of the partially visualized aorta. IMPRESSION: Status post cholecystectomy. Normal caliber intrahepatic and extrahepatic biliary system. Normal appearance the liver without focal lesion. Atrophic changes of both kidneys without hydronephrosis. RPTAT: AADD .Niraj Lockett MD, Date Time Electronically viewed and signed by .Niraj Lockett MD, on 10/08/2016 09:56 .B/ CC: JR DEAN MD [place] [address] Radiology Main Line: [phone] DIAGNOSTIC IMAGING REPORT Patient: JESSICA KULKARNI : 1940 Age: 76 Sex: F MR #: [id number] DOS: 10/08/16 0000 Ordering MD: ARIANNE AUSTIN MD Location: [facility] Room/Bed: [facility] PROCEDURE: Metastatic bone survey. CLINICAL INDICATION: Multiple myeloma workup. TECHNIQUE: A total of 21 images were obtained. The patient refused imaging of the lower extremities. Frontal and lateral skull. Frontal and lateral spine. Frontal chest, oblique ribs, frontal and lateral humeri and forearms. Frontal pelvis. COMPARISON: Chest radiograph dated 10/06/2016. FINDINGS: There is no lytic or blastic lesion. There is no fracture or dislocation. Vascular calcifications are present consistent with atherosclerosis. A surgical clip is present in the right upper quadrant of the abdomen. A gastrostomy tube is present overlying the stomach. The lungs are clear. The bowel gas pattern is normal. IMPRESSION: 1. Normal osseous structures with no lytic lesion. 2. The lower extremities were not evaluated as the patient refused. RPTAT: QQ .Will Lei MD, MD Date Time Electronically viewed and signed by .Will Lei MD, MD on 10/08/2016 12:26 .R/ CC: ARIANNE AUSTIN MD, VERA M MD Oct 09, 2016 20:39
[2016-10-09 22:15] VITALS: BP 137/73; RESP 18
[2016-10-10] MEDS: INSULIN ASPART [NOVOLOG] 3 ML PEN SC SCH ×5 (00:34→21:00)
[2016-10-10] MEDS: INSULIN GLARGINE [LANtus] 3 ML PEN SC SCH ×2 (00:35→22:14)
[2016-10-10] MEDS: ACETAMINOPHEN 650MG/20.3ML CUP GTB SCH ×4 (00:43→22:23)
[2016-10-10] MEDS: metroNIDAZOLE 500 MG TAB NGT SCH ×4 (00:43→22:20)
[2016-10-10] MEDS: ACCU-CHEK XX SCH (02:00)
[2016-10-10 05:24] LABS: ADD SCAN DIFF NO
[2016-10-10 05:29] LABS: BASOPHILS % 0.6 % (0.0-2.0); EOSINOPHILS # 0.1 10^3/ul (0.0-0.5); EOSINOPHILS % 1.6 % (0.0-7.0); HEMATOCRIT 26.8 % (37.0-47.0); HEMOGLOBIN 8.9 g/dl (12.0-16.0); LYMPHOCYTES # 2.6 10^3/ul (0.8-2.9); LYMPHOCYTES % 37.8 % (15.0-51.0); MEAN CORPUSCULAR HEMOGLOBIN 31.7 pg (29.0-33.0); MEAN CORPUSCULAR HGB CONC 33.2 g/dl (32.0-37.0); MEAN CORPUSCULAR VOLUME 95.4 fl (82.0-101.0); MEAN PLATELET VOLUME 10.1 fl (7.4-10.4); MONOCYTE # 0.6 10^3/ul (0.3-0.9); MONOCYTES % 8.5 % (0.0-11.0); NEUTROPHIL # 3.5 10^3/ul (1.6-7.5); NEUTROPHILS % 51.1 % (39.0-77.0); PLATELET COUNT 327 10^3/UL (140-415); RED BLOOD COUNT 2.81 10^6/ul (4.20-5.40); RED CELL DISTRIBUTION WIDTH 17.9 % (11.5-14.5); WHITE BLOOD COUNT 6.8 10^3/ul (4.8-10.8)
[2016-10-10 05:48] LABS: ALBUMIN 2.1 g/dl (3.3-4.9); ALBUMIN/GLOBULIN RATIO 0.7; BILIRUBIN,INDIRECT 0.1 mg/dl (0-1.1); BILIRUBIN,TOTAL 0.1 mg/dl (0.2-1.3); CALCIUM 7.5 mg/dl (8.4-10.2); CREATININE 1.03 mg/dl (0.44-1.00); POTASSIUM 4.3 mmol/L (3.5-5.1); TOTAL PROTEIN 5.1 g/dl (6.1-8.1)
[2016-10-10 07:15] VITALS: BP 122/59; RESP 18
--- NOTE | 2016-10-10 07:20 | PN ---
Date/Time of Note Date/Time of Note DATE: 10/10/16 TIME: 07:19 Assessment/Plan VTE Prophylaxis VTE Prophylaxis Intervention: ambulation VTE Contraindication Reason: peripheral vascular disease Lines/Catheters IV Catheter Type (from Nrsg): Peripheral IV Central line still needed: No Urinary Cath still in place: No Reason Cath still needed: urinary retention Assessment/Plan Assessment/Plan 1.Sepsis- improving. 2.Left submandibular sialitis and possible abscess;Stone in a duct. ENT f/u. 3.ARF-improved 4.Anemia of chronic disease with low iron. 5.AD& MD with anxiety. 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 14.More alert and able to communicate. 15.Kyphosis 16Urinary incontinence with episodes of retention. 17.Hx of kidney cysts. 18.Pain syndrome. 19.S/P G tube placement and feeding. 20.S/P MRSA positive blood and naris cultures with lida in the urine 21.First degree decubitus of the sacral region and left calcaneal areas 22.Hyponatremia-continue supplementation; stable 129- today 133. Cont'd Hospitalization Reason: hyponatremia on the top of other conditions. Cont'd Hospitalization Reason: decubity and hyponatremia. Cont'd Hospitalization Reason: hyponatremia; sepsis. Subjective 24 Hr Interval Summary Free Text/Dictation I am ok. I want a water. Don't let your relative to approach me. Subjective hx not possible: pt critical Constitutional: disoriented, poor po, requiring O2, No chills, No diaphoresis, No febrile, No improved, No no complaints, No other, No requiring IVF Eyes: No discharge, No no complaints, No other, No pain, No redness, No visual change ENT: congestion, No bleeding, No discharge, No dysphagia, No no complaints, No other, No pain , No sore throat Respiratory: shortness of breath, No cough, No no complaints, No other, No pain, No pleuritic pain, No sputum, No wheezing Cardiovascular: lightheadedness, orthopenea, palpitations, No chest pain, No edema, No no complaints, No other, No paroxysmal nocturnal dyspnea Gastrointestinal: diarrhea, flatus, passing stool (dark,watery.) Skin: erythema, No bruising, No laceration, No no complaints, No other, No pruritis, No rash , No skin lesions Neurologic: confusion, dizziness, No focal-weakness, No headache, No no complaints, No other, No seizure, No syncope Psychological: anxiety, confusion, depression Exam/Review of Systems Vital Signs Vitals Vital Signs Date Time Temp Pulse Resp B/P Pulse Ox O2 Delivery O2 Flow Rate FiO2 10/09/16 22:15 97.7 80 18 137/73 97 Intake and Output 10/09/16 10/09/16 10/10/16 15:00 23:00 07:00 Intake Total 700 ml 700 ml Output Total 50 ml 150 ml Balance 650 ml 550 ml Exam Constitutional: alert, frail, No distress, No non-verbal, No obese, No oriented, No other, No well developed Psych: anxiety, depression, No confusion, No nl mood/affect, No no complaints, No other, No suicidal Head: atraumatic, normocephalic, No hematomas, No lacerations, No other Eyes: EOMI, PERRL, nl lids, No fundi, disc, No icteric, No nl conjunctiva, No nl sclera, No other ENMT: other (no mass palpable in left submandibular area. No painfulness. No redness. No masses palpable under the tounge.), No intubated, No mucosa pink and moist, No nl external ears & nose, No nl lips & teeth, No nl nasal mucosa & septum, No tympanic membranes Neck: bruits, No jvd, No masses, No non-tender, No nuchal rigidity, No other, No supple, No thyromegaly Respiratory: diminished breath sounds, No clear to auscultation, No congested cough, No crackles/rales, No intercostal retraction, No labored breathing, No normal air movement, No other, No respirations, No tactile fremitus, No wheezing Cardiovascular: murmurs/extra sounds, systolic murmur, No S3, No S4, No bruits, No diastolic murmur, No edema, No gallop, No irregular rhythm, No jugular venous distention (JVD), No nl pulses, No other, No regular rate and rhythm, No rub Gastrointestinal: bowel sounds, nl liver, spleen, non-tender, other (G tube side is clear. ), soft, No ascites, No distended, No firm, No hepatomegaly, No mass, No rebound or guarding, No splenomegaly, No surgical scars, No tender Musculoskeletal: joint tenderness, muscle tone, muscle weakness, No nl extremities to inspection, No nl gait and stance, No other, No range of motion, No spine non-tender, No swelling Neurological: confused, numbness Results Result Diagram: 10/10/16 0430 10/10/16 0430 Results 24 hrs Laboratory Tests Test 10/09/16 08:06 10/09/16 12:28 10/09/16 16:48 10/10/16 00:30 Bedside Glucose 200 123 196 199 Test 10/10/16 02:17 10/10/16 04:30 Bedside Glucose 163 White Blood Count 6.8 Red Blood Count 2.81 L Hemoglobin 8.9 L Hematocrit 26.8 L Mean Corpuscular Volume 95.4 Mean Corpuscular Hemoglobin 31.7 Mean Corpuscular Hemoglobin Concent 33.2 Red Cell Distribution Width 17.9 H Platelet Count 327 # Mean Platelet Volume 10.1 Neutrophils % 51.1 Lymphocytes % 37.8 Monocytes % 8.5 Eosinophils % 1.6 Basophils % 0.6 Nucleated Red Blood Cells % 0.0 Neutrophils # 3.5 Lymphocytes # 2.6 Monocytes # 0.6 Eosinophils # 0.1 Basophils # 0.0 Nucleated Red Blood Cells # 0.0 Sodium Level 133 L Potassium Level 4.3 Chloride Level 110 Carbon Dioxide Level 22 Anion Gap 5 L Blood Urea Nitrogen 27 H Creatinine 1.03 H Glucose Level 157 Calcium Level 7.5 L Total Bilirubin 0.1 L Direct Bilirubin 0.00 Indirect Bilirubin 0.1 Aspartate Amino Transf (AST/SGOT) 35 Alanine Aminotransferase (ALT/SGPT) 33 Alkaline Phosphatase 111 Total Protein 5.1 L Albumin 2.1 L Globulin 3.00 Albumin/Globulin Ratio 0.70 Medications Medications Current Medications Diagnostic Test (Pha) (Accu-Chek) 1 ea XX Last administered on 10/02/16t 02: 11; Admin Dose 1 EA; Start 09/24/16 at 02:00 Miscellaneous Information 1 ea NOTE XX ; Start 09/24/16 at 01:30 Glucose (Glutose) 15 gm Q15M PRN PO DECREASED GLUCOSE; Start 09/24/16 at 01:30 Glucose (Glutose) 22.5 gm Q15M PRN PO DECREASED GLUCOSE; Start 09/24/16 at 01: 30 Dextrose (D50w Syringe) 25 ml Q15M PRN IV DECREASED GLUCOSE; Start 09/24/16 at 01:30 Dextrose (D50w Syringe) 50 ml Q15M PRN IV DECREASED GLUCOSE; Start 09/24/16 at 01:30 Glucagon (Glucagen) 1 mg Q15M PRN IM DECREASED GLUCOSE; Start 09/24/16 at 01:30 Glucose (Glutose) 15 gm Q15M PRN BUCCAL DECREASED GLUCOSE; Start 09/24/16 at 01 :30 Enoxaparin Sodium (Lovenox) 60 mg Q24H SC Last administered on 10/09/16 08:29; Admin Dose 60 MG; Start 09/24/16 at 09:00 Amlodipine Besylate (Norvasc) 5 mg BID PO Last administered on 10/09/16 21:24; Admin Dose 5 MG; Start 09/24/16 at 21:00 Hydralazine HCl (Apresoline) 5 mg Q6H PRN IV ELEVATED BLOOD PRESSURE Last administered on 09/28/16 20:26; Admin Dose 5 MG; Start 09/24/16 at 21:00 Clonidine HCl (Catapres-Tts 2 Patch) 1 patch Q7D TRANSDERM Last administered on 10/08/16 21:30; Admin Dose 1 PATCH; Start 09/24/16 at 21:00 Metoprolol Tartrate (Lopressor) 25 mg BID PO Last administered on 10/09/16 21: 23; Admin Dose 25 MG; Start 09/24/16 at 21:00 Aspirin (Aspirin) 81 mg DAILY PO Last administered on 10/09/16 08:30; Admin Dose 81 MG; Start 09/26/16 at 09:00 Lorazepam (Ativan) 0.5 mg Q6 PRN IV ANXIETY Last administered on 09/30/16 20: 08; Admin Dose 0.5 MG; Start 09/26/16 at 00:00 Mupirocin (Bactroban) 1 applic BID TOP Last administered on 10/09/16 21:21; Admin Dose 1 APPLIC; Start 09/27/16 at 21:00 Ferrous Sulfate (Feosol Liquid Cup) 300 mg BID GTB Last administered on 21:23; Admin Dose 300 MG; Start 10/02/16 at 21:00 Insulin Glargine (Lantus) 6 unit HS SC Last administered on 10/10/16 00:35; Admin Dose 6 UNIT; Start 10/03/16 at 21:00 Fluconazole (Diflucan) 100 mg DAILY PO Last administered on 10/09/16 08:30; Admin Dose 100 MG; Start 10/04/16 at 14:00 Acetaminophen (Tylenol Liquid) 325 mg Q8 GTB Last administered on 10/10/16 05: 36; Admin Dose 325 MG; Start 10/04/16 at 15:00 Metronidazole (Flagyl) 500 mg Q8 NGT Last administered on 10/10/16 05:36; Admin Dose 500 MG; Start 10/06/16 at 22:00 Nystatin (Nystatin Powder) 1 applic BID TOP Last administered on 10/09/16 21:22 ; Admin Dose 1 APPLIC; Start 10/06/16 at 21:00 Linezolid (Zyvox) 600 mg BID PO Last administered on 10/09/16 21:23; Admin Dose 600 MG; Start 10/07/16 at 12:30 Sodium Chloride (Nacl) 2 gm TID GTB Last administered on 10/09/16 21:23; Admin Dose 2 GM; Start 10/07/16 at 21:00 Loperamide HCl (Imodium Liquid Cup) 2 mg TID PRN GTB DIARRHEA; Start 10/09/16 at 16:00 Furosemide (Lasix) 20 mg DAILY GTB ; Start 10/10/16 at 09:00 JR DEAN MD Oct 10, 2016 07:20
[2016-10-10] MEDS: FUROSEMIDE 40 MG/4 ML CUP GTB SCH (09:00)
[2016-10-10] MEDS: ASPIRIN 81 MG TAB PO SCH (10:01)
[2016-10-10] MEDS: ZYVOX 600 MG TAB PO SCH ×2 (10:01→21:15)
[2016-10-10] MEDS: SODIUM CHLORIDE 1 GM TAB GTB SCH ×3 (10:01→21:15)
[2016-10-10] MEDS: AMLODIPINE 5 MG TAB PO SCH ×2 (10:01→21:20)
[2016-10-10] MEDS: FERROUS SULFATE 60 MG/ML 5ML CUP GTB SCH ×2 (10:01→21:15)
[2016-10-10] MEDS: NYSTATIN 30 GM POWDER BTL TOP SCH ×2 (10:02→22:17)
[2016-10-10] MEDS: MUPIROCIN 2% 22 GM OINT TOP SCH ×2 (10:02→22:17)
[2016-10-10] MEDS: FLUCONAZOLE 100 MG TAB PO SCH (10:02)
[2016-10-10] MEDS: METOPROLOL 25 MG TAB PO SCH ×2 (10:02→21:20)
[2016-10-10] MEDS: ENOXAPARIN 60 MG/0.6 ML SYG SC SCH (10:03)
--- NOTE | 2016-10-10 16:15 | CONS ---
Date/Time of Note Date/Time of Note DATE: 10/10/16 TIME: 16:13 Assessment/Plan Assessment/Plan Chief Complaint/Hosp Course SUBJECTIVE: No acute events overnight. Awake, confused, looks comfortable. MICROBIOLOGY: Repeat urine culture growing Angelina albicans ANTIMICROBIALS: 1. Diflucan 2. Zyvox 3. Topical Bactroban to nares. 4. Flagyl INDWELLINGS: PEG. PHYSICAL EXAMINATION: GENERAL: This is a well-developed, elderly, [place] woman who is alert, in no distress. HEENT: Head atraumatic, normocephalic. Sclerae anicteric. Buccal mucosa dry. NECK: Supple. CHEST: Rise symmetrical. Breath sounds diminished to bases. HEART: S1, S2. ABDOMEN: Soft, bowel tones present. EXTREMITIES: Without cyanosis. ASSESSMENT: 1. Systemic inflammatory response syndrome with resolving leukocytosis. 2. Diarrhea. 3. Angelina albicans urinary tract infection. 4. Status post methicillin-resistant Staphylococcus aureus bacteremia. 5. Resolving left mandibular sialithiasis and sialoadenitis. 6. Dementia. 7. Diabetes. PLAN: Clinically unchanged, wbc decreasing, will dc Zyvox in am, continue aspiration precautions [facility] staff Problems: Consultation Date/Type/Reason Admit Date/Time Sep 23, 2016 at 17:03 Initial Consult Date 09/25/16 Type of Consultation: id Referring Provider: JR DEAN MD Exam/Review of Systems Vital Signs Vitals Vital Signs Date Time Temp Pulse Resp B/P Pulse Ox O2 Delivery O2 Flow Rate FiO2 10/10/16 07:15 97.8 61 18 122/59 100 Intake and Output 10/09/16 10/09/16 10/10/16 15:00 23:00 07:00 Intake Total 700 ml 700 ml Output Total 50 ml 150 ml Balance 650 ml 550 ml Results Result Diagram: 10/10/16 0430 10/10/16 0430 Results 24 hrs Laboratory Tests Test 10/09/16 16:48 10/10/16 00:30 10/10/16 02:17 10/10/16 04:30 Bedside Glucose 196 199 163 White Blood Count 6.8 Red Blood Count 2.81 L Hemoglobin 8.9 L Hematocrit 26.8 L Mean Corpuscular Volume 95.4 Mean Corpuscular Hemoglobin 31.7 Mean Corpuscular Hemoglobin Concent 33.2 Red Cell Distribution Width 17.9 H Platelet Count 327 # Mean Platelet Volume 10.1 Neutrophils % 51.1 Lymphocytes % 37.8 Monocytes % 8.5 Eosinophils % 1.6 Basophils % 0.6 Nucleated Red Blood Cells % 0.0 Neutrophils # 3.5 Lymphocytes # 2.6 Monocytes # 0.6 Eosinophils # 0.1 Basophils # 0.0 Nucleated Red Blood Cells # 0.0 Sodium Level 133 L Potassium Level 4.3 Chloride Level 110 Carbon Dioxide Level 22 Anion Gap 5 L Blood Urea Nitrogen 27 H Creatinine 1.03 H Glucose Level 157 Calcium Level 7.5 L Total Bilirubin 0.1 L Direct Bilirubin 0.00 Indirect Bilirubin 0.1 Aspartate Amino Transf (AST/SGOT) 35 Alanine Aminotransferase (ALT/SGPT) 33 Alkaline Phosphatase 111 Total Protein 5.1 L Albumin 2.1 L Globulin 3.00 Albumin/Globulin Ratio 0.70 Test 10/10/16 08:38 10/10/16 12:46 Bedside Glucose 156 161 Medications Medications Current Medications Diagnostic Test (Pha) (Accu-Chek) 1 ea 02 XX Last administered on 10/02/16 02: 11; Admin Dose 1 EA; Start 09/24/16 at 02:00 Miscellaneous Information 1 ea NOTE XX ; Start 09/24/16 at 01:30 Glucose (Glutose) 15 gm Q15M PRN PO DECREASED GLUCOSE; Start 09/24/16 at 01:30 Glucose (Glutose) 22.5 gm Q15M PRN PO DECREASED GLUCOSE; Start 09/24/16 at 01: 30 Dextrose (D50w Syringe) 25 ml Q15M PRN IV DECREASED GLUCOSE; Start 09/24/16 at 01:30 Dextrose (D50w Syringe) 50 ml Q15M PRN IV DECREASED GLUCOSE; Start 09/24/16 at 01:30 Glucagon (Glucagen) 1 mg Q15M PRN IM DECREASED GLUCOSE; Start 09/24/16 at 01:30 Glucose (Glutose) 15 gm Q15M PRN BUCCAL DECREASED GLUCOSE; Start 09/24/16 at 01 :30 Enoxaparin Sodium (Lovenox) 60 mg Q24H SC Last administered on 10/10/16 10:03 ; Admin Dose 60 MG; Start 09/24/16 at 09:00 Amlodipine Besylate (Norvasc) 5 mg BID PO Last administered on 10/10/16 10:01 ; Admin Dose 5 MG; Start 09/24/16 at 21:00 Hydralazine HCl (Apresoline) 5 mg Q6H PRN IV ELEVATED BLOOD PRESSURE Last administered on 09/28/16 20:26; Admin Dose 5 MG; Start 09/24/16 at 21:00 Clonidine HCl (Catapres-Tts 2 Patch) 1 patch Q7D TRANSDERM Last administered on 10/08/16 21:30; Admin Dose 1 PATCH; Start 09/24/16 at 21:00 Metoprolol Tartrate (Lopressor) 25 mg BID PO Last administered on 10/10/16 10: 02; Admin Dose 25 MG; Start 09/24/16 at 21:00 Aspirin (Aspirin) 81 mg DAILY PO Last administered on 10/10/16 10:01; Admin Dose 81 MG; Start 09/26/16 at 09:00 Lorazepam (Ativan) 0.5 mg Q6 PRN IV ANXIETY Last administered on 09/30/16 20: 08; Admin Dose 0.5 MG; Start 09/26/16 at 00:00 Mupirocin (Bactroban) 1 applic BID TOP Last administered on 10/10/16 10:02; Admin Dose 1 APPLIC; Start 09/27/16 at 21:00 Ferrous Sulfate (Feosol Liquid Cup) 300 mg BID GTB Last administered on 10:01; Admin Dose 300 MG; Start 10/02/16 at 21:00 Insulin Glargine (Lantus) 6 unit HS SC Last administered on 10/10/16 00:35; Admin Dose 6 UNIT; Start 10/03/16 at 21:00 Fluconazole (Diflucan) 100 mg DAILY PO Last administered on 10/10/16 10:02; Admin Dose 100 MG; Start 10/04/16 at 14:00 Acetaminophen (Tylenol Liquid) 325 mg Q8 GTB Last administered on 10/10/16 13: 03; Admin Dose 325 MG; Start 10/04/16 at 15:00 Metronidazole (Flagyl) 500 mg Q8 NGT Last administered on 10/10/16 13:03; Admin Dose 500 MG; Start 10/06/16 at 22:00 Nystatin (Nystatin Powder) 1 applic BID TOP Last administered on 10/10/16 10: 02; Admin Dose 1 APPLIC; Start 10/06/16 at 21:00 Linezolid (Zyvox) 600 mg BID PO Last administered on 10/10/16 10:01; Admin Dose 600 MG; Start 10/07/16 at 12:30 Sodium Chloride (Nacl) 2 gm TID GTB Last administered on 10/10/16 13:03; Admin Dose 2 GM; Start 10/07/16 at 21:00 Loperamide HCl (Imodium Liquid Cup) 2 mg TID PRN GTB DIARRHEA; Start 10/09/16 at 16:00 Furosemide (Lasix) 20 mg DAILY GTB ; Start 10/10/16 at 09:00 LOGAN CASTANEDA NP Oct 10, 2016 16:14
--- NOTE | 2016-10-10 16:53 | CONS ---
Date/Time of Note Date/Time of Note DATE: 10/10/16 TIME: 16:52 Assessment/Plan Assessment/Plan Chief Complaint/Hosp Course ANEMIA N- CYTIC WITH INCREASED RDW COMPLETE W-UP MONITOR FOR BLEEDING AND HEMOLYSIS SMEAR- NEG MONITOR COUNT CLOSELY LEUKOCYTOSIS- IN PT WITH SEPSIS MOST LIKELY REACTIVE MONITOR CLOSELY ATB PER ID Sepsis, MRSA bacteremia, diarrhea - antibiotics per infectious disease Sialoadenitis with obstructive stone - per ENT Coronary artery disease - details unknown, clinically stable Peripheral vascular disease Hypertension Acute kidney injury vs chronic kidney disease Diabetes mellitus Dementia Problems: Consultation Date/Type/Reason Admit Date/Time Sep 23, 2016 at 17:03 Initial Consult Date 09/25/16 Type of Consultation: HEMEON Referring Provider: JR DEAN MD 24 HR Interval Summary Free Text/Dictation ALL NOTED COUNT REVIEWED Exam/Review of Systems Vital Signs Vitals Vital Signs Date Time Temp Pulse Resp B/P Pulse Ox O2 Delivery O2 Flow Rate FiO2 10/10/16 07:15 97.8 61 18 122/59 100 Intake and Output 10/09/16 10/09/16 10/10/16 15:00 23:00 07:00 Intake Total 700 ml 700 ml Output Total 50 ml 150 ml Balance 650 ml 550 ml Exam GENERAL: This is a well-developed, elderly, Sinhala woman who is alert, in no distress. HEENT: Head atraumatic, normocephalic. Sclerae anicteric. Buccal mucosa dry. NECK: Supple. CHEST: Rise symmetrical. Breath sounds diminished to bases. HEART: S1, S2. ABDOMEN: Soft, bowel tones present. EXTREMITIES: Without cyanosis. Results Result Diagram: 10/10/16 0430 10/10/16 0430 Results 24 hrs Laboratory Tests Test 10/10/16 00:30 10/10/16 02:17 10/10/16 04:30 10/10/16 08:38 Bedside Glucose 199 163 156 White Blood Count 6.8 Red Blood Count 2.81 L Hemoglobin 8.9 L Hematocrit 26.8 L Mean Corpuscular Volume 95.4 Mean Corpuscular Hemoglobin 31.7 Mean Corpuscular Hemoglobin Concent 33.2 Red Cell Distribution Width 17.9 H Platelet Count 327 # Mean Platelet Volume 10.1 Neutrophils % 51.1 Lymphocytes % 37.8 Monocytes % 8.5 Eosinophils % 1.6 Basophils % 0.6 Nucleated Red Blood Cells % 0.0 Neutrophils # 3.5 Lymphocytes # 2.6 Monocytes # 0.6 Eosinophils # 0.1 Basophils # 0.0 Nucleated Red Blood Cells # 0.0 Sodium Level 133 L Potassium Level 4.3 Chloride Level 110 Carbon Dioxide Level 22 Anion Gap 5 L Blood Urea Nitrogen 27 H Creatinine 1.03 H Glucose Level 157 Calcium Level 7.5 L Total Bilirubin 0.1 L Direct Bilirubin 0.00 Indirect Bilirubin 0.1 Aspartate Amino Transf (AST/SGOT) 35 Alanine Aminotransferase (ALT/SGPT) 33 Alkaline Phosphatase 111 Total Protein 5.1 L Albumin 2.1 L Globulin 3.00 Albumin/Globulin Ratio 0.70 Test 10/10/16 12:46 Bedside Glucose 161 Medications Medications Current Medications Diagnostic Test (Pha) (Accu-Chek) 1 ea 02 XX Last administered on 10/02/16 02: 11; Admin Dose 1 EA; Start 09/24/16 at 02:00 Miscellaneous Information 1 ea NOTE XX ; Start 09/24/16 at 01:30 Glucose (Glutose) 15 gm Q15M PRN PO DECREASED GLUCOSE; Start 09/24/16 at 01:30 Glucose (Glutose) 22.5 gm Q15M PRN PO DECREASED GLUCOSE; Start 09/24/16 at 01: 30 Dextrose (D50w Syringe) 25 ml Q15M PRN IV DECREASED GLUCOSE; Start 09/24/16 at 01:30 Dextrose (D50w Syringe) 50 ml Q15M PRN IV DECREASED GLUCOSE; Start 09/24/16 at 01:30 Glucagon (Glucagen) 1 mg Q15M PRN IM DECREASED GLUCOSE; Start 09/24/16 at 01:30 Glucose (Glutose) 15 gm Q15M PRN BUCCAL DECREASED GLUCOSE; Start 09/24/16 at 01 :30 Enoxaparin Sodium (Lovenox) 60 mg Q24H SC Last administered on 10/10/16 10:03 ; Admin Dose 60 MG; Start 09/24/16 at 09:00 Amlodipine Besylate (Norvasc) 5 mg BID PO Last administered on 10/10/16 10:01 ; Admin Dose 5 MG; Start 09/24/16 at 21:00 Hydralazine HCl (Apresoline) 5 mg Q6H PRN IV ELEVATED BLOOD PRESSURE Last administered on 09/28/16 20:26; Admin Dose 5 MG; Start 09/24/16 at 21:00 Clonidine HCl (Catapres-Tts 2 Patch) 1 patch Q7D TRANSDERM Last administered on 10/08/16 21:30; Admin Dose 1 PATCH; Start 09/24/16 at 21:00 Metoprolol Tartrate (Lopressor) 25 mg BID PO Last administered on 10/10/16 10: 02; Admin Dose 25 MG; Start 09/24/16 at 21:00 Aspirin (Aspirin) 81 mg DAILY PO Last administered on 10/10/16 10:01; Admin Dose 81 MG; Start 09/26/16 at 09:00 Lorazepam (Ativan) 0.5 mg Q6 PRN IV ANXIETY Last administered on 09/30/16 20: 08; Admin Dose 0.5 MG; Start 09/26/16 at 00:00 Mupirocin (Bactroban) 1 applic BID TOP Last administered on 10/10/16 10:02; Admin Dose 1 APPLIC; Start 09/27/16 at 21:00 Ferrous Sulfate (Feosol Liquid Cup) 300 mg BID GTB Last administered on 10:01; Admin Dose 300 MG; Start 10/02/16 at 21:00 Insulin Glargine (Lantus) 6 unit HS SC Last administered on 10/10/16 00:35; Admin Dose 6 UNIT; Start 10/03/16 at 21:00 Fluconazole (Diflucan) 100 mg DAILY PO Last administered on 10/10/16 10:02; Admin Dose 100 MG; Start 10/04/16 at 14:00 Acetaminophen (Tylenol Liquid) 325 mg Q8 GTB Last administered on 10/10/16 13: 03; Admin Dose 325 MG; Start 10/04/16 at 15:00 Metronidazole (Flagyl) 500 mg Q8 NGT Last administered on 10/10/16 13:03; Admin Dose 500 MG; Start 10/06/16 at 22:00 Nystatin (Nystatin Powder) 1 applic BID TOP Last administered on 10/10/16 10: 02; Admin Dose 1 APPLIC; Start 10/06/16 at 21:00 Linezolid (Zyvox) 600 mg BID PO Last administered on 10/10/16 10:01; Admin Dose 600 MG; Start 10/07/16 at 12:30; Stop 10/11/16 at 06:00 Sodium Chloride (Nacl) 2 gm TID GTB Last administered on 10/10/16t 13:03; Admin Dose 2 GM; Start 10/07/16 at 21:00 Loperamide HCl (Imodium Liquid Cup) 2 mg TID PRN GTB DIARRHEA; Start 10/09/16 at 16:00 Furosemide (Lasix) 20 mg DAILY GTB ; Start 10/10/16 at 09:00 ARIANNE AUSTIN MD Oct 10, 2016 16:53
[2016-10-10 20:31] VITALS: BP 117/61; RESP 18
[2016-10-10] MEDS ORDERED: FERROUS GLUCONATE (EC) 325 MG TAB GTB SCH (21:00)
[2016-10-10] MEDS: LOPERAMIDE LIQUID CUP 1 MG/5 ML CUP GTB SCH (22:16)
[2016-10-11] MEDS: ACCU-CHEK XX SCH (02:00)
[2016-10-11] MEDS: ACETAMINOPHEN 650MG/20.3ML CUP GTB SCH ×3 (05:38→22:16)
[2016-10-11] MEDS: metroNIDAZOLE 500 MG TAB NGT SCH ×3 (05:38→22:16)
[2016-10-11 07:15] VITALS: BP 136/60; RESP 20
[2016-10-11] MEDS: INSULIN ASPART [NOVOLOG] 3 ML PEN SC SCH ×4 (07:54→20:50)
[2016-10-11] MEDS: FERROUS SULFATE 60 MG/ML 5ML CUP GTB SCH ×2 (08:52→20:41)
[2016-10-11] MEDS: SODIUM CHLORIDE 1 GM TAB GTB SCH ×3 (08:52→20:41)
[2016-10-11] MEDS: ENOXAPARIN 60 MG/0.6 ML SYG SC SCH (08:52)
[2016-10-11] MEDS: AMLODIPINE 5 MG TAB PO SCH ×2 (08:53→20:42)
[2016-10-11] MEDS: ASPIRIN 81 MG TAB PO SCH (08:53)
[2016-10-11] MEDS: METOPROLOL 25 MG TAB PO SCH ×2 (08:53→20:41)
[2016-10-11] MEDS: FLUCONAZOLE 100 MG TAB PO SCH (08:53)
[2016-10-11] MEDS: FUROSEMIDE 40 MG/4 ML CUP GTB SCH (08:53)
[2016-10-11] MEDS: NYSTATIN 30 GM POWDER BTL TOP SCH ×2 (08:54→20:44)
[2016-10-11] MEDS: MUPIROCIN 2% 22 GM OINT TOP SCH ×2 (08:54→20:44)
[2016-10-11] MEDS: LOPERAMIDE LIQUID CUP 1 MG/5 ML CUP GTB SCH ×3 (09:00→22:29)
--- NOTE | 2016-10-11 12:18 | RADRPT ---
PROCEDURE: Ultrasound neck CLINICAL INDICATION: Left neck pain. Stone in the left submandibular gland. TECHNIQUE: Color martinez-scale images in the region of the left submandibular gland were obtained. COMPARISON: None available FINDINGS: Images of the left submandibular gland are grossly unremarkable. No masses or collections are seen. No echogenic, shadowing stone is seen. IMPRESSION: Unremarkable visualized left submandibular gland. No visualized stone. If further characterization is needed CT could be helpful. RPTAT: AA .John Grissom MD, Date Time Electronically viewed and signed by .John Grissom MD, on 10/11/2016 12:17 .P/
--- NOTE | 2016-10-11 13:14 | CONS ---
Date/Time of Note Date/Time of Note DATE: 10/11/16 TIME: 13:13 Assessment/Plan Assessment/Plan Chief Complaint/Hosp Course SUBJECTIVE: No acute events overnight. No fevers, looks comfortable. MICROBIOLOGY: Repeat urine culture growing Angelina albicans ANTIMICROBIALS: 1. Diflucan 2. Flagyl INDWELLINGS: PEG. PHYSICAL EXAMINATION: GENERAL: This is a well-developed, elderly, [place] woman who is alert, in no distress. HEENT: Head atraumatic, normocephalic. Sclerae anicteric. Buccal mucosa dry. NECK: Supple. CHEST: Rise symmetrical. Breath sounds diminished to bases. HEART: S1, S2. ABDOMEN: Soft, bowel tones present. EXTREMITIES: Without cyanosis. ASSESSMENT: 1. Systemic inflammatory response syndrome with resolving leukocytosis. 2. Diarrhea. 3. Angelina albicans urinary tract infection. 4. Status post methicillin-resistant Staphylococcus aureus bacteremia. 5. Resolving left mandibular sialithiasis and sialoadenitis. 6. Dementia. 7. Diabetes. PLAN: Clinically unchanged, completed treatment for MRSA, continue present care /aspiration precautions DW staff Problems: Consultation Date/Type/Reason Admit Date/Time Sep 23, 2016 at 17:03 Initial Consult Date 09/25/16 Type of Consultation: id Referring Provider: JR DEAN MD Exam/Review of Systems Vital Signs Vitals Vital Signs Date Time Temp Pulse Resp B/P Pulse Ox O2 Delivery O2 Flow Rate FiO2 10/11/16 07:15 97.9 73 20 136/60 99 Intake and Output 10/10/16 10/10/16 10/11/16 15:00 23:00 07:00 Intake Total 700 ml 700 ml Output Total 50 ml 200 ml Balance 650 ml 500 ml Results Result Diagram: 10/10/16 0430 10/10/16 0430 Results 24 hrs Laboratory Tests Test 10/10/16 22:11 10/11/16 07:32 Bedside Glucose 165 207 Medications Medications Current Medications Diagnostic Test (Pha) (Accu-Chek) 1 ea 02 XX Last administered on 10/02/16t 02: 11; Admin Dose 1 EA; Start 09/24/16 at 02:00 Miscellaneous Information 1 ea NOTE XX ; Start 09/24/16 at 01:30 Glucose (Glutose) 15 gm Q15M PRN PO DECREASED GLUCOSE; Start 09/24/16 at 01:30 Glucose (Glutose) 22.5 gm Q15M PRN PO DECREASED GLUCOSE; Start 09/24/16 at 01: 30 Dextrose (D50w Syringe) 25 ml Q15M PRN IV DECREASED GLUCOSE; Start 09/24/16 at 01:30 Dextrose (D50w Syringe) 50 ml Q15M PRN IV DECREASED GLUCOSE; Start 09/24/16 at 01:30 Glucagon (Glucagen) 1 mg Q15M PRN IM DECREASED GLUCOSE; Start 09/24/16 at 01:30 Glucose (Glutose) 15 gm Q15M PRN BUCCAL DECREASED GLUCOSE; Start 09/24/16 at 01 :30 Enoxaparin Sodium (Lovenox) 60 mg Q24H SC Last administered on 10/11/16 08:52 ; Admin Dose 60 MG; Start 09/24/16 at 09:00 Amlodipine Besylate (Norvasc) 5 mg BID PO Last administered on 10/11/16 08:53 ; Admin Dose 5 MG; Start 09/24/16 at 21:00 Hydralazine HCl (Apresoline) 5 mg Q6H PRN IV ELEVATED BLOOD PRESSURE Last administered on 09/28/16 20:26; Admin Dose 5 MG; Start 09/24/16 at 21:00 Clonidine HCl (Catapres-Tts 2 Patch) 1 patch Q7D TRANSDERM Last administered on 10/08/16 21:30; Admin Dose 1 PATCH; Start 09/24/16 at 21:00 Metoprolol Tartrate (Lopressor) 25 mg BID PO Last administered on 10/11/16 08: 53; Admin Dose 25 MG; Start 09/24/16 at 21:00 Aspirin (Aspirin) 81 mg DAILY PO Last administered on 10/11/16 08:53; Admin Dose 81 MG; Start 09/26/16 at 09:00 Lorazepam (Ativan) 0.5 mg Q6 PRN IV ANXIETY Last administered on 09/30/16 20: 08; Admin Dose 0.5 MG; Start 09/26/16 at 00:00 Mupirocin (Bactroban) 1 applic BID TOP Last administered on 10/11/16 08:54; Admin Dose 1 APPLIC; Start 09/27/16 at 21:00 Ferrous Sulfate (Feosol Liquid Cup) 300 mg BID GTB Last administered on 08:52; Admin Dose 300 MG; Start 10/02/16 at 21:00 Insulin Glargine (Lantus) 6 unit HS SC Last administered on 10/10/16 22:14; Admin Dose 6 UNIT; Start 10/03/16 at 21:00 Fluconazole (Diflucan) 100 mg DAILY PO Last administered on 10/11/16 08:53; Admin Dose 100 MG; Start 10/04/16 at 14:00 Acetaminophen (Tylenol Liquid) 325 mg Q8 GTB Last administered on 10/11/16 05: 38; Admin Dose 325 MG; Start 10/04/16 at 15:00 Metronidazole (Flagyl) 500 mg Q8 NGT Last administered on 10/11/16 05:38; Admin Dose 500 MG; Start 10/06/16 at 22:00 Nystatin (Nystatin Powder) 1 applic BID TOP Last administered on 10/11/16 08: 54; Admin Dose 1 APPLIC; Start 10/06/16 at 21:00 Sodium Chloride (Nacl) 2 gm TID GTB Last administered on 10/11/16 12:39; Admin Dose 2 GM; Start 10/07/16 at 21:00 Furosemide (Lasix) 20 mg DAILY GTB Last administered on 10/11/16 08:53; Admin Dose 20 MG; Start 10/10/16 at 09:00 Loperamide HCl (Imodium Liquid Cup) 2 mg TID GTB Last administered on 12:39; Admin Dose 2 MG; Start 10/10/16 at 21:00 LOGAN CASTANEDA NP Oct 11, 2016 13:14
[2016-10-11 13:36] LABS: CREATININE, RANDOM URINE 57 mg/dL (20-320); PROTEIN/CREATININE RATIO 263 mg/g creat (21-161)
--- NOTE | 2016-10-11 14:06 | PN ---
Date/Time of Note Date/Time of Note DATE: 10/11/16 TIME: 14:00 Assessment/Plan VTE Prophylaxis VTE Prophylaxis Intervention: anti-embolic stocking VTE Contraindication Reason: peripheral vascular disease Lines/Catheters IV Catheter Type (from Nrsg): Peripheral IV Central line still needed: No Urinary Cath still in place: No Reason Cath still needed: urinary retention Assessment/Plan Assessment/Plan 1.Sepsis- improving. 2.Left submandibular sialitis and possible abscess;Stone in a duct. ENT f/u. 3.ARF-improved 4.Anemia of chronic disease with low iron. 5.AD& MD with anxiety. 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 14.More alert and able to communicate. 15.Kyphosis 16Urinary incontinence with episodes of retention. 17.Hx of kidney cysts. 18.Pain syndrome. 19.S/P G tube placement and feeding. 20.S/P MRSA positive blood and naris cultures with lida in the urine 21.First degree decubitus of the sacral region and left calcaneal areas 22.Hyponatremia-continue supplementation; stable 129- today 133. Cont'd Hospitalization Reason: hyponatremia on the top of other conditions. Cont'd Hospitalization Reason: decubity and hyponatremia. Cont'd Hospitalization Reason: hyponatremia; sepsis. Cont'd Hospitalization Reason: hyponatremia. Subjective 24 Hr Interval Summary Free Text/Dictation I am hungry. I feel thirsty. Subjective hx not possible: other (Sleeppy. Difficulty to communicate.) Constitutional: disoriented, improved, No chills, No diaphoresis, No febrile, No no complaints, No other, No poor po , No requiring IVF, No requiring O2 Gastrointestinal: diarrhea, flatus, passing stool, No blood, No constipation, No decreased appetite, No nausea, No no complaints , No other, No pain, No vomiting Exam/Review of Systems Vital Signs Vitals Vital Signs Date Time Temp Pulse Resp B/P Pulse Ox O2 Delivery O2 Flow Rate FiO2 10/11/16 07:15 97.9 73 20 136/60 99 Intake and Output 10/10/16 10/10/16 10/11/16 15:00 23:00 07:00 Intake Total 700 ml 700 ml Output Total 50 ml 200 ml Balance 650 ml 500 ml Exam Constitutional: other (lethargic. ), No alert, No distress, No frail, No non-verbal, No obese, No oriented, No well developed Psych: anxiety, confusion, depression, No nl mood/affect, No no complaints, No other, No suicidal Head: atraumatic, normocephalic, No hematomas, No lacerations, No other Eyes: nl lids, No EOMI, No PERRL, No fundi, disc, No icteric, No nl conjunctiva, No nl sclera, No other ENMT: other (no mass was detected on left submandibular salivary gland area.), No intubated, No mucosa pink and moist, No nl external ears & nose, No nl lips & teeth, No nl nasal mucosa & septum, No tympanic membranes Neck: bruits, No jvd, No masses, No non-tender, No nuchal rigidity, No other, No supple, No thyromegaly Respiratory: diminished breath sounds, No clear to auscultation, No congested cough, No crackles/rales, No intercostal retraction, No labored breathing, No normal air movement, No other, No respirations, No tactile fremitus, No wheezing Cardiovascular: bruits, systolic murmur, No S3, No S4, No diastolic murmur, No edema, No gallop, No irregular rhythm, No jugular venous distention (JVD), No murmurs/extra sounds, No nl pulses, No other, No regular rate and rhythm, No rub Gastrointestinal: bowel sounds, nl liver, spleen, soft, No ascites, No distended, No firm, No hepatomegaly, No mass, No non-tender, No other, No rebound or guarding, No splenomegaly, No surgical scars, No tender Musculoskeletal: joint tenderness, muscle tone, muscle weakness Extremities: No calf tenderness, No clubbing, No cyanosis, No edema, No normal pulses, No other, No palpable cord, No pitting pedal edema, No tenderness Results Result Diagram: 10/10/16 0430 10/10/16 0430 Results 24 hrs Laboratory Tests Test 10/10/16 22:11 10/11/16 07:32 Bedside Glucose 165 207 Medications Medications Current Medications Diagnostic Test (Pha) (Accu-Chek) 1 ea 02 XX Last administered on 10/02/16 02: 11; Admin Dose 1 EA; Start 09/24/16 at 02:00 Miscellaneous Information 1 ea NOTE XX ; Start 09/24/16 at 01:30 Glucose (Glutose) 15 gm Q15M PRN PO DECREASED GLUCOSE; Start 09/24/16 at 01:30 Glucose (Glutose) 22.5 gm Q15M PRN PO DECREASED GLUCOSE; Start 09/24/16 at 01: 30 Dextrose (D50w Syringe) 25 ml Q15M PRN IV DECREASED GLUCOSE; Start 09/24/16 at 01:30 Dextrose (D50w Syringe) 50 ml Q15M PRN IV DECREASED GLUCOSE; Start 09/24/16 at 01:30 Glucagon (Glucagen) 1 mg Q15M PRN IM DECREASED GLUCOSE; Start 09/24/16 at 01:30 Glucose (Glutose) 15 gm Q15M PRN BUCCAL DECREASED GLUCOSE; Start 09/24/16 at 01 :30 Enoxaparin Sodium (Lovenox) 60 mg Q24H SC Last administered on 10/11/16 08:52 ; Admin Dose 60 MG; Start 09/24/16 at 09:00 Amlodipine Besylate (Norvasc) 5 mg BID PO Last administered on 10/11/16 08:53 ; Admin Dose 5 MG; Start 09/24/16 at 21:00 Hydralazine HCl (Apresoline) 5 mg Q6H PRN IV ELEVATED BLOOD PRESSURE Last administered on 09/28/16 20:26; Admin Dose 5 MG; Start 09/24/16 at 21:00 Clonidine HCl (Catapres-Tts 2 Patch) 1 patch Q7D TRANSDERM Last administered on 10/08/16 21:30; Admin Dose 1 PATCH; Start 09/24/16 at 21:00 Metoprolol Tartrate (Lopressor) 25 mg BID PO Last administered on 10/11/16 08: 53; Admin Dose 25 MG; Start 09/24/16 at 21:00 Aspirin (Aspirin) 81 mg DAILY PO Last administered on 10/11/16 08:53; Admin Dose 81 MG; Start 09/26/16 at 09:00 Lorazepam (Ativan) 0.5 mg Q6 PRN IV ANXIETY Last administered on 09/30/16 20: 08; Admin Dose 0.5 MG; Start 09/26/16 at 00:00 Mupirocin (Bactroban) 1 applic BID TOP Last administered on 10/11/16 08:54; Admin Dose 1 APPLIC; Start 09/27/16 at 21:00 Ferrous Sulfate (Feosol Liquid Cup) 300 mg BID GTB Last administered on 08:52; Admin Dose 300 MG; Start 10/02/16 at 21:00 Insulin Glargine (Lantus) 6 unit HS SC Last administered on 10/10/16 22:14; Admin Dose 6 UNIT; Start 10/03/16 at 21:00 Fluconazole (Diflucan) 100 mg DAILY PO Last administered on 10/11/16 08:53; Admin Dose 100 MG; Start 10/04/16 at 14:00 Acetaminophen (Tylenol Liquid) 325 mg Q8 GTB Last administered on 10/11/16 05: 38; Admin Dose 325 MG; Start 10/04/16 at 15:00 Metronidazole (Flagyl) 500 mg Q8 NGT Last administered on 10/11/16 05:38; Admin Dose 500 MG; Start 10/06/16 at 22:00 Nystatin (Nystatin Powder) 1 applic BID TOP Last administered on 10/11/16 08: 54; Admin Dose 1 APPLIC; Start 10/06/16 at 21:00 Sodium Chloride (Nacl) 2 gm TID GTB Last administered on 10/11/16 12:39; Admin Dose 2 GM; Start 10/07/16 at 21:00 Furosemide (Lasix) 20 mg DAILY GTB Last administered on 10/11/16 08:53; Admin Dose 20 MG; Start 10/10/16 at 09:00 Loperamide HCl (Imodium Liquid Cup) 2 mg TID GTB Last administered on 12:39; Admin Dose 2 MG; Start 10/10/16 at 21:00 JR DEAN MD Oct 11, 2016 14:06
[2016-10-11 19:48] VITALS: BP 128/60; RESP 20
[2016-10-11] MEDS: INSULIN GLARGINE [LANtus] 3 ML PEN SC SCH (20:39)
--- NOTE | 2016-10-11 21:37 | CONS ---
Date/Time of Note Date/Time of Note DATE: 10/11/16 TIME: 21:34 Assessment/Plan Assessment/Plan Chief Complaint/Hosp Course ANEMIA N- CYTIC WITH INCREASED RDW count sl down COMPLETE W-UP MONITOR FOR BLEEDING AND HEMOLYSIS SMEAR- NEG MONITOR COUNT CLOSELY + M-SPIKE PROCEED WITH MM W-UP LEUKOCYTOSIS- IN PT WITH SEPSIS MOST LIKELY REACTIVE MONITOR CLOSELY ATB PER ID Sepsis, MRSA bacteremia, diarrhea - antibiotics per infectious disease Sialoadenitis with obstructive stone - per ENT Coronary artery disease - details unknown, clinically stable Peripheral vascular disease Hypertension Acute kidney injury vs chronic kidney disease Diabetes mellitus Dementia Problems: Consultation Date/Type/Reason Admit Date/Time Sep 23, 2016 at 17:03 Initial Consult Date 09/25/16 Type of Consultation: hemeon Referring Provider: JR DEAN MD 24 HR Interval Summary Free Text/Dictation all noted count stable no bleeding Exam/Review of Systems Vital Signs Vitals Vital Signs Date Time Temp Pulse Resp B/P Pulse Ox O2 Delivery O2 Flow Rate FiO2 10/11/16 19:48 98.8 74 20 128/60 97 Intake and Output 10/10/16 10/10/16 10/11/16 15:00 23:00 07:00 Intake Total 700 ml 700 ml Output Total 50 ml 200 ml Balance 650 ml 500 ml Exam Constitutional: other (lethargic. ), No alert, No distress, No frail, No non-verbal, No obese, No oriented, No well developed Psych: anxiety, confusion, depression, No nl mood/affect, No no complaints, No other, No suicidal Head: atraumatic, normocephalic, No hematomas, No lacerations, No other Eyes: nl lids, No EOMI, No PERRL, No fundi, disc, No icteric, No nl conjunctiva, No nl sclera, No other ENMT: other (no mass was detected on left submandibular salivary gland area.), No intubated, No mucosa pink and moist, No nl external ears & nose, No nl lips & teeth, No nl nasal mucosa & septum, No tympanic membranes Neck: bruits, No jvd, No masses, No non-tender, No nuchal rigidity, No other, No supple, No thyromegaly Respiratory: diminished breath sounds, No clear to auscultation, No congested cough, No crackles/rales, No intercostal retraction, No labored breathing, No normal air movement, No other, No respirations, No tactile fremitus, No wheezing Cardiovascular: bruits, systolic murmur, No S3, No S4, No diastolic murmur, No edema, No gallop, No irregular rhythm, No jugular venous distention (JVD), No murmurs/extra sounds, No nl pulses, No other, No regular rate and rhythm, No rub Gastrointestinal: bowel sounds, nl liver, spleen, soft, No ascites, No distended, No firm, No hepatomegaly, No mass, No non-tender, No other, No rebound or guarding, No splenomegaly, No surgical scars, No tender Musculoskeletal: joint tenderness, muscle tone, muscle weakness Extremities: No calf tenderness, No clubbing, No cyanosis, No edema, No normal pulses, No other, No palpable cord, No pitting pedal edema, No tenderness Results Result Diagram: 10/10/16 0430 10/10/16 0430 Results 24 hrs Laboratory Tests Test 10/10/16 22:11 10/11/16 07:32 10/11/16 17:37 10/11/16 20:23 Bedside Glucose 165 207 189 164 Medications Medications Current Medications Diagnostic Test (Pha) (Accu-Chek) 1 ea 02 XX Last administered on 10/02/16t 02: 11; Admin Dose 1 EA; Start 09/24/16 at 02:00 Miscellaneous Information 1 ea NOTE XX ; Start 09/24/16 at 01:30 Glucose (Glutose) 15 gm Q15M PRN PO DECREASED GLUCOSE; Start 09/24/16 at 01:30 Glucose (Glutose) 22.5 gm Q15M PRN PO DECREASED GLUCOSE; Start 09/24/16 at 01: 30 Dextrose (D50w Syringe) 25 ml Q15M PRN IV DECREASED GLUCOSE; Start 09/24/16 at 01:30 Dextrose (D50w Syringe) 50 ml Q15M PRN IV DECREASED GLUCOSE; Start 09/24/16 at 01:30 Glucagon (Glucagen) 1 mg Q15M PRN IM DECREASED GLUCOSE; Start 09/24/16 at 01:30 Glucose (Glutose) 15 gm Q15M PRN BUCCAL DECREASED GLUCOSE; Start 09/24/16 at 01 :30 Enoxaparin Sodium (Lovenox) 60 mg Q24H SC Last administered on 10/11/16 08:52 ; Admin Dose 60 MG; Start 09/24/16 at 09:00 Amlodipine Besylate (Norvasc) 5 mg BID PO Last administered on 10/11/16 20:42 ; Admin Dose 5 MG; Start 09/24/16 at 21:00 Hydralazine HCl (Apresoline) 5 mg Q6H PRN IV ELEVATED BLOOD PRESSURE Last administered on 09/28/16 20:26; Admin Dose 5 MG; Start 09/24/16 at 21:00 Clonidine HCl (Catapres-Tts 2 Patch) 1 patch Q7D TRANSDERM Last administered on 10/08/16 21:30; Admin Dose 1 PATCH; Start 09/24/16 at 21:00 Metoprolol Tartrate (Lopressor) 25 mg BID PO Last administered on 10/11/16 20: 41; Admin Dose 25 MG; Start 09/24/16 at 21:00 Aspirin (Aspirin) 81 mg DAILY PO Last administered on 10/11/16 08:53; Admin Dose 81 MG; Start 09/26/16 at 09:00 Lorazepam (Ativan) 0.5 mg Q6 PRN IV ANXIETY Last administered on 09/30/16 20: 08; Admin Dose 0.5 MG; Start 09/26/16 at 00:00 Mupirocin (Bactroban) 1 applic BID TOP Last administered on 10/11/16 20:44; Admin Dose 1 APPLIC; Start 09/27/16 at 21:00 Ferrous Sulfate (Feosol Liquid Cup) 300 mg BID GTB Last administered on 20:41; Admin Dose 300 MG; Start 10/02/16 at 21:00 Insulin Glargine (Lantus) 6 unit HS SC Last administered on 10/11/16 20:39; Admin Dose 6 UNIT; Start 10/03/16 at 21:00 Fluconazole (Diflucan) 100 mg DAILY PO Last administered on 10/11/16 08:53; Admin Dose 100 MG; Start 10/04/16 at 14:00 Acetaminophen (Tylenol Liquid) 325 mg Q8 GTB Last administered on 10/11/16 14: 16; Admin Dose 325 MG; Start 4/4/17 at 15:00 Metronidazole (Flagyl) 500 mg Q8 NGT Last administered on 10/11/16 14:16; Admin Dose 500 MG; Start 10/06/16 at 22:00 Nystatin (Nystatin Powder) 1 applic BID TOP Last administered on 10/11/16 20: 44; Admin Dose 1 APPLIC; Start 10/06/16 at 21:00 Sodium Chloride (Nacl) 2 gm TID GTB Last administered on 10/11/16 20:41; Admin Dose 2 GM; Start 10/07/16 at 21:00 Furosemide (Lasix) 20 mg DAILY GTB Last administered on 10/11/16 08:53; Admin Dose 20 MG; Start 10/10/16 at 09:00 Loperamide HCl (Imodium Liquid Cup) 2 mg TID GTB Last administered on 12:39; Admin Dose 2 MG; Start 10/10/16 at 21:00 ARIANNE AUSTIN MD Oct 11, 2016 21:37
--- NOTE | 2016-10-11 21:41 | CONS ---
Date/Time of Note Date/Time of Note DATE: 10/11/16 TIME: 21:39 Assessment/Plan Assessment/Plan Chief Complaint/Hosp Course ANEMIA N- CYTIC WITH INCREASED RDW count sl down COMPLETE W-UP MONITOR FOR BLEEDING AND HEMOLYSIS SMEAR- NEG MONITOR COUNT CLOSELY + M-SPIKE PROCEED WITH MM W-UP LEUKOCYTOSIS- IN PT WITH SEPSIS MOST LIKELY REACTIVE MONITOR CLOSELY ATB PER ID Sepsis, MRSA bacteremia, diarrhea - antibiotics per infectious disease Sialoadenitis with obstructive stone - per ENT Coronary artery disease - details unknown, clinically stable Peripheral vascular disease Hypertension Acute kidney injury vs chronic kidney disease Diabetes mellitus Dementia Problems: Consultation Date/Type/Reason Admit Date/Time Sep 23, 2016 at 17:03 Initial Consult Date 09/25/16 Type of Consultation: hemeon Referring Provider: JR DEAN MD 24 HR Interval Summary Free Text/Dictation ALL NOTED NO NEW EVENTS NO BLEEDING Exam/Review of Systems Vital Signs Vitals Vital Signs Date Time Temp Pulse Resp B/P Pulse Ox O2 Delivery O2 Flow Rate FiO2 10/11/16 19:48 98.8 74 20 128/60 97 Intake and Output 10/10/16 10/10/16 10/11/16 15:00 23:00 07:00 Intake Total 700 ml 700 ml Output Total 50 ml 200 ml Balance 650 ml 500 ml Exam PHYSICAL EXAMINATION: GENERAL: This is a well-developed, elderly, [place] woman who is alert, in no distress. HEENT: Head atraumatic, normocephalic. Sclerae anicteric. Buccal mucosa dry. NECK: Supple. CHEST: Rise symmetrical. Breath sounds diminished to bases. HEART: S1, S2. ABDOMEN: Soft, bowel tones present. EXTREMITIES: Without cyanosis. Results Result Diagram: 10/10/16 0430 10/10/16 0430 Results 24 hrs Laboratory Tests Test 10/10/16 22:11 10/11/16 07:32 10/11/16 17:37 10/11/16 20:23 Bedside Glucose 165 207 189 164 Medications Medications Current Medications Diagnostic Test (Pha) (Accu-Chek) 1 ea 02 XX Last administered on 10/02/16t 02: 11; Admin Dose 1 EA; Start 09/24/16 at 02:00 Miscellaneous Information 1 ea NOTE XX ; Start 09/24/16 at 01:30 Glucose (Glutose) 15 gm Q15M PRN PO DECREASED GLUCOSE; Start 09/24/16 at 01:30 Glucose (Glutose) 22.5 gm Q15M PRN PO DECREASED GLUCOSE; Start 09/24/16 at 01: 30 Dextrose (D50w Syringe) 25 ml Q15M PRN IV DECREASED GLUCOSE; Start 09/24/16 at 01:30 Dextrose (D50w Syringe) 50 ml Q15M PRN IV DECREASED GLUCOSE; Start 09/24/16 at 01:30 Glucagon (Glucagen) 1 mg Q15M PRN IM DECREASED GLUCOSE; Start 09/24/16 at 01:30 Glucose (Glutose) 15 gm Q15M PRN BUCCAL DECREASED GLUCOSE; Start 09/24/16 at 01 :30 Enoxaparin Sodium (Lovenox) 60 mg Q24H SC Last administered on 10/11/16 08:52 ; Admin Dose 60 MG; Start 09/24/16 at 09:00 Amlodipine Besylate (Norvasc) 5 mg BID PO Last administered on 10/11/16 20:42 ; Admin Dose 5 MG; Start 09/24/16 at 21:00 Hydralazine HCl (Apresoline) 5 mg Q6H PRN IV ELEVATED BLOOD PRESSURE Last administered on 09/28/16 20:26; Admin Dose 5 MG; Start 09/24/16 at 21:00 Clonidine HCl (Catapres-Tts 2 Patch) 1 patch Q7D TRANSDERM Last administered on 10/08/16 21:30; Admin Dose 1 PATCH; Start 09/24/16 at 21:00 Metoprolol Tartrate (Lopressor) 25 mg BID PO Last administered on 10/11/16 20: 41; Admin Dose 25 MG; Start 09/24/16 at 21:00 Aspirin (Aspirin) 81 mg DAILY PO Last administered on 10/11/16 08:53; Admin Dose 81 MG; Start 09/26/16 at 09:00 Lorazepam (Ativan) 0.5 mg Q6 PRN IV ANXIETY Last administered on 09/30/16 20: 08; Admin Dose 0.5 MG; Start 09/26/16 at 00:00 Mupirocin (Bactroban) 1 applic BID TOP Last administered on 10/11/16 20:44; Admin Dose 1 APPLIC; Start 09/27/16 at 21:00 Ferrous Sulfate (Feosol Liquid Cup) 300 mg BID GTB Last administered on 20:41; Admin Dose 300 MG; Start 10/02/16 at 21:00 Insulin Glargine (Lantus) 6 unit HS SC Last administered on 10/11/16 20:39; Admin Dose 6 UNIT; Start 10/03/16 at 21:00 Fluconazole (Diflucan) 100 mg DAILY PO Last administered on 10/11/16 08:53; Admin Dose 100 MG; Start 10/04/16 at 14:00 Acetaminophen (Tylenol Liquid) 325 mg Q8 GTB Last administered on 10/11/16 14: 16; Admin Dose 325 MG; Start 10/04/16 at 15:00 Metronidazole (Flagyl) 500 mg Q8 NGT Last administered on 10/11/16 14:16; Admin Dose 500 MG; Start 10/06/16 at 22:00 Nystatin (Nystatin Powder) 1 applic BID TOP Last administered on 10/11/16 20: 44; Admin Dose 1 APPLIC; Start 10/06/16 at 21:00 Sodium Chloride (Nacl) 2 gm TID GTB Last administered on 10/11/16 20:41; Admin Dose 2 GM; Start 10/07/16 at 21:00 Furosemide (Lasix) 20 mg DAILY GTB Last administered on 10/11/16 08:53; Admin Dose 20 MG; Start 10/10/16 at 09:00 Loperamide HCl (Imodium Liquid Cup) 2 mg TID GTB Last administered on 12:39; Admin Dose 2 MG; Start 10/10/16 at 21:00 ARIANNE AUSTIN MD Oct 11, 2016 21:41
[2016-10-12] MEDS: ACCU-CHEK XX SCH (02:00)
[2016-10-12] MEDS: metroNIDAZOLE 500 MG TAB NGT SCH ×2 (05:41→14:56)
[2016-10-12] MEDS: ACETAMINOPHEN 650MG/20.3ML CUP GTB SCH ×2 (05:41→13:48)
[2016-10-12 05:46] LABS: ADD SCAN DIFF NO
[2016-10-12 05:53] LABS: BASOPHILS % 0.4 % (0.0-2.0); EOSINOPHILS # 0.2 10^3/ul (0.0-0.5); EOSINOPHILS % 3.3 % (0.0-7.0); HEMATOCRIT 26.9 % (37.0-47.0); HEMOGLOBIN 8.8 g/dl (12.0-16.0); LYMPHOCYTES # 2.4 10^3/ul (0.8-2.9); LYMPHOCYTES % 43.6 % (15.0-51.0); MEAN CORPUSCULAR HEMOGLOBIN 31.7 pg (29.0-33.0); MEAN CORPUSCULAR HGB CONC 32.7 g/dl (32.0-37.0); MEAN CORPUSCULAR VOLUME 96.8 fl (82.0-101.0); MEAN PLATELET VOLUME 9.7 fl (7.4-10.4); MONOCYTE # 0.5 10^3/ul (0.3-0.9); MONOCYTES % 9.2 % (0.0-11.0); NEUTROPHIL # 2.4 10^3/ul (1.6-7.5); NEUTROPHILS % 43.3 % (39.0-77.0); PLATELET COUNT 287 10^3/UL (140-415); RED BLOOD COUNT 2.78 10^6/ul (4.20-5.40); RED CELL DISTRIBUTION WIDTH 18.3 % (11.5-14.5); WHITE BLOOD COUNT 5.5 10^3/ul (4.8-10.8)
[2016-10-12 06:03] LABS: ALBUMIN/GLOBULIN RATIO 0.71; CREATININE 0.97 mg/dl (0.44-1.00); TOTAL PROTEIN 4.8 g/dl (6.1-8.1)
[2016-10-12 06:04] LABS: CALCIUM 7.9 mg/dl (8.4-10.2)
[2016-10-12 07:52] VITALS: BP 140/66; RESP 18
--- NOTE | 2016-10-12 08:16 | PDOCDIS ---
Discharge Instructions CONDITION Patient Condition: Guarded HOME CARE INSTRUCTIONS: Diet Instructions: G tube feeding with banana chips.Special Diet: NPO/on GTF ACTIVITY: Activity Restrictions: Special Program (change position q 2 hours to avoid further deterioration of the decubiti.) Bathing Restrictions: Sponge Bath FOLLOW UP/APPOINTMENTS Appointments will follow in [facility]. SCHOOL/WORK RELEASE May return to School/Work with: none. JR DEAN MD Oct 12, 2016 08:16
[2016-10-12] MEDS ORDERED: METO-448 PO (08:30)
[2016-10-12] MEDS ORDERED: UDFER GTB (08:30)
[2016-10-12] MEDS ORDERED: ASPI81TA3 PO (08:30)
[2016-10-12] MEDS ORDERED: LORA2VIA3 IV (08:30)
[2016-10-12] MEDS ORDERED: SODI100010 GTB (08:30)
[2016-10-12] MEDS ORDERED: FURO40SO4 GTB (08:30)
[2016-10-12] MEDS ORDERED: CLON1PAT2 TRANSDERM (08:30)
[2016-10-12] MEDS ORDERED: MUPI22OI2 TOP (08:30)
[2016-10-12] MEDS ORDERED: Accu-Chek XX (08:30)
[2016-10-12] MEDS ORDERED: LOPE1LIQ69 GTB (08:30)
[2016-10-12] MEDS ORDERED: LANT3I SC (08:30)
[2016-10-12] MEDS ORDERED: APRS PO (08:30)
[2016-10-12] MEDS ORDERED: FLUC100T PO (08:30)
[2016-10-12] MEDS ORDERED: NYST15PO4 TOP (08:30)
--- NOTE | 2016-10-12 08:40 | DS ---
Date/Time of Note Date/Time of Note DATE: 10/12/16 TIME: 08:32 Discharge Summary Admission/Discharge Info Admit Date/Time Sep 23, 2016 at 17:03 Discharge Date/Time Final Diagnosis 1.Sepsis with Systemic inflammatory response syndrome with resolving leukocytosis.Status post methicillin-resistant Staphylococcus aureus bacteremia. 2.Left submandibular sialitis and possible abscess;Stone in a duct on CT. Resolving left mandibular sialithiasis and sialoadenitis.Negative for stone in a duct on U/S.ENT f/u. 3.ARF-improved 4.Anemia of chronic disease with low iron- continue iron supplementation. 5.AD& MD with anxiety. 6.DM type 2 7.Weight loss 8.urinary incontinence with uti and lida albicans urinary tract infection. 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 14.More alert and able to communicate. 15.Kyphosis 16Urinary incontinence with episodes of retention. 17.Hx of kidney cysts. 18.Pain syndrome. 19.S/P G tube placement and feeding. 20.S/P MRSA positive blood and naris ;continue mupirocin 21.First degree decubitus of the sacral region and left calcaneal areas; rectal tube removed. 22.Hyponatremia-continue supplementation; stable 129- today 133. 22. Diarrhea improved PLAN: completed treatment for MRSA, continue present care/aspiration precautions Patient Condition: Serious Hospital Course ANEMIA N- CYTIC WITH INCREASED RDW count sl down COMPLETE W-UP MONITOR FOR BLEEDING AND HEMOLYSIS SMEAR- NEG MONITOR COUNT CLOSELY + M-SPIKE PROCEED WITH MM W-UP LEUKOCYTOSIS- IN PT WITH SEPSIS MOST LIKELY REACTIVE MONITOR CLOSELY ATB PER ID Sepsis, MRSA bacteremia, diarrhea - antibiotics per infectious disease Sialoadenitis with obstructive stone - per ENT Coronary artery disease - details unknown, clinically stable Peripheral vascular disease Hypertension Acute kidney injury vs chronic kidney disease Diabetes mellitus Dementia Home Meds Active Scripts Sodium Chloride (Sodium Chloride) 1,000 Mg Tablet.leo, 2 GM GTB TID for 14 Days , #90 TAB Prov:JR DEAN MD 10/12/16 Nystatin* (Nystop*) 15 Gm Powder, 1 APPLIC TOP BID for 30 Days, #60 Prov:JR DEAN MD 10/12/16 Mupirocin* (Bactroban*) 2% -22 Gram Oint...g., 1 APPLIC TOP BID for 30 Days, #60 Prov:JR DEAN MD 10/12/16 Insulin Glargine* (Lantus*) 100 Unit/Ml Soln, 6 UNIT SC HS for 30 Days, #2 BOTTLE Prov:JR DEAN MD 10/12/16 Loperamide Hcl (IMODIUM LIQUID CUP) 1 Mg/5 Ml Liq, 2 MG GTB TID for 30 Days, #90 Prov:JR DEAN MD 10/12/16 Furosemide* (Lasix* Liq) 40 Mg/4 Ml Solution, 20 MG GTB DAILY for 30 Days, #30 Prov:JR DEAN MD 10/12/16 [Accu-Chek] 1 EA EA No Conflict Check, 1 EA XX 02 for 30 Days, #90 Prov:JR DEAN MD 10/12/16 Lorazepam (Lorazepam) 2 Mg/1 Ml Vial, 0.5 MG IV Q6 Y for ANXIETY for 30 Days, # 90 VIAL Prov:JR DEAN MD 10/12/16 Aspirin (Aspirin) 81 Mg Chew, 81 MG PO DAILY for 30 Days, #30 TAB Prov:JR DEAN MD 10/12/16 Metoprolol Tartrate* (Lopressor*) 25 Mg Tab, 25 MG PO BID for 30 Days, #60 TAB Prov:JR DEAN MD 10/12/16 Hydralazine Hcl* (Apresoline* Pediatric Oral) 1 Mg/Ml (Compounded) Oral Solution , 25 MG PO Q6H Y for ELEVATED BLOOD PRESSURE for 30 Days, #60 BOT Prov:JR DEAN MD 10/12/16 Clonidine Patch (CLONIDINE PATCH) 0.2 Mg/24 Hr Patch, 1 PATCH TRANSDERM Q7D for 30 Days, #10 ADH.PATCH Prov:JR DEAN MD 10/12/16 Ferrous Sulfate (Ferrous Sulfate) 300 Mg/5 Ml Liquid, 300 MG GTB BID for 30 Days , #120 BOTTLE Prov:JR DEAN MD 10/12/16 Fluconazole* (Diflucan*) 100 Mg Tablet, 100 MG PO DAILY for 14 Days, #30 TAB Prov:JR DEAN MD 10/12/16 Reported Medications Olanzapine* (Zyprexa*) 2.5 Mg Tablet, 2.5 MG PO QHS, #30 TAB 09/23/16 Citric Acid/Sodium Citrate (Sod Citrate-Citric Acid Soln) 473 Ml Solution, 5 ML PO BID 09/23/16 Insulin Aspart* (Novolog Insulin Pen*) 100 Unit/Ml Soln, 0 SC .SLIDING SCALE AC , EA IF BS IS LESS THAN 60, CALL MD IF 60-149=0, 150-199=1 UNITS, 200-249=2 UNITS, 250-299=3 UNITS, 300-349=4 UNITS, IF BS IS GREATER THAN 349, GIVE 5 UNITS. 09/23/16 Amlodipine Besylate* (Norvasc*) 5 Mg Tablet, 5 MG PO DAILY, TAB HOLD FOR SBP<110 DX HTN 09/23/16 Memantine* (Namenda*) 5 Mg Tablet, 5 MG PO BID, #60 TAB 09/23/16 Multivitamin with Minerals (Multivitamins with Minerals) 1 Each Tablet, 1 EACH PO DAILY, TAB 09/23/16 Magnesium Oxide* (Magnesium Oxide*) 400 Mg Tablet, 400 MG PO Q12H, TAB 09/23/16 Losartan Potassium* (Losartan Potassium*) 50 Mg Tablet, 100 MG PO DAILY, TAB HOLD FOR SBP<110DX HTN 09/23/16 Dextrose (Glucose Gel) 38 Gm Gel..gram., 38 GM PO DAILY Y for PRN FOR BS OF<70 WHILE AWAKE 09/23/16 Ferrous Sulfate* (Ferrous Sulfate*) 325 Mg Tabec, 325 MG PO DAILY, TAB 09/23/16 Docusate Sodium* (Docusate Sodium*) 100 Mg Capsule, 100 MG PO BID, #60 CAP 09/23/16 Cyanocobalamin (Vitamin B-12) (B-12) 1,000 Mcg Tablet, 1000 MCG PO QAM, TAB 09/23/16 Lorazepam* (Ativan*) 0.5 Mg Tablet, 0.5 MG PO QAM Y for ANXIETY, #30 TAB 09/23/16 Donepezil* (Aricept*) 5 Mg Tablet, 5 MG PO QPM, TAB 09/23/16 Acetaminophen* (Acetaminophen*) 500 MG Extra Strength Tablet, 500 MG PO Q8H Y for MILD PAIN LEVEL 1-3, TAB 09/23/16 Pending Labs Laboratory Tests Test 10/11/16 11:44 10/11/16 17:37 10/11/16 20:23 10/12/16 05:05 Bedside Glucose 146mg/dL (70-220) 189mg/dL (70-220) 164mg/dL (70-220) White Blood Count 5.510^3/ul (4.8-10.8) Red Blood Count 2.7810^6/ul (4.20-5.40) Hemoglobin 8.8g/dl (12.0-16.0) Hematocrit 26.9% (37.0-47.0) Mean Corpuscular Volume 96.8fl (82.0-101.0) Mean Corpuscular Hemoglobin 31.7pg (29.0-33.0) Mean Corpuscular Hemoglobin Concent 32.7g/dl (32.0-37.0) Red Cell Distribution Width 18.3% (11.5-14.5) Platelet Count 21020^3/UL (140-415) Mean Platelet Volume 9.7fl (7.4-10.4) Neutrophils % 43.3% (39.0-77.0) Lymphocytes % 43.6% (15.0-51.0) Monocytes % 9.2% (0.0-11.0) Eosinophils % 3.3% (0.0-7.0) Basophils % 0.4% (0.0-2.0) Nucleated Red Blood Cells % 0.0/100WBC (0.0-0.0) Neutrophils # 2.410^3/ul (1.6-7.5) Lymphocytes # 2.410^3/ul (0.8-2.9) Monocytes # 0.510^3/ul (0.3-0.9) Eosinophils # 0.210^3/ul (0.0-0.5) Basophils # 0.010^3/ul (0.0-0.1) Nucleated Red Blood Cells # 0.010^3/ul (0.0-0.0) Sodium Level 134mmol/L (135-144) Potassium Level 4.0mmol/L (3.5-5.1) Chloride Level 106mmol/L (97-110) Carbon Dioxide Level 21mmol/L (21-31) Anion Gap 11 (8-16) Blood Urea Nitrogen 21mg/dl (7-20) Creatinine 0.97mg/dl (0.44-1.00) Glucose Level 203mg/dl (70-220) Calcium Level 7.9mg/dl (8.4-10.2) Total Bilirubin 0.0mg/dl (0.2-1.3) Direct Bilirubin 0.00mg/dl (0.00-0.20) Indirect Bilirubin 0.0mg/dl (0-1.1) Aspartate Amino Transf (AST/SGOT) 24IU/L (15-46) Alanine Aminotransferase (ALT/SGPT) 28IU/L (13-69) Alkaline Phosphatase 85IU/L (42-121) Total Protein 4.8g/dl (6.1-8.1) Albumin 2.0g/dl (3.3-4.9) Globulin 2.80g/dl (1.3-3.2) Albumin/Globulin Ratio 0.71 JR DEAN MD Oct 12, 2016 08:40
[2016-10-12] MEDS: LOPERAMIDE LIQUID CUP 1 MG/5 ML CUP GTB SCH ×3 (08:53→21:14)
[2016-10-12] MEDS: FERROUS SULFATE 60 MG/ML 5ML CUP GTB SCH ×2 (08:53→21:14)
[2016-10-12] MEDS: METOPROLOL 25 MG TAB PO SCH ×2 (08:54→20:32)
[2016-10-12] MEDS: FLUCONAZOLE 100 MG TAB PO SCH (08:54)
[2016-10-12] MEDS: ASPIRIN 81 MG TAB PO SCH (08:54)
[2016-10-12] MEDS: FUROSEMIDE 40 MG/4 ML CUP GTB SCH (08:54)
[2016-10-12] MEDS: SODIUM CHLORIDE 1 GM TAB GTB SCH ×3 (08:54→21:14)
[2016-10-12] MEDS: AMLODIPINE 5 MG TAB PO SCH ×2 (08:54→20:31)
[2016-10-12] MEDS: ENOXAPARIN 60 MG/0.6 ML SYG SC SCH (08:56)
[2016-10-12] MEDS: INSULIN ASPART [NOVOLOG] 3 ML PEN SC SCH ×3 (08:57→17:53)
[2016-10-12] MEDS: MUPIROCIN 2% 22 GM OINT TOP SCH (08:57)
[2016-10-12] MEDS: NYSTATIN 30 GM POWDER BTL TOP SCH (08:57)
[2016-10-12 11:19] LABS: IRON 84 ug/dl (35-150)
[2016-10-12 11:29] LABS: TOTAL IRON BINDING CAPACITY 136 ug/dl (241-421)
--- NOTE | 2016-10-12 15:29 | CONS ---
Date/Time of Note Date/Time of Note DATE: 10/12/16 TIME: 15:28 Assessment/Plan Assessment/Plan Chief Complaint/Hosp Course SUBJECTIVE: No acute events overnight. No fevers MICROBIOLOGY: Repeat urine culture growing Angelina albicans ANTIMICROBIALS: 1. Diflucan 2. Flagyl INDWELLINGS: PEG. PHYSICAL EXAMINATION: GENERAL: This is a well-developed, elderly, [place] woman who is alert, in no distress. HEENT: Head atraumatic, normocephalic. Sclerae anicteric. Buccal mucosa dry. NECK: Supple. CHEST: Rise symmetrical. Breath sounds diminished to bases. HEART: S1, S2. ABDOMEN: Soft, bowel tones present. EXTREMITIES: Without cyanosis. ASSESSMENT: 1. Systemic inflammatory response syndrome with resolving leukocytosis. 2. Diarrhea. 3. Angelina albicans urinary tract infection. 4. Status post methicillin-resistant Staphylococcus aureus bacteremia. 5. Resolving left mandibular sialithiasis and sialoadenitis. 6. Dementia. 7. Diabetes. PLAN: Clinically unchanged, completed treatment for MRSA, continue present care /aspiration precautions [facility] staff Problems: Consultation Date/Type/Reason Admit Date/Time Sep 23, 2016 at 17:03 Initial Consult Date 09/25/16 Type of Consultation: id Referring Provider: JR DEAN MD Exam/Review of Systems Vital Signs Vitals Vital Signs Date Time Temp Pulse Resp B/P Pulse Ox O2 Delivery O2 Flow Rate FiO2 10/12/16 07:52 97.8 72 18 140/66 100 Intake and Output 10/11/16 10/11/16 10/12/16 15:00 23:00 07:00 Intake Total 650 ml 700 ml Output Total 150 ml 200 ml Balance 500 ml 500 ml Results Result Diagram: 10/12/16 0505 10/12/16 0505 Results 24 hrs Laboratory Tests Test 10/11/16 17:37 10/11/16 20:23 10/12/16 05:05 10/12/16 08:52 Bedside Glucose 189 164 252 H White Blood Count 5.5 Red Blood Count 2.78 L Hemoglobin 8.8 L Hematocrit 26.9 L Mean Corpuscular Volume 96.8 Mean Corpuscular Hemoglobin 31.7 Mean Corpuscular Hemoglobin Concent 32.7 Red Cell Distribution Width 18.3 H Platelet Count 287 Mean Platelet Volume 9.7 Neutrophils % 43.3 Lymphocytes % 43.6 Monocytes % 9.2 Eosinophils % 3.3 Basophils % 0.4 Nucleated Red Blood Cells % 0.0 Neutrophils # 2.4 Lymphocytes # 2.4 Monocytes # 0.5 Eosinophils # 0.2 Basophils # 0.0 Nucleated Red Blood Cells # 0.0 Sodium Level 134 L Potassium Level 4.0 Chloride Level 106 Carbon Dioxide Level 21 Anion Gap 11 Blood Urea Nitrogen 21 H Creatinine 0.97 Glucose Level 203 Calcium Level 7.9 L Magnesium Level 1.7 Iron Level 84 Total Iron Binding Capacity 136 L Percent Iron Saturation 62 H Total Bilirubin 0.0 L Direct Bilirubin 0.00 Indirect Bilirubin 0.0 Aspartate Amino Transf (AST/SGOT) 24 Alanine Aminotransferase (ALT/SGPT) 28 Alkaline Phosphatase 85 Total Protein 4.8 L Albumin 2.0 L Globulin 2.80 Albumin/Globulin Ratio 0.71 Test 10/12/16 09:11 10/12/16 11:51 Lab Scanned Report REFERENCE LAB Bedside Glucose 171 Medications Medications Current Medications Diagnostic Test (Pha) (Accu-Chek) 1 ea 02 XX Last administered on 10/02/16 02: 11; Admin Dose 1 EA; Start 09/24/16 at 02:00 Miscellaneous Information 1 ea NOTE XX ; Start 09/24/16 at 01:30 Glucose (Glutose) 15 gm Q15M PRN PO DECREASED GLUCOSE; Start 09/24/16 at 01:30 Glucose (Glutose) 22.5 gm Q15M PRN PO DECREASED GLUCOSE; Start 09/24/16 at 01: 30 Dextrose (D50w Syringe) 25 ml Q15M PRN IV DECREASED GLUCOSE; Start 09/24/16 at 01:30 Dextrose (D50w Syringe) 50 ml Q15M PRN IV DECREASED GLUCOSE; Start 09/24/16 at 01:30 Glucagon (Glucagen) 1 mg Q15M PRN IM DECREASED GLUCOSE; Start 09/24/16 at 01:30 Glucose (Glutose) 15 gm Q15M PRN BUCCAL DECREASED GLUCOSE; Start 09/24/16 at 01 :30 Enoxaparin Sodium (Lovenox) 60 mg Q24H SC Last administered on 10/12/16 08:56 ; Admin Dose 60 MG; Start 09/24/16 at 09:00 Amlodipine Besylate (Norvasc) 5 mg BID PO Last administered on 10/12/16 08:54 ; Admin Dose 5 MG; Start 09/24/16 at 21:00 Hydralazine HCl (Apresoline) 5 mg Q6H PRN IV ELEVATED BLOOD PRESSURE Last administered on 09/28/16 20:26; Admin Dose 5 MG; Start 09/24/16 at 21:00 Clonidine HCl (Catapres-Tts 2 Patch) 1 patch Q7D TRANSDERM Last administered on 10/08/16 21:30; Admin Dose 1 PATCH; Start 09/24/16 at 21:00 Metoprolol Tartrate (Lopressor) 25 mg BID PO Last administered on 10/12/16 08: 54; Admin Dose 25 MG; Start 09/24/16 at 21:00 Aspirin (Aspirin) 81 mg DAILY PO Last administered on 10/12/16 08:54; Admin Dose 81 MG; Start 09/26/16 at 09:00 Lorazepam (Ativan) 0.5 mg Q6 PRN IV ANXIETY Last administered on 09/30/16 20: 08; Admin Dose 0.5 MG; Start 09/26/16 at 00:00 Mupirocin (Bactroban) 1 applic BID TOP Last administered on 10/12/16 08:57; Admin Dose 1 APPLIC; Start 09/27/16 at 21:00 Ferrous Sulfate (Feosol Liquid Cup) 300 mg BID GTB Last administered on 08:53; Admin Dose 300 MG; Start 10/02/16 at 21:00 Insulin Glargine (Lantus) 6 unit HS SC Last administered on 10/11/16 20:39; Admin Dose 6 UNIT; Start 10/03/16 at 21:00 Fluconazole (Diflucan) 100 mg DAILY PO Last administered on 10/12/16 08:54; Admin Dose 100 MG; Start 10/04/16 at 14:00 Acetaminophen (Tylenol Liquid) 325 mg Q8 GTB Last administered on 10/12/16 13: 48; Admin Dose 325 MG; Start 10/04/16 at 15:00 Metronidazole (Flagyl) 500 mg Q8 NGT Last administered on 10/12/16 14:56; Admin Dose 500 MG; Start 10/06/16 at 22:00 Nystatin (Nystatin Powder) 1 applic BID TOP Last administered on 10/12/16 08: 57; Admin Dose 1 APPLIC; Start 10/06/16 at 21:00 Sodium Chloride (Nacl) 2 gm TID GTB Last administered on 10/12/16 13:48; Admin Dose 2 GM; Start 10/07/16 at 21:00 Furosemide (Lasix) 20 mg DAILY GTB Last administered on 10/12/16 08:54; Admin Dose 20 MG; Start 10/10/16 at 09:00 Loperamide HCl (Imodium Liquid Cup) 2 mg TID GTB Last administered on 13:48; Admin Dose 2 MG; Start 10/10/16 at 21:00 LOGAN CASTANEDA NP Oct 12, 2016 15:29
[2016-10-12] MEDS: LORAZEPAM 2 MG INJ IV PRN (19:07)
[2016-10-12] MEDS: INSULIN GLARGINE [LANtus] 3 ML PEN SC SCH (21:28)
--- NOTE | 2016-10-12 23:42 | CONS ---
Date/Time of Note Date/Time of Note DATE: 10/12/16 TIME: 23:40 Assessment/Plan Assessment/Plan Chief Complaint/Hosp Course ANEMIA N- CYTIC WITH INCREASED RDW, COMPLEX, POS MGUS VS MM count sl down COMPLETE W-UP MONITOR FOR BLEEDING AND HEMOLYSIS SMEAR- NEG MONITOR COUNT CLOSELY + M-SPIKE COMPLETE MM W-UP PT IS REFUSING BMBX LEUKOCYTOSIS- IN PT WITH SEPSIS MOST LIKELY REACTIVE MONITOR CLOSELY ATB PER ID Sepsis, MRSA bacteremia, diarrhea - antibiotics per infectious disease Sialoadenitis with obstructive stone - per ENT Coronary artery disease - details unknown, clinically stable Peripheral vascular disease Hypertension Acute kidney injury vs chronic kidney disease Diabetes mellitus Dementia Problems: Consultation Date/Type/Reason Admit Date/Time Sep 23, 2016 at 17:03 Initial Consult Date 09/25/16 Type of Consultation: HEMEON Referring Provider: JR DEAN MD 24 HR Interval Summary Free Text/Dictation ALL NOTED MM W-UP ON PROGRESS PT REFUSED BMBX Exam/Review of Systems Vital Signs Vitals Vital Signs Date Time Temp Pulse Resp B/P Pulse Ox O2 Delivery O2 Flow Rate FiO2 10/12/16 07:52 97.8 72 18 140/66 100 Intake and Output 10/11/16 10/11/16 10/12/16 15:00 23:00 07:00 Intake Total 650 ml 700 ml Output Total 150 ml 200 ml Balance 500 ml 500 ml Exam GENERAL: This is a well-developed, elderly, Bengali woman who is alert, in no distress. HEENT: Head atraumatic, normocephalic. Sclerae anicteric. Buccal mucosa dry. NECK: Supple. CHEST: Rise symmetrical. Breath sounds diminished to bases. HEART: S1, S2. ABDOMEN: Soft, bowel tones present. EXTREMITIES: Without cyanosis. Results Result Diagram: 10/12/16 0505 10/12/16 0505 Results 24 hrs Laboratory Tests Test 10/12/16 05:05 10/12/16 08:52 10/12/16 09:11 10/12/16 11:51 White Blood Count 5.5 Red Blood Count 2.78 L Hemoglobin 8.8 L Hematocrit 26.9 L Mean Corpuscular Volume 96.8 Mean Corpuscular Hemoglobin 31.7 Mean Corpuscular Hemoglobin Concent 32.7 Red Cell Distribution Width 18.3 H Platelet Count 287 Mean Platelet Volume 9.7 Neutrophils % 43.3 Lymphocytes % 43.6 Monocytes % 9.2 Eosinophils % 3.3 Basophils % 0.4 Nucleated Red Blood Cells % 0.0 Neutrophils # 2.4 Lymphocytes # 2.4 Monocytes # 0.5 Eosinophils # 0.2 Basophils # 0.0 Nucleated Red Blood Cells # 0.0 Sodium Level 134 L Potassium Level 4.0 Chloride Level 106 Carbon Dioxide Level 21 Anion Gap 11 Blood Urea Nitrogen 21 H Creatinine 0.97 Glucose Level 203 Calcium Level 7.9 L Magnesium Level 1.7 Iron Level 84 Total Iron Binding Capacity 136 L Percent Iron Saturation 62 H Total Bilirubin 0.0 L Direct Bilirubin 0.00 Indirect Bilirubin 0.0 Aspartate Amino Transf (AST/SGOT) 24 Alanine Aminotransferase (ALT/SGPT) 28 Alkaline Phosphatase 85 Total Protein 4.8 L Albumin 2.0 L Globulin 2.80 Albumin/Globulin Ratio 0.71 Bedside Glucose 252 H 171 Lab Scanned Report REFERENCE LAB Test 10/12/16 17:49 10/12/16 21:13 Bedside Glucose 195 163 ARIANNE AUSTIN MD Oct 12, 2016 23:42
== END 2016-10-12 22:12 | DRG 872 ==
LOC: E/R 12:09 → PP2 17:03
PROVIDERS: ADMIT Family Medicine; ATTEND Family Medicine
PROC: 0DH63UZ Insertion of Feeding Device into Stomach, Percutaneous Approach (ICD-10-PCS; principal; 2016-09-28 12:00)
DX: A41.02 Sepsis due to Methicillin resistant Staphylococcus aureus (principal); N17.9 Acute kidney failure, unspecified; L89.151 Pressure ulcer of sacral region, stage 1; E46 Unspecified protein-calorie malnutrition; L89.620 Pressure ulcer of left heel, unstageable; R13.10 Dysphagia, unspecified; F03.90 Unspecified dementia, unspecified severity, without behavioral disturbance, psychotic disturbance, mood disturbance, and anxiety; E87.1 Hypo-osmolality and hyponatremia; N39.0 Urinary tract infection, site not specified; D47.2 Monoclonal gammopathy; B37.49 Other urogenital candidiasis; E86.0 Dehydration; E11.9 Type 2 diabetes mellitus without complications; D63.1 Anemia in chronic kidney disease; K11.5 Sialolithiasis; Z68.22 Body mass index [BMI] 22.0-22.9, adult; F41.9 Anxiety disorder, unspecified; M81.0 Age-related osteoporosis without current pathological fracture; M19.90 Unspecified osteoarthritis, unspecified site; M40.209 Unspecified kyphosis, site unspecified; K11.20 Sialoadenitis, unspecified; Z22.322 Carrier or suspected carrier of Methicillin resistant Staphylococcus aureus; R32 Unspecified urinary incontinence; R33.9 Retention of urine, unspecified; I12.9 Hypertensive chronic kidney disease with stage 1 through stage 4 chronic kidney disease, or unspecified chronic kidney disease; N18.9 Chronic kidney disease, unspecified; R19.7 Diarrhea, unspecified
CPT/HCPCS: 36415; 70490; 71010; 76536; 76700; 77075; 80048; 80053; 81001; 81003; 82270; 82306; 82378; 82533; 82565; 82570; 82607; 82728; 82746; 82784; 82962; 83540; 83605; 83615; 83735; 84155; 84156; 84165; 84166; 84443; 84520; 84560; 85025; 85045; 85610; 85651; 85730; 86320; 86325; 87040; 87075; 87081; 87086; 93005; 93306; 96374; 96375; A4310; C9113; J0295; J0360; J0690; J0696; J1335; J1720; J1815; J2060; J2270; J2916; J3370; J3420; J3475; J3480; J7030; J7040; J7042; J7050

== ENCOUNTER 2017-03-16 13:08 | Emergency (ER) | payer MEDICARE, BC ==
[~2017-03-16] VITALS: Ht 157.5 cm; Wt 40.9 kg
[~2017-03-16 13:08] MED LIST changes: +ACET-141 PO; +AMLO5TAB4 PO; +APRS PO; +ASPI81TA3 PO; -ASPIRIN; -ATIVAN; +Accu-Chek XX; +CA CHLORIDE 10% 10 ML SYRINGE ONE; -CELEBREX; +CITR473S PO; +CLON1PAT2 TRANSDERM; +CYAN100085 PO; -CYANOCOBALAMIN; +DEXT38GE15 PO; +DOCU-159 PO; +DONE5TAB46 GTB; +EPINEPHrine 100 MCG/10 ML SYG IV ONE; +ETOMIDATE 20 MG INJ ONE; -EXFORGE; +FER325 PO; +FLUC100T PO; +FURO40SO4 GTB; -GLUCOVANCE; +LANT3I SC; -LASIX; -LIPITOR; +LOPE1LIQ69 GTB; +LORA-441 PO; +LORA2VIA3 IV; +LOSA50TA6 PO; +MAGN400T28 PO; +MAGNESIUM SULFATE 1 GM/100 ML D5W IVPB ONE; +MEMA5TAB PO; +METO-448 PO; +MULT-105 PO; +MUPI22OI2 TOP; +NA BICARBONATE 8.4% 50 ML SYG ONE; +NOVO3I SC; +NYST15PO4 TOP; +OLAN2.5T28 PO; +SODI100010 GTB; +SUCCINYLCHOLINE CHLORIDE 100 MG/5 ML SYG IV ONE; +UDFER GTB
[2017-03-16 13:10] VITALS: Ht 157.5 cm; Wt 40.9 kg
[2017-03-16] MEDS ORDERED: ACET-2047 GTB (14:13)
[2017-03-16] MEDS ORDERED: ASCO500S2 GTB (14:16)
[2017-03-16] MEDS ORDERED: ASPI81TA3 GTB (14:18)
[2017-03-16] MEDS ORDERED: LORA1TAB GTB (14:19)
[2017-03-16] MEDS ORDERED: WHEY227P GTB (14:20)
[2017-03-16] MEDS ORDERED: CATTTS1 TD (14:22)
[2017-03-16] MEDS ORDERED: LEVEM SC (14:23)
[2017-03-16] MEDS ORDERED: PANT40TA3 PO (14:25)
[2017-03-16] MEDS ORDERED: MIRT15TA5 GTB (14:26)
[2017-03-16] MEDS ORDERED: OLAN5TAB5 PO (14:26)
[2017-03-16] MEDS ORDERED: DEXT1CAP PO (14:27)
[2017-03-16] MEDS ORDERED: EPOE200014 IJ (14:29)
--- NOTE | 2017-03-16 16:27 | ERD ---
ER Documentation Chief Complaint Date/Time DATE: 03/16/17 TIME: 16:17 Chief Complaint BROUGHT IN VIA EMS DUE TO RESPIRATORY ARREST WITH CONTINUED DESATURATION HPI 76-year-old woman with multiple medical conditions brought in by EMS from alf for apnea. long-term called 911, hypotensive, and had cyanosis to the extremities. They began bag valve mask high flow oxygen support and transported here. HPI supplemented here by speaking to EMS, nursing staff, reviewing past medical history, and speaking to nurses. ROS All systems reviewed and are negative except as per history of present illness. Medications Home Meds Reported Medications Epoetin Leo (Procrit) 20,000 Unit/1 Ml Vial, 74638 UNIT IJ WEEKLY, VIAL 03/16/17 Dextromethorphan Hbr/Quinidine (NUEDEXTA 20-10 MG CAPSULE) 1 Each Capsule, 1 EACH PO BID, CAP 03/16/17 Mirtazapine* (Mirtazapine*) 15 Mg Tablet, 15 MG GTB HS, TAB 03/16/17 Olanzapine* (Zyprexa*) 5 Mg Tablet, 5 MG PO DAILY, #30 TAB 03/16/17 Pantoprazole* (Protonix*) 40 Mg Tablet.dr, 40 MG PO BID, TAB 03/16/17 Insulin Detemir (Levemir) 100 Unit/1 Ml Vial, 8 UNIT SC QHS, VIAL 03/16/17 Clonidine Patch (CATAPRES PATCH) 0.1 Mg/24 Hr Patch, 1 PATCH TD Q7D, #4 PATCH.WK 03/16/17 Whey Protein Isolate (Beneprotein) 227 Gm Powder, 227 GM GTB BID 03/16/17 Lorazepam* (Lorazepam*) 1 Mg Tablet, 1 MG GTB BID Y for ANXIETY, #30 TAB 03/16/17 Aspirin* (Aspirin* Chew) 81 Mg Tab.chew, 81 MG GTB DAILY, TAB.CHEW 03/16/17 Ascorbic Acid* (Ascorbic Acid*) 500 Mg/5 Ml Syrup, 500 MG GTB DAILY, #150 ML 03/16/17 Acetaminophen* (Acetaminophen*) 650 Mg Tablet, 650 MG GTB Q8 Y for PAIN AND OR ELEVATED TEMP, #30 TAB 03/16/17 Olanzapine* (Zyprexa*) 2.5 Mg Tablet, 2.5 MG PO QHS, #30 TAB 09/23/16 Insulin Aspart* (Novolog Insulin Pen*) 100 Unit/Ml Soln, 0 SC .SLIDING SCALE AC , EA IF BS IS LESS THAN 60, CALL MD IF 60-149=0, 150-199=1 UNITS, 200-249=2 UNITS, 250-299=3 UNITS, 300-349=4 UNITS, IF BS IS GREATER THAN 349, GIVE 5 UNITS. 09/23/16 Amlodipine Besylate* (Norvasc*) 5 Mg Tablet, 5 MG PO DAILY, TAB HOLD FOR SBP<110 DX HTN 09/23/16 Multivitamin with Minerals (Multivitamins with Minerals) 1 Each Tablet, 1 EACH PO DAILY, TAB 09/23/16 Ferrous Sulfate* (Ferrous Sulfate*) 325 Mg Tabec, 325 MG PO BID, TAB 09/23/16 Donepezil* (Aricept*) 5 Mg Tablet, 5 MG GTB QPM, TAB 09/23/16 Discontinued Reported Medications Citric Acid/Sodium Citrate (Sod Citrate-Citric Acid Soln) 473 Ml Solution, 5 ML PO BID 09/23/16 Memantine* (Namenda*) 5 Mg Tablet, 5 MG PO BID, #60 TAB 09/23/16 Magnesium Oxide* (Magnesium Oxide*) 400 Mg Tablet, 400 MG PO Q12H, TAB 09/23/16 Losartan Potassium* (Losartan Potassium*) 50 Mg Tablet, 100 MG PO DAILY, TAB HOLD FOR SBP<110DX HTN 09/23/16 Dextrose (Glucose Gel) 38 Gm Gel..gram., 38 GM PO DAILY Y for PRN FOR BS OF<70 WHILE AWAKE 09/23/16 Docusate Sodium* (Docusate Sodium*) 100 Mg Capsule, 100 MG PO BID, #60 CAP 09/23/16 Cyanocobalamin (Vitamin B-12) (B-12) 1,000 Mcg Tablet, 1000 MCG PO QAM, TAB 09/23/16 Lorazepam* (Ativan*) 0.5 Mg Tablet, 0.5 MG PO QAM Y for ANXIETY, #30 TAB 09/23/16 Acetaminophen* (Acetaminophen*) 500 MG Extra Strength Tablet, 500 MG PO Q8H Y for MILD PAIN LEVEL 1-3, TAB 09/23/16 Discontinued Scripts Sodium Chloride (Sodium Chloride) 1,000 Mg Tablet.leo, 2 GM GTB TID for 14 Days , #90 TAB Prov:PILJOHNNY CARTAGENASHAK MD 10/12/16 Nystatin* (Nystop*) 15 Gm Powder, 1 APPLIC TOP BID for 30 Days, #60 Prov:JR DEAN MD 10/12/16 Mupirocin* (Bactroban*) 2% -22 Gram Oint...g., 1 APPLIC TOP BID for 30 Days, #60 Prov:JR DEAN MD 10/12/16 Insulin Glargine* (Lantus*) 100 Unit/Ml Soln, 6 UNIT SC HS for 30 Days, #2 BOTTLE Prov:JR DEAN MD 10/12/16 Loperamide Hcl (IMODIUM LIQUID CUP) 1 Mg/5 Ml Liq, 2 MG GTB TID for 30 Days, #90 Prov:JR DEAN MD 10/12/16 Furosemide* (Lasix* Liq) 40 Mg/4 Ml Solution, 20 MG GTB DAILY for 30 Days, #30 Prov:JR DEAN MD 10/12/16 [Accu-Chek] 1 EA EA No Conflict Check, 1 EA XX 02 for 30 Days, #90 Prov:JR DEAN MD 10/12/16 Lorazepam (Lorazepam) 2 Mg/1 Ml Vial, 0.5 MG IV Q6 Y for ANXIETY for 30 Days, # 90 VIAL Prov:JR DEAN MD 10/12/16 Aspirin (Aspirin) 81 Mg Chew, 81 MG PO DAILY for 30 Days, #30 TAB Prov:JR DEAN MD 10/12/16 Metoprolol Tartrate* (Lopressor*) 25 Mg Tab, 25 MG PO BID for 30 Days, #60 TAB Prov:JR DEAN MD 10/12/16 Hydralazine Hcl* (Apresoline* Pediatric Oral) 1 Mg/Ml (Compounded) Oral Solution , 25 MG PO Q6H Y for ELEVATED BLOOD PRESSURE for 30 Days, #60 BOT Prov:JR DEAN MD 10/12/16 Clonidine Patch (CLONIDINE PATCH) 0.2 Mg/24 Hr Patch, 1 PATCH TRANSDERM Q7D for 30 Days, #10 ADH.PATCH Prov:JR DEAN MD 10/12/16 Ferrous Sulfate (Ferrous Sulfate) 300 Mg/5 Ml Liquid, 300 MG GTB BID for 30 Days , #120 BOTTLE Prov:JR DEAN MD 10/12/16 Fluconazole* (Diflucan*) 100 Mg Tablet, 100 MG PO DAILY for 14 Days, #30 TAB Prov:JR DEAN MD 10/12/16 Allergies Allergies: Coded Allergies: No Known Allergies (Verified Allergy, Mild, 03/16/17) PMhx/Soc Peripheral vascular disease, Coronary artery disease, previous kidney injury, hypertension, diabetes mellitus, dementia, bedbound state, 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, stroke History of Surgery: Yes (Hernia, appendectomy, gallbladder) Hx Cardiac Disorders: Yes (HTN, CHF, Angina) Hx Miscellaneous Medical Probl: No Hx Alcohol Use: No Hx Substance Use: No Hx Tobacco Use: No FmHx Family History: No diabetes Physical Exam Vitals Vital Signs Date Time Temp Pulse Resp B/P Pulse Ox O2 Delivery O2 Flow Rate FiO2 03/16/17 13:31 100 03/16/17 13:10 97.9 89 6 62/50 70 Physical Exam GENERAL: Elderly, chronically debilitated woman, unresponsive, afebrile HEENT: Dry mucous membranes, pale conjunctiva, no cervical spine deformity NEURO: Eyes closed, nonverbal, unresponsive CARDIAC: Tachycardic and regular, no murmurs rubs or gallops LUNGS: Crackles at the bases, apneic ABDOMEN: Soft nontender, gastrostomy tube in place, no guarding, no rigidity, no rebound, no psoas sign no obturator sign. SKIN: Pale and cool to touch, no abrasions, hematomas, or lacerations EXTREMITIES: Diffuse muscular wasting, distal pulses weak PSYCH: Unable to assess Procedures/MDM Mac 4I established IV access to the right external jugular vein, patient required intubation because she was apneic and hypotensive, just prior to intubation patient vomited and aspirated. Endotracheal Intubation by me: Pre assessment performed. See preceding note for details. Pre-oxygenation performed with 100% oxygen RSI: Performed w/o complication or hypoxic events. Medications as ordered. Blade: [Mac 4] ET Tube: 7.5 cm Depth: 22 cm at the lip Intubation confirmed by colorimetric CO2, equal breath sounds, quiet over the stomach. Advanced cardiac life support was immediately started with high-quality chest compressions, initial rhythm was ventricular fibrillation patient was defibrillated multiple times, she was also given a couple of doses of epinephrine intravenously, as well as calcium, magnesium for an episode of torsades, and sodium bicarbonate. Please refer to resuscitation log for all medications, dosages, times. Intraosseous line was also inserted to the right lower extremity. Critical Care: Time: 38 minutes, this was time separate from other billable procedures. Treatments/Evaluations: Close monitoring and treatment of unstable vital signs, cardiorespiratory, and neurologic status, while maintaining tight balance of fluid, respiratory, and cardiac interventions. Departure Diagnosis: Primary Impression: Cardiac arrest Condition: Critical KALPANA COLORADO MD Mar 16, 2017 16:27
== END 2017-03-16 17:25 | disposition expired ==
LOC: E/R 13:08
DX: I46.9 Cardiac arrest, cause unspecified (principal); I10 Essential (primary) hypertension; E11.9 Type 2 diabetes mellitus without complications; I25.10 Atherosclerotic heart disease of native coronary artery without angina pectoris; Z79.4 Long term (current) use of insulin; Z79.82 Long term (current) use of aspirin
CPT/HCPCS: 31500; 92950; 94002; 99291; J3475; J7999